=== PATIENT | female | born 1940 | race Caucasian/White ===

== ENCOUNTER 2017-03-03 01:37 | Outpatient (CLI) | payer BC ==
--- NOTE | 2017-03-03 10:22 | MMO ---
SCREENING MAMMOGRAPHY: Date: 03-03-17 Comparison: 02-27-16, 03-22-15, 03-23-14 History: Screening. This study is interpreted with the assistance of computer aided detection. FINDINGS: There are scattered fibroglandular densities present. There are benign microcalcifications noted bila terally. IMPRESSION: BIRADS 2 - benign findings. Recommend annual screening mammography. POS: [facility]
== END 2017-03-03 01:38 | disposition home or self-care (01) ==
LOC: SCSMAMMO 01:37
PROVIDERS: ATTEND Obstetrics & Gynecology
DX: Z12.31 Encounter for screening mammogram for malignant neoplasm of breast (principal)
CPT/HCPCS: 77067; G0202

== ENCOUNTER 2017-07-19 08:05 | Outpatient (CLI) | payer BC ==
[2017-07-19] MEDS ORDERED: Iopamidol 370 76% 100 ML VIAL ONE (09:27)
== END 2017-07-19 08:06 | disposition home or self-care (01) ==
LOC: BICCT 08:05
PROVIDERS: ATTEND Internal Medicine
DX: I65.29 Occlusion and stenosis of unspecified carotid artery (principal); I65.23 Occlusion and stenosis of bilateral carotid arteries; E04.9 Nontoxic goiter, unspecified
CPT/HCPCS: 70498

== ENCOUNTER 2017-12-29 09:49 | Outpatient (CLI) | payer BC ==
--- NOTE | 2017-12-29 10:21 | RAD ---
CHEST 2 VIEWS: History Hemoptysis. FINDINGS: Cardiac silhouette and pulmonary vasculature are unremarkable. Mediastinum is midline with aortic ca lcification and postoperative changes. Lungs are well inflated. No confluent airspace consolidation , pneumothorax, or pleural fluid. IMPRESSION: 1. Atherosclerosis. 2. No active cardiopulmonary abnormalities are otherwise demonstrated. POS: [facility]
== END 2017-12-29 09:50 | disposition home or self-care (01) ==
LOC: RAD 09:49
PROVIDERS: ATTEND Internal Medicine Cardiovascular Disease
DX: R04.2 Hemoptysis (principal); I70.90 Unspecified atherosclerosis
CPT/HCPCS: 36415; 71046; 80048; 85025

== ENCOUNTER 2018-04-14 08:43 | Outpatient (CLI) | payer BC | END 2018-04-14 08:44 | disposition home or self-care (01) | LOC: BICMAMMO 08:43 | PROVIDERS: ATTEND Obstetrics & Gynecology | DX: Z12.31 Encounter for screening mammogram for malignant neoplasm of breast (principal); Z80.3 Family history of malignant neoplasm of breast | CPT/HCPCS: 77063; 77067 ==

== ENCOUNTER 2018-07-29 08:47 | Outpatient (CLI) | payer BC ==
--- NOTE | 2018-07-29 09:38 | BD ---
DEXA BONE MINERAL DENSITY STUDY: HISTORY: Osteoporosis. COMPARISON: DEXA study from 2010. FINDINGS: Lumbar Spine: BMD (g/cm2) L1 0.828 T-Score: -1.5 0.7 L2 0.859 T-Score: -1.5 0.9 L3 0.960 T-Score: -1.1 1.4 L4 0.981 T-Score: -1.7 1.9 L1-L4 0.913 T-Score: -1.2 1.2 WHO classification of osteopenia. Bone mineral density is slightly decreased from 2010. Femoral Neck: 0.731 T-Score: -1.1 1.1 Total Femur: 0.931 T-Score: -0.1 1.7 WHO classification osteopenia. Bone mineral density is slightly decreased from the comparison examin ation. TEN-YEAR Fracture Risk: Major osteoporotic fracture 11% and hip fracture 1.8%. Impression: Osteopenia with fracture risk as above. POS: [facility]
== END 2018-07-29 08:48 | disposition home or self-care (01) ==
LOC: BICMAMMO 08:47
PROVIDERS: ATTEND Internal Medicine Gastroenterology
DX: M81.0 Age-related osteoporosis without current pathological fracture (principal)
CPT/HCPCS: 77080

== ENCOUNTER 2018-08-15 11:30 | Outpatient (CLI) | payer BC ==
[2018-08-15 13:00] LABS: #Eosinphils 0.1 thou/uL (0.0-0.7); #Lymphocytes 1.3 thou/uL (1.20-3.40); #Monocytes 0.6 thou/uL (0.11-0.59); #Neutrophils 4.1 thou/uL (1.40-6.50); %Basophils 0.2 % (0.0-1.0); %Eosinophils 1.1 % (0.0-10.0); %Lymphocytes 20.7 % (21.0-51.0); %Monocytes 10.5 % (0.0-10.0); %Neutrophils 67.5 % (42.0-75.0); Hemoglobin 10.8 g/dL (12.0-16.0); Mean Corpuscular HGB CONC 33.3 g/dL (32.0-36.0); Mean Corpuscular Hemoglobin 33.6 pg (27.0-31.0); Mean Platelet Volume 7.9 fL (7.4-10.4); Platelet Count 340 thou/uL (130-400); RBC Distribution Width 12.7 % (11.5-14.5); Red Blood Cell (RBC) Count 3.21 mill/uL (4.20-5.40); White Blood Cell (WBC) Count 6.1 thou/uL (4.8-10.8)
[2018-08-15 13:06] LABS: PTT 44.7 SEC (22.9-36.1); Prothrombin Time 22.9 SEC (12.0-14.7)
[2018-08-15 13:32] LABS: Anion Gap 11 mmol/L (10-20); BUN (Urea Nitrogen) 26 mg/dL (9.8-20.1); Calc. Creatinine Clearance 0 mL/min (70-130); Calcium 8.8 mg/dL (7.8-10.44); Carbon Dioxide 28 mmol/L (23-31); Chloride 96 mmol/L (98-107); Estimated GFR-MDRD 28; Glucose 80 mg/dL (83-110); Potassium 3.5 mmol/L (3.5-5.1); Sodium 131 mmol/L (136-145)
== END 2018-08-15 11:31 | disposition home or self-care (01) ==
LOC: LABBT 11:30
PROVIDERS: ATTEND Internal Medicine Cardiovascular Disease
DX: Z01.812 Encounter for preprocedural laboratory examination (principal); I48.91 Unspecified atrial fibrillation
CPT/HCPCS: 80048; 85025; 85610; 85730

== ENCOUNTER 2018-08-16 08:45 | Day surgery (SDC) | payer BC ==
[2018-08-15 11:54] VITALS: BMI 25.8
[2018-08-16] MEDS ORDERED: Glycopyrrolate 0.2 MG/ML 5 ML SYRINGE ONE (09:18)
[2018-08-16] MEDS ORDERED: PROPOFOL 20 ML ONE (09:19)
[2018-08-16] MEDS ORDERED: PROPOFOL 200 MG/20 ML VIAL ONE (15:12)
--- NOTE | 2018-08-16 16:44 | OP ---
DATE OF PROCEDURE: 08/16/18 INDICATIONS: Persistent atrial fibrillation, highly symptomatic. SURGEON: William Salter M.D. PROCEDURE: Cardioversion The patient is brought to the Recovery Room in the fasting state. She was sedated by anesthesia. She was given a 200 joule direct current energy dose and converted to sinus rhythm with PVCs. Some accele rated idioventricular rhythms, PACs and finally sinus with some PACs. CONCLUSIONS: Successful cardioversion.
== END 2018-08-16 10:52 | disposition home or self-care (01) ==
LOC: CCL 08:45
PROVIDERS: ATTEND Internal Medicine Cardiovascular Disease
PROC: 5A2204Z Restoration of Cardiac Rhythm, Single (ICD-10-PCS; principal; 2018-08-16)
DX: I48.1 Persistent atrial fibrillation (principal); I25.10 Atherosclerotic heart disease of native coronary artery without angina pectoris; I10 Essential (primary) hypertension; E78.00 Pure hypercholesterolemia, unspecified; I49.3 Ventricular premature depolarization; Z79.01 Long term (current) use of anticoagulants; Z79.2 Long term (current) use of antibiotics; Z79.899 Other long term (current) drug therapy; Z88.8 Allergy status to other drugs, medicaments and biological substances; Z91.048 Other nonmedicinal substance allergy status; Z95.1 Presence of aortocoronary bypass graft; Z98.890 Other specified postprocedural states
CPT/HCPCS: 92960; J2704

== ENCOUNTER 2018-12-30 06:37 | Day surgery (SDC) | payer BC ==
[2018-12-29 13:26] VITALS: BMI 25.3
[2018-12-30 07:43] LABS: #Basophils 0.1 thou/uL (0.0-0.2); #Eosinphils 0.1 thou/uL (0.0-0.7); #Lymphocytes 1.1 thou/uL (1.20-3.40); #Monocytes 0.6 thou/uL (0.11-0.59); #Neutrophils 3.6 thou/uL (1.40-6.50); %Basophils 1.2 % (0.0-1.0); %Eosinophils 1.1 % (0.0-10.0); %Lymphocytes 20.3 % (21.0-51.0); %Monocytes 11.1 % (0.0-10.0); %Neutrophils 66.3 % (42.0-75.0); Hemoglobin 10.6 g/dL (12.0-16.0); Mean Corpuscular HGB CONC 34.2 g/dL (32.0-36.0); Mean Corpuscular Hemoglobin 34.3 pg (27.0-31.0); Mean Platelet Volume 7.5 fL (7.4-10.4); Platelet Count 278 thou/uL (130-400); RBC Distribution Width 12.8 % (11.5-14.5); Red Blood Cell (RBC) Count 3.08 mill/uL (4.20-5.40); White Blood Cell (WBC) Count 5.4 thou/uL (4.8-10.8)
[2018-12-30 07:48] LABS: INR-International Normal Ratio 1.6; Prothrombin Time 19.2 SEC (12.0-14.7)
[2018-12-30 07:49] LABS: PTT 38.3 SEC (22.9-36.1)
[2018-12-30 08:09] LABS: Anion Gap 10 mmol/L (10-20); BUN (Urea Nitrogen) 12 mg/dL (9.8-20.1); Calc. Creatinine Clearance 52 mL/min (70-130); Calcium 9.1 mg/dL (7.8-10.44); Carbon Dioxide 29 mmol/L (23-31); Chloride 98 mmol/L (98-107); Estimated GFR-MDRD 50; Glucose 93 mg/dL (83-110); Potassium 3.3 mmol/L (3.5-5.1); Sodium 134 mmol/L (136-145)
--- NOTE | 2018-12-30 14:54 | OP ---
DATE OF PROCEDURE: 12/30/2018 INDICATION FOR PROCEDURE: Persistent atypical atrial flutter. PROCEDURE TO BE PERFORMED: Direct current cardioversion. MEDICATIONS: As per Anesthesia. COMPLICATIONS: None. DESCRIPTION OF PROCEDURE: After informed consent was obtained and the patient confirmed that she has been on oral anticoagulation without restriction. She has a history of left atrial appendage isolation. The patient was sedated, anteroposterior pads were placed. Once sedated, a synchronized 200 Joules delivery was provided restoring her back to sinus mechanism. IMPRESSION: Successful cardioversion to sinus mechanism. RECOMMENDATION: The importance of staying on Eliquis and oral anticoagulation in the setting of left atrial appendage, isolation was discussed at length with the patient and family. We will plan on seeing her back in followup in 4 weeks. PRINCIPAL DIAGNOSIS: Atypical atrial flutter. PRINCIPAL PROCEDURE: Direct current cardioversion. Job ID: [id number]
--- NOTE | 2018-12-30 16:55 | EKG ---
Test Reason : VT-CARDIOVERSION Blood Pressure : / mmHG Vent. Rate : 099 BPM Atrial Rate : 227 BPM P-R Int : 000 ms QRS Dur : 086 ms QT Int : 356 ms P-R-T Axes : 000 -37 -12 degrees QTc Int : 456 ms Atrial flutter with variable A-V block Left axis deviation Nonspecific ST abnormality Abnormal ECG When compared with ECG of 06-FEB-2016 13:25, Atrial flutter has replaced Sinus rhythm Confirmed by DR. Dyana PATEL ([id number]) on 12/30/2018 4:54:56 PM Referred By: WILMA Confirmed By:DR. Dyana PATEL
--- NOTE | 2018-12-31 07:53 | DIS ---
DATE OF ADMISSION: 12/30/2018 DATE OF DISCHARGE: 12/30/2018 HISTORY OF PRESENT ILLNESS: Ms. Bedolla is a pleasant 78-year-old lady, who has had 2 times of ablation now for atrial fibrillation, she presents in an atypical atrial flutter and comes in for cardioversion today. She reports that she is on adequate and diligent oral anticoagulation with Eliquis. She was consented and a synchronized 200 joules cardioversion was performed restoring her back to sinus mechanism. PRINCIPAL DIAGNOSIS: Atypical atrial flutter. PRINCIPAL PROCEDURE: Direct current cardioversion. RECOMMENDATIONS: The patient will be discharged home in good condition. Advised to follow a heart healthy diet. Activity otherwise as directed and will follow up in 4 weeks. She will maintain her current medications including her Eliquis. Activity as tolerated. Job ID: [id number]
== END 2018-12-30 09:30 | disposition home or self-care (01) ==
LOC: CCL 06:37
PROVIDERS: ATTEND Internal Medicine Cardiovascular Disease
PROC: 5A2204Z Restoration of Cardiac Rhythm, Single (ICD-10-PCS; principal; 2018-12-30)
DX: I48.4 Atypical atrial flutter (principal); I25.10 Atherosclerotic heart disease of native coronary artery without angina pectoris; I10 Essential (primary) hypertension; Z79.01 Long term (current) use of anticoagulants; Z79.82 Long term (current) use of aspirin; Z79.899 Other long term (current) drug therapy; Z88.1 Allergy status to other antibiotic agents; Z91.048 Other nonmedicinal substance allergy status; Z95.1 Presence of aortocoronary bypass graft
CPT/HCPCS: 80048; 85025; 85610; 85730; 92960; 93005; 93010

== ENCOUNTER 2019-05-25 05:56 | Day surgery (SDC) | payer MEDICARE ==
[2019-05-19 08:51] VITALS: BMI 25.0
[2019-05-25] MEDS ORDERED: PROPOFOL 20 ML ONE ×2 (07:15→07:48)
[2019-05-25] MEDS ORDERED: Ketamine 50 MG/ML (10ML VIAL) ONE (07:15)
[2019-05-25 07:43] LABS: Hemoglobin 10.6 g/dL (12.0-16.0); Red Blood Cell (RBC) Count 3.12 mill/uL (4.20-5.40)
[2019-05-25 07:46] LABS: INR-International Normal Ratio 1.7; PTT 35.4 SEC (22.9-36.1); Prothrombin Time 19.5 SEC (12.0-14.7)
[2019-05-25 07:58] LABS: Anion Gap 13 mmol/L (10-20); BUN (Urea Nitrogen) 18 mg/dL (9.8-20.1); Calc. Creatinine Clearance 49 mL/min (70-130); Carbon Dioxide 29 mmol/L (23-31); Chloride 101 mmol/L (98-107); Estimated GFR-MDRD 47; Glucose 99 mg/dL (83-110); Potassium 3.5 mmol/L (3.5-5.1); Sodium 139 mmol/L (136-145)
[2019-05-25 08:01] LABS: #Basophils 0.1 thou/uL (0.0-0.2); #Eosinphils 0.1 thou/uL (0.0-0.7); #Lymphocytes 1.4 thou/uL (1.20-3.40); #Monocytes 0.9 thou/uL (0.11-0.59); #Neutrophils 4.6 thou/uL (1.40-6.50); %Basophils 1.2 % (0.0-1.0); %Eosinophils 1.1 % (0.0-10.0); %Lymphocytes 20.4 % (21.0-51.0); %Monocytes 12.2 % (0.0-10.0); %Neutrophils 65.1 % (42.0-75.0); Anisocytosis SLIGHT = 6-15 cells (100X) (0-5/hpf); MDiff Complete? YES; Macrocytosis SLIGHT = 6-15 cells (100X) (0-5/hpf); Mean Corpuscular HGB CONC 31.9 g/dL (32.0-36.0); Mean Corpuscular Hemoglobin 33.8 pg (27.0-31.0); Mean Platelet Volume 8.3 fL (7.4-10.4); Platelet Count 260 thou/uL (130-400); Poikilocytosis SLIGHT = 6-15 cells (100X) (0-5/hpf); RBC Distribution Width 12.9 % (11.5-14.5)
--- NOTE | 2019-05-25 20:36 | ECHO ---
DATE OF SERVICE: 05/25/19 REFERRING PHYSICIAN: Dr. William Salter; Dr. Basurto REASON FOR PROCEDURE: The patient is a 78-year-old female with prior history of atrial fibrillation and ablations in the past who has had a Watchman device placed about six weeks ago. She is here for a ESTRELLITA six weeks post Watchman device placement. PROCEDURE: The patient received Propofol by Anesthesia specialist. After adequate level of sedation achieved, a standard transesophageal echocardiogram probe was passed into the esophagus without difficulty. Patient tolerated the procedure well, no complications noted. RESULTS: Left atrium is moderately enlarged about 5.2 cm in horizontal diameter. The left atrial appendage well visualized with adequately seated Watchman device in place. Suboptimal opacification in the left atrial appendage behind the Watchman device is noted. Color flow Doppler reveals flow through the mesh work of the device. Possible small leak adjacent to the ridge is also seen. Two left sided pulmonary veins early trifurcated right sided pulmonary veins are seen without stenosis. The mitral valve has mild regurgitation. Aortic valve is sclerotic but not stenotic and not regurgitant. Tricuspid valve has moderate regurgitation. Peak TR velocity is about 2.5 m/s. The pulmonary valve is borderline visualized and appears to be normal. Left ventricular systolic function appears normal with normal chamber sizes, mild LVH. The right ventricle also has mild hypertrophy. No pericardial effusion is identified. The visualized portion of ascending and descending aorta without aneurysm or dissection. Adherent atheroma seen in the descending portion of the aorta. Interatrial and interventricular septum is free of defect. CONCLUSION: 1. Adequately seated but suboptimally sealed Watchman device in place. 2. Moderate left atrial enlargement. 3. Normal left ventricular systolic function. 4. Moderate tricuspid and mild mitral regurgitation seen. 5. Aortic atheroma noted. PLAN: For now continue oral anticoagulation. We will send CDs for review to [facility]. ADDENDUM: Patient is in 2:1 atrial flutter but 8 to 10 beats per minute. For now continue beta thalia therapy and consider cardioversion at a later date. [facility] HEALTH SYSTEMAgustín
== END 2019-05-25 09:44 | disposition home or self-care (01) ==
LOC: CCL 05:56
PROVIDERS: ATTEND Internal Medicine Cardiovascular Disease
PROC: B24BZZ4 Ultrasonography of Heart with Aorta, Transesophageal (ICD-10-PCS; principal; 2019-05-25)
DX: I48.91 Unspecified atrial fibrillation (principal); I08.1 Rheumatic disorders of both mitral and tricuspid valves; I70.0 Atherosclerosis of aorta; I48.92 Unspecified atrial flutter; Z79.01 Long term (current) use of anticoagulants; Z79.82 Long term (current) use of aspirin; Z79.899 Other long term (current) drug therapy; Z88.8 Allergy status to other drugs, medicaments and biological substances; Z91.048 Other nonmedicinal substance allergy status; Z95.1 Presence of aortocoronary bypass graft; Z95.818 Presence of other cardiac implants and grafts; Z98.890 Other specified postprocedural states
CPT/HCPCS: 36415; 80048; 85025; 85610; 85730; 93005; 93010; 93312; J2704

== ENCOUNTER 2019-06-07 07:56 | Day surgery (SDC) | payer MEDICARE ==
[2019-06-06 10:26] VITALS: BMI 25.7
[2019-06-07 08:39] LABS: #Eosinphils 0.1 thou/uL (0.0-0.7); #Lymphocytes 1.2 thou/uL (1.20-3.40); #Monocytes 0.9 thou/uL (0.11-0.59); #Neutrophils 6.7 thou/uL (1.40-6.50); %Basophils 0.3 % (0.0-1.0); %Eosinophils 0.6 % (0.0-10.0); %Lymphocytes 13.7 % (21.0-51.0); %Monocytes 9.6 % (0.0-10.0); %Neutrophils 75.8 % (42.0-75.0); Hemoglobin 9.7 g/dL (12.0-16.0); Mean Corpuscular HGB CONC 33.8 g/dL (32.0-36.0); Mean Corpuscular Hemoglobin 35.1 pg (27.0-31.0); Mean Platelet Volume 8.4 fL (7.4-10.4); Platelet Count 327 thou/uL (130-400); RBC Distribution Width 12.9 % (11.5-14.5); Red Blood Cell (RBC) Count 2.76 mill/uL (4.20-5.40); White Blood Cell (WBC) Count 8.9 thou/uL (4.8-10.8)
[2019-06-07 08:45] LABS: INR-International Normal Ratio 2.2; PTT 45.4 SEC (22.9-36.1); Prothrombin Time 24.3 SEC (12.0-14.7)
[2019-06-07 08:51] LABS: Anion Gap 15 mmol/L (10-20); BUN (Urea Nitrogen) 21 mg/dL (9.8-20.1); Calc. Creatinine Clearance 38 mL/min (70-130); Calcium 9.2 mg/dL (7.8-10.44); Carbon Dioxide 28 mmol/L (23-31); Chloride 100 mmol/L (98-107); Estimated GFR-MDRD 34; Glucose 107 mg/dL (83-110); Potassium 3.8 mmol/L (3.5-5.1); Sodium 139 mmol/L (136-145)
[2019-06-07] MEDS ORDERED: PROPOFOL 20 ML ONE (09:51)
--- NOTE | 2019-06-07 12:13 | OP ---
DATE OF PROCEDURE: 06/07/2019 PROCEDURE PERFORMED: Electrical cardioversion. REASON FOR PROCEDURE: Ms. Bedolla is a 78-year-old female with history of persistent atrial fibrillation, post ablation of appendage, watchman procedure performed with a minor leak subsequently. She is on full anticoagulation, has recurrent atrial arrhythmias. She is here for a cardioversion. DESCRIPTION OF PROCEDURE: The patient received propofol by Anesthesia specialist. After adequate level of sedation achieved, a synchronized 70-joule shock promptly converted the patient back to sinus rhythm with frequent ectopy in the 90s. CONCLUSION: Successful cardioversion. PLAN: Continue with anticoagulation. We will consider repeat ESTRELLITA in about 3 months to recheck the leak around the watchman device. Consider antiarrhythmic agents or re-ablation if recurrent symptomatic atrial fibrillation is seen. Job ID: [id number]
--- NOTE | 2019-06-08 12:27 | EKG ---
Test Reason : PRE-CARDIOVERSION Blood Pressure : / mmHG Vent. Rate : 116 BPM Atrial Rate : 108 BPM P-R Int : 000 ms QRS Dur : 086 ms QT Int : 304 ms P-R-T Axes : 000 -40 096 degrees QTc Int : 422 ms Atrial fibrillation with rapid ventricular response Left axis deviation Nonspecific ST and T wave abnormality Abnormal ECG Confirmed by JOSE ANDERSON ([id number]) on 06/08/2019 12:26:52 PM Referred By: MOUSTAPHA Confirmed By:JOSE ANDERSON
== END 2019-06-07 11:26 | disposition home or self-care (01) ==
LOC: CCL 07:56
PROVIDERS: ATTEND Internal Medicine Cardiovascular Disease
PROC: 5A2204Z Restoration of Cardiac Rhythm, Single (ICD-10-PCS; principal; 2019-06-07)
DX: I48.19 Other persistent atrial fibrillation (principal); D69.6 Thrombocytopenia, unspecified; I25.10 Atherosclerotic heart disease of native coronary artery without angina pectoris; I10 Essential (primary) hypertension; G47.30 Sleep apnea, unspecified; Z79.01 Long term (current) use of anticoagulants; Z79.82 Long term (current) use of aspirin; Z79.899 Other long term (current) drug therapy; Z88.8 Allergy status to other drugs, medicaments and biological substances; Z91.048 Other nonmedicinal substance allergy status; Z95.1 Presence of aortocoronary bypass graft; Z95.818 Presence of other cardiac implants and grafts
CPT/HCPCS: 80048; 85025; 85610; 85730; 92960; 93005; 93010; J2704

== ENCOUNTER 2019-09-29 09:24 | Outpatient (CLI) | payer MEDICARE ==
[2019-09-29] MEDS ORDERED: Iopamidol-370 76% 500 ML 1 ML ONE (09:27)
--- NOTE | 2019-09-29 14:59 | CT ---
CTA OF THE CHEST WITH CONTRAST: 09/29/19 COMPARISON: None. HISTORY: Watchman occlusive device placed March 2019. Evaluate for thrombosis of the left atrial appendage. TECHNIQUE: Multiple contiguous axial images were obtained in a CTA of the chest with contrast. Sagittal and brittanie nal reformats were performed. FINDINGS: There is adequate timing of the contrast bolus. Global cardiomegaly is seen. Calcifications are seen in the coronary arteries. There is an atrial occlusive device in the left atrial appendage. There melissa ears to be contrast within the atrial appendage opposite of the left atrium from the occlusive device consistent with incomplete occlusion of the left atrial appendage. There are trace bilateral pleural effusions with adjacent atelectasis. Emphysematous changes are seen throughout the lungs. No suspicious pulmonary mass is seen. Degenerative changes are seen in the spine. The patient is status post sternotomy. The chest wall sof t tissues are unremarkable. There is a hypodensity in the right kidney which likely represents a cyst . There is mild splenomegaly. The other visualized subdiaphragmatic structures are unremarkable. IMPRESSION: 1. Incomplete occlusion of the atrial appendage by the Watchman atrial occlusive device. 2. Trace bilateral pleural effusions with adjacent atelectasis. 3. Emphysema. POS: [facility]
== END 2019-09-29 09:25 | disposition home or self-care (01) ==
LOC: BICCT 09:24
PROVIDERS: ATTEND Internal Medicine Cardiovascular Disease
DX: I48.91 Unspecified atrial fibrillation (principal); R06.02 Shortness of breath; J43.9 Emphysema, unspecified; I25.10 Atherosclerotic heart disease of native coronary artery without angina pectoris
CPT/HCPCS: 71275; 82565; Q9967

== ENCOUNTER 2019-10-18 15:15 | Outpatient (CLI) | payer MEDICARE ==
--- NOTE | 2019-10-18 15:41 | RAD ---
EXAM: Two views chest PROVIDED CLINICAL HISTORY: Hemoptysis. COMPARISON: 12/29/2017 FINDINGS: Median sternotomy wires are again seen. A watchman occlusion device overlies region of the left atria l appendage. The cardiac silhouette is mildly enlarged. The pulmonary vasculature is within normal limits. No consolidation or pleural fluid is seen. Vascular calcifications are seen in the thoracic a katt. There has been no interval change compared to prior exam. IMPRESSION: 1. No acute cardiopulmonary process. 2. Cardiomegaly..
== END 2019-10-18 15:16 | disposition home or self-care (01) ==
LOC: BICRAD 15:15
PROVIDERS: ATTEND Internal Medicine Cardiovascular Disease
DX: R04.2 Hemoptysis (principal); I51.7 Cardiomegaly
CPT/HCPCS: 71046

== ENCOUNTER 2019-10-24 12:19 | Outpatient (CLI) | payer MEDICARE, OTHER ==
[2019-10-24 14:12] LABS: #Lymphocytes 0.9 thou/uL (1.20-3.40); #Monocytes 0.5 thou/uL (0.11-0.59); #Neutrophils 3.8 thou/uL (1.40-6.50); %Basophils 0.3 % (0.0-1.0); %Eosinophils 0.5 % (0.0-10.0); %Lymphocytes 17.4 % (21.0-51.0); %Neutrophils 71.8 % (42.0-75.0); Hemoglobin 8.5 g/dL (12.0-16.0); Mean Corpuscular HGB CONC 32.3 g/dL (32.0-36.0); Mean Corpuscular Hemoglobin 31.1 pg (27.0-31.0); Mean Platelet Volume 8.9 fL (7.4-10.4); Platelet Count 212 thou/uL (130-400); RBC Distribution Width 14.9 % (11.5-14.5); Red Blood Cell (RBC) Count 2.74 mill/uL (4.20-5.40); White Blood Cell (WBC) Count 5.3 thou/uL (4.8-10.8)
[2019-10-24 14:33] LABS: Anion Gap 12 mmol/L (10-20); BUN (Urea Nitrogen) 20 mg/dL (9.8-20.1); Calc. Creatinine Clearance 0 mL/min (70-130); Calcium 8.8 mg/dL (7.8-10.44); Carbon Dioxide 29 mmol/L (23-31); Chloride 101 mmol/L (98-107); Estimated GFR-MDRD 36; Glucose 106 mg/dL (83-110); Potassium 4.1 mmol/L (3.5-5.1); Sodium 138 mmol/L (136-145)
[2019-10-25 12:50] LABS: SARS-CoV-2 MS2 Positive; SARS-CoV-2 N Gene Negative; SARS-CoV-2 S Gene Negative; SARS-CoV-2 orf1ab Negative
== END 2019-10-24 12:20 | disposition home or self-care (01) ==
LOC: LABBT 12:19
PROVIDERS: ATTEND Internal Medicine Cardiovascular Disease
DX: Z01.812 Encounter for preprocedural laboratory examination (principal); Z11.59 Encounter for screening for other viral diseases
CPT/HCPCS: 80048; 85025; U0003; 87635

== ENCOUNTER 2019-10-27 06:04 | Day surgery (SDC) | payer MEDICARE ==
[2019-10-26 09:37] VITALS: BMI 24.7
[2019-10-27] MEDS ORDERED: Lidocaine 1% (PF) 30 ML VIAL ONE (06:38)
[2019-10-27] MEDS ORDERED: PROPOFOL 20 ML ONE (07:25)
[2019-10-27] MEDS ORDERED: Iron, Sodium Ferric Gluconate 250 MG in Sodium Chloride 0.9% 100 ML IVPB SCH (07:45)
[2019-10-27] MEDS ORDERED: Potassium Chloride 20 MEQ TAB PO SCH (08:00)
[2019-10-27] MEDS ORDERED: Furosemide 20 MG/2 ML VIAL SLOW IVP SCH (08:00)
[2019-10-27] MEDS ORDERED: Furosemide 20 MG/2 ML VIAL ONE (08:12)
--- NOTE | 2019-10-28 16:37 | CCLSPC ---
PROCEDURE: Cardioversion. Patient is brought to the post cath area in the fasting state. She was difficult to get IV access, but with some diligence and perseverance, the Anesthesia was able to establish an intravenous line. The patient was given sedation and given 200 joules direct current energy. She had transient wide-complex rhythm for a few seconds, then frequent PVCs, now sinus rhythm. The wide-complex rhythm looks like an accelerated idioventricular rhythm. CONCLUSION: 1. Persistent atrial fibrillation. 2. Successful cardioversion. 3. The patient is also iron deficient and has a very great difficulty getting IV access, so we will give her a dose of intravenous iron here today and we are going to take her off the aspirin and leave her on the Eliquis. Job ID: [id number]
== END 2019-10-27 10:13 | disposition home or self-care (01) ==
LOC: CCL 06:04
PROVIDERS: ATTEND Internal Medicine Cardiovascular Disease
PROC: 5A2204Z Restoration of Cardiac Rhythm, Single (ICD-10-PCS; principal; 2019-10-27)
DX: I48.0 Paroxysmal atrial fibrillation (principal); D50.8 Other iron deficiency anemias; I25.10 Atherosclerotic heart disease of native coronary artery without angina pectoris; I11.0 Hypertensive heart disease with heart failure; I50.32 Chronic diastolic (congestive) heart failure; C94.6 Myelodysplastic disease, not elsewhere classified; E78.00 Pure hypercholesterolemia, unspecified; N28.9 Disorder of kidney and ureter, unspecified; E87.1 Hypo-osmolality and hyponatremia; I49.3 Ventricular premature depolarization; E87.6 Hypokalemia; I34.0 Nonrheumatic mitral (valve) insufficiency; Z79.01 Long term (current) use of anticoagulants; Z79.82 Long term (current) use of aspirin; Z79.899 Other long term (current) drug therapy; Z88.1 Allergy status to other antibiotic agents; Z91.048 Other nonmedicinal substance allergy status; Z95.1 Presence of aortocoronary bypass graft
CPT/HCPCS: 92960; 93005; 93010; J1940; J2001; J2704; J2916; J3490

== ENCOUNTER 2019-10-28 01:28 | Emergency (ER) | payer MEDICARE ==
[2019-10-28 02:11] LABS: #Lymphocytes 1.1 thou/uL (1.20-3.40); #Monocytes 0.7 thou/uL (0.11-0.59); %Basophils 0.2 % (0.0-1.0); %Eosinophils 0.5 % (0.0-10.0); %Lymphocytes 13.7 % (21.0-51.0); %Monocytes 9.3 % (0.0-10.0); %Neutrophils 76.3 % (42.0-75.0); Hemoglobin 9.1 g/dL (12.0-16.0); Mean Corpuscular Hemoglobin 31.2 pg (27.0-31.0); Mean Corpuscular Volume 94.4 fL (78.0-98.0); Mean Platelet Volume 9.6 fL (7.4-10.4); Platelet Count 259 thou/uL (130-400); White Blood Cell (WBC) Count 7.9 thou/uL (4.8-10.8)
[2019-10-28 02:36] LABS: ALT (SGPT) 18 U/L (8-55); AST (SGOT) 29 U/L (5-34); Alkaline Phosphatase 66 U/L (40-110); Anion Gap 17 mmol/L (10-20); BUN (Urea Nitrogen) 24 mg/dL (9.8-20.1); Bilirubin, Total 1.2 mg/dL (0.2-1.2); CK (CPK) 71 U/L (29-168); Calc. Creatinine Clearance 0 mL/min (70-130); Calcium 9.2 mg/dL (7.8-10.44); Carbon Dioxide 24 mmol/L (23-31); Chloride 99 mmol/L (98-107); Estimated GFR-MDRD 27; Globulin 2.5 g/dL (2.4-3.5); Glucose 159 mg/dL (83-110); Potassium 4.5 mmol/L (3.5-5.1); Protein, Total 6.5 g/dL (6.0-8.3); Sodium 135 mmol/L (136-145)
[2019-10-28 03:01] LABS: Bilirubin Small (Negative); Blood, Urine Trace (Negative); Clarity Slightly Cloudy (Clear); Glucose, Urine (Dipstick) Negative (Negative); Ketone, Urine Trace mg/dL (Negative); Leukocyte Negative (Negative); Nitrite Negative (Negative); Protein, Urine (Dipstick) Trace mg/dL (Neg-Trace)
[2019-10-28 03:02] LABS: Bacteria/HPF None Seen HPF (None Seen); Other Microscopic Description Less than 2 mL rec'd; RBC/HPF 0-3 HPF (0-3); WBC/HPF 0-3 HPF (0-3)
--- NOTE | 2019-10-28 08:19 | RAD ---
RADIOGRAPH CHEST 1 VIEW: DATE: 10/28/2019 TIME: 2:15 AM HISTORY: 79-year-old female with dyspnea and atrial fibrillation. COMPARISON: 10/18/2019 FINDINGS: Small bilateral pleural effusions appear larger on the current study compared to prior. Cardiomegaly is again noted. Pulmonary venous congestion. Interstitial densities at the lower lung thomson appear worse, perhaps due to shallow inspiration, or alternatively perhaps representing pulmonary interstiti al edema. No pneumothorax. Sternotomy wires. IMPRESSION: Apparent interval worsening of small pleural effusions and possible pulmonary interstitial edema: Alta dence for congestive heart failure
== END 2019-10-28 03:17 | disposition home or self-care (01) ==
LOC: ERS 01:28
DX: I11.0 Hypertensive heart disease with heart failure (principal); I50.9 Heart failure, unspecified; R06.00 Dyspnea, unspecified; I48.91 Unspecified atrial fibrillation
CPT/HCPCS: 36415; 71045; 80053; 81003; 81015; 82550; 83880; 84484; 85025; 93005

== ENCOUNTER 2019-12-27 23:40 | Inpatient (IN) | payer MEDICARE, OTHER ==
[2019-12-28 00:28] LABS: #Eosinphils 0.1 thou/uL (0.0-0.7); #Monocytes 0.7 thou/uL (0.11-0.59); #Neutrophils 5.5 thou/uL (1.40-6.50); %Basophils 0.5 % (0.0-1.0); %Eosinophils 0.7 % (0.0-10.0); %Lymphocytes 13.2 % (21.0-51.0); %Neutrophils 75.6 % (42.0-75.0); Hemoglobin 9.3 g/dL (12.0-16.0); Mean Corpuscular HGB CONC 32.2 g/dL (32.0-36.0); Mean Corpuscular Hemoglobin 33.2 pg (27.0-31.0); Mean Platelet Volume 8.9 fL (7.4-10.4); Platelet Count 265 thou/uL (130-400); RBC Distribution Width 18.1 % (11.5-14.5); White Blood Cell (WBC) Count 7.2 thou/uL (4.8-10.8)
--- NOTE | 2019-12-28 00:36 | RAD ---
RADIOGRAPH CHEST 1 VIEW: DATE: 12/28/2019 12:22 AM HISTORY: 79-year-old female with atrial fibrillation presents with acute chest pain FINDINGS: There are no airspace densities, pulmonary edema, pneumothorax, or cardiomegaly. The lateral costophr enic angles are bilaterally blunted. There are sternotomy wires. Metallic coils in left atrial appendage. IMPRESSION: 1. Small bilateral pleural effusions. 2. Status post coronary artery bypass graft surgery. 3. Status post left atrial closure procedure.
[2019-12-28 00:50] LABS: ALT (SGPT) 17 U/L (8-55); AST (SGOT) 22 U/L (5-34); Albumin 3.5 g/dL (3.4-4.8); Alkaline Phosphatase 52 U/L (40-110); Anion Gap 16 mmol/L (10-20); BUN (Urea Nitrogen) 38 mg/dL (9.8-20.1); Bilirubin, Total 0.5 mg/dL (0.2-1.2); Calc. Creatinine Clearance 0 mL/min (70-130); Calcium 8.7 mg/dL (7.8-10.44); Carbon Dioxide 22 mmol/L (23-31); Chloride 103 mmol/L (98-107); Estimated GFR-MDRD 25; Globulin 2.3 g/dL (2.4-3.5); Glucose 136 mg/dL (83-110); Magnesium 1.7 mg/dL (1.6-2.6); Potassium 4.2 mmol/L (3.5-5.1); Protein, Total 5.8 g/dL (6.0-8.3); Sodium 137 mmol/L (136-145)
[2019-12-28] MEDS ORDERED: Aspirin Chewable 81 MG TAB ONE (01:26)
[2019-12-28] MEDS ORDERED: Torsemide 20 MG TAB PO SCH (01:45)
[2019-12-28] MEDS ORDERED: Haloperidol Lactate 5 MG/ML VIAL ONE (01:45)
[2019-12-28] MEDS ORDERED: Furosemide 40 MG/4 ML VIAL ONE (01:53)
[2019-12-28] MEDS ORDERED: Lorazepam 2 MG/ML VIAL ONE ×2 (01:54→03:04)
[2019-12-28 05:23] VITALS: BMI 26.6
[2019-12-28 05:51] LABS: Critical Call Chem Troponin I RESULT DECREASING; Troponin I 0.544 ng/mL (< 0.028)
--- NOTE | 2019-12-28 06:03 | PDOC.HHP ---
Hospitalist HPI - History of Present Illness Shortness of breath History of Present Illness: Patient is a 79 year old female with PMH afib w/ ablation earlier this month and watchman, CHF diastolic, CAD s/p CABG, myeloproliferative disorder, HTN, HLD who presents from home for shortness of breath x 1 day, patient was at home and developed symptoms and daughter brought to ED, here afib RVR found w/ HR 170s, got cardizem 20mg IV and converted back to sinus.BPs marginal 90/50 afterwards. TnI 0.559. Given ASA/torsemide, EKG without acute changes, I was consulted for admission. Patient sees Dr Katz, last echo was a ESTRELLITA, normal systolic function w/ watchman device in place, moderate tricuspid and mitral regurgitation. Patient reports she has pedal edema worse than normal, given ASA/lasix, admitted for further care. Hospitalist ROS - Review of Systems Constitutional: reports: weakness. denies: fever, chills, sweats, malaise, other Eyes: denies: pain, vision change, conjunctivae inflammation, eyelid inflammation, redness, other ENT: denies: ear pain, ear discharge, nose pain, nose discharge, nose congestion , mouth pain, mouth swelling, throat pain, throat swelling, other Respiratory: reports: shortness of breath. denies: cough, dry, hemoptysis, SOB with excertion, pleuritic pain, sputum, wheezing, other Cardiovascular: denies: chest pain, palpitations, orthopnea, paroxysmal noc. dyspnea, edema, light headedness, other Gastrointestinal: denies: nausea, vomiting, abdominal pain, diarrhea, constipation, melena, hematochezia, other Genitourinary: denies: dysuria, frequency, incontinence, hematuria, retention, other Musculoskeletal: denies: neck pain, shoulder pain, arm pain, back pain, hand pain, leg pain, foot pain, other Skin: denies: rash, lesions, nelly, bruising, other Neurological: denies: weakness, numbness, incoordination, change in speech, confusion, seizures, other All other systems reviewed; all pertinent +/- noted in HPI/Subj Hospitalist History - Past Medical History Other Medical History: afib w/ ablation earlier this month and watchman, CHF diastolic, CAD s/p CABG, myeloproliferative disorder, HTN, HLD - Past Surgical History Past Surgical History: reports: CABG Other Surgical History: cabg, afib w/ ablations, watchman, cardioversions. tubal ligation, - Family History Family History: reports: no pertinent history - Social History Alcohol: reports: None Drugs: reports: none - Exam General Appearance: NAD, awake alert Eye: PERRL, anicteric sclera ENT: normocephalic atraumatic, no oropharyngeal lesions, moist mucosa Neck: supple, symmetric, no JVD, no thyromegaly, no lymphadenopathy, no carotid bruit Heart: RRR, no murmur, no gallops, no rubs, normal peripheral pulses Respiratory: CTAB, no wheezes, no rales, no ronchi, normal chest expansion, no tachypnea, normal percussion Gastrointestinal: soft, non-tender, non-distended, normal bowel sounds, no palpable masses, no hepatomegaly, no splenomegaly, no bruit Extremities: no cyanosis, no clubbing, no edema Skin: normal turgor, no lesions, no rashes Neurological: cranial nerve grossly intact, normal sensation to touch, no weakness, no focal deficits, no new deficit Musculoskeletal: normal tone, normal strength, no muscle wasting Psychiatric: normal affect, normal behavior, A&O x 3 Hospitalist Results - Labs Result Diagrams: 12/28/19 00:21 12/28/19 00:21 Lab results: WBC 7.2 thou/uL (4.8-10.8) 12/28/19 00:21 Hgb 9.3 g/dL (12.0-16.0) L 12/28/19 00:21 Hct 28.8 % (36.0-47.0) L 12/28/19 00:21 MCV 103.0 fL (78.0-98.0) H 12/28/19 00:21 Plt Count 265 thou/uL (130-400) 12/28/19 00:21 Neutrophils % 75.6 % (42.0-75.0) H 12/28/19 00:21 Sodium 137 mmol/L (136-145) 12/28/19 00:21 Potassium 4.2 mmol/L (3.5-5.1) 12/28/19 00:21 Chloride 103 mmol/L (98-107) 12/28/19 00:21 Carbon Dioxide 22 mmol/L (23-31) L 12/28/19 00:21 BUN 38 mg/dL (9.8-20.1) H 12/28/19 00:21 Creatinine 1.91 mg/dL (0.6-1.1) H 12/28/19 00:21 Glucose 136 mg/dL (83-110) H 12/28/19 00:21 Calcium 8.7 mg/dL (7.8-10.44) 12/28/19 00:21 Total Bilirubin 0.5 mg/dL (0.2-1.2) 12/28/19 00:21 AST 22 U/L (5-34) 12/28/19 00:21 ALT 17 U/L (8-55) 12/28/19 00:21 Alkaline Phosphatase 52 U/L (40-110) 12/28/19 00:21 CK-MB (CK-2) 2.0 ng/mL (0-6.6) 12/28/19 00:21 Troponin I 0.544 ng/mL (< 0.028) H* 12/28/19 05:00 B-Natriuretic Peptide 1134.3 pg/mL (0-100) H 12/28/19 00:21 Serum Total Protein 5.8 g/dL (6.0-8.3) L 12/28/19 00:21 Albumin 3.5 g/dL (3.4-4.8) 12/28/19 00:21 Additional comment: all ED documents, vitals, labs, imaging/EKG reports reviewed Hospitalist H&P A/P - Plan Plan: Patient is a 79 year old female with PMH afib w/ ablation earlier this month and watchman, CHF diastolic, CAD s/p CABG, myeloproliferative disorder, HTN, HLD who presents from home for shortness of breath x 1 day. # afib w/ ablation earlier this month and watchman # acute and chronic diastolic CHF # CAD s/p CABG # possible NSTEMI # history of myeloproliferative disorder # HTN # HLD patient was at home and developed symptoms and daughter brought to ED, here afib RVR found w/ HR 170s, got cardizem 20mg IV and converted back to sinus, BPs marginal 90/50 afterwards. TnI 0.559. Given ASA/torsemide, EKG without acute changes. Patient sees Dr Katz, last echo in system was a ESTRELLITA, normal systolic function w/ watchman device in place, moderate tricuspid and mitral regurgitation. Patient reports she has pedal edema worse than normal, given ASA/lasix, admitted for further care. - admit to telemetry - IV lasix - continue home meds, asa. no lovenox as patient is on eliquis - consult cardiology Dr Salter DVT/GI ppx
[2019-12-28] MEDS ORDERED: Guaifenesin DM 100-10/5 ML UDCUP PO PRN (06:48)
[2019-12-28] MEDS ORDERED: cloNIDine 0.1 MG TAB PO PRN (06:48)
[2019-12-28] MEDS ORDERED: Promethazine HCl 12.5 MG in Sodium Chloride 0.9% 50 ML IVPB PRN (06:48)
[2019-12-28] MEDS ORDERED: Labetalol HCl 100 MG/20 ML VIAL SLOW IVP PRN (06:48)
[2019-12-28] MEDS ORDERED: hydrALAZINE 20 MG/ML VIAL SLOW IVP PRN (06:48)
[2019-12-28] MEDS ORDERED: Morphine 2 MG/ML VIAL SLOW IVP PRN (06:48)
[2019-12-28] MEDS ORDERED: Ondansetron PF 4 MG/2 ML Vial IVP PRN (06:48)
[2019-12-28] MEDS ORDERED: Acetaminophen 325 MG TAB PO PRN (06:48)
[2019-12-28] MEDS ORDERED: Electrolyte Replacement Protoc 1 EACH EACH FS SCH (07:00)
[2019-12-28] MEDS ORDERED: Electrolyte Replacement Protocol FS PRN (07:45)
[2019-12-28 08:10] LABS: Troponin I 0.544 ng/mL (< 0.028)
[2019-12-28] MEDS: Aspirin 81 mg Enteric Coated Tablet PO SCH (08:40)
[2019-12-28] MEDS: Bupropion 150 MG XL TAB PO SCH (08:40)
[2019-12-28] MEDS: Hydroxyurea 500 MG CAP PO SCH (08:40)
[2019-12-28] MEDS: Carvedilol 25 MG TAB PO SCH ×2 (08:40→16:17)
[2019-12-28] MEDS: Famotidine 20 MG TAB PO SCH ×2 (08:41→21:34)
[2019-12-28] MEDS ORDERED: Magnesium 2 GM/50 ML 2 GM in Premix Bag 1 BAG IVPB SCH (08:45)
[2019-12-28] MEDS ORDERED: Apixaban 5 MG TAB PO SCH ×2 (09:00→10:15)
--- NOTE | 2019-12-28 12:32 | CON ---
DATE OF CONSULTATION: 12/28/2019 REASON FOR CONSULTATION: Congestive heart failure, [id number] infarction, atrial arrhythmias, previous bypass surgery. HISTORY OF PRESENT ILLNESS: Ms. Bedolla is a very pleasant 79-year-old woman. She has a previous history of coronary artery disease, this will be outlined below. The patient has been having progressive problem with atrial arrhythmias. I just spoke with the patient's daughter and she had an atrial fibrillation ablation done in [place], she thinks on December 06. Also, coils were placed in the Watchman to try to close off the Watchman device. The patient came to the hospital last night with difficulty breathing, found to be in congestive heart failure, also had increased troponin levels. No chest pain. PAST MEDICAL HISTORY: Previous history of coronary artery bypass grafting. The patient had bypass surgery in 2003, bypass x5, internal mammary to the LAD, saphenous vein graft to diagonal, saphenous vein graft to distal circumflex and right coronary artery, right radial to the ramus . It was noted at that time, small clips were placed to henry the proximal anastomosis. Three vein anastomosis performed on the aortic root and the [place] of the OM anastomosis. The right radial was placed to one of the vein grafts. The patient has continued to have shortness of breath, diastolic heart failure, and also anemia. MEDICATIONS: 1. Eliquis. 2. Carvedilol. 3. Potassium. 4. Pravastatin. 5. Torsemide. 6. Lisinopril. I believe she is also on aspirin. We will need to double check that, but there has been problem with anemia, so we are not certain if she is taking aspirin, we will need to check on that. REVIEW OF SYSTEMS: Really not reliable as her memory has gotten so impaired. She really cannot tell me specifically, but she denies chest pain, pressure, heaviness, or squeezing. The patient does not recall when or where she had this atrial fibrillation ablation. I got this information from the daughter as Ms. Bedolla's memory has gotten progressively more impaired. PAST SURGICAL HISTORY: As outlined above. SOCIAL HISTORY: No alcohol or tobacco. She has a daughter, who is extremely involved in her care and very helpful. PHYSICAL EXAMINATION: GENERAL: She is alert and oriented. VITAL SIGNS: Blood pressure 145/80, pulse 90. LUNGS: Clear. CARDIAC: Normal S1, normal S2. ABDOMEN: Soft, nontender. EXTREMITIES: No clubbing or cyanosis. There is moderate edema. DIAGNOSTIC DATA: The EKG looks like atrial tachycardia or atrial flutter with ventricular rates in the 80s. There is incomplete right bundle-branch block pattern with a left axis deviation. ASSESSMENT: 1. Diastolic congestive heart failure, acute on chronic with BNP 1134. 2. Recent atrial fibrillation ablation, it looks like atrial tachycardia. 3. Increased troponin, [id number] infarction. 4. Previous bypass surgery. 5. History of anemia. PLAN: 1. In view of the recent atrial fibrillation ablation, need to continue the Eliquis. 2. Could consider cardioversion for the atrial flutter. 3. Dr. Hamilton is also being consulted. 4. She is back on aspirin. 5. We will continue to follow with you. Long-term prognosis guarded in this patient with multiple severe medical problems. I discussed the situation over the phone with the patient's daughter as outlined above. Job ID: [id number]
[2019-12-28 12:38] LABS: SARS-CoV-2 MS2 Positive; SARS-CoV-2 N Gene Negative; SARS-CoV-2 S Gene Negative; SARS-CoV-2 by NAA Not Detected (NotDetected); SARS-CoV-2 orf1ab Negative
[2019-12-28] MEDS: Furosemide 100 MG/10 ML VIAL SLOW IVP SCH (14:59)
[2019-12-28] MEDS: Apixaban 5 MG TAB PO SCH (21:34)
[2019-12-28] MEDS: Lisinopril 10 MG TAB PO SCH (21:34)
[2019-12-28] MEDS: Simvastatin 10 MG TAB PO SCH (21:34)
[2019-12-29] MEDS ORDERED: Diltiazem 125 MG in Sodium Chloride 0.9% 100 ML IVPB SCH (05:00)
[2019-12-29 05:12] LABS: #Eosinphils 0.1 thou/uL (0.0-0.7); #Lymphocytes 1.1 thou/uL (1.20-3.40); #Monocytes 0.6 thou/uL (0.11-0.59); #Neutrophils 4.2 thou/uL (1.40-6.50); %Eosinophils 1.2 % (0.0-10.0); %Lymphocytes 17.8 % (21.0-51.0); %Monocytes 10.7 % (0.0-10.0); %Neutrophils 70.2 % (42.0-75.0); Hemoglobin 9.5 g/dL (12.0-16.0); Mean Corpuscular HGB CONC 31.7 g/dL (32.0-36.0); Mean Corpuscular Hemoglobin 32.4 pg (27.0-31.0); Mean Platelet Volume 8.5 fL (7.4-10.4); Platelet Count 252 thou/uL (130-400); RBC Distribution Width 17.8 % (11.5-14.5); Red Blood Cell (RBC) Count 2.92 mill/uL (4.20-5.40)
[2019-12-29 05:37] LABS: Anion Gap 16 mmol/L (10-20); BUN (Urea Nitrogen) 28 mg/dL (9.8-20.1); Calc. Creatinine Clearance 42 mL/min (70-130); Calcium 8.7 mg/dL (7.8-10.44); Carbon Dioxide 25 mmol/L (23-31); Chloride 101 mmol/L (98-107); Estimated GFR-MDRD 38; Glucose 101 mg/dL (83-110); Potassium 3.5 mmol/L (3.5-5.1); Sodium 138 mmol/L (136-145)
[2019-12-29] MEDS ORDERED: Potassium Chloride 20 MEQ TAB PO SCH (05:45)
[2019-12-29] MEDS ORDERED: Magnesium 2 GM/50 ML 2 GM in Premix Bag 1 BAG IVPB SCH (06:00)
[2019-12-29] MEDS: Furosemide 100 MG/10 ML VIAL SLOW IVP SCH ×2 (06:44→13:28)
--- NOTE | 2019-12-29 08:27 | PDOC.HOSPP ---
- Subjective Encounter Date: 12/29/19 Encounter Time: 08:25 Subjective: Reports feeling better. Denies chest pain, palpitations, or shortness of breath. Good UOP - Objective Vital Signs & Weight: Vital Signs (12 hours) Temp Pulse Resp BP BP BP Pulse Ox 12/29/19 07:53 97.5 F L 125 H 16 149/83 H 97 12/29/19 05:00 96.2 F L 148 H 16 106/79 98 12/29/19 00:00 97.7 F 105 H 16 146/80 H 98 12/28/19 21:34 144/85 H Weight Weight 169 lb 12.095 oz I&O: 12/28/19 12/29/19 12/30/19 06:59 06:59 06:59 Intake Total 879 Output Total 3575 Balance -1636 Result Diagrams: 12/29/19 04:59 12/29/19 04:59 Hospitalist ROS - Review of Systems Constitutional: reports: weakness. denies: fever, chills Respiratory: denies: cough, shortness of breath, SOB with excertion Cardiovascular: reports: edema. denies: chest pain, palpitations Gastrointestinal: denies: nausea, vomiting, abdominal pain, diarrhea Genitourinary: denies: dysuria, frequency Musculoskeletal: denies: neck pain, shoulder pain Skin: denies: rash Neurological: reports: weakness - Medication Medications: Active Medications Generic Name Dose Route Start Last Admin Trade Name Freq PRN Reason Stop Dose Admin Apixaban 5 mg 12/28/19 21:00 12/28/19 21:34 Eliquis PO 5 mg BID SOLO Administration Aspirin 81 mg 12/28/19 09:00 12/28/19 08:40 Ecotrin PO 81 mg DAILY SOLO Administration Bupropion HCl 150 mg 12/28/19 09:00 12/28/19 08:40 Wellbutrin Xl PO 150 mg QAM SOLO Administration Carvedilol 50 mg 12/28/19 08:00 12/28/19 16:17 Coreg PO 50 mg BID-WM SOLO Administration Famotidine 20 mg 12/28/19 09:00 12/28/19 21:34 Pepcid PO 20 mg BID SOLO Administration Furosemide 60 mg 12/28/19 14:00 12/29/19 06:44 Lasix SLOW IVP 60 mg 0600,1400 SOLO Administration Hydroxyurea 500 mg 12/28/19 09:00 12/28/19 08:40 Hydrea PO 500 mg DAILY SOLO Administration Diltiazem HCl 125 mg/ Sodium 125 mls @ 5 mls/hr 12/29/19 05:00 12/29/19 05:22 Chloride IVPB 125 mls INF SOLO Administration Protocol 5 MG/HR Lisinopril 10 mg 12/28/19 21:00 12/28/19 21:34 Zestril PO 10 mg HS SOLO Administration Simvastatin 10 mg 12/28/19 21:00 12/28/19 21:34 Zocor PO 10 mg HS SOLO Administration - Exam General Appearance: NAD, awake alert Eye: PERRL, anicteric sclera ENT: normocephalic atraumatic, moist mucosa Neck: no JVD Heart: no murmur Heart - other findings: tachycardia Respiratory: CTAB, no wheezes, normal chest expansion Gastrointestinal: soft, non-tender, non-distended Extremities: 1+ LE edema Musculoskeletal: normal tone Psychiatric: normal affect, normal behavior, oriented to person, oriented to place Hosp A/P - Plan 79 yo female PMH afib w/ ablation earlier this month and watchman, CHF diastolic , CAD s/p CABG, myeloproliferative d/o, HTN, admitted for a-fib with RVR and HR in 170's. received cardizem 20mg IV in ED and converted to sinus. Patient follows with Dr. Salter, last echo 05/2019 was a ESTRELLITA, normal systolic function with watchman device in place, mod tricuspid and mitral regurgitation. Admitted to telemetry Plan: # afib w/ ablation earlier this month and watchman # acute and chronic diastolic CHF # CAD s/p CABG # possible NSTEMI # history of myeloproliferative disorder # HTN # HLD - cardiology consulted- Dr. Salter following - EP consulted- Dr. Hamilton - continue diuresis with IV lasix 60 mg BID - net -1636 mL, improved BLE edema - trop elevated on admission 0.559-->0.544 - continue home meds, asa. no lovenox as patient is on eliquis - titrated to 5mg diltiazem IV gtt Dispo: f/u with EP recommendations, continue to titrate diltiazem, continue diuresis
[2019-12-29] MEDS: Hydroxyurea 500 MG CAP PO SCH (09:38)
[2019-12-29] MEDS: Apixaban 5 MG TAB PO SCH ×2 (09:38→22:17)
[2019-12-29] MEDS: Famotidine 20 MG TAB PO SCH ×2 (09:38→22:17)
[2019-12-29] MEDS: Carvedilol 25 MG TAB PO SCH ×2 (09:38→16:51)
[2019-12-29] MEDS: Bupropion 150 MG XL TAB PO SCH (09:38)
[2019-12-29] MEDS: Aspirin 81 mg Enteric Coated Tablet PO SCH (09:38)
[2019-12-29] MEDS ORDERED: PROPOFOL 40 ML ONE (09:59)
--- NOTE | 2019-12-29 10:48 | CON ---
DATE OF CONSULTATION: 12/28/2019 REFERRING PHYSICIANS: 1. Benji Salter MD. I am seeing Mrs. Mulu Bedolla at the [facility] telemtry floor for the following problems: 1. Recurrent atrial arrhythmiae, with history of 3 prior ablations including ablation of left atrial appendage; Last ablation performed on 2019. 2. Left appendage isolation status post Watchman placement 04/06/2019. A small leak prompting a coronary procedure on 12/13/2019. 3. Coronary artery disease with prior bypass grafting surgery in 2003, x 5 vessels. 4. ESTRELLITA from 05/25/2019 revealed normal left ventricular systolic function, moderate left atrial enlargement, moderate TR, mild MR. 5. Hypertension. 6. History of sleep apnea. 7. Mild dementia. ALLERGIES: ERYTHROMYCIN. MEDICATIONS: At home included: 1. Vitamin D3. 2. Pravastatin. 3. Lisinopril. 4. Torsemide. 5. Bupropion/Wellbutrin. 6. Apixaban. 7. Hydrea. 8. Coreg. 9. Potassium chloride. SUBJECTIVE: Mrs. Bedolla is being readmitted with palpitations. She has recently undergone a repeat EP study ablation after Watchman device coiling procedure by Dr. Caldera on 12/12/2019. Since then, she has done well, but now has some difficulty with breathing, CHF, and increased troponin levels were noted. No true chest pains. Her EKG was suggestive of atrial tachycardia with ventricular rate in the 80s. At this point, she is doing fair. She is being diuresed and less short of breath. Her palpitations also improved. She denied current stroke-like symptoms or bleeding issues. No fever, chills, or cough. REVIEW OF SYSTEMS: Rest of 12-point system otherwise unremarkable. PAST MEDICAL HISTORY: As above. She has history of myeloproliferative disorder , hypertension, hyperlipidemia. PAST SURGICAL HISTORY: Includes the bypass surgery, ablations, Watchman device, cardioversions, tubal ligation. FAMILY HISTORY: Not contributory. OBJECTIVE DATA: VITAL SIGNS: Blood pressure 142/81, heart rate 105, respiratory rate 16, temperature 97.8 degrees Fahrenheit. GENERAL: Alert and oriented woman, in no apparent distress. NECK: Supple. Jugular veins slightly distended. CHEST: Coarse without crackles. HEART: Sounds are irregularly irregular. S1 and S2 variable. No murmur or gallop. ABDOMEN: Benign. Bowel sounds positive. EXTREMITIES: Lower extremity without clubbing or cyanosis. NEUROLOGIC: The patient is nonfocal. MUSCULOSKELETAL: No joint swelling or deformity. SKIN: Without rash. DATABASE: EKG reviewed, reveals atrial tachycardia with cycle length of 360 milliseconds, 2-1 AV conduction was seen with increments of 90 beats per minute. LABORATORY DATA: White cell count 7.2, hemoglobin 9.3, platelet count 265. Sodium 137, potassium 4.2, BUN 38, creatinine 1.91. Chest x-ray from 12/27/2019 revealed small bilateral pleural effusions, coronary artery bypass graft surgery, left atrial closure procedure, artifact noted. ASSESSMENT AND PLAN: Ms. Bedolla is a pleasant 79-year-old woman with history of recurrent atrial arrhythmias, status post repeat left atrial ablation procedure. She also has diastolic heart failure and coronary artery disease. She is currently admitted with diastolic heart failure. She has undergone an ablation procedure and repeat left atrial appendage manipulation require closure of the previously placed above Watchman device. Reason for her diastolic heart failure is not entirely clear. She could be fluid overloaded with elevated BNP on presentation. Her blood pressure control could play a role. Recurrence of atrial arrhythmia also could contribute today. My plan will be: 1. Regarding her recurrent atrial arrhythmia, now that she has been diuresed could be considered for a cardioversion. As recent Watchman device coiling, a ESTRELLITA might be reasonable to perform at this time. 2. Anticoagulation currently continued. Should the Watchman device be fully sealed, she may be able to transition to aspirin only. 3. Diastolic heart failure with improving diuresis, blood pressure control, management as per Dr. Salter. 4. History of coronary artery disease, currently stable and mildly elevated troponin, possibly due to the recent ablation versus the heart failure exacerbation likely not true myocardial infarction. 5. We will follow up with you. Job ID: [id number] [id number]
[2019-12-29] MEDS ORDERED: PROPOFOL 200 MG/20 ML VIAL ONE (11:46)
[2019-12-29] MEDS ORDERED: Dronedarone HCl 400 MG TAB PO SCH ×2 (12:15→17:00)
--- NOTE | 2019-12-29 15:18 | CON ---
NEUROLOGY CONSULTATION DATE OF CONSULTATION: 12/29/2019 REASON FOR CONSULTATION: Altered mental status/memory lapses. HISTORY OF PRESENT ILLNESS: A 79-year-old female with medical history significant for atrial fibrillation with ablation earlier this month, congestive heart failure, chronic coronary artery disease, status post CABG, myeloproliferative disorder, hyperlipidemia, hypertension, presented to the hospital on 12/28/2019 with shortness of breath for one day. In the emergency room, she was found to be in atrial fibrillation with RVR with heart rate in 170s. She was given Cardizem and was admitted for further management. The daughter is extremely concerned because there has been progressive memory decline since the last few months and recently she also complained of memory lapses, during which she does not remember part of the conversation during the day. The patient denies any nausea, vomiting, or headache. She does report shortness of breath. She denies focal weakness, focal paresthesias, dizziness, vertigo, loss of vision, speech or swallowing issues, any abnormal body movements, or abdominal pain associated with the episode. Neurology was consulted because of memory issues, which have been getting progressively worse recently. - Review of Systems Constitutional: reports: weakness. denies: fever, chills, sweats, malaise, other Eyes: denies: pain, vision change, conjunctivae inflammation, eyelid inflammation, redness, other ENT: denies: ear pain, ear discharge, nose pain, nose discharge, nose congestion , mouth pain, mouth swelling, throat pain, throat swelling, other Respiratory: reports: shortness of breath. denies: cough, dry, hemoptysis, SOB with excertion, pleuritic pain, sputum, wheezing, other Cardiovascular: denies: chest pain, palpitations, orthopnea, paroxysmal noc. dyspnea, edema, light headedness, other Gastrointestinal: denies: nausea, vomiting, abdominal pain, diarrhea, constipation, melena, hematochezia, other Genitourinary: denies: dysuria, frequency, incontinence, hematuria, retention, other Musculoskeletal: denies: neck pain, shoulder pain, arm pain, back pain, hand pain, leg pain, foot pain, other Skin: denies: rash, lesions, nelly, bruising, other Neurological: denies: weakness, numbness, incoordination, change in speech, confusion, seizures, other All other systems reviewed; all pertinent +/- noted in HPI/Subj PAST MEDICAL HISTORY: Atrial fibrillation with ablation earlier this month and Watchman, diastolic congestive heart failure, coronary artery disease, myeloproliferative disorder, hyperlipidemia, hypertension. PAST SURGICAL HISTORY: CABG. FAMILY HISTORY: No family history of stroke. SOCIAL HISTORY: The patient denies smoking, alcohol, or illegal drug use. ALLERGIES: Adhesive, erythromycin base Objective Vital Signs & Weight: Vital Signs (12 hours) Temp Pulse Resp BP BP BP Pulse Ox 12/29/19 07:53 97.5 F L 125 H 16 149/83 H 97 12/29/19 05:00 96.2 F L 148 H 16 106/79 98 12/29/19 00:00 97.7 F 105 H 16 146/80 H 98 12/28/19 21:34 144/85 H Weight Weight 169 lb 12.095 oz I&O: 12/28/19 12/29/19 12/30/19 06:59 06:59 06:59 Intake Total 879 Output Total 2515 Balance -1636 Active Medications Generic Name Dose Route Start Last Admin Trade Name Iftikhar PRN Reason Stop Dose Admin Apixaban 5 mg 12/28/19 21:00 12/28/19 21:34 Eliquis PO 5 mg BID SOLO Administration Aspirin 81 mg 12/28/19 09:00 12/28/19 08:40 Ecotrin PO 81 mg DAILY SOLO Administration Bupropion HCl 150 mg 12/28/19 09:00 12/28/19 08:40 Wellbutrin Xl PO 150 mg QAM SOLO Administration Carvedilol 50 mg 12/28/19 08:00 12/28/19 16:17 Coreg PO 50 mg BID-WM SOLO Administration Famotidine 20 mg 12/28/19 09:00 12/28/19 21:34 Pepcid PO 20 mg BID SOLO Administration Furosemide 60 mg 12/28/19 14:00 12/29/19 06:44 Lasix SLOW IVP 60 mg 0600,1400 SOLO Administration Hydroxyurea 500 mg 12/28/19 09:00 12/28/19 08:40 Hydrea PO 500 mg DAILY SOLO Administration Diltiazem HCl 125 mg/ Sodium 125 mls @ 5 mls/hr 12/29/19 05:00 12/29/19 05:22 Chloride IVPB 125 mls INF SOLO Administration Protocol 5 MG/HR Lisinopril 10 mg 12/28/19 21:00 12/28/19 21:34 Zestril PO 10 mg HS SOLO Administration Simvastatin 10 mg 12/28/19 21:00 12/28/19 21:34 Zocor PO 10 mg HS SOLO Administration - Exam General Appearance: NAD, awake alert Eye: PERRL, anicteric sclera ENT: normocephalic atraumatic, no oropharyngeal lesions, moist mucosa Neck: supple, symmetric, no JVD, no thyromegaly, no lymphadenopathy, no carotid bruit Heart: RRR, no murmur, no gallops, no rubs, normal peripheral pulses Respiratory: CTAB, no wheezes, no rales, no ronchi, normal chest expansion, no tachypnea, normal percussion Gastrointestinal: soft, non-tender, non-distended, normal bowel sounds, no palpable masses, no hepatomegaly, no splenomegaly, no bruit Extremities: no cyanosis, no clubbing, no edema Skin: normal turgor, no lesions, no rashes Neurological: Mental status: The patient is alert and oriented to person, place, and time. Speech is clear. Fund of knowledge is appropriate. Cranial nerves 2 through 12 intact. Motor: Muscle tone and bulk are normal. Strength is 5/5 bilaterally. Sensory is intact. Cerebellar and finger-nose testing intact. Gait, deferred due to the patient's safety reason. DATA REVIEWED: I reviewed the labs, which were significant for anemia, hemoglobin 9.3, hematocrit 28.8, and renal insufficiency. BUN 38 and creatinine 1.91. Hyperglycemia at 136. Lab results: WBC 7.2 thou/uL (4.8-10.8) 12/28/19 00:21 Hgb 9.3 g/dL (12.0-16.0) L 12/28/19 00:21 Hct 28.8 % (36.0-47.0) L 12/28/19 00:21 MCV 103.0 fL (78.0-98.0) H 12/28/19 00:21 Plt Count 265 thou/uL (130-400) 12/28/19 00:21 Neutrophils % 75.6 % (42.0-75.0) H 12/28/19 00:21 Sodium 137 mmol/L (136-145) 12/28/19 00:21 Potassium 4.2 mmol/L (3.5-5.1) 12/28/19 00:21 Chloride 103 mmol/L (98-107) 12/28/19 00:21 Carbon Dioxide 22 mmol/L (23-31) L 12/28/19 00:21 BUN 38 mg/dL (9.8-20.1) H 12/28/19 00:21 Creatinine 1.91 mg/dL (0.6-1.1) H 12/28/19 00:21 Glucose 136 mg/dL (83-110) H 12/28/19 00:21 Calcium 8.7 mg/dL (7.8-10.44) 12/28/19 00:21 Total Bilirubin 0.5 mg/dL (0.2-1.2) 12/28/19 00:21 AST 22 U/L (5-34) 12/28/19 00:21 ALT 17 U/L (8-55) 12/28/19 00:21 Alkaline Phosphatase 52 U/L (40-110) 12/28/19 00:21 CK-MB (CK-2) 2.0 ng/mL (0-6.6) 12/28/19 00:21 Troponin I 0.544 ng/mL (< 0.028) H* 12/28/19 05:00 B-Natriuretic Peptide 1134.3 pg/mL (0-100) H 12/28/19 00:21 Serum Total Protein 5.8 g/dL (6.0-8.3) L 12/28/19 00:21 Albumin 3.5 g/dL (3.4-4.8) 12/28/19 00:21 ASSESSMENT AND PLAN: Ms. Bedolla is a 79-year-old female with medical history significant for atrial fibrillation with ablation, congestive heart failure, coronary artery disease, status post coronary artery bypass grafting, myeloproliferative disorder, hypertension, hyperlipidemia, presented with shortness of breath and possible non-ST elevation myocardial infarction. Cardiology is on board. Neurology was consulted for progressive decline in memory. Consider electroencephalogram to rule out underlying cortical irritability. Consider MRI of the brain to rule out acute intracranial process or chronic small-vessel disease to rule out multi-infarct vascular dementia. She may need detailed neuropsychological testing as outpatient. Neuro checks every 4 hours. Continue home medications. Continue medical management per primary team and Cardiology. Plan discussed in detail with the patient and also with the daughter. We will continue to follow. Thank you for the consult. Job ID: [id number] MEGAN
[2019-12-29] MEDS: Dronedarone HCl 400 MG TAB PO SCH (16:53)
[2019-12-29] MEDS: Lisinopril 10 MG TAB PO SCH (22:18)
[2019-12-29] MEDS: Simvastatin 10 MG TAB PO SCH (22:22)
[2019-12-30] MEDS: Furosemide 100 MG/10 ML VIAL SLOW IVP SCH ×2 (06:01→14:12)
[2019-12-30] MEDS: Carvedilol 25 MG TAB PO SCH ×2 (10:13→16:49)
[2019-12-30] MEDS: Famotidine 20 MG TAB PO SCH ×2 (10:13→20:50)
[2019-12-30] MEDS: Hydroxyurea 500 MG CAP PO SCH (10:13)
[2019-12-30] MEDS: Apixaban 5 MG TAB PO SCH ×2 (10:13→20:50)
[2019-12-30] MEDS: Bupropion 150 MG XL TAB PO SCH (10:13)
[2019-12-30] MEDS: Aspirin 81 mg Enteric Coated Tablet PO SCH (10:13)
[2019-12-30] MEDS: Dronedarone HCl 400 MG TAB PO SCH ×2 (10:14→16:49)
--- NOTE | 2019-12-30 11:28 | PRG ---
DATE OF SERVICE: 12/30/2019 SUBJECTIVE: Ms. Bedolla feels somewhat better today, just feels weak. There is no chest pain or shortness of breath. OBJECTIVE: VITAL SIGNS: Her blood pressure 148/69, pulse 80 and it is regular. LUNGS: Clear. CARDIAC: Normal S1, normal S2. ASSESSMENT: 1. Recent atrial fibrillation ablation. 2. Recurrent atrial tachycardia, requiring cardioversion. 3. Atrial appendage coiling with still very small leak. PLAN: 1. She has been started on low-dose Multaq, higher dose caused nausea in the past. 2. Carvedilol. 3. Apixaban. 4. Aspirin. 5. Furosemide. I do not think she is in heart failure now, we will reduce dose. 6. Need to try to get her up and around, some cardiac rehab, looks like it is going to be necessary. Job ID: [id number]
--- NOTE | 2019-12-30 11:35 | OP ---
DATE OF PROCEDURE: 12/29/2019 PROCEDURE PERFORMED: External electrical cardioversion. REASON FOR PROCEDURE: Ms. Bedolla is a 79-year-old female with history of recurrent atrial arrhythmias. She had multiple left atrial ablations, most recently in the end of November. She underwent a ESTRELLITA prior to procedure, demonstrating no clots, but tiny residual flow on the previously implanted Watchman device post coiling at that time. She was on oral anticoagulation, but that failed and cardioversion is planned. DESCRIPTION OF PROCEDURE: The patient received propofol by Anesthesia specialist. After adequate level of sedation achieved, a synchronized 100-joule shock promptly converted the patient back to sinus rhythm 65 beats per minute. No significant ST-T changes noted. CONCLUSION: Successful cardioversion. PLAN: Start sotalol for suppression. Continue monitoring. Job ID: [id number]
[2019-12-30] MEDS ORDERED: Potassium Chloride 20 MEQ TAB PO SCH (12:00)
--- NOTE | 2019-12-30 15:19 | PDOC.NEUPN ---
- Subjective Encounter Date: 12/30/19 Subjective: Patient denies any complaints.EEG normal. - Objective Vital Signs & Weight: Vital Signs (12 hours) Temp Pulse Resp BP Pulse Ox 12/30/19 11:30 97.8 F 78 18 121/58 L 97 12/30/19 07:37 97.6 F 80 18 148/69 H 96 12/30/19 04:00 96.9 F L 75 25 H 130/71 98 Weight Weight 141 lb 9.6 oz I&O: 12/29/19 12/30/19 12/31/19 06:59 06:59 06:59 Intake Total 879 1000 Output Total 9355 1450 Balance -5556 450 Result Diagrams: 12/29/19 04:59 12/29/19 04:59 Radiology Reviewed by me: Yes EKG Reviewed by me: Yes ROS - Review of Systems Constitutional: denies: fever, chills, sweats, weakness, malaise, other Eyes: denies: pain, vision change, conjunctivae inflammation, eyelid inflammation, redness, other ENT: denies: ear pain, ear discharge, nose pain, nose discharge, nose congestion , mouth pain, mouth swelling, throat pain, throat swelling, other Respiratory: reports: cough, shortness of breath, SOB with excertion. denies: dry, hemoptysis, pleuritic pain, sputum, wheezing, other Cardiovascular: denies: no pertinent history, AFIB, CAD, CHF, HTN, OR, Syncope, Hyperlipidemia, Mitral valve stenosis, Aortic stenosis, Valve insufficiency, Pulmonary hypertension, Other Gastrointestinal: denies: nausea, vomiting, abdominal pain, diarrhea, constipation, melena, hematochezia, other Genitourinary: denies: dysuria, frequency, incontinence, hematuria, retention, other Musculoskeletal: denies: neck pain, shoulder pain, arm pain, back pain, hand pain, leg pain, foot pain, other Skin: denies: rash, lesions, nelly, bruising, other Neurological: denies: weakness, numbness, incoordination, change in speech, confusion, seizures, other - Medication Medications: Active Medications Generic Name Dose Route Start Last Admin Trade Name Freq PRN Reason Stop Dose Admin Apixaban 5 mg 12/28/19 21:00 12/30/19 10:13 Eliquis PO 5 mg BID SOLO Administration Aspirin 81 mg 12/28/19 09:00 12/30/19 10:13 Ecotrin PO 81 mg DAILY SOLO Administration Bupropion HCl 150 mg 12/28/19 09:00 12/30/19 10:13 Wellbutrin Xl PO 150 mg QAM SOLO Administration Carvedilol 50 mg 12/28/19 08:00 12/30/19 10:13 Coreg PO 50 mg BID-WM SOLO Administration Dronedarone 200 mg 12/29/19 17:00 12/30/19 10:14 Multaq PO 200 mg BID-WM SOLO Administration Famotidine 20 mg 12/28/19 09:00 12/30/19 10:13 Pepcid PO 20 mg BID SOLO Administration Furosemide 20 mg 12/30/19 14:00 12/30/19 14:12 Lasix SLOW IVP 20 mg 0600,1400 SOLO Administration Hydroxyurea 500 mg 12/28/19 09:00 12/30/19 10:13 Hydrea PO 500 mg DAILY SOLO Administration Diltiazem HCl 125 mg/ Sodium 125 mls @ 5 mls/hr 12/29/19 05:00 12/29/19 05:22 Chloride IVPB 125 mls INF SOLO Administration Protocol 5 MG/HR Lisinopril 10 mg 12/28/19 21:00 12/29/19 22:18 Zestril PO Not Given HS SOLO Simvastatin 10 mg 12/28/19 21:00 12/29/19 22:22 Zocor PO 10 mg HS SOLO Administration - Exam General Appearance: awake alert Eye: PERRL ENT: normocephalic atraumatic Neck: supple Respiratory: CTAB Cardiovascular: RRR Gastrointestinal: soft Extremities: no cyanosis Skin: normal turgor Neurological: CN's grossly intact, normal sensation to touch, no weakness, no focal deficits, no new deficit Musculoskeletal: normal tone, normal strength, no muscle wasting PSYCH: normal affect, normal behavior, A&O x 3 Results - Labs Result Diagrams: 12/29/19 04:59 12/29/19 04:59 Lab results: WBC 6.0 thou/uL (4.8-10.8) 12/29/19 04:59 Hgb 9.5 g/dL (12.0-16.0) L 12/29/19 04:59 Hct 29.9 % (36.0-47.0) L 12/29/19 04:59 MCV 102.0 fL (78.0-98.0) H 12/29/19 04:59 Plt Count 252 thou/uL (130-400) 12/29/19 04:59 Neutrophils % 70.2 % (42.0-75.0) 12/29/19 04:59 Sodium 138 mmol/L (136-145) 12/29/19 04:59 Potassium 3.5 mmol/L (3.5-5.1) 12/29/19 04:59 Chloride 101 mmol/L (98-107) 12/29/19 04:59 Carbon Dioxide 25 mmol/L (23-31) 12/29/19 04:59 BUN 28 mg/dL (9.8-20.1) H 12/29/19 04:59 Creatinine 1.35 mg/dL (0.6-1.1) H 12/29/19 04:59 Glucose 101 mg/dL (83-110) 12/29/19 04:59 Calcium 8.7 mg/dL (7.8-10.44) 12/29/19 04:59 Total Bilirubin 0.5 mg/dL (0.2-1.2) 12/28/19 00:21 AST 22 U/L (5-34) 12/28/19 00:21 ALT 17 U/L (8-55) 12/28/19 00:21 Alkaline Phosphatase 52 U/L (40-110) 12/28/19 00:21 CK-MB (CK-2) 2.0 ng/mL (0-6.6) 12/28/19 00:21 Troponin I 0.544 ng/mL (< 0.028) H* 12/28/19 07:36 B-Natriuretic Peptide 1134.3 pg/mL (0-100) H 12/28/19 00:21 Serum Total Protein 5.8 g/dL (6.0-8.3) L 12/28/19 00:21 Albumin 3.5 g/dL (3.4-4.8) 12/28/19 00:21 PN A/P - Plan 79 year old consulted for memory issues. She is alert and oriented x4. EEG reviewed and was negative for seizure activity. MRI Brain will be done as outpatient. Patient should follow up with neurology as outpatient for extensive dementia work including neuropsychological testing. Continue current management per primary team and cardiology. PT/OT Plan discussed with the patient and the nursing staff
--- NOTE | 2019-12-30 15:25 | EKG ---
Test Reason : Blood Pressure : / mmHG Vent. Rate : 090 BPM Atrial Rate : 090 BPM P-R Int : 196 ms QRS Dur : 086 ms QT Int : 360 ms P-R-T Axes : 098 -49 082 degrees QTc Int : 440 ms Normal sinus rhythm Left anterior fascicular block Nonspecific ST and T wave abnormality Abnormal ECG Confirmed by LESLIE ANDREWS DO ([id number]), editor trade journal SHAHID ALLEN ([id number]) on 12/30/2019 3:24:33 PM Referred By: Confirmed By:LESLIE ANDREWS DO
--- NOTE | 2019-12-30 15:45 | PDOC.HOSPP ---
- Subjective Encounter Date: 12/30/19 Encounter Time: 13:00 Subjective: Patient was seen and examined in bed. She felt better. Denied any chest pain or shortness of breath. Also denied any palpitations. An episode of low blood pressure overnight but currently stabilized. - Objective Vital Signs & Weight: Vital Signs (12 hours) Temp Pulse Resp BP Pulse Ox 12/30/19 11:30 97.8 F 78 18 121/58 L 97 12/30/19 07:37 97.6 F 80 18 148/69 H 96 12/30/19 04:00 96.9 F L 75 25 H 130/71 98 Weight Weight 141 lb 9.6 oz I&O: 12/29/19 12/30/19 12/31/19 06:59 06:59 06:59 Intake Total 879 1000 Output Total 6079 1450 Balance -8458 -450 Result Diagrams: 12/29/19 04:59 12/29/19 04:59 Hospitalist ROS - Medication Medications: Active Medications Generic Name Dose Route Start Last Admin Trade Name Iftikhar PRN Reason Stop Dose Admin Apixaban 5 mg 12/28/19 21:00 12/30/19 10:13 Eliquis PO 5 mg BID SOLO Administration Aspirin 81 mg 12/28/19 09:00 12/30/19 10:13 Ecotrin PO 81 mg DAILY SOLO Administration Bupropion HCl 150 mg 12/28/19 09:00 12/30/19 10:13 Wellbutrin Xl PO 150 mg QAM SOLO Administration Carvedilol 50 mg 12/28/19 08:00 12/30/19 10:13 Coreg PO 50 mg BID-WM SOLO Administration Dronedarone 200 mg 12/29/19 17:00 12/30/19 10:14 Multaq PO 200 mg BID-WM SOLO Administration Famotidine 20 mg 12/28/19 09:00 12/30/19 10:13 Pepcid PO 20 mg BID SOLO Administration Furosemide 20 mg 12/30/19 14:00 12/30/19 14:12 Lasix SLOW IVP 20 mg 0600,1400 SOLO Administration Hydroxyurea 500 mg 12/28/19 09:00 12/30/19 10:13 Hydrea PO 500 mg DAILY SOLO Administration Diltiazem HCl 125 mg/ Sodium 125 mls @ 5 mls/hr 12/29/19 05:00 12/29/19 05:22 Chloride IVPB 125 mls INF SOLO Administration Protocol 5 MG/HR Lisinopril 10 mg 12/28/19 21:00 12/29/19 22:18 Zestril PO Not Given HS SOLO Simvastatin 10 mg 12/28/19 21:00 12/29/19 22:22 Zocor PO 10 mg HS SOLO Administration - Exam General - other findings: Patient is in bed, ill looking but no acute distress. Heart - other findings: S1-S2 present. No murmurs gallops or rubs. Respiratory - other findings: Air entry adequate bilaterally. Gastrointestinal - other findings: Abdomen soft, nontender, nondistended bowel sounds present and normal. Neurological - other findings: No focal deficits. Psychiatric: A&O x 3 Hosp A/P - Plan This is a 79-year-old female patient with a history of essential thrombocytosis, hypertension atrial fibrillation admitted on account of dyspnea and noted to hav e RVR. She is status post cardioversion and generally stable. She is however weak and planning to have PT evaluation and recommendation prior to discharge Atrial fibrillation with RVRon presentation Currently rate controlled She is status post ablation and has watchman procedure. Continue on Cardizem, Multaq dose started on low due to nausea in the past Continue carvedilol and apixaban Acute on chronic diastolic heart failure. We will continue Lasix Monitor electrolytes Possible NSTEMI Stable Myeloproliferative disorder Continue hydroxyurea . Hypertension We will continue Coreg and Lasix Also on lisinopril As needed labetalol BP stable Hyperlipidemia On simvastatin Coronary disease status post CABG Continue aspirin and statin Possible dementia Has worsening memory Neurology followingMRI on discharge follow-up DVT prophylaxistherapeutic on apixaban Dispositionawaiting PT evaluation and placement
[2019-12-30] MEDS: Simvastatin 10 MG TAB PO SCH (20:51)
[2019-12-30] MEDS: Lisinopril 10 MG TAB PO SCH (21:25)
[2019-12-31] MEDS: Furosemide 100 MG/10 ML VIAL SLOW IVP SCH ×2 (05:28→15:09)
[2019-12-31 07:03] LABS: Anion Gap 13 mmol/L (10-20); BUN (Urea Nitrogen) 31 mg/dL (9.8-20.1); Calc. Creatinine Clearance 0 mL/min (70-130); Calcium 8.4 mg/dL (7.8-10.44); Carbon Dioxide 27 mmol/L (23-31); Chloride 101 mmol/L (98-107); Estimated GFR-MDRD 27; Glucose 99 mg/dL (83-110); Potassium 3.9 mmol/L (3.5-5.1); Sodium 137 mmol/L (136-145)
[2019-12-31] MEDS: Bupropion 150 MG XL TAB PO SCH (08:19)
[2019-12-31] MEDS: Dronedarone HCl 400 MG TAB PO SCH ×2 (08:20→17:48)
[2019-12-31] MEDS: Aspirin 81 mg Enteric Coated Tablet PO SCH (08:20)
[2019-12-31] MEDS: Famotidine 20 MG TAB PO SCH ×2 (08:22→20:42)
[2019-12-31] MEDS: Hydroxyurea 500 MG CAP PO SCH (08:22)
[2019-12-31] MEDS: Carvedilol 25 MG TAB PO SCH ×2 (08:23→16:08)
[2019-12-31] MEDS: Apixaban 5 MG TAB PO SCH ×2 (08:23→20:42)
--- NOTE | 2019-12-31 14:43 | PDOC.HOSPP ---
- Subjective Encounter Date: 12/31/19 Encounter Time: 12:00 Subjective: Seen and examined in bed. She feels generally better No significant events overnight - Objective Vital Signs & Weight: Vital Signs (12 hours) Temp Pulse Pulse Pulse Resp BP BP 12/31/19 11:51 97.7 F 68 17 12/31/19 11:22 68 70 102/53 L 109/51 L 12/31/19 07:52 98.2 F 76 18 12/31/19 04:00 98 F 73 20 BP Pulse Ox 12/31/19 11:51 125/55 L 96 12/31/19 11:22 12/31/19 07:52 143/66 H 98 12/31/19 04:00 124/63 97 Weight Weight 5.034 oz I&O: 12/30/19 12/31/19 01/01/20 06:59 06:59 06:59 Intake Total 1000 850 Output Total 1450 Balance -450 850 Result Diagrams: 12/29/19 04:59 12/31/19 06:33 Hospitalist ROS - Medication Medications: Active Medications Generic Name Dose Route Start Last Admin Trade Name Iftikhar PRN Reason Stop Dose Admin Apixaban 5 mg 12/28/19 21:00 12/31/19 08:23 Eliquis PO 5 mg BID SOLO Administration Aspirin 81 mg 12/28/19 09:00 12/31/19 08:20 Ecotrin PO 81 mg DAILY SOLO Administration Bupropion HCl 150 mg 12/28/19 09:00 12/31/19 08:19 Wellbutrin Xl PO 150 mg QAM SOLO Administration Carvedilol 50 mg 12/28/19 08:00 12/31/19 08:23 Coreg PO 50 mg BID-WM SOLO Administration Dronedarone 200 mg 12/29/19 17:00 12/31/19 08:20 Multaq PO 200 mg BID-WM SOLO Administration Famotidine 20 mg 12/28/19 09:00 12/31/19 08:22 Pepcid PO 20 mg BID SOLO Administration Furosemide 20 mg 12/30/19 14:00 12/31/19 05:28 Lasix SLOW IVP 20 mg 0600,1400 SOLO Administration Hydroxyurea 500 mg 12/28/19 09:00 12/31/19 08:22 Hydrea PO 500 mg DAILY SOLO Administration Diltiazem HCl 125 mg/ Sodium 125 mls @ 5 mls/hr 12/29/19 05:00 12/29/19 05:22 Chloride IVPB 125 mls INF SOLO Administration Protocol 5 MG/HR Lisinopril 10 mg 12/28/19 21:00 12/30/19 21:25 Zestril PO Not Given HS SOLO Simvastatin 10 mg 12/28/19 21:00 12/30/19 20:51 Zocor PO 10 mg HS SOLO Administration - Exam General - other findings: Patient is awake and alert. No acute distress. Heart - other findings: S1-S2 present and normal. No murmurs gallops or rubs. Respiratory - other findings: Air entry adequate bilaterally. No rhonchi or rales. Gastrointestinal - other findings: Full, soft, nondistended, bowel sounds present and normal. Neurological: cranial nerve grossly intact, no focal deficits Psychiatric: A&O x 3 Hosp A/P - Plan This is a 79-year-old female patient with a history of essential thrombocytosis, hypertension atrial fibrillation admitted on account of dyspnea and noted to have A. fib with RVR. She is status post cardioversion and generally stable. She is however weak had PT evaluation and recommends rehab Atrial fibrillation with RVRon presentation Currently rate controlled She is status post ablation and has watchman procedure. Continue on Cardizem, Multaq dose started on low due to nausea in the past Continue carvedilol and apixaban Acute on chronic diastolic heart failure. We will continue Lasix Monitor electrolytes Possible NSTEMI Stable Myeloproliferative disorder Continue hydroxyurea . Hypertension We will continue Coreg and Lasix Also on lisinopril As needed labetalol BP stable Hyperlipidemia On simvastatin Coronary disease status post CABG Continue aspirin and statin Possible dementia Has worsening memory Neurology followingMRI on discharge follow-up DVT prophylaxistherapeutic on [facility]ixaban [facility] Case management consulted
--- NOTE | 2019-12-31 16:09 | EKG ---
Test Reason : POST CARDIOVERSION Blood Pressure : / mmHG Vent. Rate : 071 BPM Atrial Rate : 071 BPM P-R Int : 154 ms QRS Dur : 094 ms QT Int : 420 ms P-R-T Axes : 072 -43 036 degrees QTc Int : 456 ms Sinus rhythm with Premature supraventricular complexes Left axis deviation Nonspecific T wave abnormality Abnormal ECG When compared with ECG of 27-DEC-2019 23:52, (Unconfirmed) Premature supraventricular complexes are now Present Nonspecific T wave abnormality, improved in Lateral leads Confirmed by Kodak ZAMORA ([id number]) on 12/31/2019 4:09:14 PM Referred By: MOUSTAPHA Confirmed By:Kodak ZAMORA
[2019-12-31] MEDS ORDERED: Carvedilol 25 MG TAB PO SCH (17:00)
[2019-12-31] MEDS: Lisinopril 10 MG TAB PO SCH (20:43)
[2019-12-31] MEDS: Simvastatin 10 MG TAB PO SCH (20:43)
--- NOTE | 2020-01-01 01:37 | PDOC.EVN ---
Event Note - Event Note Event Note: Was informed by nursing that patient had gotten up to the bathroom and then felt like she could not catch her breath. Patient was breathing 98% on room air pulse 79 respiratory rate was elevated at 24 and blood pressure was 134/60 she had been placed on 1 L nasal cannula by nursing. Stat chest x-ray ordered at this time.
--- NOTE | 2020-01-01 07:44 | RAD ---
EXAM: CHEST ONE VIEW HISTORY: Chest pain. Atrial fibrillation with RVR. COMPARISON: 12/28/2019 FINDINGS: Postoperative changes related to CABG are again seen. A coil mass is seen overlying the region of the left atrial appendage likely related to left atrial closure procedure. Cardiac silhouette remains mildly enlarged. Pulmonary vasculature is within normal limits. Linear densities are seen at the righ t lung base which may represent atelectasis. Patchy parenchymal changes are seen at the left lung base with slight blunting of the left lateral costophrenic angle. These findings may be attributable to small left pleural effusion and left atelectasis. However, focal area of pneumonitis left lung base is a possibility. Vascular calcifications are again seen in the thoracic aorta. No other interva l change. IMPRESSION: 1. Blunting left lateral costophrenic angle with associated patchy density lateral left lung base. Fi ndings may represent small left pleural effusion and atelectasis. Superimposed pneumonitis left lung base cannot be excluded. Follow-up evaluation is suggested. 2. Atelectasis right lung base. 3. Cardiomegaly and evidence of prior CABG
--- NOTE | 2020-01-01 08:15 | EEG ---
DATE OF SERVICE: 12/29/2019 This EEG was performed using 24-channel [employer] video digital EEG machine with 24-disk electrode. This was extended 2 hours 10 minutes of inpatient video EEG recording. Digital analysis of the EEG was done for spike and seizure detection which revealed no abnormalities. BACKGROUND: The posterior background rhythm is 9 to 10 hertz. The background rhythm attenuates with eye opening and enhances with eye closure. HYPERVENTILATION: Not performed. PHOTIC STIMULATION: No significant response seen with photic stimulation. SLEEP: Drowsiness and sleep are observed. EEG DIAGNOSIS: Normal awake, drowsy, and sleep EEG. Job ID: [id number]
--- NOTE | 2020-01-01 09:19 | CCLSPC ---
PROCEDURE: Transesophageal echocardiogram. REASON FOR PROCEDURE: Ms. Bedolla is a 79-year-old woman with a history of recurrent atrial arrhythmias, multiple left atrial ablations including one most recent on December 11, paroxysmal atrial fibrillation ablation performed at the time of Watchman device coiling. She is here for a ESTRELLITA to evaluate the Watchman device and the presence of clots and a planned cardioversion. The patient has been continued on oral anticoagulation since the procedure without PROCEDURE IN DETAIL: The patient received deep sedation by Anesthesia specialist. After adequate level of sedation achieved, the standard transesophageal echocardiogram probe was passed into the esophagus without difficulty. The patient tolerated the procedure well with no complications. RESULTS: Left atrium is moderate to severely enlarged at about 5.5 cm in horizontal diameter. Left atrial appendage is well visualized with adequately seated Watchman device in there. Tiny residual flow by the pulmonary venous side of the device is still seen with trivial echolucency also noted posterior to the device membrane. The mitral valve has xevxmkaz-hg-dzcjoj regurgitation with Coanda effect has been noted. No significant reversal seen in the pulmonary vein. Two pulmonary veins on the left side and two pulmonary veins on the right side noted early bifurcation right-superior ulmonary veins also seen without stenosis. Interatrial septum is with tiny residual restrictive flow at the site of the transseptal puncture. The right-sided chamber is slightly dilated. Mild tricuspid regurgitation is seen. TR gradient is 30 mmHg. Aortic valve is mildly stenosed, nonregurgitant, and has 3 leaflets with reduced excursion. Mild motion limitation of noncoronary cusp is seen. Thickening of the aortic valve cusps is also seen. Aortic root is nondilated. The visualized portion of ascending and descending aorta without aneurysm or dissection. Adherent atheroma noted in the descending portion of the aorta. Pericardial space is without significant effusion. The left ventricular systolic function appears to be preserved with mild LVH. The pulmonary valve is not regurgitant. CONCLUSION: 1. Adequately seated Watchman device with tiny residual flow still present adjacent posterior to the device. 2. Zpgqvolk-fe-iagsjo left atrial enlargement. 3. Olmxoejg-xr-tdywst mitral regurgitation. 4. Mild tricuspid regurgitation. Jyon-bq-oyhsvkyp pulmonary hypertension. 5. Mild aortic stenosis. 6. Preserved LV systolic function. Mild LVH. 7. Tiny residual flow via the septum at the site of transseptal puncture is still noted. PLAN: Continue oral anticoagulation for next 3 months. Consider CTA or rechecking any residual flow at that time. Images will be sent to Vinh for review. Job ID: [id number] [email or web address]
[2020-01-01] MEDS: Carvedilol 25 MG TAB PO SCH ×2 (09:31→16:05)
[2020-01-01] MEDS: Apixaban 5 MG TAB PO SCH ×2 (09:32→21:29)
[2020-01-01] MEDS: Dronedarone HCl 400 MG TAB PO SCH ×2 (09:32→16:05)
[2020-01-01] MEDS: Aspirin 81 mg Enteric Coated Tablet PO SCH (09:33)
[2020-01-01] MEDS: Furosemide 20 MG TAB PO SCH ×2 (09:33→14:46)
[2020-01-01] MEDS: Hydroxyurea 500 MG CAP PO SCH (09:33)
[2020-01-01] MEDS: Bupropion 150 MG XL TAB PO SCH (09:33)
[2020-01-01] MEDS: Famotidine 20 MG TAB PO SCH ×2 (09:33→21:29)
--- NOTE | 2020-01-01 11:51 | PDOC.HOSPP ---
- Subjective Encounter Date: 01/01/20 Encounter Time: 11:43 Subjective: Seen and examined in bed. She was comfortable has no new complaints Has occasional cough Overnight chest x-ray was done on account of her not able to catch her breath X-ray notes possible left lobar pneumonitis/atelectasis possible effusion. - Objective Vital Signs & Weight: Vital Signs (12 hours) Temp Pulse Pulse Pulse Resp BP BP 01/01/20 09:27 84 89 150/60 H 153/76 H 01/01/20 08:00 97.6 F 87 17 01/01/20 04:15 97.7 F 80 22 H 01/01/20 00:20 79 24 H 01/01/20 00:00 97.4 F L BP BP Pulse Ox 01/01/20 09:27 01/01/20 08:00 143/70 H 95 01/01/20 04:15 142/74 H 95 01/01/20 00:20 134/60 98 01/01/20 00:00 Weight Weight 139 lb 11.2 oz I&O: 12/31/19 01/01/20 01/02/20 06:59 06:59 06:59 Intake Total 850 1020 Balance 850 1020 Result Diagrams: 12/29/19 04:59 12/31/19 06:33 Hospitalist ROS - Medication Medications: Active Medications Generic Name Dose Route Start Last Admin Trade Name Freq PRN Reason Stop Dose Admin Apixaban 5 mg 12/28/19 21:00 01/01/20 09:32 Eliquis PO 5 mg BID SOLO Administration Aspirin 81 mg 12/28/19 09:00 01/01/20 09:33 Ecotrin PO 81 mg DAILY SOLO Administration Bupropion HCl 150 mg 12/28/19 09:00 01/01/20 09:33 Wellbutrin Xl PO 150 mg QAM SOLO Administration Carvedilol 12.5 mg 01/01/20 08:00 01/01/20 09:31 Coreg PO 12.5 mg BID-WM SOLO Administration Dronedarone 200 mg 12/29/19 17:00 01/01/20 09:32 Multaq PO 200 mg BID-WM SOLO Administration Famotidine 20 mg 12/28/19 09:00 01/01/20 09:33 Pepcid PO 20 mg BID SOLO Administration Furosemide 20 mg 01/01/20 09:00 01/01/20 09:33 Lasix PO 20 mg 0900,1400 SOLO Administration Hydroxyurea 500 mg 12/28/19 09:00 01/01/20 09:33 Hydrea PO 500 mg DAILY SOLO Administration Diltiazem HCl 125 mg/ Sodium 125 mls @ 5 mls/hr 12/29/19 05:00 12/29/19 05:22 Chloride IVPB 125 mls INF SOLO Administration Protocol 5 MG/HR Lisinopril 10 mg 12/28/19 21:00 12/31/19 20:43 Zestril PO 10 mg HS SOLO Administration Simvastatin 10 mg 12/28/19 21:00 12/31/19 20:43 Zocor PO 10 mg HS SOLO Administration - Exam General - other findings: Patient in bed, in no acute distress. Neck: no JVD Heart - other findings: S1-S2 present normal. No murmurs gallops or rubs. Respiratory - other findings: Adequate air entry bilaterally. No rhonchi or ra les. Gastrointestinal - other findings: Full, soft, nontender, nondistended bowel sounds present Extremities - other findings: No edema noted Hosp A/P - Plan This is a 79-year-old female patient with a history of essential thrombocytosis, hypertension atrial fibrillation admitted on account of dyspnea and noted to have A. fib with RVR. She is status post cardioversion and generally stable. Also has dementia and family not comfortable with her going to stay alone at home. Currently waiting on placement for rehab. Social work following. She will continue working with PT Small left lower lobe infiltrate Pleural effusion but possible pneumonia as well. I will order a CBC and a procalcitonin No antibiotics at this time Atrial fibrillation with RVRon presentation Currently rate controlled She is status post ablation and has watchman procedure. Continue on Cardizem, Multaq dose started on low due to nausea in the past Continue carvedilol and apixaban Acute on chronic diastolic heart failure. We will continue Lasix Monitor electrolytes Possible NSTEMI Stable Myeloproliferative disorder Continue hydroxyurea . Hypertension We will continue Coreg and Lasix Also on lisinopril As needed labetalol BP stable Hyperlipidemia On simvastatin Coronary disease status post CABG Continue aspirin and statin Possible dementia Has worsening memory Speech therapy to do some cognitive evaluation Neurology followingMRI on discharge follow-up DVT prophylaxistherapeutic on apixaban [facility] Case management consulted
[2020-01-01 12:16] LABS: #Eosinphils 0.1 thou/uL (0.0-0.7); #Monocytes 0.8 thou/uL (0.11-0.59); #Neutrophils 6.6 thou/uL (1.40-6.50); %Basophils 0.5 % (0.0-1.0); %Eosinophils 0.7 % (0.0-10.0); %Lymphocytes 11.3 % (21.0-51.0); %Monocytes 9.3 % (0.0-10.0); %Neutrophils 78.2 % (42.0-75.0); Hemoglobin 9.6 g/dL (12.0-16.0); Mean Corpuscular HGB CONC 31.8 g/dL (32.0-36.0); Mean Corpuscular Hemoglobin 32.9 pg (27.0-31.0); Mean Platelet Volume 8.7 fL (7.4-10.4); Platelet Count 295 thou/uL (130-400); RBC Distribution Width 17.3 % (11.5-14.5); Red Blood Cell (RBC) Count 2.93 mill/uL (4.20-5.40); White Blood Cell (WBC) Count 8.4 thou/uL (4.8-10.8)
--- NOTE | 2020-01-01 14:26 | PDOC.EP ---
- Subjective Date: 01/01/20 Time: 10:00 Interval History: Ep follow up for AF and s/p watchman. s/p ESTRELLITA/CV Wednesday. Remains in SR. Patient eager to go home. No complaints 8 point ROS negative - Objective Allergies/Adverse Reactions: Allergies Allergy/AdvReac Type Severity Reaction Status Date / Time adhesive Allergy rash, Verified 07/09/19 19:17 blisters erythromycin base Allergy Rash Verified 07/09/19 19:17 Current Medications Acetaminophen (Tylenol) 650 mg PO Q4H PRN PRN Reason: Headache/Fever/Mild Pain (1-3) Albuterol/Ipratropium (Duoneb) 3 ml NEB Q2H PRN PRN Reason: SOB &/or Wheezing Apixaban (Eliquis) 5 mg PO BID [facility] Last Admin: 01/01/20 09:32 Dose: 5 mg Aspirin (Ecotrin) 81 mg PO DAILY [facility] Last Admin: 01/01/20 09:33 Dose: 81 mg Bupropion HCl (Wellbutrin Xl) [facility] [place] Last Admin: 01/01/20 09:33 Dose: 150 mg Carvedilol (Coreg) 12.5 mg PO BID-[facility] Last Admin: 01/01/20 09:31 Dose: 12.5 mg Clonidine (Catapres) 0.1 mg PO BIDPRN PRN PRN Reason: SBP > 160 use second Dronedarone (Multaq) 200 mg PO BID-[facility] Last Admin: 01/01/20 09:32 Dose: 200 mg Famotidine (Pepcid) 20 mg PO BID [facility] Last Admin: 01/01/20 09:33 Dose: 20 mg Furosemide (Lasix) 20 mg PO 0900,1400 [facility] Last Admin: 01/01/20 09:33 Dose: 20 mg Guaifenesin/Dextromethorphan (Robitussin Dm) 15 ml PO Q4H PRN PRN Reason: Cough Hydralazine HCl (Apresoline) 10 mg SLOW IVP Q6H PRN PRN Reason: SBP GREATER THAN 160 Hydroxyurea (Hydrea) 500 mg PO DAILY [facility] Last Admin: 01/01/20 09:33 Dose: 500 mg Promethazine HCl 12.5 mg/ (Sodium Chloride) 50.5 mls @ 202 mls/hr IVPB Q6H PRN PRN Reason: Nausea/vomiting use second Diltiazem HCl 125 mg/ Sodium (Chloride) 125 mls @ 5 mls/hr IVPB INF SOLO; Protocol Last Admin: 12/29/19 05:22 Dose: 125 mls Labetalol HCl (Normodyne) 20 mg SLOW IVP Q4H PRN PRN Reason: SBP > 160 use third Lisinopril (Zestril) 10 mg PO HS [facility] Last Admin: 12/31/19 20:43 Dose: 10 mg Miscellaneous Medication (Electrolyte Replacement Protocol) 0 each FS ASDIR PRN; Protocol PRN Reason: ELECTROLYTE REPLACEMENT Morphine Sulfate (Morphine) 2 mg SLOW IVP Q4H PRN PRN Reason: severe pain 4-10 Ondansetron HCl (Zofran) 4 mg IVP Q6H PRN PRN Reason: Nausea/Vomiting use 1st Simvastatin (Zocor) 10 mg PO HS [facility] Last Admin: 12/31/19 20:43 Dose: 10 mg Vital Signs & Weight: Vital Signs Temp Pulse Pulse Pulse Resp BP BP 01/01/20 12:00 97.7 F 78 17 01/01/20 10:16 97 94 177/93 H 153/76 H 01/01/20 09:27 84 89 150/60 H 153/76 H 01/01/20 08:00 97.6 F 87 17 01/01/20 04:15 97.7 F 80 22 H BP BP Pulse Ox Pulse Ox Pulse Ox 01/01/20 12:00 149/68 H 95 01/01/20 10:16 94 L 94 L 01/01/20 09:27 01/01/20 08:00 143/70 H 95 01/01/20 04:15 142/74 H 95 Weight 139 lb 11.2 oz I/O: I/O 12/31/19 01/01/20 01/02/20 06:59 06:59 06:59 Intake Total 850 1020 Balance 850 1020 - Quality Measures Condition: Atrial Fibrillation/Flutter (hx or current) CV meds: Eliquis: Yes - Physical Exam General: appears well, no apparent distress, speech clear, affect appropriate HEENT: mucus membranes moist, normocephaly, EOMI Neck: supple neck, midline trachea, no lymphadenopathy Cardiology: regular rate and rhythm, no murmur, PMI nondisplaced Lungs: clear to auscultation, normal breath sounds, no wheeze, rales, rhonchi Neurology: cranial nerve 2-12 intact, grossly intact, no lateralizing findings Abdomen: unremarkable, active bowel sounds, no pulsations/bruits - Labs Result Diagrams: 01/01/20 11:57 12/31/19 06:33 - EKG Interpretation EKG Method: Telemetry EKG shows: Sinus rhythm - Assessment/Plan Assessment/Plan: 1. Recurrent atrial arrhythmia, history of 3 prior ablations including ablation of left atrial appendage, ablation performed on 12/13/2019. 2. Left appendage isolation status post Watchman placement 04/06/2019. A small leak prompting a coronary procedure on 12/13/2019. 3. Coronary artery disease with prior bypass grafting surgery in 2003, x 5 vessels. 4. ESTRELLITA from 05/25/2019 revealed normal left ventricular systolic function, moderate left atrial enlargement, moderate TR, mild MR. 5. Hypertension. 6. History of sleep apnea. 7. Mild dementia. Continue eliquis. Small peridevice leak on ESTRELLIAT last week. Consider recheck in 3 months. rhythm stable, continue multaq 200mg BID. Return to clinic in 6 weeks for follow up.
--- NOTE | 2020-01-01 18:25 | PRG ---
DATE OF SERVICE: 01/01/2020 SUBJECTIVE: Ms. Bedolla had an episode of difficulty breathing last night, feeling better this morning. OBJECTIVE: VITAL SIGNS: Her blood pressure is high at 153/76 and pulse 87. LUNGS: Clear. CARDIAC: Normal S1 and normal S2. ABDOMEN: Soft and nontender. EXTREMITIES: There is lauj-um-mtvhzvgk edema. LABORATORY DATA: Creatinine is up to 1.8, it got down to 1.35 on the 11th. ASSESSMENT: 1. Congestive heart failure, suspect diastolic heart failure. 2. Recent aws-[id number]-cpjaveajw infarction. 3. Recent ablation, pulmonary vein isolation. PLAN: 1. Coreg was reduced. 2. We will keep her one more day to make sure she is going to be breathing okay come back to the hospital urgently. Job ID: [id number]
[2020-01-01] MEDS: Simvastatin 10 MG TAB PO SCH (21:29)
[2020-01-01] MEDS: Lisinopril 10 MG TAB PO SCH (21:29)
[2020-01-02 05:38] LABS: Anion Gap 14 mmol/L (10-20); BUN (Urea Nitrogen) 27 mg/dL (9.8-20.1); Calc. Creatinine Clearance 31 mL/min (70-130); Calcium 8.8 mg/dL (7.8-10.44); Carbon Dioxide 26 mmol/L (23-31); Chloride 99 mmol/L (98-107); Estimated GFR-MDRD 34; Glucose 112 mg/dL (83-110); Potassium 3.8 mmol/L (3.5-5.1); Sodium 135 mmol/L (136-145)
[2020-01-02] MEDS ORDERED: Famotidine 20 MG TAB PO SCH (09:00)
[2020-01-02] MEDS: Bupropion 150 MG XL TAB PO SCH (09:36)
[2020-01-02] MEDS: Furosemide 20 MG TAB PO SCH (09:37)
[2020-01-02] MEDS: Carvedilol 25 MG TAB PO SCH (09:37)
[2020-01-02] MEDS: Apixaban 5 MG TAB PO SCH (09:37)
[2020-01-02] MEDS: Hydroxyurea 500 MG CAP PO SCH (09:37)
[2020-01-02] MEDS: Aspirin 81 mg Enteric Coated Tablet PO SCH (09:37)
[2020-01-02] MEDS: Dronedarone HCl 400 MG TAB PO SCH (09:38)
[2020-01-02 11:53] VITALS: BP 129/61; TEMP 97.6
--- NOTE | 2020-01-02 17:14 | PDOC.EP ---
- Subjective Date: 01/02/20 Time: 08:00 Interval History: anticipating discharge later today she is eager to go home no cardiac concerns or complaints. No stroke or stroke-like symptoms 8 point ROS negative - Objective Allergies/Adverse Reactions: Allergies Allergy/AdvReac Type Severity Reaction Status Date / Time adhesive Allergy rash, Verified 07/09/19 19:17 blisters erythromycin base Allergy Rash Verified 07/09/19 19:17 Vital Signs & Weight: Vital Signs Temp Pulse Resp BP Pulse Ox 01/02/20 11:50 97.6 F 83 16 129/61 98 01/02/20 07:55 97 01/02/20 07:51 98.4 F 76 18 152/72 H 97 Weight 140 lb 8 oz I/O: I/O 01/01/20 01/02/20 01/03/20 06:59 06:59 06:59 Intake Total 1020 592 Balance 1020 592 - Quality Measures Condition: Atrial Fibrillation/Flutter (hx or current) CV meds: Eliquis: Yes - Physical Exam General: appears well, no apparent distress, speech clear, affect appropriate HEENT: mucus membranes moist, normocephaly, EOMI Neck: supple neck, midline trachea, no JVD/HJR Cardiology: regular rate and rhythm, no murmur, regular rate Lungs: clear to auscultation, normal breath sounds, no rhonchi Neurology: cranial nerve 2-12 intact, grossly intact, coordination normal Abdomen: unremarkable, active bowel sounds, HJR negative - Labs Result Diagrams: 01/01/20 11:57 01/02/20 04:44 - EKG Interpretation EKG Method: Telemetry EKG shows: Sinus rhythm - Assessment/Plan Assessment/Plan: 1. Recurrent atrial arrhythmia, history of 3 prior ablations including ablation of left atrial appendage, ablation performed on 12/13/2019. 2. Left appendage isolation status post Watchman placement 04/06/2019. A small leak prompting a coronary procedure on 12/13/2019. 3. Coronary artery disease with prior bypass grafting surgery in 2004, x 5 vessels. 4. ESTRELLITA from 05/25/2019 revealed normal left ventricular systolic function, moderate left atrial enlargement, moderate TR, mild MR. 5. Hypertension. 6. History of sleep apnea. 7. Mild dementia. Continue eliquis. Small peridevice leak on ESTRELLITA last week. Consider recheck in 3 months. rhythm stable, continue multaq 200mg BID. Return to clinic in 6 weeks for follow up. EP signing off
--- NOTE | 2020-01-03 15:51 | DIS ---
DATE OF ADMISSION: 12/28/2019 DATE OF DISCHARGE: 01/02/2020 DISCHARGE DIAGNOSES: 1. Acute on chronic diastolic heart failure. 2. Possible [id number] myocardial infarction. 3. Myeloproliferative disorder. 4. Hypertension. 5. Hyperlipidemia. 6. Coronary artery disease, status post coronary artery bypass graft. 7. Possible dementia. 8. Atrial fibrillation with rapid ventricular response. HOSPITAL COURSE: This is a 79-year-old female with a history of atrial fibrillation with RVR, status post ablation, Watchman procedure, heart failure who presented on the day of admission with shortness of breath. On further evaluation, it was noted she had acute on chronic diastolic heart failure. She also had recurrent atrial arrythmias. She was diuresed successfully. Following admission, Cardiology and Electrophysiology were both in consult. The patient was generally stable. PT evaluated and recommended subacute rehab. DISCHARGE EXAMINATION: GENERAL: The patient was in no acute distress. RESPIRATORY: Air entry adequate bilaterally. CARDIOVASCULAR: S1 and S2 present. No murmurs, gallops, or rubs. ABDOMEN: Soft, non tender. EXTREMITIES: No edema. CONSULTANTS: 1. Dr. Benji Salter, Cardiology. 2. Dr. Hamilton. Electrophysiology DISCHARGE CONDITION: Stable. Job ID: [id number] [facility]
--- NOTE | 2020-01-03 20:53 | PQF ---
CLINICAL DOCUMENTATION CLARIFICATION FORM: Dear Dr. AMITA CHAIREZ Date:01-03-20 Please exercise your independent, professional judgment in responding to the clarification form. Clinical indicators are provided on the bottom of this form for your review. Please check appropriate box(es): [ ] Acute Renal Failure (ARF) / Acute Kidney Injury (RADHA) [ ] Insignificant Lab Values [ ] Other diagnosis ___CKD [ ] Unable to determine In addition, please specify: Present on Admission (POA): [ x] Yes [ ] No [ ] Unable to determine For continuity of documentation, please document condition throughout progress notes and discharge summary. Thank You. To be completed by CDI/Coding staff for physician review: CLINICAL INDICATORS - SIGNS / SYMPTOMS / LABS / RESULTS AND LOCATION IN MR: GFR: 12-28-19: 25 12-29-19: 38 12-31-19: 27 01-02-20: 34 CREATININE: 12-28-19: 1.91 12-29-19: 1.35 12-31-19: 1.82 01-02-20: 1.50 BUN: 12-28-19: 38, 12-29-19: 28 12-31-19: 31 01-02-20: 27 RISK FACTORS / RESULTS AND LOCATION IN MR: ER NOTES 12-28-19: HOME MEDS: LISINOPRIL, TORSEMIDE, WELLBUTRIN, COREG TREATMENTS / RESULTS AND LOCATION IN MR: MONITORING OF SERIES OF LABS 12-28-19 TO 01-02-20 National Kidney Foundation Guidelines for CKD Staging Stage I Kidney damage with normal or increased GFR GFR > 90 Stage II Kidney damage with mildly decreased GFR GFR 60-89 Stage III Kidney damage with moderately decreased GFR GFR 30-59 Stage IV Kidney damage with severely decreased GFR GFR 16-29 Stage V Kidney failure GFR<15 ESRD End Stage Renal Disease On dialysis Acute Renal Failure/Acute Kidney Failure defined as: Increases in SCr by (>) 0.3 mg/dl within 48 hours OR- Increases in SCr by (>) 1.5 times baseline, known or presumed to have occurred within the prior 7 days OR- Urine volume < 0.5 ml/kg/hour for 6 hours (KDIGO supplement 2012 for RIFLE/DANIEL criteria) CDS Signature: Sylvia Larose Phone #:[phone] Date: 01-03-20 This is a permanent part of the Medical Record [facility]
--- NOTE | 2020-01-03 21:07 | PQF ---
CLINICAL DOCUMENTATION CLARIFICATION FORM: Dear Dr. AMITA CHAIREZ Date: 01-03-20 Please exercise your independent, professional judgment in responding to the clarification form. Clinical indicators are provided on the bottom of this form for your review. Please check appropriate box(es) to clarify if the following diagnosis has been ruled in our ruled out: NSTEMI [ ] Ruled in diagnosis [ ] Continue to treat [ ] Resolved [ ] Ruled out diagnosis [ ] Other diagnosis NSTEMI type 2 [ ] Unable to determine In addition, please specify: Present on Admission (POA): [x ] Yes [ ] No [ ] Unable to determine For continuity of documentation, please document condition throughout progress notes and discharge summary. Thank You. To e completed by CDI/Coding staff for physician review: CLINICAL INDICATORS - SIGNS / SYMPTOMS / LABS / RESULTS AND LOCATION IN MR: Dr. Salter 12-28-19: documents NSTEMI; Alfonso 12-28-19 - likely not true ID; H&P: 12-28-19: Possible NSTEMI TROPONIN: 12-28-19: 0.559, 0.544, 0.544 RISK FACTORS / RESULTS AND LOCATION IN MR: CONSULT JOSÉ LUIS 12-28-19: HX CABG, CHF TREATMENTS / RESULTS AND LOCATION IN MR: CARDIO CONSULT JOSÉ LUIS 12-28-19 SERIAL TROPONIN 12-28-19 CDS Signature: Sylvia Larose Phone #: [phone] Date: 01-03-20 This is a permanent part of the Medical Record [facility]
== END 2020-01-02 13:31 | DRG 280 ==
LOC: ERS 23:40 → 2SE 12-28 03:34
PROVIDERS: ADMIT Internal Medicine; ATTEND Internal Medicine
PROC: B24BZZ4 Ultrasonography of Heart with Aorta, Transesophageal (ICD-10-PCS; principal; 2019-12-29)
PROC: 5A2204Z Restoration of Cardiac Rhythm, Single (ICD-10-PCS; 2019-12-29)
DX: I48.91 Unspecified atrial fibrillation (principal); I21.A1 Myocardial infarction type 2; I50.33 Acute on chronic diastolic (congestive) heart failure; C94.6 Myelodysplastic disease, not elsewhere classified; I47.1 Supraventricular tachycardia; Z20.828 Contact with and (suspected) exposure to other viral communicable diseases; I25.10 Atherosclerotic heart disease of native coronary artery without angina pectoris; I11.0 Hypertensive heart disease with heart failure; D64.9 Anemia, unspecified; I08.1 Rheumatic disorders of both mitral and tricuspid valves; E78.5 Hyperlipidemia, unspecified; F03.90 Unspecified dementia, unspecified severity, without behavioral disturbance, psychotic disturbance, mood disturbance, and anxiety; I27.20 Pulmonary hypertension, unspecified; Z95.1 Presence of aortocoronary bypass graft; Z98.51 Tubal ligation status; Z88.1 Allergy status to other antibiotic agents; Z79.01 Long term (current) use of anticoagulants
CPT/HCPCS: 36415; 71045; 80048; 80053; 82553; 83735; 83880; 84145; 84443; 84484; 85025; 87635; 92960; 93005; 93010; 93312; 95712; 95816; 95819; 95957; 96374; 96375; 97139; J1630; J1940; J2060; J2704; J3475; J3490; U0003

== ENCOUNTER 2020-01-08 09:36 | Inpatient (IN) | payer MEDICARE, OTHER ==
[2020-01-08] MEDS ORDERED: Diltiazem 125 MG/25 ML ONE (09:45)
[2020-01-08 10:23] LABS: #Basophils 0.1 thou/uL (0.0-0.2); #Eosinphils 0.1 thou/uL (0.0-0.7); #Lymphocytes 1.3 thou/uL (1.20-3.40); #Neutrophils 5.3 thou/uL (1.40-6.50); %Basophils 0.8 % (0.0-1.0); %Eosinophils 1.1 % (0.0-10.0); %Lymphocytes 17.1 % (21.0-51.0); %Monocytes 12.9 % (0.0-10.0); %Neutrophils 68.1 % (42.0-75.0); Hemoglobin 10.2 g/dL (12.0-16.0); Mean Corpuscular HGB CONC 32.2 g/dL (32.0-36.0); Mean Corpuscular Hemoglobin 33.1 pg (27.0-31.0); Mean Platelet Volume 8.4 fL (7.4-10.4); Platelet Count 264 thou/uL (130-400); Red Blood Cell (RBC) Count 3.07 mill/uL (4.20-5.40); White Blood Cell (WBC) Count 7.8 thou/uL (4.8-10.8)
[2020-01-08 10:51] LABS: ALT (SGPT) 19 U/L (8-55); AST (SGOT) 22 U/L (5-34); Albumin 3.8 g/dL (3.4-4.8); Alkaline Phosphatase 63 U/L (40-110); Anion Gap 17 mmol/L (10-20); BUN (Urea Nitrogen) 23 mg/dL (9.8-20.1); Bilirubin, Total 1.1 mg/dL (0.2-1.2); CK (CPK) 28 U/L (29-168); Calc. Creatinine Clearance 0 mL/min (70-130); Calcium 9.2 mg/dL (7.8-10.44); Carbon Dioxide 27 mmol/L (23-31); Chloride 98 mmol/L (98-107); Estimated GFR-MDRD 34; Glucose 109 mg/dL (83-110); Lipase 36 U/L (8-78); Potassium 3.6 mmol/L (3.5-5.1); Protein, Total 6.8 g/dL (6.0-8.3); Sodium 138 mmol/L (136-145)
[2020-01-08 11:11] LABS: CKMB 1.2 ng/mL (0-6.6)
--- NOTE | 2020-01-08 11:12 | RAD ---
PORTABLE CHEST 1 VIEW: DATE: 01/08/2020. TIME: 10:25 AM. HISTORY: Recent cardioversion, tachycardia. FINDINGS: Comparison is made with the exam of 01/01/2020. Changes of median sternotomy are again seen. A coiled mass is again noted in the projection of the l eft atrial appendage. The heart size is borderline. The aorta is tortuous. The lungs are expanded without focal areas of consolidation, pneumothoraces, or nanette pulmonary edema. A small left pleural effusion may be present. POS: OFF
[2020-01-08] MEDS ORDERED: Acetaminophen 325 MG TAB PO PRN (13:37)
[2020-01-08] MEDS ORDERED: Senokot S 8.6-50 MG TAB PO PRN (13:37)
--- NOTE | 2020-01-08 14:32 | PDOC.BPN ---
- Brief Progress Note Encounter Date: 01/08/20 Encounter Time: 14:31 ESTRELLITA from 12/28/19 reviewed, regarding MARILYNN/Watchman closure. A small peridevice leak persists. Continue low dose eliquis and repeat CTA or ESTRELLITA in 3 months ( on or around 03/13/20)
[2020-01-08] MEDS ORDERED: Diltiazem 125 MG in Sodium Chloride 0.9% 100 ML IVPB SCH (16:30)
--- NOTE | 2020-01-08 18:29 | CON ---
DATE OF CONSULTATION: 01/08/2020 REASON FOR CONSULTATION: Atrial arrhythmia management. GASTROINTESTINAL TECHNICIAN: Benji Salter MD CONSULTING PHYSICIAN: David Hamilton MD SUBJECTIVE: Ms. Bedolla is readmitted with palpitations and sustained high heart rates. She had recently undergone an electrophysiology study with ablation with simultaneous Watchman device coiling with Dr. Caldera on 12/12/2019. Since then, she has had early recurrence of an atrial flutter requiring initiation of low-dose Multaq 200 mg p.o. b.i.d. earlier this month while hospitalized. Reportedly, she was felt to have some nausea with full dose Multaq, but tolerated 200 mg b.i.d. without difficulty. She underwent cardioversion approximately 2 weeks ago and was discharged in sinus rhythm. She now reports back and is in the emergency room reporting once again sustained elevated heart rates. She does have some mild dementia, but is a fair historian so far. She denies any additional concerns or complaints other than some hemorrhoids giving her issues. PROBLEM LIST: 1. Recurrent atrial arrhythmias with three prior ablations, including ablation of left atrial appendage. a. Most recent ablation on 12/13/2019. 2. Left atrial appendage closure via Watchman protocol on 04/06/2019, status post coil closure on 12/13/2019. 3. Coronary artery disease with prior 5-vessel coronary artery bypass grafting in 2003. 4. Preserved LVEF by echo on 05/25/2019. 5. Hypertension. 6. Sleep apnea. 7. Mild dementia. ALLERGIES: ERYTHROMYCIN. HOME MEDICATIONS: List is currently being compiled by nursing staff in the emergency room. Reportedly, still taking Eliquis 5 mg b.i.d. and Multaq 200 mg b.i.d. REVIEW OF SYSTEMS: Twelve-point review of systems otherwise unremarkable. MEDICAL HISTORY: As above in addition to myeloproliferative disorder, hypertension, and hyperlipidemia. FAMILY HISTORY: Noncontributory. SURGICAL HISTORY: As above, including bypass, ablations, Watchman device, cardioversions, and tubal ligation. OBJECTIVE: VITAL SIGNS: Heart rate currently in the 70s, initially presented in RVR. BP is stable. Afebrile per ED are documenting. GENERAL: Patient is alert. She is oriented to person, place, and to situation, but is a poor historian and some confusion of recent events, which is her baseline. HEENT: She is normocephalic and atraumatic. Her sclerae are anicteric. EOMs are intact. Oral mucosa is moist and pink with adequate dentition. LUNGS: Clear to auscultation bilaterally, without wheezes, crackles, or rhonchi. HEART: Rate is regular. PMI nondisplaced. ABDOMEN: Soft, nontender without palpable masses. EXTREMITIES: Warm and dry to touch. Well perfused without clubbing, cyanosis, or edema. NEUROLOGIC: Grossly intact. No focal deficits are noted. Gait was visualized and steady with standby assistance only. DATA: Telemetry and EKGs were reviewed and show initially atrial flutter with variable AV conduction and RVR. This converted to an organized atrial flutter with 2:1 conduction, atypical after administration of a bolus of diltiazem 20 mg IV push. IMPRESSION: Ms. Bedolla is a pleasant 79-year-old woman, with a history of recurrent atrial arrhythmias with repeat left atrial ablation approximately one month ago. She had early recurrence earlier this month and was placed on low-dose Multaq therapy. She was cardioverted and sent home in sinus rhythm. Unfortunately, she had repeat occurrence. She is no longer reporting any nausea on this medication that she can recall and hopefully she will tolerate full therapy of this medication. She may require repeat cardioversion in the future. I would like her watched on telemetry, to trend her heart rates. At this point, she remains on Eliquis, but had a ESTRELLITA to reassess Watchman positioning. Should the device be fully sealed, she may be able to transition to aspirin alone. I am awaiting confirmation with my office in regard to these results. She is currently in rate controlled 2:1 flutter/atrial tachycardia. Continue rate control with diltiazem and wean as necessary if bradycardia is seen with increasing Multaq. Keep heart rates less than 100. We will reevaluate in the morning. This was discussed with Dr. Gore as well. Job ID: [id number]
[2020-01-08] MEDS ORDERED: Apixaban 5 MG TAB PO SCH (21:00)
[2020-01-08 22:17] LABS: CKMB 1.6 ng/mL (0-6.6)
--- NOTE | 2020-01-08 22:40 | PDOC.HHP ---
Hospitalist HPI - History of Present Illness Palpitations History of Present Illness: Patient complaining of palpitations and brought in from [facility] due to tachycardia. She was noted to be in Afib RVR. Has had multiple cardioversions and ablations in the past. She was recently admitted to the hospital from 12/27 to 01/01 after presenting sob and admitted with Afib RVR. She had an ablation of the left atrial appendage on 12/13/2019 and underwent cardioversion 2 weeks ago during recent admission. Otherwise advised to continue Multaq at 200 mg BID and cleared from EP standpoint for discharge. After presenting today, Dr. Hamilton has increased her Multaq to 400 mg BID and advised to continue the Cardizem drip as she is rate controlled. Patient feeling well at present. She denies any chest pain or shortness of breath. No lightheadedness or dizziness. Reports feeling well in recent days. Does have issues with urinary frequency and urgency but states that is ongoing for her. According to her daughter she has some issues with short term memory loss. At present she denies any complaints. She just had dinner and denies any difficulty tolerating her food. ROS: All other review of systems apart from those mentioned above in HPI are unremarkable. ED COURSE: On arrival to the ED she had a HR in the 140s. BP was 106 systolic . She was given a 1 L bolus of NS followed by a Cardizem 20 mg bolus. She was then started on a drip at 5 mg/hr. 12 lead EKG interpreted by Emergency Department Physician at time of study, Atrial flutter rate controlled with left atrial enlargement left ventricular hypertrophy and left axis deviation. Labs notable for indeterminate troponin of 0.033. WCC 7.8, Hgb 10.2, Hgb 31.5. Platelets 264. CK 28. BUN 23, Creat 1.50, GFR 34. Chest xray: Changes of median sternotomy are seen. A coiled mass is again noted in the projection of the left atrial appendage. The heart size is borderline. The aorta is tortuous. Lungs expanded without focal areas of consolidation, pneumothoraces or nanette edema. Possible small left pleural effusion noted. PAST MEDICAL HISTORY: 1. Chronic A-fib/Afib RVR. 2. Hypertension. 3. Essential thrombocytopenia. 4. Sleep apnea. 5. Mild dementia. 6. Myeloproliferative distorder. 7. Hyperlipidemia. 8. CAD. PAST SURGICAL HISTORY: 1. CABG x 5 in 2003. 2. Ablation x 3 for Afib. Last done 11/2019. 3. Cardioversion x 4. 4. Watchman placement 04/06/2019. 5. Tubal ligation. SOCIAL HISTORY: No tobacco use, alcohol consumption or drug use. Walks independently. FAMILY HISTORY: Noncontributory. ALLERGIES: Adhesives, erythromycin. CURRENT MEDICATIONS: 1. Eliquis 5 mg PO BID. 2. Aspirin 81 mg PO daily. 3. BuPROPion HCl 150 mg Oral once a day. 4. Coreg 12.5 mg Oral 2 times a day. 5. Famotidine 20 mg Oral once a day. 6. Hydroxyurea 500 mg Oral once a day. 7. Lisinopril 10 mg oral once a day (at bedtime). 8. Torsemide 40 mg Oral once a day. 9. Potassium chloride 10 mEq oral bid. 10. Pravastatin 20 mg once a day (in the morning). 11. CloNIDine HCl 0.1 mg PRN. 12. Multaq 200 mg Oral 2 times a day (with meals). Hospitalist History - Past Surgical History Past Surgical History: reports: CABG - Social History Alcohol: reports: None Drugs: reports: none - Exam General - other findings: BP: 115/45, Pulse: 85, Resp: 20, Pain: 0, O2 sat: 96 on (RA), Temp 97.8 Eye: PERRL, anicteric sclera ENT: normocephalic atraumatic, no oropharyngeal lesions Neck: supple, symmetric, no JVD, no thyromegaly, no lymphadenopathy Heart: RRR, no murmur, no gallops, no rubs, normal peripheral pulses Respiratory: CTAB, no wheezes, no rales, no ronchi, normal chest expansion, no tachypnea Gastrointestinal: soft, non-tender, non-distended, normal bowel sounds, no guarding, no rigidity Extremities: 1+ LE edema (Left greater than right LE, patient states that is chronic) Skin: no lesions, no rashes Neurological: cranial nerve grossly intact, normal sensation to touch, no focal deficits Musculoskeletal: normal tone, normal strength, no muscle wasting Psychiatric: normal affect, normal behavior, A&O x 3 Hospitalist Results - Labs Result Diagrams: 01/08/20 10:10 01/08/20 10:10 Lab results: WBC 7.8 thou/uL (4.8-10.8) 01/08/20 10:10 Hgb 10.2 g/dL (12.0-16.0) L 01/08/20 10:10 Hct 31.5 % (36.0-47.0) L 01/08/20 10:10 MCV 103.0 fL (78.0-98.0) H 01/08/20 10:10 Plt Count 264 thou/uL (130-400) 01/08/20 10:10 Neutrophils % 68.1 % (42.0-75.0) 01/08/20 10:10 Sodium 138 mmol/L (136-145) 01/08/20 10:10 Potassium 3.6 mmol/L (3.5-5.1) 01/08/20 10:10 Chloride 98 mmol/L (98-107) 01/08/20 10:10 Carbon Dioxide 27 mmol/L (23-31) 01/08/20 10:10 BUN 23 mg/dL (9.8-20.1) H 01/08/20 10:10 Creatinine 1.50 mg/dL (0.6-1.1) H 01/08/20 10:10 Glucose 109 mg/dL (83-110) 01/08/20 10:10 Calcium 9.2 mg/dL (7.8-10.44) 01/08/20 10:10 Total Bilirubin 1.1 mg/dL (0.2-1.2) 01/08/20 10:10 AST 22 U/L (5-34) 01/08/20 10:10 ALT 19 U/L (8-55) 01/08/20 10:10 Alkaline Phosphatase 63 U/L (40-110) 01/08/20 10:10 Creatine Kinase 28 U/L (29-168) L 01/08/20 10:10 CK-MB (CK-2) 1.6 ng/mL (0-6.6) 01/08/20 21: Troponin I 0.150 ng/mL (< 0.028) H 01/08/20 21: B-Natriuretic Peptide 1057.1 pg/mL (0-100) H 01/08/20 21:19 Serum Total Protein 6.8 g/dL (6.0-8.3) 01/08/20 10:10 Albumin 3.8 g/dL (3.4-4.8) 01/08/20 10:10 Lipase 36 U/L (8-78) 01/08/20 10:10 - Radiology Interpretation Chest x-ray Status: report reviewed by me Hospitalist H&P A/P - Problem (1) Atrial fibrillation with RVR Code(s): I48.91 - UNSPECIFIED ATRIAL FIBRILLATION Status: Acute Assessment and Plan: Continue cardizem, she is currently rate controlled. As per Dr. Hamilton, keep HR <100. Continuous cardiac monitoring. Monitor BP. Wean if becomes bradycardic. Multaq has been increased to 400 mg BID. Continue Eliquis at a lower dose of 2.5 mg BID. Continue to follow troponins. Check BNP. Dr. Salter consulted, per patient and daughter request. (2) Hypertension Code(s): I10 - ESSENTIAL (PRIMARY) HYPERTENSION Status: Chronic Assessment and Plan: Monitor BP. Reconcile home medications as appropriate. (3) CAD (coronary artery disease) Code(s): I25.10 - ATHSCL HEART DISEASE OF [place] CORONARY ARTERY W/O ANG PCTRS Status: Chronic Assessment and Plan: Continue home medications (statin and aspirin). (4) Hyperlipidemia Code(s): E78.5 - HYPERLIPIDEMIA, UNSPECIFIED Status: Chronic Assessment and Plan: Lipid panel with AM labs. Resume statin. (5) Mild dementia Code(s): F03.90 - UNSPECIFIED DEMENTIA WITHOUT BEHAVIORAL DISTURBANCE Status: Chronic - Plan Plan: DVT Prophylaxis: patient on anticoagulation. Surrogate decision maker is her daughter: Negra [place]. Daughter expressed concern over being updated on plans/recommendations from Dr. Salter and Dr. Hamilton. Would like to be notified of any changes. ADDENDUM: Notified by RN, patient never received Multaq ordered by Dr. Hamilton while she was in the ED. I will give a one time dose now. Also BNP elevated, doubled from baseline (1065) and pleural effusion noted on CXR with bilateral LE edema. Will given low dose lasix 20 mg PO x 1 now.
[2020-01-08] MEDS: Apixaban 2.5 MG TAB PO SCH (22:55)
[2020-01-08] MEDS: Simvastatin 5 MG TAB PO SCH (22:55)
[2020-01-08 23:12] VITALS: BMI 22.9
[2020-01-08 23:44] LABS: Bacteria/HPF None Seen HPF (None Seen); Bilirubin Negative (Negative); Blood, Urine Negative (Negative); Clarity Clear (Clear); Glucose, Urine (Dipstick) Normal (Negative); Ketone, Urine Negative (Negative); Leukocyte Negative Leu/uL (Negative); Nitrite Negative (Negative); Protein, Urine (Dipstick) Negative (Neg-Trace); RBC/HPF 0-3 HPF (0-3); Specific Gravity, Urine 1.014 (1.002-1.036); Squamous Epithelial 0-3 HPF (0-3); Urobilinogen Normal mg/dL (Less than 2); WBC/HPF 0-3 HPF (0-3); pH, Urine 5.5 (5.0-9.0)
[2020-01-08 23:46] LABS: Urine Culture Reflex No No
[2020-01-09] MEDS ORDERED: Apixaban 2.5 MG TAB PO SCH (00:45)
[2020-01-09] MEDS ORDERED: Dronedarone HCl 400 MG TAB PO SCH (00:45)
[2020-01-09] MEDS ORDERED: Furosemide 20 MG TAB PO SCH (01:00)
[2020-01-09] MEDS ORDERED: Electrolyte Replacement Protocol FS SCH (01:00)
[2020-01-09 01:26] LABS: CKMB 1.4 ng/mL (0-6.6)
[2020-01-09] MEDS ORDERED: Magnesium 2 GM/50 ML 2 GM in Premix Bag 1 BAG IVPB SCH ×2 (01:30→06:30)
[2020-01-09] MEDS: Dronedarone HCl 400 MG TAB PO SCH ×3 (01:56→16:34)
[2020-01-09] MEDS: Carvedilol 25 MG TAB PO SCH ×3 (01:57→16:34)
[2020-01-09] MEDS: Cholecalciferol 1,000 UNITS (25 MCG) TAB PO SCH (08:16)
[2020-01-09] MEDS: Aspirin 81 mg Enteric Coated Tablet PO SCH (08:16)
[2020-01-09] MEDS: Bupropion 150 MG XL TAB PO SCH (08:16)
[2020-01-09] MEDS: Apixaban 2.5 MG TAB PO SCH ×2 (08:16→21:19)
[2020-01-09] MEDS ORDERED: Furosemide 20 MG/2 ML VIAL SLOW IVP SCH (10:00)
--- NOTE | 2020-01-09 10:20 | PRG ---
DATE OF SERVICE: 01/09/2020 SUBJECTIVE: Ms. Bedolla re-presented with atrial flutter with a rapid rate, saw Dr. Hamilton who recommended repeat cardioversion. She is resting comfortably today. OBJECTIVE: VITAL SIGNS: Her blood pressure 134/60, pulse is in the 80s. LUNGS: Clear. CARDIAC: Normal S1, normal S2. ASSESSMENT: 1. Recurrent atrial flutter. 2. Diastolic heart failure. Brain natriuretic peptide is 1057. PLAN: 1. The Multaq dose is increased. Hopefully, she will be able to tolerate that. 2. Cardioversion is planned for tomorrow. Job ID: [id number]
[2020-01-09 13:33] LABS: SARS-CoV-2 MS2 Positive; SARS-CoV-2 N Gene Negative; SARS-CoV-2 S Gene Negative; SARS-CoV-2 by NAA Not Detected (NotDetected); SARS-CoV-2 orf1ab Negative
--- NOTE | 2020-01-09 13:41 | PDOC.HOSPP ---
- Subjective Encounter Date: 01/09/20 Encounter Time: 11:00 Subjective: pt up in bed no complains - Objective Vital Signs & Weight: Vital Signs (12 hours) Temp Pulse Resp BP BP Pulse Ox 01/09/20 11:04 97.6 F 97 18 99/46 L 97 01/09/20 07:30 98.3 F 87 18 134/63 94 L 01/09/20 04:58 98.1 F 88 18 151/65 H 96 Weight Weight 146 lb 11.2 oz I&O: 01/08/20 01/09/20 01/10/20 06:59 06:59 06:59 Intake Total 384.6 Output Total 1350 Balance -965.4 Result Diagrams: 01/08/20 10:10 01/08/20 10:10 Hospitalist ROS - Review of Systems Cardiovascular: denies: chest pain, palpitations, orthopnea, paroxysmal noc. dyspnea, edema, light headedness, other Gastrointestinal: denies: nausea, vomiting, abdominal pain, diarrhea, constipation, melena, hematochezia, other Genitourinary: denies: dysuria, frequency, incontinence, hematuria, retention, other - Medication Medications: Active Medications Generic Name Dose Route Start Last Admin Trade Name Freq PRN Reason Stop Dose Admin Apixaban 2.5 mg 01/08/20 21:00 01/09/20 08:16 Apixaban 2.5 Mg Tab PO 2.5 mg BID SOLO Administration Aspirin 81 mg 01/09/20 09:00 01/09/20 08:16 Aspirin 81 Mg Enteric Coated Tablet PO 81 mg DAILY SOLO Administration Bupropion HCl 150 mg 01/09/20 09:00 01/09/20 08:16 Bupropion 150 Mg Xl Tab PO 150 mg QAM SOLO Administration Cholecalciferol 2,000 units 01/09/20 09:00 01/09/20 08:16 Cholecalciferol 1,000 Units (25 Mcg) Tab PO 2,000 units DAILY SOLO Administration Dronedarone 400 mg 01/08/20 17:00 01/09/20 08:16 Dronedarone Hcl 400 Mg Tab PO 400 mg BID-WM SOLO Administration Furosemide 20 mg 01/09/20 10:00 01/09/20 10:54 Furosemide 20 Mg/2 Ml Vial SLOW IVP 01/09/20 14:00 20 mg NOW SOLO Administration Simvastatin 10 mg 01/08/20 21:00 01/08/20 22:55 Simvastatin 5 Mg Tab PO 10 mg HS SOLO Administration Sodium Chloride 10 ml 01/09/20 09:00 01/09/20 08:18 Flush - Normal Saline 10 Ml Syringe IVF 10 ml Q12HR SOLO Administration - Exam Heart: negative: RRR, no murmur, no gallops, no rubs, normal peripheral pulses, irregular, diminshed peripheral pulses, murmur present, II/IV, III/IV Respiratory: negative: CTAB, no wheezes, no rales, no ronchi, normal chest expa nsion, no tachypnea, normal percussion, rales, rhonchi, tachypneic, wheezes Gastrointestinal: negative: soft, non-tender, non-distended, normal bowel sounds, no palpable masses, no hepatomegaly, no splenomegaly, no bruit, no guarding, no rigidity, tender to palpation, distended, diminished bowl sounds, voluntary guarding Hosp A/P (1) Atrial fibrillation with RVR Code(s): I48.91 - UNSPECIFIED ATRIAL FIBRILLATION Status: Acute (2) CAD (coronary artery disease) Code(s): I25.10 - ATHSCL HEART DISEASE OF [place] CORONARY ARTERY W/O ANG PCTRS Status: Chronic (3) Hyperlipidemia Code(s): E78.5 - HYPERLIPIDEMIA, UNSPECIFIED Status: Chronic (4) Hypertension Code(s): I10 - ESSENTIAL (PRIMARY) HYPERTENSION Status: Chronic - Plan pt being seen by EP/cardiology. s/p watchman but has a small leak. will continue eliquis. Her multaq has been increased. pt will undergo cardioversion.
--- NOTE | 2020-01-09 17:42 | PDOC.EP ---
- Subjective Date: 01/09/20 Time: 08:00 Interval History: Followup for Atrial flutter management. NPO this AM pending cardiology consult. Voicing no new complaints. No events overnight 8 point ROS negative - Objective Allergies/Adverse Reactions: Allergies Allergy/AdvReac Type Severity Reaction Status Date / Time adhesive Allergy rash, Verified 01/09/20 03:16 blisters erythromycin base Allergy Rash Verified 01/09/20 03:16 Current Medications Acetaminophen (Acetaminophen 325 Mg Tab) 650 mg PO Q4H PRN PRN Reason: Headache/Fever/Mild Pain (1-3) Apixaban (Apixaban 2.5 Mg Tab) 2.5 mg PO BID [facility] Last Admin: 01/09/20 08:16 Dose: 2.5 mg Documented by: Aspirin (Aspirin 81 Mg Enteric Coated Tablet) 81 mg PO DAILY [facility] Last Admin: 01/09/20 08:16 Dose: 81 mg Documented by: Bupropion HCl (Bupropion 150 Mg Xl Tab) 150 mg PO QAM [facility] Last Admin: 01/09/20 08:16 Dose: 150 mg Documented by: Carvedilol (Carvedilol 25 Mg Tab) 25 mg PO BID-[facility] Last Admin: 01/09/20 16:34 Dose: 25 mg Documented by: Cholecalciferol (Cholecalciferol 1,000 Units (25 Mcg) Tab) 2,000 units PO DAILY [facility] Last Admin: 01/09/20 08:16 Dose: 2,000 units Documented by: Dronedarone (Dronedarone Hcl 400 Mg Tab) 400 mg PO BID-[facility] Last Admin: 01/09/20 16:34 Dose: 400 mg Documented by: Diltiazem HCl 125 mg/ Sodium (Chloride) 125 mls @ 5 mls/hr IVPB INF SOLO; Protocol Miscellaneous Medication (Electrolyte Replacement Protocol) 1 each FS ASDIR [facility] Senna/Docusate Sodium (Senokot S 8.6-50 Mg Tab) 2 tab PO BID PRN PRN Reason: Constipation Simvastatin (Simvastatin 5 Mg Tab) 10 mg PO HS [facility] Last Admin: 01/08/20 22:55 Dose: 10 mg Documented by: Sodium Chloride (Flush - Normal Saline 10 Ml Syringe) 10 ml IVF Q12HR [facility] Last Admin: 01/09/20 08:18 Dose: 10 ml Documented by: Sodium Chloride (Flush - Normal Saline 10 Ml Syringe) 10 ml IVF PRN PRN PRN Reason: Saline Flush Vital Signs & Weight: Vital Signs Temp Pulse Resp BP BP Pulse Ox 01/09/20 15:17 98 F 83 16 108/55 L 95 01/09/20 11:04 97.6 F 97 18 99/46 L 97 01/09/20 07:30 98.3 F 87 18 134/63 94 L Weight 146 lb 11.2 oz I/O: I/O 01/08/20 01/09/20 01/10/20 06:59 06:59 06:59 Intake Total 384.6 750 Output Total 1350 600 Balance -965.4 150 - Physical Exam General: appears well, no apparent distress, speech clear HEENT: mucus membranes moist, normocephaly Neck: supple neck, midline trachea, no JVD/HJR, no masses, no bruit, no lymphadenopathy, no thromegaly Cardiology: regular rate and rhythm, no murmur, regular rate, regular rhythm, PMI nondisplaced Lungs: clear to auscultation, normal breath sounds, normal exam, no wheeze, rales, rhonchi, no wheezes, no rales, no rhonchi Neurology: cranial nerve 2-12 intact, grossly intact, motor function intact, sensory function intact, negative rhomberg, coordination normal, no lateralizing findings Abdomen: unremarkable, active bowel sounds, soft, non-tender, no masses, no pulsations/bruits, no hepatosplenomegaly, HJR negative Extremities: dry, strong pulses, warm Skin: groin sites stable, device site stable w/o swelling Musculoskeletal: normal range of motion, no pain, no fluid collection - Labs Result Diagrams: 01/08/20 10:10 01/08/20 10:10 - EKG Interpretation EKG Method: Telemetry EKG shows: Atypical atrial flutter (2:1) - Assessment/Plan Assessment/Plan: PROBLEM LIST: 1. Recurrent atrial arrhythmias with three prior ablations, including ablation of left atrial appendage. a. Most recent ablation on 12/13/2019. 2. Left atrial appendage closure via Watchman protocol on 04/06/2019, status post coil closure on 12/13/2019. 3. Coronary artery disease with prior 5-vessel coronary artery bypass grafting in 2003. 4. Preserved LVEF by echo on 05/25/2019. 5. Hypertension. 6. Sleep apnea. 7. Mild dementia. Tolerating Multaq 400mg BID. Consider CV with full dose Multaq. Possibly tomorrow with Cardiology or myself. Continue eliquis 2.5mg BID. There is a very small peridevice leak that is hoped to heal over without further intervention. Will re-evaluation in 3 months.
[2020-01-09] MEDS: Simvastatin 5 MG TAB PO SCH (21:19)
[2020-01-10 08:49] LABS: Anion Gap 12 mmol/L (10-20); BUN (Urea Nitrogen) 24 mg/dL (9.8-20.1); Calc. Creatinine Clearance 37 mL/min (70-130); Calcium 8.6 mg/dL (7.8-10.44); Carbon Dioxide 25 mmol/L (23-31); Chloride 99 mmol/L (98-107); Estimated GFR-MDRD 39; Glucose 85 mg/dL (83-110); Potassium 3.4 mmol/L (3.5-5.1); Sodium 133 mmol/L (136-145)
[2020-01-10] MEDS: Apixaban 2.5 MG TAB PO SCH (08:51)
[2020-01-10] MEDS: Cholecalciferol 1,000 UNITS (25 MCG) TAB PO SCH (08:51)
[2020-01-10] MEDS: Bupropion 150 MG XL TAB PO SCH (08:52)
[2020-01-10] MEDS: Aspirin 81 mg Enteric Coated Tablet PO SCH (08:52)
[2020-01-10] MEDS: Carvedilol 25 MG TAB PO SCH ×2 (08:52→16:36)
[2020-01-10] MEDS: Dronedarone HCl 400 MG TAB PO SCH ×2 (08:52→16:36)
--- NOTE | 2020-01-10 08:55 | PDOC.EVN ---
Event Note - Event Note Event Note: i was asked by Dr Francois from [facility] to make this pt inpatient.
[2020-01-10] MEDS ORDERED: Torsemide 20 MG TAB PO SCH (09:00)
--- NOTE | 2020-01-10 10:45 | PDOC.HOSPP ---
- Subjective Encounter Date: 01/10/20 Encounter Time: 09:45 Subjective: pt up in bed no complains. - Objective Vital Signs & Weight: Vital Signs (12 hours) Temp Pulse Resp BP BP Pulse Ox 01/10/20 07:43 97.5 F L 110 H 24 H 123/57 L 94 L 01/10/20 03:13 97.7 F 108 H 21 H 143/65 H 100 Weight Weight 146 lb 11.2 oz I&O: 01/09/20 01/10/20 01/11/20 06:59 06:59 06:59 Intake Total 384.6 1010 Output Total 1350 1000 Balance -965.4 10 Result Diagrams: 01/08/20 10:10 01/10/20 08:19 Hospitalist ROS - Review of Systems Respiratory: denies: cough, dry, shortness of breath, hemoptysis, SOB with excertion, pleuritic pain, sputum, wheezing, other Cardiovascular: denies: chest pain, palpitations, orthopnea, paroxysmal noc. dyspnea, edema, light headedness, other Gastrointestinal: denies: nausea, vomiting, abdominal pain, diarrhea, constipation, melena, hematochezia, other - Medication Medications: Active Medications Generic Name Dose Route Start Last Admin Trade Name Freq PRN Reason Stop Dose Admin Apixaban 2.5 mg 01/08/20 21:00 01/10/20 08:51 Apixaban 2.5 Mg Tab PO 2.5 mg BID SOLO Administration Aspirin 81 mg 01/09/20 09:00 01/10/20 08:52 Aspirin 81 Mg Enteric Coated Tablet PO 81 mg DAILY [facility] Administration Bupropion HCl 150 mg 01/09/20 09:00 01/10/20 08:52 Bupropion 150 Mg Xl Tab PO 150 mg QAM [facility] Administration Carvedilol 25 mg 01/09/20 17:00 01/10/20 08:52 Carvedilol 25 Mg Tab PO 25 mg BID-[facility] Administration Cholecalciferol 2,000 units 01/09/20 09:00 01/10/20 08:51 Cholecalciferol 1,000 Units (25 Mcg) Tab PO 2,000 units DAILY [facility] Administration Dronedarone 400 mg 01/08/20 17:00 01/10/20 08:52 Dronedarone Hcl 400 Mg Tab PO 400 mg BID-WM [facility] Administration Simvastatin 10 mg 01/08/20 21:00 01/09/20 21:19 Simvastatin 5 Mg Tab PO 10 mg HS SOLO Administration Sodium Chloride 10 ml 01/09/20 09:00 01/10/20 08:52 Flush - Normal Saline 10 Ml Syringe IVF 10 ml Q12HR [facility] Administration Torsemide 40 mg 01/10/20 09:00 01/10/20 08:52 Torsemide 20 Mg Tab PO 40 mg DAILY [facility] Administration - Exam Neck: negative: supple, symmetric, no JVD, no thyromegaly, no lymphadenopathy, no carotid bruit, JVD Heart: negative: RRR, no murmur, no gallops, no rubs, normal peripheral pulses, irregular, diminshed peripheral pulses, murmur present, II/IV, III/IV Respiratory: negative: CTAB, no wheezes, no rales, no ronchi, normal chest expansion, no tachypnea, normal percussion, rales, rhonchi, tachypneic, wheezes Hosp A/P (1) Atrial fibrillation with RVR Code(s): I48.91 - UNSPECIFIED ATRIAL FIBRILLATION Status: Acute (2) CAD (coronary artery disease) Code(s): I25.10 - ATHSCL HEART DISEASE OF [place] CORONARY ARTERY W/O ANG PCTRS Status: Chronic (3) Hyperlipidemia Code(s): E78.5 - HYPERLIPIDEMIA, UNSPECIFIED Status: Chronic (4) Hypertension Code(s): I10 - ESSENTIAL (PRIMARY) HYPERTENSION Status: Chronic - Plan pt being seen by EP/cardiology. s/p watchman but has a small leak. will continue eliquis. Her multaq has been increased. pt will undergo cardioversion. 01/09 pt to undergo cardioversion today by cardiology. will discharge when ok with cardiology and ep. will restart home diuretic.
[2020-01-10] MEDS ORDERED: Potassium Chloride 40 MEQ in Sodium Chloride 0.9% 250 ML 250 ML IVPB SCH (11:00)
[2020-01-10 12:01] VITALS: TEMP 97.9
--- NOTE | 2020-01-10 14:11 | PRG ---
DATE OF SERVICE: 01/10/2020 SUBJECTIVE: Chioma underwent cardioversion today. She is resting comfortably. OBJECTIVE: VITAL SIGNS: Her blood pressure is 120/60, pulse now is 80, it is sinus. LUNGS: Clear. CARDIAC: Normal S1, normal S2. She does have a systolic murmur at left lower sternal border. ASSESSMENT: Recurrent atrial tachycardia, status post cardioversion. PLAN: She can be released home. We have increased the Multaq to 400 mg twice a day. No other changes. Job ID: [id number]
[2020-01-10] MEDS ORDERED: PROPOFOL 200 MG/20 ML VIAL ONE (15:19)
[2020-01-10] MEDS ORDERED: Lidocaine 1% PF 5 ML VIAL ONE (15:19)
--- NOTE | 2020-01-10 16:06 | PDOC.EP ---
- Subjective Date: 01/10/20 Time: 16:06 Interval History: Followup for Atrial flutter management. NPO this AM pending cardioversion Voicing no new complaints. No events overnight 8 point ROS negative: + for heart racing - Objective Allergies/Adverse Reactions: Allergies Allergy/AdvReac Type Severity Reaction Status Date / Time adhesive Allergy rash, Verified 01/09/20 03:16 blisters erythromycin base Allergy Rash Verified 01/09/20 03:16 Current Medications Acetaminophen (Acetaminophen 325 Mg Tab) 650 mg PO Q4H PRN PRN Reason: Headache/Fever/Mild Pain (1-3) Apixaban (Apixaban 2.5 Mg Tab) 2.5 mg PO BID [facility] Last Admin: 01/10/20 08:51 Dose: 2.5 mg Documented by: Aspirin (Aspirin 81 Mg Enteric Coated Tablet) 81 mg PO DAILY [facility] Last Admin: 01/10/20 08:52 Dose: 81 mg Documented by: Bupropion HCl (Bupropion 150 Mg Xl Tab) 150 mg PO QAM [facility] Last Admin: 01/10/20 08:52 Dose: 150 mg Documented by: Carvedilol (Carvedilol 25 Mg Tab) 25 mg PO BID-[facility] Last Admin: 01/10/20 08:52 Dose: 25 mg Documented by: Cholecalciferol (Cholecalciferol 1,000 Units (25 Mcg) Tab) 2,000 units PO DAILY [facility] Last Admin: 01/10/20 08:51 Dose: 2,000 units Documented by: Dronedarone (Dronedarone Hcl 400 Mg Tab) 400 mg PO BID-[facility] Last Admin: 01/10/20 08:52 Dose: 400 mg Documented by: Diltiazem HCl 125 mg/ Sodium (Chloride) 125 mls @ 5 mls/hr IVPB INF [facility]; Protocol Miscellaneous Medication (Electrolyte Replacement Protocol) 1 each FS ASDIR [facility] Potassium Chloride (Potassium Chloride 20 Meq Tab) 40 meq PO NOW [facility] Stop: 01/10/20 19:00 Senna/Docusate Sodium (Senokot S 8.6-50 Mg Tab) 2 tab PO BID PRN PRN Reason: Constipation Simvastatin (Simvastatin 5 Mg Tab) 10 mg PO HS [facility] Last Admin: 01/09/20 21:19 Dose: 10 mg Documented by: Sodium Chloride (Flush - Normal Saline 10 Ml Syringe) 10 ml IVF Q12HR [facility] Last Admin: 01/10/20 08:52 Dose: 10 ml Documented by: Sodium Chloride (Flush - Normal Saline 10 Ml Syringe) 10 ml IVF PRN PRN PRN Reason: Saline Flush Torsemide (Torsemide 20 Mg Tab) 40 mg PO DAILY [facility] Last Admin: 01/10/20 08:52 Dose: 40 mg Documented by: Vital Signs & Weight: Vital Signs Temp Pulse Resp BP Pulse Ox 01/10/20 11:27 97.9 F 106 H 16 120/57 L 95 01/10/20 07:43 97.5 F L 110 H 24 H 123/57 L 94 L Weight 146 lb 11.2 oz I/O: I/O 01/09/20 01/10/20 01/11/20 06:59 06:59 06:59 Intake Total 384.6 1010 Output Total 1350 1000 Balance -965.4 10 - Labs Result Diagrams: 01/08/20 10:10 01/10/20 08:19 - Assessment/Plan Assessment/Plan: PROBLEM LIST: 1. Recurrent atrial arrhythmias with three prior ablations, including ablation of left atrial appendage. a. Most recent ablation on 12/13/2019. 2. Left atrial appendage closure via Watchman protocol on 04/06/2019, status post coil closure on 12/13/2019. 3. Coronary artery disease with prior 5-vessel coronary artery bypass grafting in 2003. 4. Preserved LVEF by echo on 05/25/2019. 5. Hypertension. 6. Sleep apnea. 7. Mild dementia. s/p successful CV. OK for DC home by EP. Continue Mlutaq 400mg PO BID and Eliquis 2.5mg BID on DC. 6 week follow up will be arranged.
[2020-01-10 16:22] LABS: Potassium 3.8 mmol/L (3.5-5.1)
[2020-01-10 16:23] VITALS: BP 120/51
[2020-01-10] MEDS ORDERED: Potassium Chloride 20 MEQ TAB PO SCH (17:00)
--- NOTE | 2020-01-11 11:43 | CCLSPC ---
PROCEDURE: Cardioversion. INDICATION: Atrial tachycardia. The patient was brought to the recovery room in a fasting state. She was sedated by anesthesia. She was given 100 joules direct current synchronized energy and converted to sinus rhythm. CONCLUSION: Successful cardioversion. Job ID: [id number]
--- NOTE | 2020-01-11 12:08 | PQF ---
CLINICAL DOCUMENTATION CLARIFICATION FORM: Dear Dr. Gore Date: 01/10/2020 Please exercise your independent, professional judgment in responding to the clarification form. Clinical indicators are provided on the bottom of this form for your review. Please check appropriate box(s): DIASTOLIC HEART FAILURE (please specify acuity): [ ] Acute on Chronic [ ] Chronic [ ] Other diagnosis [ ] Unable to determine In addition, please specify: Present on Admission (POA): [ ] Yes [ ] No [ ] Unable to determine For continuity of documentation, please document condition throughout progress notes and discharge summary. Thank You. CLINICAL INDICATORS - SIGNS / SYMPTOMS / LABS / RESULTS AND LOCATION IN EMR *ED 01/07: Vital Signs: RR 19-25 *H&P 01/07 (Avis): * BNP elevated, doubled from baseline (1065) and pleural effusion noted on CXR with bilateral LE edema. * Will give low dose Lasix 20mg PO x1 now. *PN 01/08 (Gaetano): Diastolic heart failure. *PN 01/09 ([facility]): Preserved LVEF by echo on 05/25/2019. RISK FACTORS / RESULTS AND LOCATION IN EMR *H&P 01/07 (Avis): * Atrial fibrillation with RVR * Hypertension * CAD TREATMENTS / RESULTS AND LOCATION IN EMR *ED 01/07: Diltiazem IV *MAR ([facility]): Furosemide 20mg PO 01/08, Furosemide 20mg IVP 01/08, Torsemide 40mg PO 01/09 *Cardiology Consultation 01/08 (Gaetano): Cardioversion is scheduled for tomorrow. *PN 01/09 (Sofía): Will restart home diuretic. Thank you, Nara CDS/Sys Dir Signature: Nara Cueva RN, CDS Phone #: [phone] [email or web address] This is a permanent part of the Medical Record [facility]
== END 2020-01-10 19:25 | DRG 309 ==
LOC: ERS 09:36 → ERHOLD 11:42 → 2SW 19:36 → OBSVTOIN 01-10 08:54
PROVIDERS: ADMIT Internal Medicine; ATTEND Internal Medicine
PROC: 5A2204Z Restoration of Cardiac Rhythm, Single (ICD-10-PCS; principal; 2020-01-10)
DX: I48.92 Unspecified atrial flutter (principal); C94.6 Myelodysplastic disease, not elsewhere classified; I50.32 Chronic diastolic (congestive) heart failure; I47.1 Supraventricular tachycardia; Z20.828 Contact with and (suspected) exposure to other viral communicable diseases; I25.10 Atherosclerotic heart disease of native coronary artery without angina pectoris; I11.0 Hypertensive heart disease with heart failure; F03.90 Unspecified dementia, unspecified severity, without behavioral disturbance, psychotic disturbance, mood disturbance, and anxiety; E78.5 Hyperlipidemia, unspecified; I48.20 Chronic atrial fibrillation, unspecified; G47.30 Sleep apnea, unspecified; Z95.1 Presence of aortocoronary bypass graft; Z91.048 Other nonmedicinal substance allergy status; Z88.1 Allergy status to other antibiotic agents; Z79.899 Other long term (current) drug therapy; Z79.01 Long term (current) use of anticoagulants; Z98.51 Tubal ligation status
CPT/HCPCS: 36415; 71045; 80048; 81001; 82550; 82553; 83690; 83735; 83880; 84484; 87635; 92960; 93005; 96365; 96366; 96367; 96375; 96376; G0378; J1940; J2704; J3475; J3480; J7050; U0003

== ENCOUNTER 2020-03-08 09:26 | Outpatient (CLI) | payer MEDICARE ==
--- NOTE | 2020-03-08 11:40 | CT ---
EXAM: CTA of the chest HISTORY: Atrial fibrillation. Left atrial appendage occlusive device placement. COMPARISON: 09/29/2019; 04/22/2012 TECHNIQUE: Multiple contiguous axial images were obtained a CTA of the chest with contrast per left a trial appendage protocol. Sagittal and coronal 3-D MIP reformats reformats were performed. FINDINGS: HEART: Normal in size without focal cardiac abnormality. There is adequate opacification of the left atrium. An occlusive device is seen within the left atria l appendage. There is been interval placement of coils within and behind the occlusive device in the left atrial appendage. No contrast is seen behind the occlusive device in the atrial appendage. MEDIASTINUM: Stable slightly prominent pretracheal lymph nodes measure up to 1.4 cm in greatest dimen thanh. LUNGS: Emphysematous changes. Atelectasis in the dependent lung bases. No focal infiltrates or masses . PLEURAL SPACE: Trace bilateral pleural effusions. CHEST WALL SOFT TISSUES: Unremarkable VISUALIZED OSSEOUS STRUCTURES: Status post sternotomy for CABG. Degenerative changes in the spine. VISUALIZED SUBDIAPHRAGMATIC STRUCTURES: 1.5 cm right renal cyst. Stable nodularity of both adrenal gl ands that is slightly mass like. The right adrenal gland measures 1.5 cm in greatest dimension. IMPRESSION: 1. Appropriate occlusion of left atrial appendage by occlusive device. 2. Emphysema and trace bilateral pleural effusions
[2020-03-08] MEDS ORDERED: Iopamidol-370 76% 500 ML 1 ML ONE (15:11)
== END 2020-03-08 09:27 | disposition home or self-care (01) ==
LOC: BICCT 09:26
PROVIDERS: ATTEND Internal Medicine Cardiovascular Disease
DX: I48.91 Unspecified atrial fibrillation (principal); R06.02 Shortness of breath; T82.539A Leakage of unspecified cardiac and vascular devices and implants, initial encounter; J90 Pleural effusion, not elsewhere classified; J43.9 Emphysema, unspecified
CPT/HCPCS: 71275; Q9967

== ENCOUNTER 2020-05-20 13:28 | Inpatient (IN) | payer MEDICARE ==
[2020-05-20] MEDS ORDERED: Furosemide 20 MG/2 ML VIAL SLOW IVP SCH (14:00)
--- NOTE | 2020-05-20 14:06 | RAD ---
PORTABLE CHEST: HISTORY: Syncope. COMPARISON: 01/08/2020 exam. FINDINGS: Heart size is within normal limits. There are postop sternotomy changes. Chronic-appearing lung jaime nges are seen without definite focal infiltrates. Radiopaque density over the heart is probably rela kimo to an atrial occlusion device. IMPRESSION: Chronic lung change. No acute findings. POS: TABBY
[2020-05-20 14:07] LABS: #Eosinphils 0.1 thou/uL (0.0-0.7); #Lymphocytes 0.9 thou/uL (1.20-3.40); #Monocytes 0.7 thou/uL (0.11-0.59); #Neutrophils 6.6 thou/uL (1.40-6.50); %Basophils 0.2 % (0.0-1.0); %Neutrophils 79.9 % (42.0-75.0); Hemoglobin 11.8 g/dL (12.0-16.0); Mean Corpuscular HGB CONC 33.7 g/dL (32.0-36.0); Mean Corpuscular Hemoglobin 34.8 pg (27.0-31.0); Mean Platelet Volume 7.5 fL (7.4-10.4); Platelet Count 384 thou/uL (130-400); RBC Distribution Width 14.7 % (11.5-14.5); Red Blood Cell (RBC) Count 3.39 mill/uL (4.20-5.40); White Blood Cell (WBC) Count 8.3 thou/uL (4.8-10.8)
[2020-05-20] MEDS ORDERED: Furosemide 20 MG/2 ML VIAL ONE (14:15)
[2020-05-20 14:22] LABS: ALT (SGPT) 19 U/L (8-55); AST (SGOT) 24 U/L (5-34); Albumin 3.6 g/dL (3.4-4.8); Alkaline Phosphatase 76 U/L (40-110); Anion Gap 17 mmol/L (10-20); BUN (Urea Nitrogen) 37 mg/dL (9.8-20.1); Bilirubin, Total 0.5 mg/dL (0.2-1.2); Calc. Creatinine Clearance 0 mL/min (70-130); Calcium 9.5 mg/dL (7.8-10.44); Carbon Dioxide 28 mmol/L (23-31); Chloride 94 mmol/L (98-107); Glucose 138 mg/dL (83-110); Potassium 3.4 mmol/L (3.5-5.1); Protein, Total 6.6 g/dL (5.8-8.1); Sodium 136 mmol/L (136-145)
[2020-05-20 14:44] LABS: CKMB 2.2 ng/mL (0-6.6)
[2020-05-20] MEDS ORDERED: Cefepime 2 GM in Sodium Chloride 0.9% 100 ML IVPB SCH (15:00)
[2020-05-20 15:08] LABS: Bilirubin Negative (Negative); Blood, Urine Negative (Negative); Clarity Clear (Clear); Glucose, Urine (Dipstick) Normal (Negative); Ketone, Urine Negative (Negative); Leukocyte Negative Leu/uL (Negative); Nitrite Negative (Negative); Protein, Urine (Dipstick) Negative (Neg-Trace); Specific Gravity, Urine 1.008 (1.002-1.036); Urobilinogen Normal mg/dL (Less than 2); pH, Urine 6.5 (5.0-9.0)
[2020-05-20] MEDS ORDERED: Cefepime 2 GM VIAL ONE (15:15)
[2020-05-20] MEDS ORDERED: Diltiazem 125 MG/25 ML ONE (15:15)
[2020-05-20] MEDS ORDERED: Sodium Chloride 0.9% 500 ML IVPB SCH (15:30)
[2020-05-20] MEDS ORDERED: VANCOMYCIN 1.25 GM/250 ML BAG 1.25 GM in Premix Bag 1 BAG IVPB SCH (16:00)
[2020-05-20 17:02] LABS: Lactic Acid 0.9 mmol/L (0.5-2.2)
[2020-05-20 17:45] LABS: Troponin I 0.043 ng/mL (< 0.028)
--- NOTE | 2020-05-20 18:35 | PDOC.HHP ---
Hospitalist HPI Shortness of breath History of Present Illness: Patient is a pleasant 79-year-old lady who was seen in the emergency room on May 20, 2020. Was hospitalized at this facility in December 2019 for A. fib with RVR. She had multiple cardioversions and ablations in the past. She reports that she started feeling lightheaded and short of breath this morning. She denies any chest pain, fever, vomiting, cough or abdominal pain. She presented to the emergency room and was found to be in atrial fibrillation with rapid ventricular response. She was referred to hospitalist service for admission to the hospital. ED Course: BP: 131/74, MAP: 93, Pulse: 103, Resp: 21, Temp: 97.9 (Oral), Pain: 1, O2 sat: 99 on (Room Air), Time: 05/20/2020 18:00. Allergies/Adverse Reactions: Allergy/AdvReac Type Severity Reaction Status Date / Time adhesive Allergy rash, Verified 01/09/20 03:16 blisters erythromycin base Allergy Rash Verified 01/09/20 03:16 Penicillins Allergy Verified 05/20/20 15:26 Home Medications: Medication Instructions Recorded Confirmed Type Cholecalciferol (Vitamin D3) 2,000 unit PO DAILY 02/05/16 01/09/20 History [Vitamin D3] Lisinopril 10 mg PO HS 02/05/16 01/09/20 History Pravastatin Sodium 20 mg PO HS 02/05/16 01/09/20 History Torsemide 2 tab PO DAILY 10/26/19 01/09/20 History BuPROPion XL [Wellbutrin XL] 150 mg PO DAILY 12/28/19 01/09/20 History Potassium Chloride 10 meq PO BID- 12/28/19 01/09/20 History Famotidine [Pepcid] 20 mg PO DAILY 01/09/20 01/09/20 History traZODone HCl [Desyrel] 50 mg PO PRN PRN 01/09/20 01/09/20 History Apixaban [Eliquis] 2.5 mg PO BID tab 01/10/20 Rx Aspirin [Ecotrin Low Strength] 81 mg PO DAILY tab 01/10/20 Rx Carvedilol [Coreg] 25 mg PO BID- tab 01/10/20 Rx Dronedarone HCl [Multaq] 400 mg PO BID- tab 01/10/20 Rx Past History: Past medical history: Chronic A. fib/A. fib with RVR, hypertension, essential thrombocytopenia, obstructive sleep apnea syndrome, mild dementia, myeloproliferative disorder, dyslipidemia and coronary artery disease. Surgical history: Coronary artery bypass graft x5 in 2004, ablation x3 for A. fib, cardioversion x4, watchman procedure and tubal ligation. Social history: Patient denies tobacco use, alcohol use or recreational drug use Family history: No family history of premature coronary artery disease Hospitalist HPI ROS Respiratory: reports: SOB with excertion. denies: cough, shortness of breath, pleuritic pain, wheezing Cardiovascular: reports: light headedness. denies: chest pain, palpitations, orthopnea, paroxysmal noc. dyspnea, edema Skin: denies: rash, lesions, nelly, bruising All other systems reviewed; all pertinent +/- noted in HPI/Subj Hospitalist Exam General Appearance: awake alert Eye: anicteric sclera ENT: normocephalic atraumatic Neck: supple Heart - other findings: S1, S2, irregular and tachycardic Respiratory: CTAB Gastrointestinal: soft, non-tender Extremities: 2+ LE edema Skin: no rashes Psychiatric: normal affect, normal behavior Hospitalist Results Result Diagrams: 05/20/20 13:56 05/20/20 13:56 Lab results: Laboratory Last Values WBC 8.3 thou/uL (4.8-10.8) 05/20/20 13:56 RBC 3.39 mill/uL (4.20-5.40) L 05/20/20 13:56 Hgb 11.8 g/dL (12.0-16.0) L 05/20/20 13:56 Hct 35.0 % (36.0-47.0) L 05/20/20 13:56 MCV 103.0 fL (78.0-98.0) H 05/20/20 13:56 MCH 34.8 pg (27.0-31.0) H 05/20/20 13:56 MCHC 33.7 g/dL (32.0-36.0) 05/20/20 13:56 RDW 14.7 % (11.5-14.5) H 05/20/20 13:56 Plt Count 384 thou/uL (130-400) 05/20/20 13:56 MPV 7.5 fL (7.4-10.4) 05/20/20 13:56 Neutrophils % 79.9 % (42.0-75.0) H 05/20/20 13:56 Lymphocytes % 11.0 % (21.0-51.0) L 05/20/20 13:56 Monocytes % 8.0 % (0.0-10.0) 05/20/20 13:56 Eosinophils % 1.0 % (0.0-10.0) 05/20/20 13:56 Basophils % 0.2 % (0.0-1.0) 05/20/20 13:56 Neutrophils # 6.6 thou/uL (1.40-6.50) H 05/20/20 13:56 Lymphocytes # 0.9 thou/uL (1.20-3.40) L 05/20/20 13:56 Monocytes # 0.7 thou/uL (0.11-0.59) H 05/20/20 13:56 Eosinophils # 0.1 thou/uL (0.0-0.7) 05/20/20 13:56 Basophils # 0.0 thou/uL (0.0-0.2) 05/20/20 13:56 Sodium 136 mmol/L (136-145) 05/20/20 13:56 Potassium 3.4 mmol/L (3.5-5.1) L 05/20/20 13:56 Chloride 94 mmol/L (98-107) L 05/20/20 13:56 Carbon Dioxide 28 mmol/L (23-31) 05/20/20 13:56 Anion Gap 17 mmol/L (10-20) 05/20/20 13:56 BUN 37 mg/dL (9.8-20.1) H 05/20/20 13:56 Creatinine 1.48 mg/dL (0.6-1.1) H 05/20/20 13:56 Estimated GFR (MDRD) 34 05/20/20 13:56 Glucose 138 mg/dL (83-110) H 05/20/20 13:56 Lactic Acid 0.9 mmol/L (0.5-2.2) 05/20/20 16:35 Calcium 9.5 mg/dL (7.8-10.44) 05/20/20 13:56 Total Bilirubin 0.5 mg/dL (0.2-1.2) 05/20/20 13:56 AST 24 U/L (5-34) 05/20/20 13:56 ALT 19 U/L (8-55) 05/20/20 13:56 Alkaline Phosphatase 76 U/L (40-110) 05/20/20 13:56 CK-MB (CK-2) 2.2 ng/mL (0-6.6) 05/20/20 13:56 Troponin I 0.043 ng/mL (< 0.028) H 05/20/20 17:11 B-Natriuretic Peptide 342.9 pg/mL (0-100) H 05/20/20 13:56 Serum Total Protein 6.6 g/dL (5.8-8.1) 05/20/20 13:56 Albumin 3.6 g/dL (3.4-4.8) 05/20/20 13:56 Globulin 3.0 g/dL (2.4-3.5) 05/20/20 13:56 Albumin/Globulin Ratio 1.2 g/dL (1.2-2.2) 05/20/20 13:56 Urine Color Light-Yellow (Yellow) 05/20/20 14:35 Urine Clarity Clear (Clear) 05/20/20 14:35 Urine pH 6.5 (5.0-9.0) 05/20/20 14:35 Ur Specific [place] 1.008 (1.002-1.036) 05/20/20 14:35 Urine Protein Negative mg/dL (Neg-Trace) 05/20/20 14:35 Urine Glucose (UA) Normal mg/dL (Negative) 05/20/20 14:35 Urine Ketones Negative mg/dL (Negative) 05/20/20 14:35 Urine Blood Negative (Negative) 05/20/20 14:35 Urine Nitrite Negative (Negative) 05/20/20 14:35 Urine Bilirubin Negative (Negative) 05/20/20 14:35 Urine Urobilinogen Normal mg/dL (Less than 2) 05/20/20 14:35 Ur Leukocyte Esterase Negative Alix/uL (Negative) 05/20/20 14:35 EKG Additional Comments: A. fib with RVR Chest x-ray Additional Comments: PORTABLE CHEST: HISTORY: Syncope. COMPARISON: 01/08/2020 exam. FINDINGS: Heart size is within normal limits. There are postop sternotomy changes. Chronic-appearing lung jaime nges are seen without definite focal infiltrates. Radiopaque density over the heart is probably rela kimo to an atrial occlusion device. IMPRESSION: Chronic lung change. No acute findings. Hospitalist H&P A/P (1) Atrial fibrillation with RVR Code(s): I48.91 - UNSPECIFIED ATRIAL FIBRILLATION Status: Acute (2) Mild dementia Code(s): F03.90 - UNSPECIFIED DEMENTIA WITHOUT BEHAVIORAL DISTURBANCE Status: Chronic (3) CAD (coronary artery disease) Code(s): I25.10 - ATHSCL HEART DISEASE OF [place] CORONARY ARTERY W/O ANG PCTRS Status: Chronic (4) Hyperlipidemia Code(s): E78.5 - HYPERLIPIDEMIA, UNSPECIFIED Status: Chronic (5) Hypertension Code(s): I10 - ESSENTIAL (PRIMARY) HYPERTENSION Status: Chronic (6) Acute exacerbation of CHF (congestive heart failure) Code(s): I50.9 - HEART FAILURE, UNSPECIFIED Status: Acute Plan: Patient has been started on IV Cardizem, continue Cardizem drip. Admit to telemetry. Consult cardiology for opinion and help with management. Resume Multitak. Resume apixaban. Resume statin. Resume Coreg at 3.125 mg 2 times a day, monitor vital signs and titrate antihypertensives as needed. CAD stable. IV furosemide for CHF exacerbation. Estimated length of stay: Greater than 2 midnights Level of risk: Moderate Level of complexity: Moderate
[2020-05-20] MEDS ORDERED: Potassium Chloride 20 MEQ TAB PO SCH (19:00)
[2020-05-20 20:30] LABS: Troponin I 0.077 ng/mL (< 0.028)
[2020-05-21] MEDS: Apixaban 2.5 MG TAB PO SCH ×3 (00:11→20:16)
[2020-05-21 00:28] VITALS: BMI 21.3
[2020-05-21] MEDS: Diltiazem 125 MG in Sodium Chloride 0.9% 100 ML IVPB PRN ×2 (02:15→14:27)
[2020-05-21] MEDS: Simvastatin 10 MG TAB PO SCH ×2 (02:16→20:16)
[2020-05-21 04:07] LABS: #Lymphocytes 1.2 thou/uL (1.20-3.40); #Neutrophils 5.3 thou/uL (1.40-6.50); %Basophils 0.5 % (0.0-1.0); %Eosinophils 0.5 % (0.0-10.0); %Lymphocytes 15.5 % (21.0-51.0); %Monocytes 12.8 % (0.0-10.0); %Neutrophils 70.7 % (42.0-75.0); Hemoglobin 10.7 g/dL (12.0-16.0); Mean Corpuscular HGB CONC 34.1 g/dL (32.0-36.0); Mean Corpuscular Hemoglobin 35.1 pg (27.0-31.0); Mean Platelet Volume 7.4 fL (7.4-10.4); Platelet Count 406 thou/uL (130-400); RBC Distribution Width 14.9 % (11.5-14.5); Red Blood Cell (RBC) Count 3.05 mill/uL (4.20-5.40); White Blood Cell (WBC) Count 7.5 thou/uL (4.8-10.8)
[2020-05-21 04:27] LABS: Anion Gap 14 mmol/L (10-20); BUN (Urea Nitrogen) 35 mg/dL (9.8-20.1); Calc. Creatinine Clearance 34 mL/min (70-130); Carbon Dioxide 28 mmol/L (23-31); Chloride 97 mmol/L (98-107); Glucose 102 mg/dL (83-110); Potassium 3.5 mmol/L (3.5-5.1); Sodium 135 mmol/L (136-145)
[2020-05-21] MEDS: Furosemide 40 MG/4 ML VIAL SLOW IVP SCH ×2 (05:33→14:56)
[2020-05-21] MEDS ORDERED: Dronedarone HCl 400 MG TAB PO SCH (08:00)
[2020-05-21] MEDS: Aspirin 81 mg Enteric Coated Tablet PO SCH (08:40)
[2020-05-21] MEDS: Bupropion 150 MG XL TAB PO SCH (08:40)
[2020-05-21] MEDS: Carvedilol 3.125 MG TAB PO SCH ×2 (08:41→17:12)
[2020-05-21] MEDS: Famotidine 20 MG TAB PO SCH (08:41)
[2020-05-21] MEDS: Cholecalciferol 1,000 UNITS (25 MCG) TAB PO SCH (08:42)
[2020-05-21] MEDS ORDERED: Bupropion 150 MG XL TAB PO SCH (09:00)
[2020-05-21 09:53] LABS: SARS-CoV-2 PCR by NAA Not Detected (NotDetected)
--- NOTE | 2020-05-21 10:33 | PDOC.HOSPP ---
- Subjective Encounter Date: 05/21/20 Encounter Time: 07:30 Subjective: Patient seen in follow-up for Edwin butler. Denies chest pain or shortness of breath. - Objective Vital Signs & Weight: Vital Signs (12 hours) Temp Pulse Resp BP Pulse Ox 05/21/20 08:54 100 05/21/20 08:39 97.8 F 78 18 126/58 L 100 05/21/20 05:29 97.9 F 107 H 18 132/60 98 05/20/20 23:08 97.8 F 86 18 131/60 96 Weight Weight 136 lb 1 oz Result Diagrams: 05/21/20 03:52 05/21/20 03:52 Additional Labs: I reviewed patient's labs and MAR EKG Reviewed by me: Yes (Edwin butler on telemetry) Hospitalist ROS - Review of Systems Cardiovascular: denies: chest pain, palpitations, orthopnea, paroxysmal noc. dyspnea, edema, light headedness Gastrointestinal: denies: nausea, vomiting, abdominal pain, diarrhea, constipation, melena, hematochezia - Medication Medications: Active Medications Generic Name Dose Route Start Last Admin Trade Name Freq PRN Reason Stop Dose Admin Apixaban 2.5 mg 05/20/20 21:00 05/21/20 08:42 Apixaban 2.5 Mg Tab PO 2.5 mg BID SOLO Administration Aspirin 81 mg 05/21/20 09:00 05/21/20 08:40 Aspirin 81 Mg Enteric Coated Tablet PO 81 mg DAILY SOLO Administration Bupropion HCl 300 mg 05/21/20 09:00 05/21/20 08:40 Bupropion 150 Mg Xl Tab PO 300 mg DAILY SOLO Administration Carvedilol 3.125 mg 05/21/20 08:00 05/21/20 08:41 Carvedilol 3.125 Mg Tab PO 3.125 mg BID- SOLO Administration Cholecalciferol 2,000 units 05/21/20 09:00 05/21/20 08:42 Cholecalciferol 1,000 Units (25 Mcg) Tab PO 2,000 units DAILY SOLO Administration Famotidine 20 mg 05/21/20 09:00 05/21/20 08:41 Famotidine 20 Mg Tab PO 20 mg DAILY SOLO Administration Furosemide 40 mg 05/21/20 06:00 05/21/20 05:33 Furosemide 40 Mg/4 Ml Vial SLOW IVP 40 mg 0600,1400 SOLO Administration Diltiazem HCl 125 mg/ Sodium 125 mls @ 12.5 mls/hr 05/20/20 18:46 05/21/20 02:15 Chloride IVPB 125 mls INF PRN Administration For HR>120 sustained Protocol Simvastatin 10 mg 05/20/20 21:00 05/21/20 02:16 Simvastatin 10 Mg Tab PO 10 mg HS SOLO Administration Hospitalist Exam Vitals: Vital Signs (12 hours) Temp Pulse Resp BP Pulse Ox 05/21/20 08:54 100 05/21/20 08:39 97.8 F 78 18 126/58 L 100 05/21/20 05:29 97.9 F 107 H 18 132/60 98 05/20/20 23:08 97.8 F 86 18 131/60 96 Weight Weight 136 lb 1 oz General Appearance: awake alert Eye: anicteric sclera ENT: moist mucosa Neck: supple Heart: irregular Respiratory: CTAB Gastrointestinal: soft, non-tender Skin: no rashes Psychiatric: normal affect, normal behavior Hosp A/P (1) Atrial fibrillation with RVR Code(s): I48.91 - UNSPECIFIED ATRIAL FIBRILLATION Status: Acute (2) Acute exacerbation of CHF (congestive heart failure) Code(s): I50.9 - HEART FAILURE, UNSPECIFIED Status: Acute (3) Mild dementia Code(s): F03.90 - UNSPECIFIED DEMENTIA WITHOUT BEHAVIORAL DISTURBANCE Status: Chronic (4) CAD (coronary artery disease) Code(s): I25.10 - ATHSCL HEART DISEASE OF [place] CORONARY ARTERY W/O ANG PCTRS Status: Chronic (5) Hyperlipidemia Code(s): E78.5 - HYPERLIPIDEMIA, UNSPECIFIED Status: Chronic (6) Hypertension Code(s): I10 - ESSENTIAL (PRIMARY) HYPERTENSION Status: Chronic - Plan Patient is currently on Cardizem drip at 12.5 mg/h, rate is controlled. EP service consulted. Continue statin. Continue diuretics for CHF exacerbation. Ambulate patient.
--- NOTE | 2020-05-21 12:08 | PDOC.FMACP ---
Advance Care Planning - Problem (1) Palliative care encounter Status: Acute Code(s): Z51.5 - ENCOUNTER FOR PALLIATIVE CARE (2) Acute exacerbation of CHF (congestive heart failure) Status: Acute Code(s): I50.9 - HEART FAILURE, UNSPECIFIED (3) Atrial fibrillation with RVR Status: Acute Code(s): I48.91 - UNSPECIFIED ATRIAL FIBRILLATION (4) CAD (coronary artery disease) Status: Chronic Code(s): I25.10 - ATHSCL HEART DISEASE OF [place] CORONARY ARTERY W/O ANG PCTRS (5) Hyperlipidemia Status: Chronic Code(s): E78.5 - HYPERLIPIDEMIA, UNSPECIFIED (6) Hypertension Status: Chronic Code(s): I10 - ESSENTIAL (PRIMARY) HYPERTENSION (7) Mild dementia Status: Chronic Code(s): F03.90 - UNSPECIFIED DEMENTIA WITHOUT BEHAVIORAL DISTURBANCE - Note Participants: family, surrogate decision-maker, palliative care Summary: Palliative care addressed Advanced Care Planning. The diagnosis, prognosis and goals of care were discussed. Appropriate forms and documentation to accomplish the goals of care were discussed. All questions were answered. Assistance with Zohaib DOZIER designated Negra as surrogate decision maker as he is out of town. He will resume responsibilities in the future. Family continue currently with treatments and therapies. Please also refer to Palliative care notes in note section. Time Spent (mins): 15
--- NOTE | 2020-05-21 13:23 | CON ---
DATE OF CONSULTATION: 05/21/2020 ADDITIONAL REFERRING PHYSICIAN: Benji Salter MD, capacity planning manager. HISTORY OF PRESENT ILLNESS: I am visiting Mrs. Bedolla at our [facility] Telemetry Floor as an electrophysiology professional employer consultant. Her problems are; 1. Paroxysmal atrial fibrillation, status post prior ablation including isolation, left atrial appendage. a. PVI on 04/07/2019, left atrial appendage isolation by Dr. Fung as well as PVI on 12/12/[address] Caldera, with re-isolation of the right superior pulmonary vein, atrial flutter ablation, left atrial roof, CS ablation and isolation. b. Recurrent atrial arrhythmia on December 20, 2019, which was stopped in February due to financial difficulty. c. Now recurrent atrial fibrillation flutter noted. 2. History of left atrial appendage isolation, status post Watchman device placement on 04/06/2019. a. CT scan from 03/08/2020 shows adequate occlusion of the left atrial appendage. 3. History of coronary artery disease with bypass grafting x5 vessels in 2003. a. Preserved LVEF on echo on 05/25/2019. 4. Mild proliferative disorder with history of chronic anemia and thrombocytopenia. 5. History of obstructive sleep apnea. 6. Mild dementia. 7. Hypertension. ALLERGIES: ERYTHROMYCIN. MEDICATIONS: Currently included, 1. Vitamin D3. 2. Pravastatin. 3. Lisinopril 10 mg daily. 4. Torsemide 20 mg daily. 5. Bupropion. 6. Potassium chloride. 7. Coreg 25 mg twice a day. 8. Aspirin 81 mg daily. 9. Metolazone. 10. Levothyroxine. 11. Methylphenidate. 12. Hydroxyurea. 13. Desvenlafaxine. 14. Vitamin B. 15. Multivitamin. SUBJECTIVE: Ms. Bedolla is here with feeling of lightheadedness and dyspnea starting yesterday morning. Denies chest pains. No fever, vomiting, or abdominal pain is noted. She was found to be in atrial fibrillation rapid rate and was admitted on IV diltiazem drip. Currently, she is feeling better. No acute symptoms of angina or orthopnea. No edema noted. She does not pass out. No stroke-like symptoms. No neurological deficits. No fever, chills, or cough seen. REVIEW OF SYSTEMS: Rest of 12-point review of system otherwise unremarkable. PAST MEDICAL HISTORY: As above. She has had history of Watchman device placement and coiling by Dr. Caldera, she had been taking Multaq lower dose due to intolerance, later increased to 400 mg twice a day. She was able to tolerate it, but due to financial constraints, the family opted against that and also she has done well. It was discontinued in February. This is her first recurrence since. SOCIAL HISTORY: The patient denies smoking, EtOH, or drug abuse. FAMILY HISTORY: Not contributory. OBJECTIVE DATA: VITAL SIGNS: Blood pressure 126/58, heart rate 78, respiratory rate 18, temperature 97.8 degrees Fahrenheit. GENERAL: Alert and oriented woman, in no apparent distress. NECK: Midline. Jugular veins not distended. CHEST: Coarse without crackles. HEART: Sounds are irregularly irregular. S1 and S2 are variable. No murmur or gallop. ABDOMEN: Benign. Bowel sounds positive. EXTREMITIES: Lower extremities without edema, clubbing, or cyanosis. Pulses are adequate. NEUROLOGIC: The patient is nonfocal. MUSCULOSKELETAL: Without joint pain deformity. SKIN: Without rash. DATABASE: EKG is reviewed. Initial EKG reveals atrial flutter with variable AV conduction. Subsequent telemetry strips revealed more organized flutter with 2:1 AV conduction, atrial tachycardia, rate in the 160s. LABORATORY DATA: Sodium 135, potassium 3.5, BUN is 35, creatinine is 1.35. Troponin-I 0.043, 0.077. BNP is 342. White cell count 7.5, hemoglobin 10.7, platelet count is 406. Chest x-ray shows chronic lung changes. No acute findings. ASSESSMENT AND PLAN: Ms. Bedolla is a pleasant 79-year-old woman with history of chronic atrial arrhythmias, multiple prior ablations included left atrial appendage isolation. Despite, she has recurrent atrial flutters, which was reasonably well suppressed in the past with Multaq. Due to financial constraints, though family opted against Multaq and it was discontinued in February despite some success with suppression of these rhythms. Now, she is back with not feeling well and with atrial fibrillation rapid rates. She had a successful Watchman placement and subsequent coiling occluding the left atrial appendage. She is currently off anticoagulant. We discussed the treatment options which could include resuming Multaq, but due to financial constraints, this may not be possible. Alternatively, we could consider amiodarone and after sufficient loading, cardioversion could be considered. Naturally with amiodarone, there is a potential for long-term side effects. Final option is continued rate control. Due to her baseline QT abnormality and depressed renal function with GFR of 34 on my calculations, she likely would be a limited candidate for class 3 antiarrhythmic agents like sotalol or Tikosyn. Hence with history of coronary artery disease, also class Ic agents may be not optimal. Amiodarone likely would be the only antiarrhythmic choice. Hence her adequate anticoagulation, we will not resume her anticoagulant at this time. DVT prophylaxis is recommended though. Job ID: [id number] [facility]
[2020-05-21] MEDS: Amiodarone 200 MG TAB PO SCH ×2 (14:57→20:14)
[2020-05-22 07:23] LABS: Anion Gap 15 mmol/L (10-20); BUN (Urea Nitrogen) 27 mg/dL (9.8-20.1); Calc. Creatinine Clearance 36 mL/min (70-130); Calcium 9.1 mg/dL (7.8-10.44); Carbon Dioxide 31 mmol/L (23-31); Chloride 93 mmol/L (98-107); Glucose 112 mg/dL (83-110); Sodium 136 mmol/L (136-145)
[2020-05-22] MEDS: Furosemide 40 MG/4 ML VIAL SLOW IVP SCH ×2 (07:29→15:25)
[2020-05-22] MEDS: Bupropion 150 MG XL TAB PO SCH (08:20)
[2020-05-22] MEDS: Cholecalciferol 1,000 UNITS (25 MCG) TAB PO SCH (08:21)
[2020-05-22] MEDS: Apixaban 2.5 MG TAB PO SCH (08:21)
[2020-05-22] MEDS: Famotidine 20 MG TAB PO SCH (08:21)
[2020-05-22] MEDS: Carvedilol 3.125 MG TAB PO SCH (08:21)
[2020-05-22] MEDS: Amiodarone 200 MG TAB PO SCH ×3 (08:21→21:40)
[2020-05-22] MEDS: Aspirin 81 mg Enteric Coated Tablet PO SCH (08:21)
[2020-05-22 10:02] LABS: Band 8 % (5-11); Eosinophils 1 % (0-10); Hemoglobin 11.2 g/dL (12.0-16.0); Lymphocytes 12 % (21-51); MDiff Complete? YES; Mean Corpuscular HGB CONC 34.4 g/dL (32.0-36.0); Mean Corpuscular Hemoglobin 35.5 pg (27.0-31.0); Mean Platelet Volume 7.5 fL (7.4-10.4); Monocytes 11 % (0-10); Neutrophil 67 % (42-75); Platelet Count 447 thou/uL (130-400); Platelet Morphology Comment Appears Increased; Polychromasia SLIGHT = 2-3 cells (100X) (0-2/hpf); RBC Distribution Width 14.8 % (11.5-14.5); Reactive Lymphocytes 3 % (0-10); Red Blood Cell (RBC) Count 3.15 mill/uL (4.20-5.40); White Blood Cell (WBC) Count 8.8 thou/uL (4.8-10.8)
[2020-05-22] MEDS ORDERED: Enoxaparin Sodium 40 MG/0.4 ML SYRINGE SC SCH (10:30)
--- NOTE | 2020-05-22 13:33 | PQF ---
CLINICAL DOCUMENTATION CLARIFICATION FORM: Dear Dr. Blue Date / Time: 05/22/20 4223 Please exercise your independent, professional judgment in responding to the clarification form. Clinical indicators are provided on the bottom of this form for your review Please check appropriate box(es): [ ] Acute Renal Failure [ ] Acute on Chronic Renal Failure please specify Stage of CKD (see below) [ ] CKD without ARF/RADHA please specify Stage of CKD [ ] Other diagnosis [ ] Unable to determine In addition, please specify: Present on Admission (POA): [ ] Yes [ ] No [ ] Unable to determine Physician Signature: Date/Time: For continuity of documentation, please document condition throughout progress notes and discharge summary. Thank To be completed by CDI/Coding staff for physician review: Present Clinical Indicators - Signs / Symptoms / Labs Results and Location in Medical Record [ ] [x ] Abnormal labs (BUN, creatinine, K+, creatinine clearance, low GFR) Bun/Cr 37/1.4, GFR 34 - Lab Result 05/20/20 Bun/Cr 35/1.3, GFR 38 Lab Result 05/21/20 Bun/Cr 27/1.2, GFR 41 Lab Result 05/22/20 [ ] [ ] [ ] [ ] [ ] Edema 2+ BLE - Attending H&P 05/20/20 [ ] Present Risk Factors Results and Location in Medical Record [ ] [ ] Use of ANN inhibitors, NSAIDS, diuretics Lisinopril & Torsemide- Attending H&P - Home Med List 05/20/20 [ ] IV Lasix- 05/20/20-05/22/20 [ ] [ ] [ ] Present Treatments Results and Location in Medical Record [ ] [ ] [ ] [ ] Correction of electrolytes / acidosis Potassium 40 mEq 05/21/20 CDS/Projection Welding Machine Operator Signature: Aidee Victoria Phone #: [phone] Date/Time: 05/22/20 1310 National Kid[employer] Guidelines for CKD Staging Stage I Kidney damage with normal or increased GFR GFR > 90 Stage II Kidney damage with mildly decreased GFR GFR 60-89 Stage III Kidney damage with moderately decreased GFR GFR 30-59 Stage IV Kidney damage with severely decreased GFR GFR 16-29 Stage V Kidney failure GFR<15 ESRD End Stage Renal Disease On dialysis Acute Renal Failure/Acute Kidney Failure defined as: Increases in SCr by (>) 0.3 mg/dl within 48 hours OR- Increases in SCr by (>) 1.5 times baseline, known or presumed to have occurred within the prior 7 days OR- Urine volume < 0.5 ml/kg/hour for 6 hours (KDIGO supplement 2012 for RIFLE/DANIEL criteria) This is a permanent part of the Medical Record [facility]
--- NOTE | 2020-05-22 14:17 | PDOC.HOSPP ---
- Subjective Encounter Date: 05/22/20 Encounter Time: 14:15 Subjective: Patient seen in follow-up regarding A. fib with RVR. Denies chest pain or shortness of breath. - Objective Vital Signs & Weight: Vital Signs (12 hours) Temp Pulse Resp BP Pulse Ox 05/22/20 08:55 97.9 F 115 H 18 150/67 H 96 05/22/20 08:30 96 05/22/20 07:33 100 05/22/20 04:00 97.8 F 86 18 145/67 H 100 Weight Weight 136 lb 1 oz Result Diagrams: 05/22/20 04:34 05/22/20 03:30 Additional Labs: Labs and MAR reviewed by me EKG Reviewed by me: Yes (A. fib with RVR on telemetry) Hospitalist ROS - Review of Systems Cardiovascular: denies: chest pain, palpitations, orthopnea, paroxysmal noc. dyspnea, edema, light headedness Gastrointestinal: denies: nausea, vomiting, abdominal pain, diarrhea, constipation - Medication Medications: Active Medications Generic Name Dose Route Start Last Admin Trade Name Freq PRN Reason Stop Dose Admin Amiodarone HCl 200 mg 05/21/20 15:00 05/22/20 08:21 Amiodarone 200 Mg Tab PO 200 mg TID SOLO Administration Aspirin 81 mg 05/21/20 09:00 05/22/20 08:21 Aspirin 81 Mg Enteric Coated Tablet PO 81 mg DAILY SOLO Administration Bupropion HCl 300 mg 05/21/20 09:00 05/22/20 08:20 Bupropion 150 Mg Xl Tab PO 300 mg DAILY SOLO Administration Carvedilol 3.125 mg 05/21/20 08:00 05/22/20 08:21 Carvedilol 3.125 Mg Tab PO 3.125 mg BID- SOLO Administration Cholecalciferol 2,000 units 05/21/20 09:00 05/22/20 08:21 Cholecalciferol 1,000 Units (25 Mcg) Tab PO 2,000 units DAILY SOLO Administration Famotidine 20 mg 05/21/20 09:00 05/22/20 08:21 Famotidine 20 Mg Tab PO 20 mg DAILY SOLO Administration Furosemide 40 mg 05/21/20 06:00 05/22/20 07:29 Furosemide 40 Mg/4 Ml Vial SLOW IVP 40 mg 0600,1400 SOLO Administration Diltiazem HCl 125 mg/ Sodium 125 mls @ 12.5 mls/hr 05/20/20 18:46 05/21/20 14:27 Chloride IVPB 125 mls INF PRN Administration For HR>120 sustained Protocol Simvastatin 10 mg 05/20/20 21:00 05/21/20 20:16 Simvastatin 10 Mg Tab PO 10 mg HS SOLO Administration Hospitalist Exam Vitals: Vital Signs (12 hours) Temp Pulse Resp BP Pulse Ox 05/22/20 08:55 97.9 F 115 H 18 150/67 H 96 05/22/20 08:30 96 05/22/20 07:33 100 05/22/20 04:00 97.8 F 86 18 145/67 H 100 Weight Weight 136 lb 1 oz General Appearance: awake alert Eye: anicteric sclera ENT: moist mucosa Neck: supple Heart: irregular Respiratory: CTAB Gastrointestinal: soft Skin: no rashes Psychiatric: normal affect, normal behavior Hosp A/P (1) Atrial fibrillation with RVR Code(s): I48.91 - UNSPECIFIED ATRIAL FIBRILLATION Status: Acute (2) Acute exacerbation of CHF (congestive heart failure) Code(s): I50.9 - HEART FAILURE, UNSPECIFIED Status: Acute (3) Mild dementia Code(s): F03.90 - UNSPECIFIED DEMENTIA WITHOUT BEHAVIORAL DISTURBANCE Status: Chronic (4) CAD (coronary artery disease) Code(s): I25.10 - ATHSCL HEART DISEASE OF [place] CORONARY ARTERY W/O ANG PCTRS Status: Chronic (5) Hyperlipidemia Code(s): E78.5 - HYPERLIPIDEMIA, UNSPECIFIED Status: Chronic (6) Hypertension Code(s): I10 - ESSENTIAL (PRIMARY) HYPERTENSION Status: Chronic - Plan Patient is currently on Cardizem drip. Patient has been started on amiodarone. Patient is on statin. Patient is on diuretics for CHF exacerbation. Ambulate patient.
--- NOTE | 2020-05-22 14:20 | PDOC.EP ---
- Subjective Date: 05/22/20 Time: 14:18 Interval History: she is restless and anxious today. She is frustrated with being forgetful - Review of Systems Constitutional: denies: chills, fever, malaise, sweats, weakness, other Respiratory: denies: cough, dry, hemoptysis, pleuritic pain, shortness of breath, SOB with excertion, sputum, wheezing, other Cardiology: denies: chest pain, edema, heart racing, light headedness, palpitations Gastrointestinal: denies: abdominal pain, constipation, nausea, vomitting Musculoskeletal: denies: unstable gait, falls, leg pain, foot pain - Objective Allergies/Adverse Reactions: Allergies Allergy/AdvReac Type Severity Reaction Status Date / Time adhesive Allergy rash, Verified 01/09/20 03:16 blisters erythromycin base Allergy Rash Verified 01/09/20 03:16 Latex, Natural Rubber Allergy Verified 05/21/20 00:00 Penicillins Allergy Verified 05/20/20 15:26 Current Medications Acetaminophen (Acetaminophen 325 Mg Tab) 650 mg PO Q4H PRN PRN Reason: Headache/Fever/Mild Pain (1-3) Amiodarone HCl (Amiodarone 200 Mg Tab) 200 mg PO TID [facility] Last Admin: 05/22/20 08:21 Dose: 200 mg Documented by: Aspirin (Aspirin 81 Mg Enteric Coated Tablet) 81 mg PO DAILY [facility] Last Admin: 05/22/20 08:21 Dose: 81 mg Documented by: Bupropion HCl (Bupropion 150 Mg Xl Tab) 300 mg PO DAILY [facility] Last Admin: 05/22/20 08:20 Dose: 300 mg Documented by: Carvedilol (Carvedilol 3.125 Mg Tab) 3.125 mg PO BID[facility] Last Admin: 05/22/20 08:21 Dose: 3.125 mg Documented by: Cholecalciferol (Cholecalciferol 1,000 Units (25 Mcg) Tab) 2,000 units PO DAILY [facility] Last Admin: 05/22/20 08:21 Dose: 2,000 units Documented by: Enoxaparin Sodium (Enoxaparin Sodium 40 Mg/0.4 Ml Syringe) 40 mg SC 0900 [facility] Famotidine (Famotidine 20 Mg Tab) 20 mg PO DAILY [facility] Last Admin: 05/22/20 08:21 Dose: 20 mg Documented by: Furosemide (Furosemide 40 Mg/4 Ml Vial) 40 mg SLOW IVP 0600,1400 [facility] Last Admin: 05/22/20 07:29 Dose: 40 mg Documented by: Diltiazem HCl 125 mg/ Sodium (Chloride) 125 mls @ 12.5 mls/hr IVPB INF PRN; Protocol PRN Reason: For HR>120 sustained Last Admin: 05/21/20 14:27 Dose: 125 mls Documented by: Potassium Chloride (Potassium Chloride 20 Meq Tab) 40 meq PO 1700 [facility] Stop: 05/22/20 19:00 Simvastatin (Simvastatin 10 Mg Tab) 10 mg PO HS [facility] Last Admin: 05/21/20 20:16 Dose: 10 mg Documented by: Vital Signs & Weight: Vital Signs Temp Pulse Resp BP Pulse Ox 05/22/20 12:59 97.6 F 110 H 17 131/61 100 05/22/20 08:55 97.9 F 115 H 18 150/67 H 96 05/22/20 08:30 96 05/22/20 07:33 100 05/22/20 04:00 97.8 F 86 18 145/67 H 100 Weight 136 lb 1 oz - Quality Measures Condition: Atrial Fibrillation/Flutter (hx or current) CV meds: Aspirin: Yes - Medication Contraindications No Anticoagulant reason: Treatment not indicated - Physical Exam General: no apparent distress, speech clear, other (forgetful. ?dementia) HEENT: mucus membranes moist, normocephaly Neck: supple neck, midline trachea, no lymphadenopathy Cardiology: no murmur, PMI nondisplaced, irregularly irregular Lungs: normal breath sounds, no wheeze, rales, rhonchi Neurology: cranial nerve 2-12 intact, grossly intact, no lateralizing findings Abdomen: unremarkable, active bowel sounds, no pulsations/bruits - Labs Result Diagrams: 05/22/20 04:34 05/22/20 03:30 - EKG Interpretation EKG Method: Telemetry EKG shows: Atypical atrial flutter - Assessment/Plan Assessment/Plan: 1. Recurrent atrial arrhythmias - PVAI 12/2019 - responsive to multaq previously but cannot afford this >$800/mo - started amiodarone loading taper 05/21/20--> atrial tachycardia/slow flutter - dilt gtt 12.5 mg/hr for additional rate control - s/p watchman- only needs ASA 81mg daily. no OAC needed 2. Memory loss - family states PCM feel this is related to depression - ? early dementia 3. HTN Continue amiodarone taper and rate control. Goal is to wean off dilt gtt. If able to rate control with PO agents, will DC and CV in ~1-2 weeks as outpatient. optimize coreg therapy as BP permits to help rate control and wean off dilt gtt
[2020-05-22] MEDS: Carvedilol 6.25 MG TAB PO SCH (16:57)
[2020-05-22] MEDS ORDERED: Potassium Chloride 20 MEQ TAB PO SCH (17:00)
[2020-05-22] MEDS ORDERED: Sodium Chloride 0.9% 500 ML IV SCH (20:45)
[2020-05-22] MEDS: Acetaminophen 325 MG TAB PO PRN (21:14)
[2020-05-22] MEDS: Simvastatin 10 MG TAB PO SCH (21:15)
[2020-05-22 21:34] LABS: Lactic Acid 2.9 mmol/L (0.5-2.2)
[2020-05-22 21:38] LABS: Anion Gap 16 mmol/L (10-20); BUN (Urea Nitrogen) 28 mg/dL (9.8-20.1); Calc. Creatinine Clearance 28 mL/min (70-130); Calcium 8.5 mg/dL (7.8-10.44); Carbon Dioxide 26 mmol/L (23-31); Chloride 94 mmol/L (98-107); Glucose 194 mg/dL (83-110); Magnesium 1.5 mg/dL (1.6-2.6); Potassium 3.8 mmol/L (3.5-5.1); Sodium 132 mmol/L (136-145)
[2020-05-23] MEDS ORDERED: Magnesium 2 GM/50 ML 2 GM in Premix Bag 1 BAG IVPB SCH (01:15)
[2020-05-23] MEDS: Furosemide 40 MG/4 ML VIAL SLOW IVP SCH ×2 (06:13→14:43)
[2020-05-23] MEDS: Bupropion 150 MG XL TAB PO SCH (08:31)
[2020-05-23] MEDS: Enoxaparin Sodium 40 MG/0.4 ML SYRINGE SC SCH (08:31)
[2020-05-23] MEDS: Famotidine 20 MG TAB PO SCH (08:32)
[2020-05-23] MEDS: Cholecalciferol 1,000 UNITS (25 MCG) TAB PO SCH (08:32)
[2020-05-23] MEDS: Amiodarone 200 MG TAB PO SCH ×3 (08:32→21:22)
[2020-05-23] MEDS: Carvedilol 6.25 MG TAB PO SCH ×2 (08:32→16:17)
[2020-05-23] MEDS: Aspirin 81 mg Enteric Coated Tablet PO SCH (08:32)
[2020-05-23 09:18] LABS: #Eosinphils 0.1 thou/uL (0.0-0.7); #Lymphocytes 1.6 thou/uL (1.20-3.40); #Monocytes 1.6 thou/uL (0.11-0.59); %Basophils 0.3 % (0.0-1.0); %Eosinophils 0.7 % (0.0-10.0); %Lymphocytes 12.1 % (21.0-51.0); %Monocytes 11.7 % (0.0-10.0); %Neutrophils 75.2 % (42.0-75.0); Hemoglobin 12.6 g/dL (12.0-16.0); Mean Corpuscular HGB CONC 32.1 g/dL (32.0-36.0); Mean Corpuscular Hemoglobin 33.7 pg (27.0-31.0); Mean Platelet Volume 7.4 fL (7.4-10.4); Platelet Count 499 thou/uL (130-400); RBC Distribution Width 14.5 % (11.5-14.5); Red Blood Cell (RBC) Count 3.75 mill/uL (4.20-5.40); White Blood Cell (WBC) Count 13.3 thou/uL (4.8-10.8)
[2020-05-23 09:36] LABS: Anion Gap 16 mmol/L (10-20); BUN (Urea Nitrogen) 25 mg/dL (9.8-20.1); Calc. Creatinine Clearance 33 mL/min (70-130); Calcium 9.3 mg/dL (7.8-10.44); Carbon Dioxide 29 mmol/L (23-31); Chloride 93 mmol/L (98-107); Glucose 106 mg/dL (83-110); Potassium 3.2 mmol/L (3.5-5.1); Sodium 135 mmol/L (136-145)
[2020-05-23] MEDS ORDERED: Potassium Chloride 20 MEQ TAB PO SCH (10:15)
--- NOTE | 2020-05-23 10:36 | PRG ---
DATE OF SERVICE: 05/23/2020 SUBJECTIVE: Ms. Bedolla is actually more alert and awake today. She is not having chest pain or pressure, but her heart rate is frequently going up to the 150 range. Her blood pressure with that is still preserved. OBJECTIVE: VITAL SIGNS: The most recent recorded blood pressure . GENERAL: She is awake and alert. NECK: Veins are normal. LUNGS: Clear. CARDIAC: She is very tachycardic. I do not hear murmur, rub, or gallop. ABDOMEN: Soft, nontender. EXTREMITIES: No edema. ASSESSMENT: 1. Atrial arrhythmia is difficult to control. 2. Being loaded with amiodarone. 3. Previous ablation. 4. Hypokalemia. PLAN: 1. Replete potassium. 2. Cardioversion tomorrow morning. Discussed risks including bradycardia, need for pacemaker insertion. Does not need a transesophageal echo. She has had Watchman device placed with good results. We will proceed tomorrow morning. We will also replete her potassium today. Increase Cardizem in order to help control heart rate. Job ID: [id number]
[2020-05-23] MEDS: Diltiazem 125 MG in Sodium Chloride 0.9% 100 ML IVPB PRN (11:17)
--- NOTE | 2020-05-23 13:29 | EKG ---
Test Reason : Blood Pressure : / mmHG Vent. Rate : 096 BPM Atrial Rate : 085 BPM P-R Int : 000 ms QRS Dur : 098 ms QT Int : 386 ms P-R-T Axes : 000 -56 097 degrees QTc Int : 487 ms Atrial tachycardia with 2:1 AV block Left anterior fascicular block Nonspecific ST and T wave abnormality Prolonged QT Abnormal ECG When compared with ECG of 20-MAY-2020 13:44, (Unconfirmed) No significant change was found Confirmed by DR. Karlene ORDONEZ ([id number]) on 05/23/2020 1:28:41 PM Referred By: MOUSTAPHA Confirmed By:DR. Karlene ORDONEZ
--- NOTE | 2020-05-23 15:17 | PDOC.EP ---
- Subjective Date: 05/23/20 Time: 08:00 Interval History: Persists with elevated heart rates. No events overnight - Review of Systems Constitutional: denies: chills, fever, malaise, sweats Respiratory: denies: cough, dry, hemoptysis, pleuritic pain, shortness of breath Cardiology: reports: heart racing, palpitations. denies: chest pain, edema, light headedness Gastrointestinal: denies: abdominal pain, constipation, nausea, vomitting Musculoskeletal: denies: unstable gait, falls, hand pain, leg pain - Objective Allergies/Adverse Reactions: Allergies Allergy/AdvReac Type Severity Reaction Status Date / Time adhesive Allergy rash, Verified 01/09/20 03:16 blisters erythromycin base Allergy Rash Verified 01/09/20 03:16 Latex, Natural Rubber Allergy Verified 05/21/20 00:00 Penicillins Allergy Verified 05/20/20 15:26 Current Medications Acetaminophen (Acetaminophen 325 Mg Tab) 650 mg PO Q4H PRN PRN Reason: Headache/Fever/Mild Pain (1-3) Last Admin: 05/22/20 21:14 Dose: 650 mg Documented by: Amiodarone HCl (Amiodarone 200 Mg Tab) 200 mg PO TID [facility] Last Admin: 05/23/20 14:42 Dose: 200 mg Documented by: Aspirin (Aspirin 81 Mg Enteric Coated Tablet) 81 mg PO DAILY [facility] Last Admin: 05/23/20 08:32 Dose: 81 mg Documented by: Bupropion HCl (Bupropion 150 Mg Xl Tab) 300 mg PO DAILY [facility] Last Admin: 05/23/20 08:31 Dose: 300 mg Documented by: Carvedilol (Carvedilol 6.25 Mg Tab) 6.25 mg PO BID-[facility] Last Admin: 05/23/20 08:32 Dose: 6.25 mg Documented by: Cholecalciferol (Cholecalciferol 1,000 Units (25 Mcg) Tab) 2,000 units PO DAILY [facility] Last Admin: 05/23/20 08:32 Dose: 2,000 units Documented by: Enoxaparin Sodium (Enoxaparin Sodium 40 Mg/0.4 Ml Syringe) 40 mg SC 0900 [facility] Last Admin: 05/23/20 08:31 Dose: 40 mg Documented by: Famotidine (Famotidine 20 Mg Tab) 20 mg PO DAILY [facility] Last Admin: 05/23/20 08:32 Dose: 20 mg Documented by: Furosemide (Furosemide 40 Mg/4 Ml Vial) 40 mg SLOW IVP 0600,1400 [facility] Last Admin: 05/23/20 14:43 Dose: 40 mg Documented by: Diltiazem HCl 125 mg/ Sodium (Chloride) 125 mls @ 10 mls/hr IVPB INF PRN; P rotocol PRN Reason: For HR>120 sustained Last Admin: 05/23/20 11:17 Dose: 125 mls Documented by: Simvastatin (Simvastatin 10 Mg Tab) 10 mg PO HS [facility] Last Admin: 05/22/20 21:15 Dose: 10 mg Documented by: Vital Signs & Weight: Vital Signs Temp Pulse Resp BP BP Pulse Ox 05/23/20 14:48 98.4 F 116 H 18 139/69 99 05/23/20 11:20 98.6 F 160 H 18 134/65 97 05/23/20 07:12 105 H 174/79 H 05/23/20 04:34 96 Weight 136 lb 1 oz I/O: I/O 05/22/20 05/23/20 05/24/20 06:59 06:59 06:59 Intake Total 1600 Output Total 2100 Balance -500 - Quality Measures Condition: Atrial Fibrillation/Flutter (hx or current) CV meds: Aspirin: Yes - Medication Contraindications No Anticoagulant reason: Treatment not indicated - Physical Exam General: appears well, no apparent distress, speech clear, affect appropriate HEENT: mucus membranes moist, normocephaly Neck: supple neck, midline trachea, no JVD/HJR, no masses, no bruit, no lymphad enopathy, no thromegaly Cardiology: irregularly irregular, tachycardia Lungs: clear to auscultation, normal breath sounds, no wheeze, rales, rhonchi Neurology: cranial nerve 2-12 intact - Labs Result Diagrams: 05/23/20 08:51 05/23/20 08:52 - EKG Interpretation EKG Method: Telemetry EKG shows: Atypical atrial flutter - Assessment/Plan Assessment/Plan: 1. Recurrent atrial arrhythmias - PVAI 12/2019 - responsive to multaq previously but cannot afford this >$800/mo - started amiodarone loading taper 05/21/20--> atrial tachycardia/slow flutter - dilt gtt 12.5 mg/hr for additional rate control - s/p watchman- only needs ASA 81mg daily. no OAC needed 2. Memory loss - family states PCM feel this is related to depression - ? early dementia 3. HTN atrial flutter/tachycardia at around 110-120 persists. Planned CV tomorrow with Dr Saletr. NPO after MN, Continue amiodarone and rate control. anticipate no need for dilt gtt after CV. Possibly ok to go home after CV?
--- NOTE | 2020-05-23 17:42 | PDOC.HOSPP ---
- Subjective Encounter Date: 05/22/20 Encounter Time: 18:00 Subjective: Patient seen in follow-up for atrial fibrillation. Denies any complaints. - Objective Vital Signs & Weight: Vital Signs (12 hours) Temp Pulse Resp BP BP Pulse Ox 05/23/20 14:48 98.4 F 116 H 18 139/69 99 05/23/20 11:20 98.6 F 160 H 18 134/65 97 05/23/20 07:12 105 H 174/79 H Weight Weight 136 lb 1 oz I&O: 05/22/20 05/23/20 05/24/20 06:59 06:59 06:59 Intake Total 1600 Output Total 2100 Balance -500 Result Diagrams: 05/23/20 08:51 05/23/20 08:52 Additional Labs: Accuchecks 05/22/20 20:39 POC Glucose 153 H Labs and MAR reviewed by me EKG Reviewed by me: Yes (Telemetry: A. fib) Hospitalist ROS - Review of Systems Gastrointestinal: denies: nausea, vomiting, abdominal pain, diarrhea, constipation, melena Skin: denies: rash, lesions, nelly, bruising - Medication Medications: Active Medications Generic Name Dose Route Start Last Admin Trade Name Freq PRN Reason Stop Dose Admin Acetaminophen 650 mg 05/20/20 18:52 05/22/20 21:14 Acetaminophen 325 Mg Tab PO 650 mg Q4H PRN Administration Headache/Fever/Mild Pain (1-3) Amiodarone HCl 200 mg 05/21/20 15:00 05/23/20 14:42 Amiodarone 200 Mg Tab PO 200 mg TID [facility] Administration Aspirin 81 mg 05/21/20 09:00 05/23/20 08:32 Aspirin 81 Mg Enteric Coated Tablet PO 81 mg DAILY [facility] Administration Bupropion HCl 300 mg 05/21/20 09:00 05/23/20 08:31 Bupropion 150 Mg Xl Tab PO 300 mg DAILY [facility] Administration Carvedilol 6.25 mg 05/22/20 17:00 05/23/20 16:17 Carvedilol 6.25 Mg Tab PO 6.25 mg BID-WM [facility] Administration Cholecalciferol 2,000 units 05/21/20 09:00 05/23/20 08:32 Cholecalciferol 1,000 Units (25 Mcg) Tab PO 2,000 units DAILY [facility] Administration Enoxaparin Sodium 40 mg 05/23/20 09:00 05/23/20 08:31 Enoxaparin Sodium 40 Mg/0.4 Ml Syringe SC 40 mg 0900 [facility] Administration Famotidine 20 mg 05/21/20 09:00 05/23/20 08:32 Famotidine 20 Mg Tab PO 20 mg DAILY [facility] Administration Furosemide 40 mg 05/21/20 06:00 05/23/20 14:43 Furosemide 40 Mg/4 Ml Vial SLOW IVP 40 mg 0600,1400 [facility] Administration Diltiazem HCl 125 mg/ Sodium 125 mls @ 10 mls/hr 05/23/20 09:56 05/23/20 11:17 Chloride IVPB 125 mls INF PRN Administration For HR>120 sustained Protocol Simvastatin 10 mg 05/20/20 21:00 05/22/20 21:15 Simvastatin 10 Mg Tab PO 10 mg HS [facility] Administration Hospitalist Exam Vitals: Vital Signs (12 hours) Temp Pulse Resp BP BP Pulse Ox 05/23/20 14:48 98.4 F 116 H 18 139/69 99 05/23/20 11:20 98.6 F 160 H 18 134/65 97 05/23/20 07:12 105 H 174/79 H Weight Weight 136 lb 1 oz General Appearance: awake alert Eye: anicteric sclera Neck: supple Heart: irregular Respiratory: CTAB Gastrointestinal: soft Skin: no rashes Psychiatric: normal affect, normal behavior Hosp A/P (1) Atrial fibrillation with RVR Code(s): I48.91 - UNSPECIFIED ATRIAL FIBRILLATION Status: Acute (2) Acute exacerbation of CHF (congestive heart failure) Code(s): I50.9 - HEART FAILURE, UNSPECIFIED Status: Acute (3) Mild dementia Code(s): F03.90 - UNSPECIFIED DEMENTIA WITHOUT BEHAVIORAL DISTURBANCE Status: Chronic (4) CAD (coronary artery disease) Code(s): I25.10 - ATHSCL HEART DISEASE OF [place] CORONARY ARTERY W/O ANG PCTRS Status: Chronic (5) Hyperlipidemia Code(s): E78.5 - HYPERLIPIDEMIA, UNSPECIFIED Status: Chronic (6) Hypertension Code(s): I10 - ESSENTIAL (PRIMARY) HYPERTENSION Status: Chronic - Plan Continue Cardizem drip Continue amiodarone Patient is on statin. Patient is on diuretics for CHF exacerbation. Ambulate patient. Appreciate EP service input
--- NOTE | 2020-05-23 17:44 | PDOC.HOSPP ---
- Subjective Encounter Date: 05/23/20 Encounter Time: 17:42 Subjective: Patient seen for follow-up regarding atrial fibrillation. Denies any new complaints. - Objective Vital Signs & Weight: Vital Signs (12 hours) Temp Pulse Resp BP BP Pulse Ox 05/23/20 14:48 98.4 F 116 H 18 139/69 99 05/23/20 11:20 98.6 F 160 H 18 134/65 97 05/23/20 07:12 105 H 174/79 H Weight Weight 136 lb 1 oz I&O: 05/22/20 05/23/20 05/24/20 06:59 06:59 06:59 Intake Total 1600 Output Total 2100 Balance -500 Result Diagrams: 05/23/20 08:51 05/23/20 08:52 Additional Labs: Accuchecks 05/22/20 20:39 POC Glucose 153 H I reviewed patient's labs and MAR EKG Reviewed by me: Yes (Atrial fibrillation on telemetry) Hospitalist ROS - Review of Systems Constitutional: denies: fever, chills, sweats, weakness, malaise Cardiovascular: denies: chest pain, palpitations, orthopnea, paroxysmal noc. dyspnea, edema, light headedness - Medication Medications: Active Medications Generic Name Dose Route Start Last Admin Trade Name Freq PRN Reason Stop Dose Admin Acetaminophen 650 mg 05/20/20 18:52 05/22/20 21:14 Acetaminophen 325 Mg Tab PO 650 mg Q4H PRN Administration Headache/Fever/Mild Pain (1-3) Amiodarone HCl 200 mg 05/21/20 15:00 05/23/20 14:42 Amiodarone 200 Mg Tab PO 200 mg TID [facility] Administration Aspirin 81 mg 05/21/20 09:00 05/23/20 08:32 Aspirin 81 Mg Enteric Coated Tablet PO 81 mg DAILY [facility] Administration Bupropion HCl 300 mg 05/21/20 09:00 05/23/20 08:31 Bupropion 150 Mg Xl Tab PO 300 mg DAILY [facility] Administration Carvedilol 6.25 mg 05/22/20 17:00 05/23/20 16:17 Carvedilol 6.25 Mg Tab PO 6.25 mg BID- [facility] Administration Cholecalciferol 2,000 units 05/21/20 09:00 05/23/20 08:32 Cholecalciferol 1,000 Units (25 Mcg) Tab PO 2,000 units DAILY [facility] Administration Enoxaparin Sodium 40 mg 05/23/20 09:00 05/23/20 08:31 Enoxaparin Sodium 40 Mg/0.4 Ml Syringe SC 40 mg 0900 [facility] Administration Famotidine 20 mg 05/21/20 09:00 05/23/20 08:32 Famotidine 20 Mg Tab PO 20 mg DAILY [facility] Administration Furosemide 40 mg 05/21/20 06:00 05/23/20 14:43 Furosemide 40 Mg/4 Ml Vial SLOW IVP 40 mg 0600,1400 [facility] Administration Diltiazem HCl 125 mg/ Sodium 125 mls @ 10 mls/hr 05/23/20 09:56 05/23/20 11:17 Chloride IVPB 125 mls INF PRN Administration For HR>120 sustained Protocol Simvastatin 10 mg 05/20/20 21:00 05/22/20 21:15 Simvastatin 10 Mg Tab PO 10 mg HS [facility] Administration Hospitalist Exam Vitals: Vital Signs (12 hours) Temp Pulse Resp BP BP Pulse Ox 05/23/20 14:48 98.4 F 116 H 18 139/69 99 05/23/20 11:20 98.6 F 160 H 18 134/65 97 05/23/20 07:12 105 H 174/79 H Weight Weight 136 lb 1 oz General Appearance: awake alert Eye: PERRL ENT: moist mucosa Neck: supple Heart: irregular Respiratory: CTAB Gastrointestinal: soft, non-tender Skin: no rashes Psychiatric: normal affect, normal behavior Hosp A/P (1) Atrial fibrillation with RVR Code(s): I48.91 - UNSPECIFIED ATRIAL FIBRILLATION Status: Acute (2) Acute exacerbation of CHF (congestive heart failure) Code(s): I50.9 - HEART FAILURE, UNSPECIFIED Status: Acute (3) Mild dementia Code(s): F03.90 - UNSPECIFIED DEMENTIA WITHOUT BEHAVIORAL DISTURBANCE Status: Chronic (4) CAD (coronary artery disease) Code(s): I25.10 - ATHSCL HEART DISEASE OF [place] CORONARY ARTERY W/O ANG PCTRS Status: Chronic (5) Hyperlipidemia Code(s): E78.5 - HYPERLIPIDEMIA, UNSPECIFIED Status: Chronic (6) Hypertension Code(s): I10 - ESSENTIAL (PRIMARY) HYPERTENSION Status: Chronic (7) Chronic kidney disease, stage 3 Code(s): N18.30 - CHRONIC KIDNEY DISEASE, STAGE 3 UNSPECIFIED Status: Chronic Plan: Present on admission - Plan Patient to have cardioversion tomorrow. Potassium being replaced. Continue amiodarone Continue statin. Continue diuretics for CHF exacerbation. Ambulate patient.
[2020-05-23] MEDS: Simvastatin 10 MG TAB PO SCH (21:22)
[2020-05-23] MEDS: Acetaminophen 325 MG TAB PO PRN (23:08)
[2020-05-24] MEDS: Diltiazem 125 MG in Sodium Chloride 0.9% 100 ML IVPB PRN (00:31)
[2020-05-24 04:54] LABS: Anion Gap 13 mmol/L (10-20); BUN (Urea Nitrogen) 30 mg/dL (9.8-20.1); Calc. Creatinine Clearance 34 mL/min (70-130); Calcium 8.7 mg/dL (7.8-10.44); Carbon Dioxide 27 mmol/L (23-31); Chloride 95 mmol/L (98-107); Glucose 98 mg/dL (83-110); Magnesium 1.8 mg/dL (1.6-2.6); Potassium 3.9 mmol/L (3.5-5.1); Sodium 131 mmol/L (136-145)
[2020-05-24] MEDS: Furosemide 40 MG/4 ML VIAL SLOW IVP SCH ×2 (06:09→14:56)
[2020-05-24] MEDS: Amiodarone 200 MG TAB PO SCH ×2 (09:37→14:33)
[2020-05-24] MEDS: Famotidine 20 MG TAB PO SCH (09:37)
[2020-05-24] MEDS: Enoxaparin Sodium 40 MG/0.4 ML SYRINGE SC SCH (09:37)
[2020-05-24] MEDS: Bupropion 150 MG XL TAB PO SCH (09:37)
[2020-05-24] MEDS: Aspirin 81 mg Enteric Coated Tablet PO SCH (09:37)
[2020-05-24] MEDS: Carvedilol 6.25 MG TAB PO SCH (09:37)
[2020-05-24] MEDS: Cholecalciferol 1,000 UNITS (25 MCG) TAB PO SCH (09:37)
[2020-05-24] MEDS ORDERED: Lidocaine 1% PF 5 ML VIAL ONE (11:30)
[2020-05-24] MEDS ORDERED: PROPOFOL 200 MG/20 ML VIAL ONE (11:30)
[2020-05-24] MEDS: Acetaminophen 325 MG TAB PO PRN (11:48)
--- NOTE | 2020-05-24 12:45 | PDOC.EP ---
- Subjective Date: 05/24/20 Time: 12:43 Interval History: Feeling better post CV. In SR. No new events. - Review of Systems Constitutional: denies: chills, fever, malaise, sweats, weakness, other Respiratory: denies: cough, dry, hemoptysis, pleuritic pain, shortness of breath, SOB with excertion, sputum, wheezing, other Cardiology: denies: chest pain, edema, heart racing, light headedness, paroxysmal noc. dyspnea, orthopnea, palpitations, passing out, pleuritic pain, pressure, swelling, other Gastrointestinal: denies: abdominal pain, constipation, diarrhea, hematochezia, melena, nausea, vomitting, other Musculoskeletal: denies: unstable gait, falls, neck pain, shoulder pain, arm pain, hand pain, leg pain, foot pain, other - Objective Allergies/Adverse Reactions: Allergies Allergy/AdvReac Type Severity Reaction Status Date / Time adhesive Allergy rash, Verified 01/09/20 03:16 blisters erythromycin base Allergy Rash Verified 01/09/20 03:16 Latex, Natural Rubber Allergy Verified 05/21/20 00:00 Penicillins Allergy Verified 05/20/20 15:26 Current Medications Acetaminophen (Acetaminophen 325 Mg Tab) 650 mg PO Q4H PRN PRN Reason: Headache/Fever/Mild Pain (1-3) Last Admin: 05/24/20 11:48 Dose: 650 mg Documented by: Amiodarone HCl (Amiodarone 200 Mg Tab) 200 mg PO TID [facility] Last Admin: 05/24/20 09:37 Dose: 200 mg Documented by: Aspirin (Aspirin 81 Mg Enteric Coated Tablet) 81 mg PO DAILY [facility] Last Admin: 05/24/20 09:37 Dose: 81 mg Documented by: Bupropion HCl (Bupropion 150 Mg Xl Tab) 300 mg PO DAILY [facility] Last Admin: 05/24/20 09:37 Dose: 300 mg Documented by: Carvedilol (Carvedilol 6.25 Mg Tab) 6.25 mg PO BID-[facility] Last Admin: 05/24/20 09:37 Dose: 6.25 mg Documented by: Cholecalciferol (Cholecalciferol 1,000 Units (25 Mcg) Tab) 2,000 units PO DAILY [facility] Last Admin: 05/24/20 09:37 Dose: 2,000 units Documented by: Enoxaparin Sodium (Enoxaparin Sodium 40 Mg/0.4 Ml Syringe) 40 mg SC 0900 [facility] Last Admin: 05/24/20 09:37 Dose: 40 mg Documented by: Famotidine (Famotidine 20 Mg Tab) 20 mg PO DAILY [facility] Last Admin: 05/24/20 09:37 Dose: 20 mg Documented by: Furosemide (Furosemide 40 Mg/4 Ml Vial) 40 mg SLOW IVP 0600,1400 [facility] Last Admin: 05/24/20 06:09 Dose: Not Given Documented by: Diltiazem HCl 125 mg/ Sodium (Chloride) 125 mls @ 10 mls/hr IVPB INF PRN; Protocol PRN Reason: For HR>120 sustained Last Admin: 05/24/20 00:31 Dose: 125 mls Documented by: Simvastatin (Simvastatin 10 Mg Tab) 10 mg PO HS [facility] Last Admin: 05/23/20 21:22 Dose: 10 mg Documented by: Vital Signs & Weight: Vital Signs Temp Pulse Resp BP BP Pulse Ox 05/24/20 11:45 97.4 F L 94 18 159/70 H 100 05/24/20 09:10 99.8 F H 88 18 186/79 H 98 05/24/20 07:14 98.3 F 102 H 18 152/66 H 98 05/24/20 03:50 98.2 F 80 18 134/63 96 05/24/20 03:43 97 Weight 136 lb 1 oz I/O: I/O 05/23/20 05/24/20 05/25/20 06:59 06:59 06:59 Intake Total 1600 700 Output Total 2100 Balance -500 700 - Quality Measures Condition: Atrial Fibrillation/Flutter (hx or current) (S/P Watchman) CV meds: Aspirin: Yes - Medication Contraindications No Anticoagulant reason: Treatment not indicated - Physical Exam General: alert & oriented x3, appears well HEENT: normocephaly Neck: no JVD/HJR Cardiology: no murmur, regular rate, regular rhythm Lungs: normal breath sounds Neurology: grossly intact Abdomen: active bowel sounds, non-tender, HJR negative Extremities: warm Musculoskeletal: no pain - Labs Result Diagrams: 05/23/20 08:51 05/24/20 03:56 - EKG Interpretation EKG Method: Telemetry EKG shows: Sinus rhythm - Assessment/Plan Assessment/Plan: 1. Recurrent atrial arrhythmias - PVAI 12/2019 - s/p watchman- only needs ASA 81mg daily. no OAC needed - responsive to multaq previously but cannot afford this >$800/mo - started amiodarone loading taper 05/21/20--> atrial tachycardia/slow flutter - S/P CV 05/24/20 am. In SR. 2. Memory loss - family states PCM feel this is related to depression - ? early dementia 3. HTN Continue amiodarone taper with Rhythm control. anticipate no need for dilt gtt after CV. Ok to go home after CV. 6 Week follow up. Would sign off. Thank you
--- NOTE | 2020-05-24 13:35 | PDOC.DS.DS ---
Provider Date of Admission: 05/20/20 16:25 Date of Discharge: 05/24/20 Admitting Provider: Marcelino Blue MD Consultations: Cardiology (Dr. Salter), Electrophysiology (Dr. Hamilton) Primary Care Physician: Jeronimo Bingham MD Course Hospital Course: Discharge diagnosis: 1. Atrial fibrillation with rapid ventricular response 2. Acute on chronic diastolic congestive heart failure NYHA class III 3. Hyponatremia 4. Hypokalemia 5. Hypomagnesemia 6. Chronic kidney disease stage III Hospital course: Patient is a pleasant 79-year-old lady who was admitted to the hospital on May 20, 2020 for atrial fibrillation with rapid ventricular response. She was seen by cardiology and electrophysiology services. She also received IV furosemide for CHF exacerbation. She was treated with amiodarone drip, subsequently transitioned to oral amiodarone. On May 24 she underwent electrical cardioversion successfully. She is not on anticoagulation because she already had a watchman procedure. Her Coreg dose has been decreased to 6.25 mg 2 times a day. She is being discharged home in a stable condition. Discharge destination: Home Total amount of time spent coordinating this discharge: 33 minutes. Lab Results: 05/23/20 08:51 05/24/20 03:56 Abnormal Lab Results - Last 48 hrs 05/22/20 21:06: Sodium 132 L, Chloride 94 L, BUN 28 H, Creatinine 1.66 H, Magnesium 1.5 L 05/22/20 21:06: Lactic Acid 2.9 H 05/22/20 21:07: B-Natriuretic Peptide 233.7 H 05/23/20 08:51: WBC 13.3 H, RBC 3.75 L, MCV 105.0 H, MCH 33.7 H, Plt Count 499 H, Neutrophils % 75.2 H, Lymphocytes % 12.1 L, Monocytes % 11.7 H, Neutrophils # 10.0 H, Monocytes # 1.6 H 05/23/20 08:52: Sodium 135 L, Potassium 3.2 L, Chloride 93 L, BUN 25 H, Creatinine 1.39 H 05/24/20 03:56: Sodium 131 L, Chloride 95 L, BUN 30 H, Creatinine 1.34 H Microbiology - Entire Visit 05/22/20 20:45 Stool Stool Culture - Preliminary 05/22/20 20:45 Stool C. difficile GDH Antigen & Toxins - Final 05/22/20 20:45 Stool Campylobacter Antigen Assay - Final 05/22/20 20:45 Stool Shiga Toxin Test - Final 05/22/20 20:45 Anus Escherichia coli 0157 Culture - Final 05/22/20 20:45 Anus Stool Lactoferrin - Final 05/20/20 14:35 Urine Straight Catheter Urine Culture - Final NO GROWTH AT 48 HOURS Vitals: Vital Signs (12 hours) Temp Pulse Resp BP BP Pulse Ox 05/24/20 11:45 97.4 F L 94 18 159/70 H 100 05/24/20 09:10 99.8 F H 88 18 186/79 H 98 05/24/20 07:14 98.3 F 102 H 18 152/66 H 98 05/24/20 03:50 98.2 F 80 18 134/63 96 05/24/20 03:43 97 Weight Weight 136 lb 1 oz Physical Exam: The patient was seen and examined on the day of discharge. Patient denies chest pain or shortness of breath. Vital signs are stable. S1 and S2 are heard. Lungs are clear to auscultation bilaterally. Problem (1) Atrial fibrillation with RVR Code(s): I48.91 - UNSPECIFIED ATRIAL FIBRILLATION Status: Acute (2) Acute exacerbation of CHF (congestive heart failure) Code(s): I50.9 - HEART FAILURE, UNSPECIFIED Status: Acute (3) Mild dementia Code(s): F03.90 - UNSPECIFIED DEMENTIA WITHOUT BEHAVIORAL DISTURBANCE Status: Chronic (4) CAD (coronary artery disease) Code(s): I25.10 - ATHSCL HEART DISEASE OF [place] CORONARY ARTERY W/O ANG PCTRS Status: Chronic (5) Hyperlipidemia Code(s): E78.5 - HYPERLIPIDEMIA, UNSPECIFIED Status: Chronic (6) Hypertension Code(s): I10 - ESSENTIAL (PRIMARY) HYPERTENSION Status: Chronic (7) Chronic kidney disease, stage 3 Code(s): N18.30 - CHRONIC KIDNEY DISEASE, STAGE 3 UNSPECIFIED Status: Chronic Plan Prescriptions: Carvedilol [Coreg] 6.25 mg PO BID- #60 tab Home Medications: Medication Instructions Recorded Confirmed Type Cholecalciferol (Vitamin D3) 2,000 unit PO DAILY 02/05/16 05/20/20 History [Vitamin D3] Pravastatin Sodium 20 mg PO HS 02/05/16 05/20/20 History Torsemide 1 tab PO DAILY 10/26/19 05/21/20 History BuPROPion XL [Wellbutrin XL] 300 mg PO DAILY 12/28/19 05/21/20 History Potassium Chloride 10 meq PO BID-WM 12/28/19 05/20/20 History Aspirin [Ecotrin Low Strength] 81 mg PO DAILY tab 01/10/20 05/20/20 Rx Desvenlafaxine Succinate 100 mg PO DAILY 05/21/20 05/21/20 History [Desvenlafaxine Succinate ER] Hydroxyurea [Hydrea] 500 mg PO DAILY 05/21/20 05/21/20 History Levothyroxine Sodium [Synthroid] 50 mcg PO 0600 05/21/20 05/21/20 History Methylphenidate HCl 5 mg PO DAILY 05/21/20 05/21/20 History Metolazone 2.5 mg PO DAILY 05/21/20 05/21/20 History Multivitamin 1 each PO DAILY 05/21/20 05/21/20 History Vitamin B Complex 1 cap PO DAILY 05/21/20 05/21/20 History Amiodarone [Cordarone] 200 mg PO TID tab 05/24/20 Rx Carvedilol [Coreg] 6.25 mg PO BID-WM #60 tab 05/24/20 Rx Allergies: adhesive Allergy (Verified 01/09/20 03:16) rash, blisters erythromycin base Allergy (Verified 01/09/20 03:16) Rash Latex, Natural Rubber Allergy (Verified 05/21/20 00:00) Penicillins Allergy (Verified 05/20/20 15:26) Activity:: Activity as Tolerated Nourishment:: Heart Healthy Diet Referrals: David Hamilton MD [Heel Coverer Machine Operator] - (Please call to make an appointment in 6 weeks. ) Jeronimo Bingham MD [Primary Care Provider] - 7 Days (Please call to make an appointment. ) Disposition: HOME Quality CORE MEASURES:: N/A
[2020-05-24] MEDS ORDERED: Lisinopril 10 MG TAB PO SCH (14:30)
--- NOTE | 2020-05-24 15:02 | PRG ---
DATE OF SERVICE: 05/24/2020 SUBJECTIVE: Ms. Bedolla underwent cardioversion this morning. She feels well. No complaints. OBJECTIVE: VITAL SIGNS: Blood pressure 159/70, pulse is in the 80s and it is sinus. LUNGS: Clear. CARDIAC: Normal S1 and normal S2. ABDOMEN: Soft and nontender. EXTREMITIES: No edema. ASSESSMENT: 1. Paroxysmal atrial fibrillation and atrial flutter, now in sinus rhythm after cardioversion. 2. Previous left atrial appendage occlusion device in place. Do not need anticoagulation. 3. Coronary artery disease, stable. PLAN: 1. She is on Coreg 6.25 mg twice a day. 2. Amiodarone 200 mg three times a day. 3. Stop furosemide at this point. 4. Give her one extra dose of potassium. Job ID: [id number]
[2020-05-24 15:10] VITALS: BP 158/70; TEMP 97.6
[2020-05-24] MEDS ORDERED: Carvedilol 6.25 MG TAB PO SCH (17:00)
[2020-05-25] MEDS ORDERED: Torsemide 20 MG TAB PO SCH (09:00)
[2020-05-25] MEDS ORDERED: Lisinopril 10 MG TAB PO SCH (09:00)
--- NOTE | 2020-05-25 20:23 | EKG ---
Test Reason : Blood Pressure : / mmHG Vent. Rate : 126 BPM Atrial Rate : 156 BPM P-R Int : 000 ms QRS Dur : 092 ms QT Int : 324 ms P-R-T Axes : 000 -51 070 degrees QTc Int : 469 ms Atrial fibrillation with rapid ventricular response with premature ventricular or aberrantly conducte d complexes Left axis deviation Nonspecific ST abnormality , probably digitalis effect Abnormal ECG Confirmed by BRANDON CAMPBELL M.D. ([id number]), commercial production editor ASHLYN NESBITT ([id number]) on 05/25/2020 8:23:01 PM Referred By: Confirmed By:BRANDON CAMPBELL M.D.
== END 2020-05-24 16:30 | disposition home or self-care (01) | DRG 308 ==
LOC: ERS 13:28 → ERHOLD 16:25 → 2NO 22:59
PROVIDERS: ADMIT Internal Medicine; ATTEND Internal Medicine
PROC: 5A2204Z Restoration of Cardiac Rhythm, Single (ICD-10-PCS; principal; 2020-05-24)
DX: I48.0 Paroxysmal atrial fibrillation (principal); I50.33 Acute on chronic diastolic (congestive) heart failure; I13.0 Hypertensive heart and chronic kidney disease with heart failure and stage 1 through stage 4 chronic kidney disease, or unspecified chronic kidney disease; D69.3 Immune thrombocytopenic purpura; C94.6 Myelodysplastic disease, not elsewhere classified; E87.1 Hypo-osmolality and hyponatremia; Z20.822 Contact with and (suspected) exposure to COVID-19; G47.33 Obstructive sleep apnea (adult) (pediatric); F03.90 Unspecified dementia, unspecified severity, without behavioral disturbance, psychotic disturbance, mood disturbance, and anxiety; E78.5 Hyperlipidemia, unspecified; I25.10 Atherosclerotic heart disease of native coronary artery without angina pectoris; Z51.5 Encounter for palliative care; E87.6 Hypokalemia; N18.30 Chronic kidney disease, stage 3 unspecified; E83.42 Hypomagnesemia; Z95.1 Presence of aortocoronary bypass graft; Z98.51 Tubal ligation status; Z87.891 Personal history of nicotine dependence; Z88.0 Allergy status to penicillin; Z88.1 Allergy status to other antibiotic agents; Z91.040 Latex allergy status; Z79.01 Long term (current) use of anticoagulants; Z79.82 Long term (current) use of aspirin; Z79.899 Other long term (current) drug therapy
CPT/HCPCS: 36415; 36416; 51701; 71045; 80048; 80053; 81003; 82553; 83605; 83630; 83735; 83880; 84484; 85025; 87045; 87046; 87086; 87324; 87427; 87449; 87635; 92960; 93005; 93010; 96365; 96366; 96375; 96376; J0692; J1650; J1940; J2704; J3370; J3475; J3490; U0003; U0005

== ENCOUNTER 2020-05-29 20:23 | Inpatient (IN) | payer MEDICARE ==
[2020-05-29] MEDS ORDERED: Morphine 2 MG/ML VIAL ONE (21:24)
[2020-05-29] MEDS ORDERED: Ondansetron PF 4 MG/2 ML Vial ONE (21:24)
[2020-05-29 21:29] LABS: #Eosinphils 0.2 thou/uL (0.0-0.7); #Lymphocytes 0.9 thou/uL (1.20-3.40); #Monocytes 1.1 thou/uL (0.11-0.59); #Neutrophils 8.1 thou/uL (1.40-6.50); %Basophils 0.3 % (0.0-1.0); %Eosinophils 2.1 % (0.0-10.0); %Lymphocytes 8.4 % (21.0-51.0); %Monocytes 10.3 % (0.0-10.0); Hemoglobin 11.3 g/dL (12.0-16.0); Mean Corpuscular Hemoglobin 36.1 pg (27.0-31.0); Mean Platelet Volume 7.3 fL (7.4-10.4); Platelet Count 502 thou/uL (130-400); RBC Distribution Width 13.6 % (11.5-14.5); Red Blood Cell (RBC) Count 3.12 mill/uL (4.20-5.40); White Blood Cell (WBC) Count 10.3 thou/uL (4.8-10.8)
--- NOTE | 2020-05-29 21:37 | RAD ---
3 views left wrist: 05/29/2020 COMPARISON: None HISTORY: Fall, trauma, pain FINDINGS: No fracture or dislocation. No radiopaque foreign body or subcutaneous gas. Follow-up in 7- 10 days with dedicated scaphoid views advised if symptoms persist. IMPRESSION: No acute findings.
--- NOTE | 2020-05-29 21:37 | RAD ---
Frontal radiograph pelvis: 05/29/2020 COMPARISON: None HISTORY: Fall FINDINGS: The sacroiliac joints and the pubic symphysis demonstrate no evidence for diastases. The pe lvic ring appears intact. There is no displaced fracture seen. If there is clinical concern for a radio occult fracture, follow-up CT suggested. IMPRESSION: No displaced fracture seen.
--- NOTE | 2020-05-29 21:39 | RAD ---
2 views left tibia/fibula: 05/29/2020 COMPARISON: None HISTORY: Trauma, pain FINDINGS: No fracture or dislocation. No radiopaque foreign body or subcutaneous gas. There are posts urgical clips seen medially. There is osteophyte Enthesophyte formation at the origin of the plantar aponeurosis and insertion of the Achilles tendon. IMPRESSION: No displaced fracture.
[2020-05-29 21:41] LABS: ALT (SGPT) 36 U/L (8-55); AST (SGOT) 31 U/L (5-34); Albumin 3.5 g/dL (3.4-4.8); Alkaline Phosphatase 84 U/L (40-110); Anion Gap 16 mmol/L (10-20); BUN (Urea Nitrogen) 33 mg/dL (9.8-20.1); Bilirubin, Total 0.4 mg/dL (0.2-1.2); Calc. Creatinine Clearance 0 mL/min (70-130); Calcium 9.1 mg/dL (7.8-10.44); Carbon Dioxide 19 mmol/L (23-31); Chloride 99 mmol/L (98-107); Glucose 124 mg/dL (83-110); Potassium 4.5 mmol/L (3.5-5.1); Protein, Total 6.5 g/dL (5.8-8.1); Sodium 129 mmol/L (136-145)
--- NOTE | 2020-05-29 21:56 | CT ---
Head CT without contrast 05/29/2020: COMPARISON: 12/15/2019 HISTORY: Weakness TECHNIQUE: Axial CT imaging at 5 mm intervals from vertex through skull base without contrast FINDINGS: There are focal areas of scalp swelling near the vertex posteriorly and anteriorly. There i s no intracranial hemorrhage, midline shift, mass effect, or ventricular enlargement. The imaged paranasal sinuses and mastoid air cells appear grossly unremarkable. There is no displaced calvarial fracture. IMPRESSION: Anterior and posterior scalp swelling near the vertex. No associated fracture or intracra nial hemorrhage.
[2020-05-29 23:31] LABS: Bacteria/HPF None Seen HPF (None Seen); Bilirubin Negative (Negative); Blood, Urine Trace (Negative); Clarity Clear (Clear); Glucose, Urine (Dipstick) Normal (Negative); Ketone, Urine Negative (Negative); Leukocyte Negative Leu/uL (Negative); Nitrite Negative (Negative); Protein, Urine (Dipstick) 10 mg/dL (Neg-Trace); RBC/HPF 0-3 HPF (0-3); Specific Gravity, Urine 1.015 (1.002-1.036); Squamous Epithelial 0-3 HPF (0-3); Urobilinogen Normal mg/dL (Less than 2); WBC/HPF 0-3 HPF (0-3)
[2020-05-29] MEDS ORDERED: Furosemide 40 MG/4 ML VIAL ONE (23:45)
--- NOTE | 2020-05-29 23:48 | RAD ---
Portable frontal chest radiograph: 05/29/2020 COMPARISON: 05/20/2020 HISTORY: Atrial fibrillation, shortness of breath FINDINGS: Midline sternotomy wires are noted. Embolization coil material overlies the cardiac silhoue tte superiorly on the left. There is atherosclerotic calcification aortic arch. There is increased linear interstitial density noted in the perihilar regions and both lung bases, new. No focal consoli dation or alveolar edema. IMPRESSION: Diffuse new increased linear interstitial density. Interstitial edema is favored. Infecti ous pneumonitis cannot be excluded. Follow-up imaging following treatment advised.
[2020-05-30] MEDS ORDERED: Nitroglycerin 2% Ointment 1 INCH/1 GM Packet ONE (00:04)
[2020-05-30 00:25] LABS: CKMB 2.2 ng/mL (0-6.6)
[2020-05-30] MEDS ORDERED: HYDROcodone/Acetaminophen 5/325 mg Tablet PO PRN (03:51)
[2020-05-30] MEDS ORDERED: Ondansetron PF 4 MG/2 ML Vial IVP PRN (03:51)
[2020-05-30] MEDS ORDERED: cloNIDine 0.1 MG TAB PO PRN (03:51)
[2020-05-30] MEDS ORDERED: Morphine 2 MG/ML VIAL SLOW IVP PRN (03:51)
[2020-05-30] MEDS ORDERED: Promethazine HCl 12.5 MG in Sodium Chloride 0.9% 50 ML IVPB PRN (03:51)
[2020-05-30] MEDS ORDERED: hydrALAZINE 20 MG/ML VIAL SLOW IVP PRN (03:51)
--- NOTE | 2020-05-30 03:57 | PDOC.HHP ---
Hospitalist HPI Fall History of Present Illness: Patient is a 79 year old female with PMH atrial fibrillation, HTN, thrombocytopenia who presents to ED for fall. Patient fell around 8pm last night, reports losing balance, hit head lightly and has laceration, takes baby ASA daily but has not been on eliquis since last February. In ED, BP high with systolic about 190-200s. She was very recently discharged from hospital. She has been weak at home since discharge, the fall was after going to cardiac rehab, fell off of toilet. Denies losing consciousness. Patient has a history of CAD, CABG in 2003, 3 ablations for atrial fibrillation, 4 cardioversions, watchman device. EKG NSR. In ED, sodium 129, lower than 131 on discharge. She is on metolazone and torsemide at home. CXR consistent with pulmonary edema, suspected to have CHF exacerbation, patient to be admitted for further workup and management. Allergies/Adverse Reactions: Allergy/AdvReac Type Severity Reaction Status Date / Time adhesive Allergy rash, Verified 05/30/20 03:20 blisters erythromycin base Allergy Rash Verified 05/30/20 03:20 Penicillins Allergy Verified 05/30/20 03:20 Home Medications: Medication Instructions Recorded Confirmed Type Cholecalciferol (Vitamin D3) 2,000 unit PO DAILY 02/05/16 05/30/20 History [Vitamin D3] Pravastatin Sodium 20 mg PO HS 02/05/16 05/30/20 History Torsemide 1 tab PO DAILY 10/26/19 05/30/20 History BuPROPion XL [Wellbutrin XL] 300 mg PO DAILY 12/28/19 05/30/20 History Potassium Chloride 10 meq PO BID-WM 12/28/19 05/30/20 History Aspirin [Ecotrin Low Strength] 81 mg PO DAILY tab 01/10/20 05/30/20 Rx Hydroxyurea [Hydrea] 500 mg PO DAILY 05/21/20 05/30/20 History Metolazone 2.5 mg PO DAILY 05/21/20 05/30/20 History Multivitamin 1 each PO DAILY 05/21/20 05/30/20 History Amiodarone [Cordarone] 200 mg PO TID tab 05/24/20 05/30/20 Rx Carvedilol [Coreg] 6.25 mg PO BID- #60 tab 05/24/20 05/30/20 Rx Lisinopril [Prinivil] 10 mg PO DAILY #30 tablet 05/24/20 05/30/20 Rx Past History: PMHx: atrial fibrillation, HTN, thrombocytopenia PSHx: CABG 2004 5 vessels, 3 ablations for A-fib , 4 cardioversions, Watchman surgery, tubal ligation,. FHx: Social: Hospitalist HPI ROS Constitutional: reports: other (fall). denies: fever, chills, sweats, weakness, malaise Eyes: denies: pain, vision change, conjunctivae inflammation, eyelid inflammation, redness, other ENT: denies: ear pain, ear discharge, nose pain, nose discharge, nose congestion, mouth pain, mouth swelling, throat pain, throat swelling, other Respiratory: denies: cough, dry, shortness of breath, hemoptysis, SOB with excertion, pleuritic pain, sputum, wheezing, other Cardiovascular: denies: chest pain, palpitations, orthopnea, paroxysmal noc. dyspnea, edema, light headedness, other Gastrointestinal: denies: nausea, vomiting, abdominal pain, diarrhea, constipation, melena, hematochezia, other Genitourinary: denies: dysuria, frequency, incontinence, hematuria, retention, other Musculoskeletal: denies: neck pain, shoulder pain, arm pain, back pain, hand pain, leg pain, foot pain, other Skin: denies: rash, lesions, nelly, bruising, other Neurological: denies: weakness, numbness, incoordination, change in speech, confusion, seizures, other All other systems reviewed; all pertinent +/- noted in HPI/Subj Hospitalist Exam General Appearance: NAD, awake alert Eye: PERRL, anicteric sclera ENT: normocephalic atraumatic, no oropharyngeal lesions, moist mucosa Neck: supple, symmetric, no JVD, no thyromegaly, no lymphadenopathy, no carotid bruit Heart: RRR, no murmur, no gallops, no rubs, normal peripheral pulses Respiratory: CTAB, no wheezes, no rales, no ronchi, normal chest expansion, no tachypnea, normal percussion Gastrointestinal: soft, non-tender, non-distended, normal bowel sounds, no palpable masses, no hepatomegaly, no splenomegaly, no bruit Extremities: no cyanosis, no clubbing, no edema Skin: normal turgor, no lesions, no rashes Neurological: cranial nerve grossly intact, normal sensation to touch, no weakness, no focal deficits, no new deficit Musculoskeletal: normal tone, normal strength, no muscle wasting Psychiatric: normal affect, normal behavior, A&O x 3 Hospitalist Results Result Diagrams: 05/29/20 21:15 05/29/20 21:15 Lab results: Laboratory Last Values WBC 10.3 thou/uL (4.8-10.8) 05/29/20 21:15 RBC 3.12 mill/uL (4.20-5.40) L 05/29/20 21:15 Hgb 11.3 g/dL (12.0-16.0) L 05/29/20 21:15 Hct 33.2 % (36.0-47.0) L 05/29/20 21:15 MCV 106.0 fL (78.0-98.0) H 05/29/20 21:15 MCH 36.1 pg (27.0-31.0) H 05/29/20 21:15 MCHC 34.0 g/dL (32.0-36.0) 05/29/20 21:15 RDW 13.6 % (11.5-14.5) 05/29/20 21:15 Plt Count 502 thou/uL (130-400) H 05/29/20 21:15 MPV 7.3 fL (7.4-10.4) L 05/29/20 21:15 Neutrophils % 79.0 % (42.0-75.0) H 05/29/20 21:15 Lymphocytes % 8.4 % (21.0-51.0) L 05/29/20 21:15 Monocytes % 10.3 % (0.0-10.0) H 05/29/20 21:15 Eosinophils % 2.1 % (0.0-10.0) 05/29/20 21:15 Basophils % 0.3 % (0.0-1.0) 05/29/20 21:15 Neutrophils # 8.1 thou/uL (1.40-6.50) H 05/29/20 21:15 Lymphocytes # 0.9 thou/uL (1.20-3.40) L 05/29/20 21:15 Monocytes # 1.1 thou/uL (0.11-0.59) H 05/29/20 21:15 Eosinophils # 0.2 thou/uL (0.0-0.7) 05/29/20 21:15 Basophils # 0.0 thou/uL (0.0-0.2) 05/29/20 21:15 Sodium 129 mmol/L (136-145) L 05/29/20 21:15 Potassium 4.5 mmol/L (3.5-5.1) 05/29/20 21:15 Chloride 99 mmol/L (98-107) 05/29/20 21:15 Carbon Dioxide 19 mmol/L (23-31) L 05/29/20 21:15 Anion Gap 16 mmol/L (10-20) 05/29/20 21:15 BUN 33 mg/dL (9.8-20.1) H 05/29/20 21:15 Creatinine 1.34 mg/dL (0.6-1.1) H 05/29/20 21:15 Estimated GFR (MDRD) 38 05/29/20 21:15 Glucose 124 mg/dL (83-110) H 05/29/20 21:15 Lactic Acid 1.0 mmol/L (0.5-2.2) 05/29/20 23:33 Calcium 9.1 mg/dL (7.8-10.44) 05/29/20 21:15 Magnesium 2.0 mg/dL (1.6-2.6) 05/29/20 23:32 Total Bilirubin 0.4 mg/dL (0.2-1.2) 05/29/20 21:15 AST 31 U/L (5-34) 05/29/20 21:15 ALT 36 U/L (8-55) 05/29/20 21:15 Alkaline Phosphatase 84 U/L (40-110) 05/29/20 21:15 CK-MB (CK-2) 2.2 ng/mL (0-6.6) 05/29/20 23:33 Troponin I 0.039 ng/mL (< 0.028) H 05/29/20 23:33 B-Natriuretic Peptide 255.5 pg/mL (0-100) H 05/29/20 23:33 Serum Total Protein 6.5 g/dL (5.8-8.1) 05/29/20 21:15 Albumin 3.5 g/dL (3.4-4.8) 05/29/20 21:15 Globulin 3.0 g/dL (2.4-3.5) 05/29/20 21:15 Albumin/Globulin Ratio 1.2 g/dL (1.2-2.2) 05/29/20 21:15 Urine Color Light-Yellow (Yellow) 05/29/20 23:16 Urine Clarity Clear (Clear) 05/29/20 23:16 Urine pH 6.0 (5.0-9.0) 05/29/20 23:16 Ur Specific Jewett 1.015 (1.002-1.036) 05/29/20 23:16 Urine Protein 10 mg/dL (Neg-Trace) 05/29/20 23:16 Urine Glucose (UA) Normal mg/dL (Negative) 05/29/20 23:16 Urine Ketones Negative mg/dL (Negative) 05/29/20 23:16 Urine Blood Trace (Negative) A 05/29/20 23:16 Urine Nitrite Negative (Negative) 05/29/20 23:16 Urine Bilirubin Negative (Negative) 05/29/20 23:16 Urine Urobilinogen Normal mg/dL (Less than 2) 05/29/20 23:16 Ur Leukocyte Esterase Negative Alix/uL (Negative) 05/29/20 23:16 Urine RBC 0-3 HPF (0-3) 05/29/20 23:16 Urine WBC 0-3 HPF (0-3) 05/29/20 23:16 Ur Squamous Epith Cells 0-3 HPF (0-3) 05/29/20 23:16 Urine Bacteria None Seen HPF (None Seen) 05/29/20 23:16 Additional comment: labs, imaging, ed documents reviewed EKG NSR, rate 97, QTc 464, LVH, LA fascicular block Hospitalist H&P A/P Plan: Patient is a 79 year old female with PMH atrial fibrillation, HTN, thrombocyto penia who presents to ED for fall. # fall # hypertension # CHF exacerbation - acute and chronic diastolic CHF # history of atrial fibrillation # hyponatremia # CKD III Patient with PMH CAD, CABG in 2003, 3 ablations for atrial fibrillation, 4 cardioversions, watchman device admitted for fall and found to have CHF exacerbation and hyponatremia, SBP elevated, no acute EKG changes, has watchman device and recent DCCV on ASA not on anticoagulation. - admit to floor - IV lasix - consult cardiology, sodium may be worsened by metolazone, consider alternatives for diuresis - continue amiodarone, asa, other cardiac medications # HTN urgency - recent decrease in coreg dose, will increase lisinopril and hopefully will be improved with IV diuresis # possible infectious pneumonitis - suspect CHF as reason for fall, will give course of azithromycin due to inability to rule out infection on imaging. DVT ppx - asa GI ppx
[2020-05-30] MEDS ORDERED: Electrolyte Replacement Protocol 1 EACH FS SCH (04:00)
[2020-05-30] MEDS ORDERED: Amiodarone 200 MG TAB PO SCH (04:00)
[2020-05-30] MEDS: Acetaminophen 325 MG TAB PO PRN ×2 (04:31→14:43)
[2020-05-30 04:36] LABS: Troponin I 0.057 ng/mL (< 0.028)
[2020-05-30] MEDS ORDERED: Furosemide 100 MG/10 ML VIAL SLOW IVP SCH (06:00)
[2020-05-30 07:23] LABS: Troponin I 0.077 ng/mL (< 0.028)
[2020-05-30 08:36] LABS: SARS-CoV-2 PCR by NAA Not Detected (NotDetected)
[2020-05-30] MEDS ORDERED: Furosemide 40 MG/4 ML VIAL SLOW IVP SCH ×2 (09:00→12:30)
[2020-05-30] MEDS ORDERED: Lisinopril 10 MG TAB PO SCH (09:00)
[2020-05-30] MEDS ORDERED: FLU VACC QS2020-21(65YR UP)/PF 240 MCG/0.7 ML SYRINGE IM ONE (09:00)
[2020-05-30] MEDS: Polyethylene Glycol 3350 17 GM Packet PO SCH (09:27)
[2020-05-30] MEDS: Lisinopril 20 MG TAB PO SCH (09:28)
[2020-05-30] MEDS: Carvedilol 6.25 MG TAB PO SCH ×2 (09:30→16:32)
[2020-05-30] MEDS ORDERED: Magnesium 2 GM/50 ML 2 GM in Premix Bag 1 BAG IVPB SCH (09:30)
[2020-05-30] MEDS: Bupropion 150 MG XL TAB PO SCH (09:31)
[2020-05-30] MEDS: Aspirin 81 mg Enteric Coated Tablet PO SCH (09:31)
[2020-05-30] MEDS: Cholecalciferol 1,000 UNITS (25 MCG) TAB PO SCH (09:31)
[2020-05-30] MEDS: Hydroxyurea 500 MG CAP PO SCH (09:32)
--- NOTE | 2020-05-30 10:42 | CON ---
DATE OF CONSULTATION: 05/30/2020 REASON FOR ADMISSION: Mechanical fall, congestive heart failure. HISTORY OF PRESENT ILLNESS: Ms. Bedolla is a very pleasant 79-year-old woman. She has a long history of coronary artery disease. She underwent cardiac catheterization in 2003 and was found to have three-vessel coronary artery disease and underwent coronary artery bypass grafting. We found a 50% LAD lesion, 80% obtuse marginal 1 lesion, 80% circumflex lesion after the obtuse marginal and 90% right coronary artery, she underwent multivessel bypass surgery. She underwent bypass x5, internal mammary to the LAD, radial to the ramus, saphenous vein graft to diagonal, distal circumflex and right coronary artery. She was noted to have some supraventricular tachycardia in the early postoperative period. The patient has had supraventricular rhythm disturbance and also has problem with mitral regurgitation. She has undergone ablations for atrial fibrillation. She has undergone a Watchman implantation. She has undergone multiple cardioversion and has had intermittent continued episodes of atrial arrhythmias. She has also had history of diastolic heart failure. The patient was admitted on this occasion. She was recently in the hospital with atrial arrhythmias and heart failure. She had been at home. She said she remembers being in a chair. She remembers trying to get up to go toward the shower, but she slipped and fell and hit her head. She remembers hitting her head and also her bottom. She is very sore, but she does not think she lost consciousness. The patient's breathing is about the same currently. MEDICATIONS: 1. She was on amiodarone, she is being loaded, amiodarone she is on 200 mg three times a day. 2. Pravastatin 20 mg a day. 3. Torsemide 20 mg a day. 4. Potassium 10 mEq twice a day. 5. Metolazone 2.5 mg a day. 6. Carvedilol 6.25 mg twice a day. 7. Lisinopril 10 mg a day. REVIEW OF SYSTEMS: Feels weak, otherwise doing okay. ALLERGIES: SHE HAD INTOLERANCE TO MULTAQ WITH NAUSEA. REVIEW OF SYSTEMS: CONSTITUTIONAL: She has been losing some weight. VISION: No changes. HEARING: No changes. PULMONARY: Positive for shortness of breath. CARDIAC: No chest pain. GASTROINTESTINAL: No nausea, vomiting, or diarrhea. SKIN: No rashes. NEUROLOGIC: No unilateral weakness or numbness. PSYCHIATRIC: No unusual depression or anxiety. HEMATOLOGIC: No unusual bruising. GENITOURINARY: No burning with urination. PHYSICAL EXAMINATION: GENERAL: She is a pleasant patient. She is somewhat frail-appearing. VITAL SIGNS: Her blood pressure has been variable 166/71, 178/77, 126/58, but the heart rate and blood pressure both increased in the emergency room yet last night. NECK: Veins are mildly distended. Carotids, normal upstrokes. LUNGS: Clear anteriorly and laterally. CARDIAC: Normal S1 and normal S2. There is a 2 to 3/6 holosystolic murmur of mitral regurgitation. ABDOMEN: Soft, nontender. EXTREMITIES: Warm, dry. No clubbing or cyanosis. There is no significant edema. PERTINENT LABORATORY DATA: Creatinine is 1.34. The patient does have history of intermittent renal insufficiency with creatinine of 2.07 in January of 2020. Her GFR is estimated at 38, stage 3 renal failure. BNP is 255, which is somewhat low side for her actually. Chest x-ray does show some increased interstitial edema. EKG, sinus rhythm, sinus tachycardia. No acute changes. ASSESSMENT: 1. Status post bypass surgery in 2003, three-vessel disease, five-vessel grafting was done. 2. History of diastolic heart failure. 3. History of mitral regurgitation. 4. Atrial arrhythmias. 5. Previous Watchman device. 6. Overall frail status. 7. Recent fall, probably mechanical fall. 8. Congestive heart failure. PLAN: 1. Repeat echocardiogram. 2. Continue amiodarone for now. 3. Long-term prognosis guarded in this pleasant elderly woman. Based on the echocardiogram, may need to consider cardiac catheterization. Job ID: [id number]
--- NOTE | 2020-05-30 12:26 | PDOC.HOSPP ---
- Subjective Encounter Date: 05/30/20 Encounter Time: 09:28 Subjective: Patient is quite irritable she says she wants somebody to come and help her to move. She does not want any pain medication but she states that she is having pain all over. I talked to the nurse. They just attended her care for almost 45 minutes. Her troponin is elevated and her BNP is 255. - Objective Vital Signs & Weight: Vital Signs (12 hours) Temp Pulse Pulse Resp BP BP BP 05/30/20 11:16 99.2 F 91 151/59 H 05/30/20 10:52 05/30/20 09:30 127/63 05/30/20 09:28 127/63 05/30/20 09:23 93 127/63 05/30/20 08:27 178/77 H 05/30/20 08:00 05/30/20 07:50 98.3 F 85 20 126/58 L 05/30/20 04:00 99.4 F 113 H 25 H 05/30/20 01:18 98.0 F 120 H 18 187/79 H BP Pulse Ox 05/30/20 11:16 95 05/30/20 10:52 95 05/30/20 09:30 05/30/20 09:28 05/30/20 09:23 05/30/20 08:27 05/30/20 08:00 98 05/30/20 07:50 98 05/30/20 04:00 166/71 H 97 05/30/20 01:18 100 Weight Weight 134 lb 9.6 oz I&O: 05/29/20 05/30/20 05/31/20 06:59 06:59 06:59 Intake Total 340 Output Total 450 Balance -110 Result Diagrams: 05/29/20 21:15 05/29/20 21:15 Hospitalist ROS - Medication Medications: Active Medications Generic Name Dose Route Start Last Admin Trade Name Freq PRN Reason Stop Dose Admin Acetaminophen 650 mg 05/30/20 03:51 05/30/20 04:31 Acetaminophen 325 Mg Tab PO 650 mg Q4H PRN Administration Headache/Fever/Mild Pain (1-3) Aspirin 81 mg 05/30/20 09:00 05/30/20 09:31 Aspirin 81 Mg Enteric Coated Tablet PO 81 mg DAILY SOLO Administration Bupropion HCl 300 mg 05/30/20 09:00 05/30/20 09:31 Bupropion 150 Mg Xl Tab PO 300 mg DAILY SOLO Administration Carvedilol 6.25 mg 05/30/20 08:00 05/30/20 09:30 Carvedilol 6.25 Mg Tab PO 6.25 mg BID-WM SOLO Administration Cholecalciferol 2,000 units 05/30/20 09:00 05/30/20 09:31 Cholecalciferol 1,000 Units (25 Mcg) Tab PO 2,000 units DAILY SOLO Administration Furosemide 60 mg 05/30/20 06:00 05/30/20 05:47 Furosemide 100 Mg/10 Ml Vial SLOW IVP 05/30/20 14:01 60 mg 0600,1400 SOLO Administration Hydroxyurea 500 mg 05/30/20 09:00 05/30/20 09:32 Hydroxyurea 500 Mg Cap PO 500 mg DAILY SOLO Administration Levofloxacin 750 mg/ Device 150 mls @ 100 mls/hr 05/30/20 06:00 05/30/20 05:52 IVPB 150 mls Q2D@0600 SOLO Administration Lisinopril 20 mg 05/30/20 09:00 05/30/20 09:28 Lisinopril 20 Mg Tab PO 20 mg DAILY SOLO Administration Pantoprazole Sodium 40 mg 05/30/20 09:00 05/30/20 09:32 Pantoprazole 40 Mg Tab PO 40 mg DAILY SOLO Administration Polyethylene Glycol 17 gm 05/30/20 09:00 05/30/20 09:27 Polyethylene Glycol 3350 17 Gm Packet PO 17 gm DAILY SOLO Administration Hospitalist Exam Vitals: Vital Signs (12 hours) Temp Pulse Pulse Resp BP BP BP 05/30/20 11:16 99.2 F 91 151/59 H 05/30/20 10:52 05/30/20 09:30 127/63 05/30/20 09:28 127/63 05/30/20 09:23 93 127/63 05/30/20 08:27 178/77 H 05/30/20 08:00 05/30/20 07:50 98.3 F 85 20 126/58 L 05/30/20 04:00 99.4 F 113 H 25 H 05/30/20 01:18 98.0 F 120 H 18 187/79 H BP Pulse Ox 05/30/20 11:16 95 05/30/20 10:52 95 05/30/20 09:30 05/30/20 09:28 05/30/20 09:23 05/30/20 08:27 05/30/20 08:00 98 05/30/20 07:50 98 05/30/20 04:00 166/71 H 97 05/30/20 01:18 100 Weight Weight 134 lb 9.6 oz General Appearance: NAD, awake alert General - other findings: Irritable Eye: PERRL ENT: normocephalic atraumatic Neck: supple Heart: RRR Respiratory: CTAB Gastrointestinal: soft, normal bowel sounds Neurological: cranial nerve grossly intact, no focal deficits Psychiatric: A&O x 3 Hosp A/P - Plan 79 year old female with PMH atrial fibrillation, HTN, thrombocytopenia who presents to ED for fall. # fall # hypertension # CHF exacerbation - acute and chronic diastolic CHF # history of atrial fibrillation # hyponatremia # CKD III Patient with PMH CAD, CABG in 2003, 3 ablations for atrial fibrillation, 4 cardioversions, watchman device admitted for fall -Supportive measures -Ongoing physical therapy treatment Acute on chronic both systolic and possibly diastolic CHF exacerbation -Continue with amiodarone -Gentle diuresis -As her sodium is low will be very cautious with the Lasix doses. -Hold metolazone -Cardiology consult placed. Hyponatremia -Fluid restriction and caution with aggressive IV diuresis # HTN urgency - recent decrease in coreg dose, will increase lisinopril and hopefully will be improved with IV diuresis # possible infectious pneumonitis - azithromycin due to inability to rule out infection on imaging.
[2020-05-30] MEDS: Amiodarone 200 MG TAB PO SCH ×2 (14:36→20:41)
--- NOTE | 2020-05-30 18:37 | PRG ---
DATE OF SERVICE: 05/30/2020 Ms. Bedolla is having rapid heart rates off and on today. It is like a sinus tachycardia, but interestingly, she will suddenly have a heart rate up to 140, then down to 100 or less. Echocardiogram showed the ejection fraction is approximately 55%. The aortic valve looks calcified, but does not appear to be significantly stenotic on the Doppler study. Overall, the patient has not been doing well. She has had to be readmitted with heart failure. She has normal left ventricular systolic function at least in the normal range and borderline troponin. I think it is appropriate to proceed to cardiac catheterization. Discussed risk of stroke, heart attack, iodine allergy, loss of blood flow to leg or kidney, stent thrombosis, stent restenosis. She understands and wishes to proceed. Daughter also in the room, she also understands. All questions were answered. Job ID: [id number]
[2020-05-30] MEDS: Simvastatin 10 MG TAB PO SCH (20:41)
[2020-05-30] MEDS ORDERED: Enoxaparin Sodium 40 MG/0.4 ML SYRINGE SC SCH (21:00)
[2020-05-31 04:37] LABS: #Eosinphils 0.1 thou/uL (0.0-0.7); #Lymphocytes 0.6 thou/uL (1.20-3.40); #Monocytes 0.8 thou/uL (0.11-0.59); #Neutrophils 8.9 thou/uL (1.40-6.50); %Basophils 0.1 % (0.0-1.0); %Eosinophils 1.2 % (0.0-10.0); %Monocytes 7.2 % (0.0-10.0); %Neutrophils 85.4 % (42.0-75.0); Hemoglobin 9.4 g/dL (12.0-16.0); Mean Corpuscular HGB CONC 33.7 g/dL (32.0-36.0); Mean Corpuscular Hemoglobin 35.3 pg (27.0-31.0); Mean Platelet Volume 7.1 fL (7.4-10.4); Platelet Count 408 thou/uL (130-400); RBC Distribution Width 13.5 % (11.5-14.5); Red Blood Cell (RBC) Count 2.66 mill/uL (4.20-5.40); White Blood Cell (WBC) Count 10.4 thou/uL (4.8-10.8)
[2020-05-31 04:41] LABS: Anion Gap 11 mmol/L (10-20); BUN (Urea Nitrogen) 40 mg/dL (9.8-20.1); Calc. Creatinine Clearance 28 mL/min (70-130); Calcium 8.6 mg/dL (7.8-10.44); Carbon Dioxide 30 mmol/L (23-31); Chloride 93 mmol/L (98-107); Glucose 101 mg/dL (83-110); Magnesium 2.1 mg/dL (1.6-2.6); Potassium 3.2 mmol/L (3.5-5.1); Sodium 131 mmol/L (136-145)
[2020-05-31] MEDS ORDERED: Lidocaine 1% (PF) 30 ML VIAL ONE (06:45)
[2020-05-31] MEDS ORDERED: Potassium Chloride 20 MEQ TAB PO SCH (07:00)
[2020-05-31] MEDS: Sodium Chloride 0.9% 1,000 ML IV SCH ×2 (09:30→22:51)
[2020-05-31] MEDS ORDERED: Midazolam HCl 2 mg/2 ml Vial ONE (11:16)
[2020-05-31] MEDS ORDERED: Fentanyl 100 MCG/2 ML VIAL ONE (11:16)
[2020-05-31] MEDS ORDERED: Nitroglycerin 0.4 MG TAB (25 Tab Bottle) SL PRN (12:39)
[2020-05-31] MEDS ORDERED: Acetaminophen/Codeine 30-300mg Tablet PO PRN ×2 (12:39)
[2020-05-31] MEDS ORDERED: Sodium Chloride 0.9% 200 ML IV PRN (12:39)
--- NOTE | 2020-05-31 13:37 | PDOC.HOSPP ---
- Subjective Encounter Date: 05/31/20 Encounter Time: 09:55 Subjective: Patient seen this morning she is quite somnolent. But she on awakening she is able to answer questions appropriately she knows she is going to get cath today. Due to her tachyarrhythmia, She is started on diltiazem drip this morning. - Objective Vital Signs & Weight: Vital Signs (12 hours) Temp Pulse Resp BP Pulse Ox 05/31/20 07:30 99.0 F 70 26 H 127/71 99 05/31/20 03:15 98.6 F 77 21 H 125/58 L 96 Weight Weight 135 lb 7 oz I&O: 05/30/20 05/31/20 06/01/20 06:59 06:59 06:59 Intake Total 340 1090 Output Total 450 1550 Balance -110 -460 Result Diagrams: 05/31/20 04:02 05/31/20 04:02 Hospitalist ROS - Medication Medications: Active Medications Generic Name Dose Route Start Last Admin Trade Name Freq PRN Reason Stop Dose Admin Acetaminophen 650 mg 05/30/20 03:51 05/30/20 14:43 Acetaminophen 325 Mg Tab PO 650 mg Q4H PRN Administration Headache/Fever/Mild Pain (1-3) Amiodarone HCl 200 mg 05/30/20 15:00 05/30/20 20:41 Amiodarone 200 Mg Tab PO 05/31/20 21:01 200 mg TID SOLO Administration Aspirin 81 mg 05/30/20 09:00 05/30/20 09:31 Aspirin 81 Mg Enteric Coated Tablet PO 81 mg DAILY SOLO Administration Bupropion HCl 300 mg 05/30/20 09:00 05/30/20 09:31 Bupropion 150 Mg Xl Tab PO 300 mg DAILY SOLO Administration Carvedilol 6.25 mg 05/30/20 08:00 05/30/20 16:32 Carvedilol 6.25 Mg Tab PO 6.25 mg BID-WM SOLO Administration Cholecalciferol 2,000 units 05/30/20 09:00 05/30/20 09:31 Cholecalciferol 1,000 Units (25 Mcg) Tab PO 2,000 units DAILY SOLO Administration Hydroxyurea 500 mg 05/30/20 09:00 05/30/20 09:32 Hydroxyurea 500 Mg Cap PO 500 mg DAILY SOLO Administration Levofloxacin 750 mg/ Device 150 mls @ 100 mls/hr 05/30/20 06:00 05/30/20 05:52 IVPB 150 mls Q2D@0600 SOLO Administration Sodium Chloride 1,000 mls @ 100 mls/hr 05/31/20 08:30 05/31/20 09:30 Normal Saline 0.9% IV 1,000 mls .Q10H SOLO Administration Lisinopril 20 mg 05/30/20 09:00 05/30/20 09:28 Lisinopril 20 Mg Tab PO 20 mg DAILY SOLO Administration Pantoprazole Sodium 40 mg 05/30/20 09:00 05/30/20 09:32 Pantoprazole 40 Mg Tab PO 40 mg DAILY SOLO Administration Polyethylene Glycol 17 gm 05/30/20 09:00 05/30/20 09:27 Polyethylene Glycol 3350 17 Gm Packet PO 17 gm DAILY SOLO Administration Simvastatin 10 mg 05/30/20 21:00 05/30/20 20:41 Simvastatin 10 Mg Tab PO 10 mg HS SOLO Administration Hospitalist Exam Vitals: Vital Signs (12 hours) Temp Pulse Resp BP Pulse Ox 05/31/20 07:30 99.0 F 70 26 H 127/71 99 05/31/20 03:15 98.6 F 77 21 H 125/58 L 96 Weight Weight 135 lb 7 oz General Appearance: NAD, awake alert Eye: PERRL ENT: normocephalic atraumatic Neck: supple, no lymphadenopathy Heart: RRR, normal peripheral pulses Respiratory: CTAB, normal chest expansion Gastrointestinal: soft, normal bowel sounds Neurological: no new deficit Musculoskeletal: generalized weakness Psychiatric: oriented to person, oriented to place, somnolent Hosp A/P - Plan 79 year old female with PMH atrial fibrillation, HTN, thrombocytopenia who presents to ED for fall. # fall # hypertension # CHF exacerbation - acute and chronic diastolic CHF # history of atrial fibrillation # hyponatremia # CKD III Patient with PMH CAD, CABG in 2003, 3 ablations for atrial fibrillation, 4 cardioversions, watchman device -Supportive measures -Ongoing physical therapy treatment Acute on chronic both systolic and possibly diastolic CHF exacerbation -Continue with amiodarone -Gentle diuresis -As her sodium is low will be very cautious with the Lasix doses. -Hold metolazone -Cardiology consult placed. Hyponatremia -Fluid restriction and caution with aggressive IV diuresis Hypokalemia -Being replaced # HTN urgency - recent decrease in coreg dose, will increase lisinopril and hopefully will be improved with IV diuresis # possible infectious pneumonitis - -Levaquin Tachyarrhythmia -She is started on diltiazem drip this morning. -She is also on amiodarone plan for cath today DVT prophylaxis with Lovenox
--- NOTE | 2020-05-31 14:13 | PDOC.BPN ---
- Brief Progress Note Plan to stop amiodarone and possible AV node ablation and pacer placement next week.
[2020-05-31] MEDS: Lisinopril 20 MG TAB PO SCH (15:43)
[2020-05-31] MEDS: Carvedilol 6.25 MG TAB PO SCH ×2 (15:43→17:55)
[2020-05-31] MEDS: Cholecalciferol 1,000 UNITS (25 MCG) TAB PO SCH (15:43)
[2020-05-31] MEDS: Aspirin 81 mg Enteric Coated Tablet PO SCH (15:44)
[2020-05-31] MEDS: Bupropion 150 MG XL TAB PO SCH (15:44)
[2020-05-31] MEDS: Hydroxyurea 500 MG CAP PO SCH (15:44)
[2020-05-31] MEDS: Polyethylene Glycol 3350 17 GM Packet PO SCH (15:44)
[2020-05-31] MEDS: Amiodarone 200 MG TAB PO SCH (15:46)
--- NOTE | 2020-05-31 16:29 | PRG ---
DATE OF SERVICE: 05/31/2020 I spoke over the phone with Ms. Bedolla's daughter, Negra. Ms. Bedolla clearly has multiple medical problems. She has coronary artery disease. She has disease in one of her bypass grafts, which is significant but calcified. I do not think is a candidate for intervention. She also has right iliac disease. I did review the catheterization films and then found that she has patent internal mammary to the LAD, patent vein graft to the circumflex, but there is 80% calcified lesion in that graft, patent radial graft, patent right coronary graft, ejection fraction 60%. 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 There is stenosis of the proximal right iliac, and more distally, there is some disease in the vessels, very small diffusely diseased vessel. There could be a small amount of thrombus versus intimal dissection more distally. It is really difficult to be certain. When talking with Ms. Bedolla, she is asymptomatic, both feet are warm and well perfused. 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 Long-term prognosis is guarded to poor with all these problems, but I think the best options for now is the following, 1. We will start low-dose Lovenox tomorrow. 2. Consideration for AV junction ablation and pacemaker. 3. Stop amiodarone. 4. Observe the lower extremities, currently now asymptomatic, doing well. If there is a small intimal dissection, then frequently it remains asymptomatic. I did look at the films with Dr. Sahy, no further intervention indicated at this point. The patient has multiple medical problems, her overall health seems to be declining especially the last year. Also discussed with the daughter, the daughter is well aware of that as well. Job ID: [id number] [facility]
[2020-05-31] MEDS ORDERED: Iopamidol 370 76% 100 ML VIAL ONE (17:42)
[2020-05-31] MEDS ORDERED: Enoxaparin Sodium 40 MG/0.4 ML SYRINGE SC SCH (18:00)
[2020-05-31] MEDS ORDERED: Enoxaparin Sodium 30 MG/0.3 ML SYRINGE SC SCH (21:00)
[2020-05-31] MEDS: Simvastatin 10 MG TAB PO SCH (21:45)
[2020-06-01 04:18] LABS: #Eosinphils 0.2 thou/uL (0.0-0.7); #Lymphocytes 0.7 thou/uL (1.20-3.40); #Monocytes 1.1 thou/uL (0.11-0.59); #Neutrophils 7.5 thou/uL (1.40-6.50); %Basophils 0.2 % (0.0-1.0); %Eosinophils 1.9 % (0.0-10.0); %Lymphocytes 7.2 % (21.0-51.0); %Neutrophils 78.8 % (42.0-75.0); Hemoglobin 9.1 g/dL (12.0-16.0); Mean Corpuscular HGB CONC 33.8 g/dL (32.0-36.0); Mean Corpuscular Hemoglobin 35.5 pg (27.0-31.0); Mean Platelet Volume 7.5 fL (7.4-10.4); Platelet Count 395 thou/uL (130-400); RBC Distribution Width 13.4 % (11.5-14.5); Red Blood Cell (RBC) Count 2.56 mill/uL (4.20-5.40); White Blood Cell (WBC) Count 9.5 thou/uL (4.8-10.8)
[2020-06-01 04:37] LABS: Anion Gap 12 mmol/L (10-20); BUN (Urea Nitrogen) 34 mg/dL (9.8-20.1); Calc. Creatinine Clearance 31 mL/min (70-130); Calcium 8.5 mg/dL (7.8-10.44); Carbon Dioxide 27 mmol/L (23-31); Chloride 98 mmol/L (98-107); Glucose 103 mg/dL (83-110); Magnesium 2.2 mg/dL (1.6-2.6); Potassium 3.8 mmol/L (3.5-5.1); Sodium 133 mmol/L (136-145)
--- NOTE | 2020-06-01 06:21 | CON ---
DATE OF CONSULTATION: 05/31/2020 ADDITIONAL REFERRING PHYSICIAN: Dr. Abimael Mcmahon. HISTORY OF PRESENT ILLNESS: I am visiting Ms. Bedolla at our [facility] telemetry floor for electrophysiology consultation. Her problems are: 1. Recurrent atrial arrhythmias. a. Paroxysmal atrial fibrillation, status post prior ablations including isolation of left atrial appendage, most recent ablation on December 12, 2019, with Dr. Caldera. b. Recurrent atrial arrhythmia on December 20, 2019, prompted Multaq administration, which was later stopped due to financial difficulty. c. Recurrent atypical atrial flutter with rapid rates are noted, prompting amiodarone administration in May 2020. d. Now with recurrent tachyarrhythmias, readmission on May 29, 2020. 2. History of left atrial appendage isolation, status post Watchman device placement on 04/06/2019. a. CT scan from 03/08/2020 shows adequate occlusion of left atrial appendage. 3. Coronary artery disease with bypass grafting x5 vessels in 2003. a. Preserved LVEF on echo 05/25/2019 as well as on 05/30/2020 at 55% to 60%, moderate to severe left atrial enlargement, mildly enlarged right atrial size. b. History of diastolic heart failure with elevated BNP currently. 4. Renal insufficiency with creatinine of 1.62 on 05/31/2020. 5. History of obstructive sleep apnea. 6. Hypertension. 7. Moderate dementia. ALLERGIES: ERYTHROMYCIN. MEDICATIONS: At home included: 1. Vitamin D3. 2. Pravastatin. 3. Torsemide. 4. Wellbutrin. 5. Potassium chloride. 6. Aspirin. 7. Metolazone. 8. Hydrea. 9. Multivitamin. 10. Cordarone 200 mg three times a day. 11. Coreg 6.25 mg twice a day. 12. Prinivil 10 mg daily. SUBJECTIVE: Ms. Bedolla is here with recurrent palpitations, falls. She was just discharged from the hospital on the 5th after admission for atrial arrhythmias. At that point, decision was made to start amiodarone and she is still on a tapering dose of 200 mg three times a day. Now, she is being admitted after another fall. History is scant since her dementia. On monitoring, she continues to have rapid atrial rhythms alternating with sinus rhythm on occasion. With the rapid rates, documentation of heart rate up to 140 beats per minute is seen. Also borderline renal function is still documented and troponin levels were borderline elevated as well as her BNP as well. Her workup has shown abnormal pulmonary findings with diffuse linear interstitial densities, which could represent interstitial edema or pneumonitis. I was consulted by Dr. Salter to reassess her arrhythmia status. Currently, most of the history is obtained from the chart since the patient's dementia. REVIEW OF SYSTEMS: The rest of 12-point review of system otherwise unremarkable. PAST MEDICAL HISTORY: As above. SOCIAL HISTORY: Patient has no current history of smoking, EtOH, or drug abuse. FAMILY HISTORY: Not contributory. Her decision maker is her daughter. OBJECTIVE DATA: VITAL SIGNS: Blood pressure 127/71, heart rate 70, respirations 26, temperature 99.0 degrees Fahrenheit. PHYSICAL EXAMINATION: GENERAL: This is an alert and oriented x2 elderly woman in no apparent distress. NECK: Supple. Jugular veins not distended. CHEST: Coarse without crackles. HEART: Sounds are regular to rate and rhythm. No murmur or gallop. ABDOMEN: Benign. Bowel sounds positive. LOWER EXTREMITIES: Without edema, clubbing, or cyanosis. Pulses are adequate. NEUROLOGIC: The patient is nonfocal. MUSCULOSKELETAL EXAM: No joint swelling or deformity. SKIN: Without rash. LABORATORY DATA AND DIAGNOSTIC IMAGINGS: The EKG is reviewed, revealing initially sinus tachycardia on May 29 EKG, rate of 124 beats per minute. Nonspecific ST-T changes. QTc is 428 milliseconds. Subsequent EKG reveals sinus rhythm at 97 beats per minute. Also, on the at 10:41 p.m., left anterior fascicular block is seen, incomplete right bundle-branch block. Subsequent EKG on May 30 does reveal an atrial tachycardia which has different PV morphology with upright V1, P-waves at rate of 142 beats per minute, so 1:1 tachycardia. Diltiazem drip was initiated after this. Sodium 131, potassium 3.2, BUN is 40, and creatinine 1.62. White count is 10.4, hemoglobin 9.4, and platelet count is 408. COVID serology is negative. The BNP is 255. AST and ALT are 31 and 36. Left heart catheterization from today reveals chronic circ occlusion with patent jump graft to obtuse marginal and patent FRANCIS to LAD, patent SVG to PDA as well LVEF of 60%. ASSESSMENT AND PLAN: Ms. Bedolla is a pleasant 79-year-old woman with prior history of recurrent atrial arrhythmias, diastolic heart failure, and dementia. She is presenting with recurrent atrial arrhythmias. She is recently initiated on amiodarone. She is still on 200 mg three times a day taper, especially as she has recurrent atrial arrhythmias. Also of concern is abnormal chest x-ray finding which may be suggesting some pneumonitis. I discussed with Dr. Salter about potential treatment options. Continued amiodarone taper is a questionable option - I am concerned about the chest x-ray findings, could be a manifestation of amiodarone toxicity. Hence, it may prudent to consider stopping this medication. She failed Multaq before and with her renal dysfunction, alternative antiarrhythmic options are not optimal. She may benefit from consideration for pacemaker placement and AV node ablation in the future. These will be discussed with the family as well likely next week. In the meantime, continue conservative management with IV dilt for rate control.. Job ID: [id number]
[2020-06-01] MEDS: Carvedilol 6.25 MG TAB PO SCH ×2 (08:40→17:23)
[2020-06-01] MEDS: Enoxaparin Sodium 30 MG/0.3 ML SYRINGE SC SCH (08:40)
[2020-06-01] MEDS: Polyethylene Glycol 3350 17 GM Packet PO SCH (08:40)
[2020-06-01] MEDS: Cholecalciferol 1,000 UNITS (25 MCG) TAB PO SCH (08:40)
[2020-06-01] MEDS: Aspirin 81 mg Enteric Coated Tablet PO SCH (08:40)
[2020-06-01] MEDS: Lisinopril 20 MG TAB PO SCH (08:41)
[2020-06-01] MEDS: Hydroxyurea 500 MG CAP PO SCH (08:41)
[2020-06-01] MEDS: Bupropion 150 MG XL TAB PO SCH (08:42)
[2020-06-01] MEDS ORDERED: Amiodarone 200 MG TAB PO SCH (09:00)
--- NOTE | 2020-06-01 12:12 | PDOC.CPN ---
- Subjective Date: 06/01/20 Time: 12:10 Interval history: Patient sitting up in bed, she has multiple complaints today. She is complaining of pain all over her body, continued blurry/ double vision, and overall "not feeling good". She denies any chest pain or shortness of breath or palpitations. Her daughter is with her at bedside, her son was also speaking to the patient over the phone and states she has been confused per her son's report. Her daughter does admit that the patient has been dealing with memory problems over the last few months. - Review of Systems General: reports: fatigue Respiratory: denies: cough, congestion, shortness of breath, exercise intolerance Cardiovascular: denies: chest pain, palpitation, edema, paroxysmal nocturnal dyspnea, orthopnea Musculoskeletal: reports: pain Neurological: reports: syncope (recent syncopal episode) - Objective Allergies/Adverse Reactions: Allergies Allergy/AdvReac Type Severity Reaction Status Date / Time adhesive Allergy rash, Verified 05/30/20 03:20 blisters erythromycin base Allergy Rash Verified 05/30/20 03:20 Penicillins Allergy Verified 05/30/20 03:20 Visit Medications: Current Medications Acetaminophen (Acetaminophen 325 Mg Tab) 650 mg PO Q4H PRN PRN Reason: Headache/Fever/Mild Pain (1-3) Last Admin: 05/30/20 14:43 Dose: 650 mg Documented by: Acetaminophen/Codeine Phosphate (Acetaminophen/Codeine 30-300mg Tablet) 1 tab PO Q4H PRN PRN Reason: Mild Pain (1-3) Acetaminophen/Codeine Phosphate (Acetaminophen/Codeine 30-300mg Tablet) 2 tab PO Q4H PRN PRN Reason: Moderate Pain (4-6) Albuterol/Ipratropium (Ipratropium/Albuterol Sulfate 3 Ml Neb) 3 ml NEB Q2H PRN PRN Reason: SOB &/or Wheezing Aspirin (Aspirin 81 Mg Enteric Coated Tablet) 81 mg PO DAILY [facility] Last Admin: 06/01/20 08:40 Dose: 81 mg Documented by: Bupropion HCl (Bupropion 150 Mg Xl Tab) 300 mg PO DAILY [facility] Last Admin: 06/01/20 08:42 Dose: 300 mg Documented by: Carvedilol (Carvedilol 6.25 Mg Tab) 6.25 mg PO BID-[facility] Last Admin: 06/01/20 08:40 Dose: 6.25 mg Documented by: Cholecalciferol (Cholecalciferol 1,000 Units (25 Mcg) Tab) 2,000 units PO DAILY [facility] Last Admin: 06/01/20 08:40 Dose: 2,000 units Documented by: Clonidine (Clonidine 0.1 Mg Tab) 0.1 mg PO BIDPRN PRN PRN Reason: SBP > 160, use second Enoxaparin Sodium (Enoxaparin Sodium 30 Mg/0.3 Ml Syringe) 30 mg SC 0900 [facility] Last Admin: 06/01/20 08:40 Dose: 30 mg Documented by: Guaifenesin/Dextromethorphan (Guaifenesin Dm 100-10/5 Ml Udcup) 15 ml PO Q4H PRN PRN Reason: Cough Hydralazine HCl (Hydralazine 20 Mg/Ml Vial) 10 mg SLOW IVP Q6H PRN PRN Reason: SBP GREATER THAN 160 Hydroxyurea (Hydroxyurea 500 Mg Cap) 500 mg PO DAILY [facility] Last Admin: 06/01/20 08:41 Dose: 500 mg Documented by: Promethazine HCl 12.5 mg/ (Sodium Chloride) 50.5 mls @ 202 mls/hr IVPB Q6H PRN PRN Reason: Nausea/vomiting, use second Levofloxacin 750 mg/ Device 150 mls @ 100 mls/hr IVPB Q2D@0600 [facility] Last Admin: 06/01/20 05:43 Dose: 150 mls Documented by: Diltiazem HCl 125 mg/ Sodium (Chloride) 125 mls @ 5 mls/hr IVPB INF [facility] Last Admin: 06/01/20 09:02 Dose: 125 mls Documented by: Sodium Chloride (Normal Saline 0.9%) 200 mls @ 0 mls/hr IV ONE PRN PRN Reason: SBP < 90 Stop: 06/01/20 12:40 Labetalol HCl (Labetalol Hcl 100 Mg/20 Ml Vial) 20 mg SLOW IVP Q4H PRN PRN Reason: SBP > 160, use first Lisinopril (Lisinopril 20 Mg Tab) 20 mg PO DAILY [facility] Last Admin: 06/01/20 08:41 Dose: 20 mg Documented by: Miscellaneous Medication (Electrolyte Replacement Protocol 1 Each) 1 each FS ASDIR [facility] Morphine Sulfate (Morphine 2 Mg/Ml Vial) 2 mg SLOW IVP Q4H PRN PRN Reason: Moderate to Severe Pain (4-10) Nitroglycerin (Nitroglycerin 0.4 Mg Tab (25 Tab Bottle)) 0.4 mg SL Q5MIN PRN PRN Reason: Chest Pain Ondansetron HCl (Ondansetron Pf 4 Mg/2 Ml Vial) 4 mg IVP Q6H PRN PRN Reason: Nausea/Vomiting, use 1st Pantoprazole Sodium (Pantoprazole 40 Mg Tab) 40 mg PO DAILY [facility] Last Admin: 06/01/20 08:40 Dose: 40 mg Documented by: Polyethylene Glycol (Polyethylene Glycol 3350 17 Gm Packet) 17 gm PO DAILY [facility] Last Admin: 06/01/20 08:40 Dose: 17 gm Documented by: Simvastatin (Simvastatin 10 Mg Tab) [address] [facility] Last Admin: 05/31/20 21:45 Dose: 10 mg Documented by: Sodium Chloride (Flush - Normal Saline 10 Ml Syringe) 10 ml IVF PRN PRN PRN Reason: Saline Flush Vital Signs & Weight: Vital Signs Temp Pulse Resp BP Pulse Ox 06/01/20 11:30 98.3 F 68 20 130/60 95 06/01/20 07:30 98.3 F 73 20 135/63 94 L 06/01/20 03:08 98.1 F 72 18 132/61 93 L Weight 138 lb - Quality Measures Condition: Coronary Artery Disease CV meds: Beta Carmine: Yes, ANN/ARB: Yes, Statin: Yes, ASA: Yes, Anticoagulant: Yes (Lovenox) - Physical Exam General: cachectic, other (confused, frail, ill appearring elderly woman) Neck: no bruit Cardiac: regular rate and rhythm, no murmur, S1/S2 Lungs: decreased breath sounds, oxygen, other (distant lung sounds, slight wheezing to bilateral bases) Neuro: other (c/o blurred/ double vision, she believes this is worsening) Abdomen: active bowel sounds, soft Extremities: no cyanosis, no clubbing, no edema, 2+ Posterior Tibial, 2+ Dorsalis Pedus, other: (extrmeities very sensitive to touch) Skin: clear, other (thin, fragile skin, she does have an abrasion to her foreh ead as well as two hematomas) - Labs Result Diagrams: 06/01/20 03:51 06/01/20 03:51 Troponin/CKMB CK-MB (CK-2) 2.2 ng/mL (0-6.6) 05/29/20 23:33 Troponin I 0.077 ng/mL (< 0.028) H 05/30/20 06:46 - EKG Interpretation EKG Method: Telemetry EKG: sinus rhythm (Diltizaem drip, SR, HR 68) - Assessment/Plan Assessment/Plan: 1. Reccurent atrial arrhythmias: She is currently in sinus rhythm, on a diltiazem drip. Currently rate controlled in 60's. Plan for pacemaker and AV node ablation per Dr. Hamilton, assume on Wednesday 2. Coronary artery disease, one of her grafts has calcium and she also has right illiac stenosis: medical management 3. Diastolic Heart failure: currently on Aspirin, Pravastatin, Torsemide, Coreg, Lisinopril, Lovenox 4. Dementia: the patient and her family state that this has been ongoing for months, she states she did see a neurologist during one of her hospital stays last year 5. Blurry/double vision Continue current treatment at this time, her BP is under good control, her heart rate is under control in the 60-70's and she is in sinus rhythm. Plan for pacemaker and AV node ablation with Dr. Hamilton
--- NOTE | 2020-06-01 15:52 | PDOC.HOSPP ---
- Subjective Encounter Date: 06/01/20 Encounter Time: 10:00 Subjective: awake, has gen aches and pain no sob daughter at bedside - Objective Vital Signs & Weight: Vital Signs (12 hours) Temp Pulse Pulse Resp BP BP Pulse Ox 06/01/20 11:30 98.3 F 68 20 130/60 95 06/01/20 09:45 73 130/60 06/01/20 07:30 98.3 F 73 20 135/63 94 L Weight Weight 138 lb I&O: 05/31/20 06/01/20 06/02/20 06:59 06:59 06:59 Intake Total 1090 1975 Output Total 1550 1000 Balance -460 975 Result Diagrams: 06/01/20 03:51 06/01/20 03:51 Hospitalist ROS - Medication Medications: Active Medications Generic Name Dose Route Start Last Admin Trade Name Freq PRN Reason Stop Dose Admin Acetaminophen 650 mg 05/30/20 03:51 05/30/20 14:43 Acetaminophen 325 Mg Tab PO 650 mg Q4H PRN Administration Headache/Fever/Mild Pain (1-3) Aspirin 81 mg 05/30/20 09:00 06/01/20 08:40 Aspirin 81 Mg Enteric Coated Tablet PO 81 mg DAILY [facility] Administration Bupropion HCl 300 mg 05/30/20 09:00 06/01/20 08:42 Bupropion 150 Mg Xl Tab PO 300 mg DAILY [facility] Administration Carvedilol 6.25 mg 05/30/20 08:00 06/01/20 08:40 Carvedilol 6.25 Mg Tab PO 6.25 mg BID-WM [facility] Administration Cholecalciferol 2,000 units 05/30/20 09:00 06/01/20 08:40 Cholecalciferol 1,000 Units (25 Mcg) Tab PO 2,000 units DAILY [facility] Administration Enoxaparin Sodium 30 mg 06/01/20 09:00 06/01/20 08:40 Enoxaparin Sodium 30 Mg/0.3 Ml Syringe SC 30 mg 0900 [facility] Administration Hydroxyurea 500 mg 05/30/20 09:00 06/01/20 08:41 Hydroxyurea 500 Mg Cap PO 500 mg DAILY [facility] Administration Levofloxacin 750 mg/ Device 150 mls @ 100 mls/hr 05/30/20 06:00 06/01/20 05:43 IVPB 150 mls Q2D@0600 [facility] Administration Diltiazem HCl 125 mg/ Sodium 125 mls @ 5 mls/hr 05/31/20 16:45 06/01/20 09:02 Chloride IVPB 125 mls INF [facility] Administration 5 MG/HR Lisinopril 20 mg 05/30/20 09:00 06/01/20 08:41 Lisinopril 20 Mg Tab PO 20 mg DAILY [facility] Administration Pantoprazole Sodium 40 mg 05/30/20 09:00 06/01/20 08:40 Pantoprazole 40 Mg Tab PO 40 mg DAILY [facility] Administration Polyethylene Glycol 17 gm 05/30/20 09:00 06/01/20 08:40 Polyethylene Glycol 3350 17 Gm Packet PO 17 gm DAILY [facility] Administration Simvastatin 10 mg 05/30/20 21:00 05/31/20 21:45 Simvastatin 10 Mg Tab PO 10 mg HS [facility] Administration Hospitalist Exam Vitals: Vital Signs (12 hours) Temp Pulse Pulse Resp BP BP Pulse Ox 06/01/20 11:30 98.3 F 68 20 130/60 95 06/01/20 09:45 73 130/60 06/01/20 07:30 98.3 F 73 20 135/63 94 L Weight Weight 138 lb General Appearance: awake alert Eye: PERRL, anicteric sclera ENT: no oropharyngeal lesions, moist mucosa Neck: supple, no JVD Heart: no murmur, irregular Respiratory: no wheezes, no rales, rhonchi Gastrointestinal: soft, non-tender, non-distended, normal bowel sounds Extremities: no cyanosis, no edema Neurological: cranial nerve grossly intact, no focal deficits Hosp A/P (1) Acute exacerbation of CHF (congestive heart failure) Code(s): I50.9 - HEART FAILURE, UNSPECIFIED Status: Acute Qualifiers: Heart failure type: diastolic Qualified Code(s): I50.33 - Acute on chronic diastolic (congestive) heart failure (2) Atrial fibrillation with RVR Code(s): I48.91 - UNSPECIFIED ATRIAL FIBRILLATION Status: Acute (3) CAD (coronary artery disease) Code(s): I25.10 - ATHSCL HEART DISEASE OF [place] CORONARY ARTERY W/O ANG PCTRS Status: Chronic Qualifiers: Coronary Disease-Associated Artery/Lesion type: bypass graft [place] vs. transplanted heart: [place] heart Associated angina: with stable angina Qualified Code(s): I25.708 - Atherosclerosis of coronary artery bypass graft(s), unspecified, with other forms of angina pectoris (4) Chronic kidney disease, stage 3 Code(s): N18.30 - CHRONIC KIDNEY DISEASE, STAGE 3 UNSPECIFIED Status: Chronic (5) Hyperlipidemia Code(s): E78.5 - HYPERLIPIDEMIA, UNSPECIFIED Status: Chronic Qualifiers: Hyperlipidemia type: unspecified Qualified Code(s): E78.5 - Hyperlipidemia, unspecified (6) Hypertension Code(s): I10 - ESSENTIAL (PRIMARY) HYPERTENSION Status: Chronic Qualifiers: Hypertension type: essential hypertension Qualified Code(s): I10 - Essential (primary) hypertension (7) Mild dementia Code(s): F03.90 - UNSPECIFIED DEMENTIA WITHOUT BEHAVIORAL DISTURBANCE Status: Chronic (8) Physical deconditioning Code(s): R53.81 - OTHER MALAISE Status: Acute - Plan is on cardizem 5mg/hr drip, asp, zocor, coreg, lisinopril, nebs levaquin, hydrea and protonix cath showed patent peña to lad, svg to rca patent, radial to ramus patent, svg to Cx 80% calcified lesion not amenable for revascularization for likely av isabell ablation with pcm placement on wednesday, is off amiodarone due to suspected lung changes has right iliac stenosis/intimal dissection, await cts plans echo showed ef of 55%, has mod mitral and tricuspid regurg will need rehab for dc plan, has amb a bit with PT today d/w daughter at bedside encourage po intake and mobilization
[2020-06-01] MEDS: Simvastatin 10 MG TAB PO SCH (20:40)
[2020-06-02 03:56] LABS: #Eosinphils 0.1 thou/uL (0.0-0.7); #Lymphocytes 0.5 thou/uL (1.20-3.40); #Monocytes 0.8 thou/uL (0.11-0.59); #Neutrophils 6.9 thou/uL (1.40-6.50); %Eosinophils 1.8 % (0.0-10.0); %Lymphocytes 6.4 % (21.0-51.0); %Neutrophils 81.8 % (42.0-75.0); Mean Corpuscular HGB CONC 33.9 g/dL (32.0-36.0); Mean Corpuscular Hemoglobin 35.5 pg (27.0-31.0); Mean Platelet Volume 7.4 fL (7.4-10.4); Platelet Count 348 thou/uL (130-400); RBC Distribution Width 13.2 % (11.5-14.5); Red Blood Cell (RBC) Count 2.53 mill/uL (4.20-5.40); White Blood Cell (WBC) Count 8.4 thou/uL (4.8-10.8)
[2020-06-02 04:28] LABS: Anion Gap 14 mmol/L (10-20); BUN (Urea Nitrogen) 32 mg/dL (9.8-20.1); Calc. Creatinine Clearance 32 mL/min (70-130); Calcium 8.5 mg/dL (7.8-10.44); Carbon Dioxide 23 mmol/L (23-31); Chloride 96 mmol/L (98-107); Glucose 138 mg/dL (83-110); Magnesium 2.1 mg/dL (1.6-2.6); Potassium 3.9 mmol/L (3.5-5.1); Sodium 129 mmol/L (136-145)
[2020-06-02] MEDS: Cholecalciferol 1,000 UNITS (25 MCG) TAB PO SCH (08:16)
[2020-06-02] MEDS: Bupropion 150 MG XL TAB PO SCH (08:16)
[2020-06-02] MEDS: Carvedilol 6.25 MG TAB PO SCH ×2 (08:16→16:10)
[2020-06-02] MEDS: Enoxaparin Sodium 30 MG/0.3 ML SYRINGE SC SCH (08:16)
[2020-06-02] MEDS: Lisinopril 20 MG TAB PO SCH (08:16)
[2020-06-02] MEDS: Aspirin 81 mg Enteric Coated Tablet PO SCH (08:16)
[2020-06-02] MEDS: Polyethylene Glycol 3350 17 GM Packet PO SCH (08:20)
[2020-06-02] MEDS: Hydroxyurea 500 MG CAP PO SCH (08:33)
--- NOTE | 2020-06-02 12:24 | PDOC.HOSPP ---
- Subjective Encounter Date: 06/02/20 Encounter Time: 09:00 Subjective: no new complaints - Objective Vital Signs & Weight: Vital Signs (12 hours) Temp Pulse Resp BP Pulse Ox 06/02/20 11:41 98.3 F 78 17 155/70 H 91 L 06/02/20 08:00 98.0 F 80 17 158/69 H 93 L 06/02/20 03:09 98.3 F 83 18 149/67 H 92 L Weight Weight 140 lb I&O: 06/01/20 06/02/20 06/03/20 06:59 06:59 06:59 Intake Total 1975 1450 Output Total 1000 750 Balance 975 700 Result Diagrams: 06/02/20 03:40 06/02/20 03:40 Additional Labs: Accuchecks 06/02/20 05:21 POC Glucose 120 H Hospitalist ROS - Medication Medications: Active Medications Generic Name Dose Route Start Last Admin Trade Name Freq PRN Reason Stop Dose Admin Acetaminophen 650 mg 05/30/20 03:51 05/30/20 14:43 Acetaminophen 325 Mg Tab PO 650 mg Q4H PRN Administration Headache/Fever/Mild Pain (1-3) Aspirin 81 mg 05/30/20 09:00 06/02/20 08:16 Aspirin 81 Mg Enteric Coated Tablet PO 81 mg DAILY SOLO Administration Bupropion HCl 300 mg 05/30/20 09:00 06/02/20 08:16 Bupropion 150 Mg Xl Tab PO 300 mg DAILY SOLO Administration Carvedilol 6.25 mg 05/30/20 08:00 06/02/20 08:16 Carvedilol 6.25 Mg Tab PO 6.25 mg BID- SOLO Administration Cholecalciferol 2,000 units 05/30/20 09:00 06/02/20 08:16 Cholecalciferol 1,000 Units (25 Mcg) Tab PO 2,000 units DAILY SOLO Administration Enoxaparin Sodium 30 mg 06/01/20 09:00 06/02/20 08:16 Enoxaparin Sodium 30 Mg/0.3 Ml Syringe SC 30 mg 0900 SOLO Administration Hydroxyurea 500 mg 05/30/20 09:00 06/02/20 08:33 Hydroxyurea 500 Mg Cap PO 500 mg DAILY SOLO Administration Levofloxacin 750 mg/ Device 150 mls @ 100 mls/hr 05/30/20 06:00 06/01/20 05:43 IVPB 150 mls Q2D@0600 SOLO Administration Diltiazem HCl 125 mg/ Sodium 125 mls @ 5 mls/hr 05/31/20 16:45 06/02/20 11:26 Chloride IVPB 125 mls INF SOLO Administration 5 MG/HR Lisinopril 20 mg 05/30/20 09:00 06/02/20 08:16 Lisinopril 20 Mg Tab PO 20 mg DAILY SOLO Administration Pantoprazole Sodium 40 mg 05/30/20 09:00 06/02/20 08:16 Pantoprazole 40 Mg Tab PO 40 mg DAILY SOLO Administration Polyethylene Glycol 17 gm 05/30/20 09:00 06/02/20 08:20 Polyethylene Glycol 3350 17 Gm Packet PO Not Given DAILY SOLO Simvastatin 10 mg 05/30/20 21:00 06/01/20 20:40 Simvastatin 10 Mg Tab PO 10 mg HS SOLO Administration Hospitalist Exam Vitals: Vital Signs (12 hours) Temp Pulse Resp BP Pulse Ox 06/02/20 11:41 98.3 F 78 17 155/70 H 91 L 06/02/20 08:00 98.0 F 80 17 158/69 H 93 L 06/02/20 03:09 98.3 F 83 18 149/67 H 92 L Weight Weight 140 lb General Appearance: awake alert Eye: PERRL, anicteric sclera ENT: no oropharyngeal lesions, moist mucosa Neck: supple, no JVD Heart: RRR, no murmur Respiratory: no wheezes, no rales Gastrointestinal: soft, non-tender, non-distended, normal bowel sounds Extremities: no cyanosis, no edema Neurological: cranial nerve grossly intact, no focal deficits Psychiatric: A&O x 3 Hosp A/P (1) Acute exacerbation of CHF (congestive heart failure) Code(s): I50.9 - HEART FAILURE, UNSPECIFIED Status: Acute Qualifiers: Heart failure type: diastolic Qualified Code(s): I50.33 - Acute on chronic diastolic (congestive) heart failure (2) Atrial fibrillation with RVR Code(s): I48.91 - UNSPECIFIED ATRIAL FIBRILLATION Status: Resolved (3) CAD (coronary artery disease) Code(s): I25.10 - ATHSCL HEART DISEASE OF [place] CORONARY ARTERY W/O ANG PCTRS Status: Chronic Qualifiers: Coronary Disease-Associated Artery/Lesion type: bypass graft [place] vs. transplanted heart: [place] heart Associated angina: with stable angina Qualified Code(s): I25.708 - Atherosclerosis of coronary artery bypass graft(s), unspecified, with other forms of angina pectoris (4) Chronic kidney disease, stage 3 Code(s): N18.30 - CHRONIC KIDNEY DISEASE, STAGE 3 UNSPECIFIED Status: Chronic (5) Hyperlipidemia Code(s): E78.5 - HYPERLIPIDEMIA, UNSPECIFIED Status: Chronic Qualifiers: Hyperlipidemia type: unspecified Qualified Code(s): E78.5 - Hyperlipidemia, unspecified (6) Hypertension Code(s): I10 - ESSENTIAL (PRIMARY) HYPERTENSION Status: Chronic Qualifiers: Hypertension type: essential hypertension Qualified Code(s): I10 - Essential (primary) hypertension (7) Mild dementia Code(s): F03.90 - UNSPECIFIED DEMENTIA WITHOUT BEHAVIORAL DISTURBANCE Status: Chronic (8) Physical deconditioning Code(s): R53.81 - OTHER MALAISE Status: Acute - Plan is on cardizem 5mg/hr drip, asp, zocor, coreg, lisinopril, nebs levaquin, hydrea and protonix cath showed patent peña to lad, svg to rca patent, radial to ramus patent, svg to Cx 80% calcified lesion not amenable for revascularization for likely av isabell ablation with pcm placement on wednesday, is off amiodarone due to suspected lung changes, is in sinus rhythm from 05/30/20. has right iliac stenosis/intimal dissection, await cts plans echo showed ef of 55%, has mod mitral and tricuspid regurg will need rehab for dc plan, has amb a bit with PT today d/w daughter at bedside on 06/01/20 encourage po intake and mobilization
--- NOTE | 2020-06-02 14:13 | PDOC.CPN ---
- Subjective Date: 06/02/20 Time: 13:15 Interval history: patient sitting up in bed eating her lunch tray. She is c/o neck and back pain and generalized pain and discomfort all over. She denies any chest pain or shortness of breath or palpitations. She is confused. - Review of Systems General: denies: fever/chills, weight/appetite/sleep changes, night sweats, fatigue Respiratory: denies: cough, congestion, shortness of breath, exercise intolerance Cardiovascular: denies: chest pain, palpitation, edema, paroxysmal nocturnal dyspnea, orthopnea Musculoskeletal: reports: pain. denies: tenderness, stiffness, swelling, arthritis/arthralgias Neurological: denies: numbness, syncope, seizure, weakness - Objective Allergies/Adverse Reactions: Allergies Allergy/AdvReac Type Severity Reaction Status Date / Time adhesive Allergy rash, Verified 05/30/20 03:20 blisters erythromycin base Allergy Rash Verified 05/30/20 03:20 Penicillins Allergy Verified 05/30/20 03:20 Visit Medications: Current Medications Acetaminophen (Acetaminophen 325 Mg Tab) 650 mg PO Q4H PRN PRN Reason: Headache/Fever/Mild Pain (1-3) Last Admin: 05/30/20 14:43 Dose: 650 mg Documented by: Acetaminophen/Codeine Phosphate (Acetaminophen/Codeine 30-300mg Tablet) 1 tab PO Q4H PRN PRN Reason: Mild Pain (1-3) Acetaminophen/Codeine Phosphate (Acetaminophen/Codeine 30-300mg Tablet) 2 tab PO Q4H PRN PRN Reason: Moderate Pain (4-6) Albuterol/Ipratropium (Ipratropium/Albuterol Sulfate 3 Ml Neb) 3 ml NEB Q2H PRN PRN Reason: SOB &/or Wheezing Aspirin (Aspirin 81 Mg Enteric Coated Tablet) 81 mg PO DAILY [facility] Last Admin: 06/02/20 08:16 Dose: 81 mg Documented by: Bupropion HCl (Bupropion 150 Mg Xl Tab) 300 mg PO DAILY [facility] Last Admin: 06/02/20 08:16 Dose: 300 mg Documented by: Carvedilol (Carvedilol 6.25 Mg Tab) 6.25 mg PO BID-[facility] Last Admin: 06/02/20 08:16 Dose: 6.25 mg Documented by: Cholecalciferol (Cholecalciferol 1,000 Units (25 Mcg) Tab) 2,000 units PO DAILY [facility] Last Admin: 06/02/20 08:16 Dose: 2,000 units Documented by: Clonidine (Clonidine 0.1 Mg Tab) 0.1 mg PO BIDPRN PRN PRN Reason: SBP > 160, use second Enoxaparin Sodium (Enoxaparin Sodium 30 Mg/0.3 Ml Syringe) 30 mg SC 0900 [facility] Last Admin: 06/02/20 08:16 Dose: 30 mg Documented by: Guaifenesin/Dextromethorphan (Guaifenesin Dm 100-10/5 Ml Udcup) 15 ml PO Q4H PRN PRN Reason: Cough Hydralazine HCl (Hydralazine 20 Mg/Ml Vial) 10 mg SLOW IVP Q6H PRN PRN Reason: SBP GREATER THAN 160 Hydroxyurea (Hydroxyurea 500 Mg Cap) 500 mg PO DAILY [facility] Last Admin: 06/02/20 08:33 Dose: 500 mg Documented by: Promethazine HCl 12.5 mg/ (Sodium Chloride) 50.5 mls @ 202 mls/hr IVPB Q6H PRN PRN Reason: Nausea/vomiting, use second Levofloxacin 750 mg/ Device 150 mls @ 100 mls/hr IVPB Q2D@0600 [facility] Last Admin: 06/01/20 05:43 Dose: 150 mls Documented by: Diltiazem HCl 125 mg/ Sodium (Chloride) 125 mls @ 5 mls/hr IVPB INF [facility] Last Admin: 06/02/20 11:26 Dose: 125 mls Documented by: Labetalol HCl (Labetalol Hcl 100 Mg/20 Ml Vial) 20 mg SLOW IVP Q4H PRN PRN Reason: SBP > 160, use first Lisinopril (Lisinopril 20 Mg Tab) 20 mg PO DAILY [facility] Last Admin: 06/02/20 08:16 Dose: 20 mg Documented by: Miscellaneous Medication (Electrolyte Replacement Protocol 1 Each) 1 each FS ASDIR [facility] Morphine Sulfate (Morphine 2 Mg/Ml Vial) 2 mg SLOW IVP Q4H PRN PRN Reason: Moderate to Severe Pain (4-10) Nitroglycerin (Nitroglycerin 0.4 Mg Tab (25 Tab Bottle)) 0.4 mg SL Q5MIN PRN PRN Reason: Chest Pain Ondansetron HCl (Ondansetron Pf 4 Mg/2 Ml Vial) 4 mg IVP Q6H PRN PRN Reason: Nausea/Vomiting, use 1st Pantoprazole Sodium (Pantoprazole 40 Mg Tab) 40 mg PO DAILY [facility] Last Admin: 06/02/20 08:16 Dose: 40 mg Documented by: Polyethylene Glycol (Polyethylene Glycol 3350 17 Gm Packet) 17 gm PO DAILY [facility] Last Admin: 06/02/20 08:20 Dose: Not Given Documented by: Simvastatin (Simvastatin 10 Mg Tab) 10 mg PO HS [facility] Last Admin: 06/01/20 20:40 Dose: 10 mg Documented by: Sodium Chloride (Flush - Normal Saline 10 Ml Syringe) 10 ml IVF PRN PRN PRN Reason: Saline Flush Vital Signs & Weight: Vital Signs Temp Pulse Resp BP Pulse Ox 06/02/20 11:41 98.3 F 78 17 155/70 H 91 L 06/02/20 08:00 98.0 F 80 17 158/69 H 93 L 06/02/20 03:09 98.3 F 83 18 149/67 H 92 L Weight 140 lb - Quality Measures Condition: Coronary Artery Disease CV meds: Beta Carmine: Yes, ANN/ARB: Yes, Statin: Yes, ASA: Yes, Anticoagulant: Yes (Lovenox) - Physical Exam General: no apparent distress, cachectic, other (confused, fragile) HEENT: mucus membranes dry Neck: no bruit Cardiac: regular rate and rhythm, no murmur, S1/S2 Lungs: normal breath sounds, no wheeze, rales, rhonchi Neuro: grossly intact Abdomen: active bowel sounds, soft Extremities: no cyanosis, no clubbing, no edema, 2+ Posterior Tibial, 2+ Dorsalis Pedus Skin: clear Musculoskeletal: no pain - Labs Result Diagrams: 06/02/20 03:40 06/02/20 03:40 Troponin/CKMB CK-MB (CK-2) 2.2 ng/mL (0-6.6) 05/29/20 23:33 Troponin I 0.077 ng/mL (< 0.028) H 05/30/20 06:46 - EKG Interpretation EKG Method: Telemetry EKG: sinus rhythm - Assessment/Plan Assessment/Plan: 1. Reccurent atrial arrhythmias: She is currently in sinus rhythm, on a diltiazem drip. Currently rate controlled in 60's. Plan for pacemaker and AV node ablation per Dr. Hamilton, assume on Wednesday or sometime this coming week. I will decrease Cardizem drip, will await EP's recommendations 2. Coronary artery disease, one of her grafts has calcium and she also has right illiac stenosis: medical management 3. Diastolic Heart failure: currently on Aspirin, Pravastatin, Torsemide, Coreg, Lisinopril, Lovenox 4. Dementia: the patient and her family state that this has been ongoing for months, she seems confused today 5. Blurry/double vision Continue current treatment at this time, her BP is under good control, her heart rate is under control in the 60-70's and she is in sinus rhythm. Will decrease Cardizem drip. Plan for pacemaker and AV node ablation with Dr. Hamilton Pt. seen and eval. by me. I agree with the A/P by the [employer]. She seems more confused today than yesterday. Her daughter is in the room and feels that this is due to the pt. being in the hospital and out of her enviroment of due to medications.. Chest clear. RRR gjm
[2020-06-02] MEDS ORDERED: Diltiazem 125 MG in Sodium Chloride 0.9% 100 ML IVPB SCH (14:30)
[2020-06-02] MEDS: Simvastatin 10 MG TAB PO SCH (20:38)
[2020-06-03] MEDS ORDERED: Labetalol HCl 100 MG/20 ML VIAL ONE (05:00)
[2020-06-03] MEDS ORDERED: Aspirin 81 mg Enteric Coated Tablet ONE (08:20)
[2020-06-03] MEDS ORDERED: Bupropion 150 MG XL TAB ONE (08:20)
[2020-06-03] MEDS ORDERED: Cholecalciferol 1,000 UNITS (25 MCG) TAB ONE (08:20)
[2020-06-03] MEDS ORDERED: Lisinopril 20 MG TAB ONE (08:20)
[2020-06-03] MEDS ORDERED: Carvedilol 6.25 MG TAB ONE (08:20)
[2020-06-03] MEDS: Lisinopril 20 MG TAB PO SCH (08:43)
[2020-06-03] MEDS: Aspirin 81 mg Enteric Coated Tablet PO SCH (08:43)
[2020-06-03] MEDS: Carvedilol 6.25 MG TAB PO SCH ×2 (08:43→15:55)
[2020-06-03] MEDS: Cholecalciferol 1,000 UNITS (25 MCG) TAB PO SCH (08:43)
[2020-06-03] MEDS: Bupropion 150 MG XL TAB PO SCH (08:43)
[2020-06-03] MEDS ORDERED: Hydroxyurea 500 MG CAP ONE (09:00)
[2020-06-03] MEDS ORDERED: Diltiazem 125 MG/25 ML ONE (11:28)
[2020-06-03 15:07] LABS: #Eosinphils 0.2 thou/uL (0.0-0.7); #Lymphocytes 0.7 thou/uL (1.20-3.40); #Monocytes 0.9 thou/uL (0.11-0.59); #Neutrophils 6.4 thou/uL (1.40-6.50); %Basophils 0.2 % (0.0-1.0); %Eosinophils 2.7 % (0.0-10.0); %Lymphocytes 8.4 % (21.0-51.0); %Monocytes 11.1 % (0.0-10.0); %Neutrophils 77.6 % (42.0-75.0); Hemoglobin 9.8 g/dL (12.0-16.0); Mean Corpuscular HGB CONC 32.5 g/dL (32.0-36.0); Mean Corpuscular Hemoglobin 34.7 pg (27.0-31.0); Mean Platelet Volume 7.6 fL (7.4-10.4); Platelet Count 377 thou/uL (130-400); RBC Distribution Width 13.3 % (11.5-14.5); Red Blood Cell (RBC) Count 2.83 mill/uL (4.20-5.40); White Blood Cell (WBC) Count 8.2 thou/uL (4.8-10.8)
--- NOTE | 2020-06-03 16:25 | PDOC.HOSPP ---
- Subjective Encounter Date: 06/03/20 Subjective: No acute events overnight. - Objective Vital Signs & Weight: Vital Signs (12 hours) Temp Pulse Resp BP BP Pulse Ox 06/03/20 12:00 97.6 F 83 17 156/88 H 92 L 06/03/20 09:15 160/68 H 06/03/20 08:00 98.3 F 17 L 17 161/68 H 97 Weight Weight 140 lb I&O: 06/02/20 06/03/20 06/04/20 06:59 06:59 06:59 Intake Total 1450 600 Output Total 750 400 Balance 700 200 Result Diagrams: 06/03/20 04:35 06/02/20 03:40 Additional Labs: Accuchecks 06/03/20 06/03/20 06/02/20 10:49 05:39 20:27 POC Glucose 137 H 98 146 H 06/02/20 16:58 POC Glucose 135 H Hospitalist ROS - Review of Systems All other systems reviewed; all pertinent +/- noted in HPI/Subj - Medication Medications: Active Medications Generic Name Dose Route Start Last Admin Trade Name Freq PRN Reason Stop Dose Admin Acetaminophen 650 mg 05/30/20 03:51 05/30/20 14:43 Acetaminophen 325 Mg Tab PO 650 mg Q4H PRN Administration Headache/Fever/Mild Pain (1-3) Aspirin 81 mg 05/30/20 09:00 06/02/20 08:16 Aspirin 81 Mg Enteric Coated Tablet PO 81 mg DAILY SOLO Administration Bupropion HCl 300 mg 05/30/20 09:00 06/02/20 08:16 Bupropion 150 Mg Xl Tab PO 300 mg DAILY SOLO Administration Carvedilol 6.25 mg 05/30/20 08:00 06/03/20 15:55 Carvedilol 6.25 Mg Tab PO 6.25 mg BID-WM SOLO Administration Cholecalciferol 2,000 units 05/30/20 09:00 06/02/20 08:16 Cholecalciferol 1,000 Units (25 Mcg) Tab PO 2,000 units DAILY SOLO Administration Enoxaparin Sodium 30 mg 06/01/20 09:00 06/02/20 08:16 Enoxaparin Sodium 30 Mg/0.3 Ml Syringe SC 30 mg 0900 SOLO Administration Hydroxyurea 500 mg 05/30/20 09:00 06/02/20 08:33 Hydroxyurea 500 Mg Cap PO 500 mg DAILY SOLO Administration Levofloxacin 750 mg/ Device 150 mls @ 100 mls/hr 05/30/20 06:00 06/01/20 05:43 IVPB 150 mls Q2D@0600 SOLO Administration Diltiazem HCl 125 mg/ Sodium 125 mls @ 3 mls/hr 06/02/20 14:30 06/03/20 15:56 Chloride IVPB 125 mls INF SOLO Administration 3 MG/HR Lisinopril 20 mg 05/30/20 09:00 06/02/20 08:16 Lisinopril 20 Mg Tab PO 20 mg DAILY SOLO Administration Pantoprazole Sodium 40 mg 05/30/20 09:00 06/02/20 08:16 Pantoprazole 40 Mg Tab PO 40 mg DAILY SOLO Administration Polyethylene Glycol 17 gm 05/30/20 09:00 06/02/20 08:20 Polyethylene Glycol 3350 17 Gm Packet PO Not Given DAILY [facility] Simvastatin 10 mg 05/30/20 21:00 06/02/20 20:38 Simvastatin 10 Mg Tab PO 10 mg HS SOLO Administration Hospitalist Exam Vitals: Vital Signs (12 hours) Temp Pulse Resp BP BP Pulse Ox 06/03/20 12:00 97.6 F 83 17 156/88 H 92 L 06/03/20 09:15 160/68 H 06/03/20 08:00 98.3 F 17 L 17 161/68 H 97 Weight Weight 140 lb General Appearance: awake alert Eye: PERRL ENT: normocephalic atraumatic Neck: no JVD Heart: no murmur, no rubs, murmur present, II/IV Respiratory: CTAB, no rales, no ronchi Gastrointestinal: soft, non-distended Extremities: no edema Neurological: no new deficit Musculoskeletal: no muscle wasting, generalized weakness Psychiatric: A&O x 3 Hosp A/P (1) Physical deconditioning Code(s): R53.81 - OTHER MALAISE Status: Acute (2) Acute exacerbation of CHF (congestive heart failure) Code(s): I50.9 - HEART FAILURE, UNSPECIFIED Status: Acute Qualifiers: Heart failure type: diastolic Qualified Code(s): I50.33 - Acute on chronic diastolic (congestive) heart failure (3) CAD (coronary artery disease) Code(s): I25.10 - ATHSCL HEART DISEASE OF [place] CORONARY ARTERY W/O ANG PCTRS Status: Chronic Qualifiers: Coronary Disease-Associated Artery/Lesion type: bypass graft [place] vs. transplanted heart: [place] heart Associated angina: with stable angina Qualified Code(s): I25.708 - Atherosclerosis of coronary artery bypass graft(s), unspecified, with other forms of angina pectoris (4) Chronic kidney disease, stage 3 Code(s): N18.30 - CHRONIC KIDNEY DISEASE, STAGE 3 UNSPECIFIED Status: Chronic (5) Hyperlipidemia Code(s): E78.5 - HYPERLIPIDEMIA, UNSPECIFIED Status: Chronic Qualifiers: Hyperlipidemia type: unspecified Qualified Code(s): E78.5 - Hyperlipidemia, unspecified (6) Hypertension Code(s): I10 - ESSENTIAL (PRIMARY) HYPERTENSION Status: Chronic Qualifiers: Hypertension type: essential hypertension Qualified Code(s): I10 - Essential (primary) hypertension - Plan Continue cardizem drip, asp, zocor, coreg, lisinopril, nebs levaquin, hydrea and protonix cath showed patent peña to lad, svg to rca patent, radial to ramus patent, svg to Cx 80% calcified lesion not amenable for revascularization for likely av isabell ablation with pcm placement on wednesday, is off amiodarone due to suspected lung changes, is in sinus rhythm from 05/30/20. has right iliac stenosis/intimal dissection, await cts plans echo showed ef of 55%, has mod mitral and tricuspid regurg will need rehab for dc plan, has amb a bit with PT today encourage po intake and mobilization
[2020-06-03 16:49] LABS: Anion Gap 15 mmol/L (10-20); BUN (Urea Nitrogen) 27 mg/dL (9.8-20.1); Calc. Creatinine Clearance 36 mL/min (70-130); Calcium 9.1 mg/dL (7.8-10.44); Carbon Dioxide 26 mmol/L (23-31); Chloride 97 mmol/L (98-107); Glucose 85 mg/dL (83-110); Potassium 4.2 mmol/L (3.5-5.1); Sodium 134 mmol/L (136-145)
[2020-06-03] MEDS: Enoxaparin Sodium 30 MG/0.3 ML SYRINGE SC SCH (17:51)
[2020-06-03] MEDS: Hydroxyurea 500 MG CAP PO SCH (17:51)
[2020-06-03] MEDS: Polyethylene Glycol 3350 17 GM Packet PO SCH (17:52)
[2020-06-03] MEDS: Simvastatin 10 MG TAB PO SCH (21:42)
[2020-06-03] MEDS: Acetaminophen 325 MG TAB PO PRN (21:42)
[2020-06-04] MEDS: Acetaminophen 325 MG TAB PO PRN ×3 (09:27→21:05)
[2020-06-04] MEDS: Hydroxyurea 500 MG CAP PO SCH (09:27)
[2020-06-04] MEDS: Aspirin 81 mg Enteric Coated Tablet PO SCH (09:27)
[2020-06-04] MEDS: Lisinopril 20 MG TAB PO SCH (09:27)
[2020-06-04] MEDS: Cholecalciferol 1,000 UNITS (25 MCG) TAB PO SCH (09:27)
[2020-06-04] MEDS: Bupropion 150 MG XL TAB PO SCH (09:29)
[2020-06-04] MEDS: Enoxaparin Sodium 30 MG/0.3 ML SYRINGE SC SCH (09:29)
[2020-06-04] MEDS: Carvedilol 6.25 MG TAB PO SCH ×2 (09:29→16:42)
[2020-06-04] MEDS: Polyethylene Glycol 3350 17 GM Packet PO SCH (09:30)
[2020-06-04 10:18] LABS: #Eosinphils 0.1 thou/uL (0.0-0.7); #Lymphocytes 0.6 thou/uL (1.20-3.40); #Monocytes 1.1 thou/uL (0.11-0.59); #Neutrophils 6.9 thou/uL (1.40-6.50); %Basophils 0.4 % (0.0-1.0); %Eosinophils 1.4 % (0.0-10.0); %Lymphocytes 7.3 % (21.0-51.0); %Monocytes 12.3 % (0.0-10.0); %Neutrophils 78.6 % (42.0-75.0); Hemoglobin 10.5 g/dL (12.0-16.0); Mean Corpuscular HGB CONC 33.7 g/dL (32.0-36.0); Mean Corpuscular Hemoglobin 35.9 pg (27.0-31.0); Mean Platelet Volume 7.2 fL (7.4-10.4); Platelet Count 408 thou/uL (130-400); RBC Distribution Width 12.9 % (11.5-14.5); Red Blood Cell (RBC) Count 2.92 mill/uL (4.20-5.40); White Blood Cell (WBC) Count 8.8 thou/uL (4.8-10.8)
[2020-06-04 10:39] LABS: ALT (SGPT) 17 U/L (8-55); AST (SGOT) 12 U/L (5-34); Alkaline Phosphatase 80 U/L (40-110); Anion Gap 12 mmol/L (10-20); BUN (Urea Nitrogen) 19 mg/dL (9.8-20.1); Bilirubin, Total 0.6 mg/dL (0.2-1.2); Calc. Creatinine Clearance 47 mL/min (70-130); Carbon Dioxide 28 mmol/L (23-31); Chloride 100 mmol/L (98-107); Globulin 2.7 g/dL (2.4-3.5); Glucose 138 mg/dL (83-110); Potassium 3.5 mmol/L (3.5-5.1); Protein, Total 5.7 g/dL (5.8-8.1); Sodium 136 mmol/L (136-145)
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
[2020-06-04] MEDS ORDERED: Potassium Chloride 20 MEQ TAB PO SCH (11:15)
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
[2020-06-04] MEDS: Simvastatin 10 MG TAB PO SCH (21:05)
[2020-06-05] MEDS: Diltiazem 125 MG in Sodium Chloride 0.9% 100 ML IVPB SCH ×2 (00:56→23:29)
[2020-06-05] MEDS: Carvedilol 6.25 MG TAB PO SCH ×2 (09:11→17:22)
[2020-06-05] MEDS: Aspirin 81 mg Enteric Coated Tablet PO SCH (09:12)
[2020-06-05] MEDS: Bupropion 150 MG XL TAB PO SCH (09:12)
[2020-06-05] MEDS: Cholecalciferol 1,000 UNITS (25 MCG) TAB PO SCH (09:13)
[2020-06-05] MEDS: Lisinopril 20 MG TAB PO SCH (09:14)
[2020-06-05] MEDS: Hydroxyurea 500 MG CAP PO SCH (09:14)
[2020-06-05] MEDS: Enoxaparin Sodium 30 MG/0.3 ML SYRINGE SC SCH (09:18)
[2020-06-05] MEDS: Polyethylene Glycol 3350 17 GM Packet PO SCH (09:18)
--- NOTE | 2020-06-05 14:43 | PDOC.HOSPP ---
- Subjective Encounter Date: 06/05/20 Encounter Time: 14:42 Subjective: No overnight events. Patient denies chest pain, but continues to endorse palpitations. Denies SOB, or abdominal pain. States that she is unsure if a pacemaker procedure is right for her, would like to discuss further with ca rdiology. Reports that she is weak all over and feels very fatigued. Sitting up in chair. Did work with PT today. - Objective Vital Signs & Weight: Vital Signs (12 hours) Temp Pulse Pulse Resp BP BP Pulse Ox 06/05/20 13:40 82 151/84 H 06/05/20 11:41 98.5 F 90 18 161/72 H 96 06/05/20 07:50 98.7 F 86 24 H 169/72 H 96 06/05/20 06:16 98.6 F 88 18 166/73 H 92 L Weight Weight 135 lb 4.8 oz I&O: 06/04/20 06/05/20 06/06/20 06:59 06:59 06:59 Intake Total 960 1055 Output Total 550 820 Balance 410 235 Result Diagrams: 06/04/20 09:56 06/04/20 09:56 Hospitalist ROS - Review of Systems Constitutional: reports: weakness, malaise. denies: fever, chills, sweats, other Eyes: denies: pain, vision change, conjunctivae inflammation, eyelid inflammation, redness, other ENT: denies: ear pain, ear discharge, nose pain, nose discharge, nose congestion, mouth pain, mouth swelling, throat pain, throat swelling, other Respiratory: denies: cough, dry, shortness of breath, hemoptysis, SOB with excertion, pleuritic pain, sputum, wheezing, other Cardiovascular: denies: chest pain, palpitations, orthopnea, paroxysmal noc. dyspnea, edema, light headedness, other Gastrointestinal: denies: nausea, vomiting, abdominal pain, diarrhea, constipation, melena, hematochezia, other Genitourinary: denies: dysuria, frequency, incontinence, hematuria, retention, other Musculoskeletal: denies: neck pain, shoulder pain, arm pain, back pain, hand pain, leg pain, foot pain, other Skin: denies: rash, lesions, nelly, bruising, other Neurological: denies: weakness, numbness, incoordination, change in speech, confusion, seizures, other - Medication Medications: Active Medications Generic Name Dose Route Start Last Admin Trade Name Freq PRN Reason Stop Dose Admin Acetaminophen 650 mg 05/30/20 03:51 06/04/20 21:05 Acetaminophen 325 Mg Tab PO 650 mg Q4H PRN Administration Headache/Fever/Mild Pain (1-3) Albuterol/Ipratropium 3 ml 05/30/20 03:51 06/05/20 01:21 Ipratropium/Albuterol Sulfate 3 Ml Neb NEB 3 ml Q2H PRN Administration SOB &/or Wheezing Aspirin 81 mg 05/30/20 09:00 06/05/20 09:12 Aspirin 81 Mg Enteric Coated Tablet PO 81 mg DAILY SOLO Administration Bupropion HCl 300 mg 05/30/20 09:00 06/05/20 09:12 Bupropion 150 Mg Xl Tab PO 300 mg DAILY SOLO Administration Carvedilol 6.25 mg 05/30/20 08:00 06/05/20 09:11 Carvedilol 6.25 Mg Tab PO 6.25 mg BID-WM SOLO Administration Cholecalciferol 2,000 units 05/30/20 09:00 06/05/20 09:13 Cholecalciferol 1,000 Units (25 Mcg) Tab PO 2,000 units DAILY SOLO Administration Enoxaparin Sodium 30 mg 06/01/20 09:00 06/05/20 09:18 Enoxaparin Sodium 30 Mg/0.3 Ml Syringe SC 30 mg 0900 SOLO Administration Hydroxyurea 500 mg 05/30/20 09:00 06/05/20 09:14 Hydroxyurea 500 Mg Cap PO 500 mg DAILY SOLO Administration Levofloxacin 750 mg/ Device 150 mls @ 100 mls/hr 05/30/20 06:00 06/05/20 05:59 IVPB 150 mls Q2D@0600 SOLO Administration Diltiazem HCl 125 mg/ Sodium 125 mls @ 5 mls/hr 06/04/20 10:29 06/05/20 00:56 Chloride IVPB 125 mls INF SOLO Administration 5 MG/HR Lisinopril 20 mg 05/30/20 09:00 06/05/20 09:14 Lisinopril 20 Mg Tab PO 20 mg DAILY SOLO Administration Pantoprazole Sodium 40 mg 05/30/20 09:00 06/05/20 09:14 Pantoprazole 40 Mg Tab PO 40 mg DAILY SOLO Administration Polyethylene Glycol 17 gm 05/30/20 09:00 06/05/20 09:18 Polyethylene Glycol 3350 17 Gm Packet PO 17 gm DAILY SOLO Administration Simvastatin 10 mg 05/30/20 21:00 06/04/20 21:05 Simvastatin 10 Mg Tab PO 10 mg HS SOLO Administration Hospitalist Exam Vitals: Vital Signs (12 hours) Temp Pulse Pulse Resp BP BP Pulse Ox 06/05/20 13:40 82 151/84 H 06/05/20 11:41 98.5 F 90 18 161/72 H 96 06/05/20 07:50 98.7 F 86 24 H 169/72 H 96 06/05/20 06:16 98.6 F 88 18 166/73 H 92 L Weight Weight 135 lb 4.8 oz General Appearance: NAD, awake alert Eye: PERRL, anicteric sclera ENT: normocephalic atraumatic, no oropharyngeal lesions, moist mucosa Neck: supple, symmetric, no JVD, no thyromegaly, no lymphadenopathy, no carotid bruit Heart: no murmur, no gallops, no rubs, normal peripheral pulses Heart - other findings: Irregular rhtyhm Respiratory: CTAB, no wheezes, no rales, no ronchi, normal chest expansion, no tachypnea, normal percussion Gastrointestinal: soft, non-tender, non-distended, normal bowel sounds, no palpable masses, no hepatomegaly, no splenomegaly, no bruit Extremities: no cyanosis, no clubbing, no edema Skin: normal turgor, no lesions, no rashes Neurological: cranial nerve grossly intact, normal sensation to touch, no weakness, no focal deficits, no new deficit Musculoskeletal: normal tone, normal strength, no muscle wasting Psychiatric: normal affect, normal behavior, A&O x 3 Hosp A/P - Plan 79F with PMhx CAD s/p CABG, atrial fibrillation s/p multiple ablations, cardioversions and watchamn, CHF, dementia HTN, falls who presented to the ER for a fall found to have hypertensive urgency, multiple atrial arrhythmias now with plans for L atrial ablation and PM placement. 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 HR elevated to 140s junctional rhythm. Currently in NSR on cardizem drip. Unable to tolerate amiodarone 2/2 concern for pulmonary side effects or Multaq. Plans for AV node ablation and PM with Dr. Hamilton on Wednesday, delayed due to weather emergency. Plan -EP following -Continue cardizem drip per EP -Plans for AV node ablation/ PM Diastolic Heart Failure EF 55-60%. Continue ASA, statin, Coreg, Lisinopril. Pt on home torsemide and metolazone which are being held. Does not appear to be fluid overloaded on exam. No appreciable JVD, no peripheral edema. Cardiology following. Hypertensive Urgency P/w HTN urgency on cardizem drip. Now greatly improved. CAD Heart cath done on 05/30 found 3v CAD with 60% stenosis to eh LAD, 100% stenosis to Prox Cx and 100% stenosis of Prox RCA not amenable to intervention. Medical management. Continue ASA, statin, Coreg, Lisinopril. Cardiology following Dementia Patient and family report worsening memory problems over the past few months. Continue reorienting measures. Generalized Weakness Multifactorial likely 2/2 deconditioning, recurrent arrhythmias and mild exacerbation of HF on presentation. Patient was initially on Levaquin for suspcion of pumonary infection, however pt has remained afebrile with no SOB, and no leukocytosis. Will discontinue abx. Plan -PT/OT eval -Will need inpatient rehab on discharge DVT prophylaxis-Lovenox FULL CODE Case discussed with attending physician, Dr. Garnett.
[2020-06-05] MEDS: Acetaminophen 325 MG TAB PO PRN (20:37)
[2020-06-05] MEDS: Simvastatin 10 MG TAB PO SCH (20:37)
[2020-06-06] MEDS: Acetaminophen 325 MG TAB PO PRN (02:26)
[2020-06-06] MEDS: Diltiazem 125 MG in Sodium Chloride 0.9% 100 ML IVPB SCH (02:30)
[2020-06-06] MEDS: Cholecalciferol 1,000 UNITS (25 MCG) TAB PO SCH (08:51)
[2020-06-06] MEDS: Bupropion 150 MG XL TAB PO SCH (08:51)
[2020-06-06] MEDS: Aspirin 81 mg Enteric Coated Tablet PO SCH (08:51)
[2020-06-06] MEDS: Lisinopril 20 MG TAB PO SCH (08:52)
[2020-06-06] MEDS: Polyethylene Glycol 3350 17 GM Packet PO SCH (08:52)
[2020-06-06] MEDS: Carvedilol 6.25 MG TAB PO SCH ×2 (08:52→17:15)
[2020-06-06] MEDS: Hydroxyurea 500 MG CAP PO SCH (08:53)
[2020-06-06] MEDS: Enoxaparin Sodium 30 MG/0.3 ML SYRINGE SC SCH (08:53)
--- NOTE | 2020-06-06 18:43 | PDOC.HOSPP ---
- Subjective Encounter Date: 06/06/20 Subjective: Patient denied any complaints. She wanted help getting fully covered with her blanket. She asked that I call her family. - Objective Vital Signs & Weight: Vital Signs (12 hours) Temp Pulse Resp BP BP Pulse Ox 06/06/20 16:00 99.3 F 84 21 H 158/69 H 96 06/06/20 12:55 98.4 F 85 25 H 161/71 H 97 06/06/20 08:52 167/72 H 06/06/20 08:26 97.8 F 84 35 H 156/67 H 95 Weight Weight 142 lb 11.2 oz I&O: 06/05/20 06/06/20 06/07/20 06:59 06:59 06:59 Intake Total 1055 780 480 Output Total 820 425 350 Balance 235 355 130 Result Diagrams: 06/04/20 09:56 06/04/20 09:56 Hospitalist ROS - Medication Medications: Active Medications Generic Name Dose Route Start Last Admin Trade Name Freq PRN Reason Stop Dose Admin Acetaminophen 650 mg 05/30/20 03:51 06/06/20 02:26 Acetaminophen 325 Mg Tab PO 650 mg Q4H PRN Administration Headache/Fever/Mild Pain (1-3) Albuterol/Ipratropium 3 ml 05/30/20 03:51 06/05/20 01:21 Ipratropium/Albuterol Sulfate 3 Ml Neb NEB 3 ml Q2H PRN Administration SOB &/or Wheezing Aspirin 81 mg 05/30/20 09:00 06/06/20 08:51 Aspirin 81 Mg Enteric Coated Tablet PO 81 mg DAILY SOLO Administration Bupropion HCl 300 mg 05/30/20 09:00 06/06/20 08:51 Bupropion 150 Mg Xl Tab PO 300 mg DAILY SOLO Administration Carvedilol 6.25 mg 05/30/20 08:00 06/06/20 17:15 Carvedilol 6.25 Mg Tab PO 6.25 mg BID-WM SOLO Administration Cholecalciferol 2,000 units 05/30/20 09:00 06/06/20 08:51 Cholecalciferol 1,000 Units (25 Mcg) Tab PO 2,000 units DAILY SOLO Administration Clonidine 0.1 mg 05/30/20 03:51 06/05/20 18:41 Clonidine 0.1 Mg Tab PO 0.1 mg BIDPRN PRN Administration SBP > 160, use second Enoxaparin Sodium 30 mg 06/01/20 09:00 06/06/20 08:53 Enoxaparin Sodium 30 Mg/0.3 Ml Syringe SC 30 mg 0900 SOLO Administration Hydroxyurea 500 mg 05/30/20 09:00 06/06/20 08:53 Hydroxyurea 500 Mg Cap PO 500 mg DAILY SOLO Administration Diltiazem HCl 125 mg/ Sodium 125 mls @ 5 mls/hr 06/04/20 10:29 06/06/20 02:30 Chloride IVPB 125 mls INF SOLO Administration 5 MG/HR Lisinopril 20 mg 05/30/20 09:00 06/06/20 08:52 Lisinopril 20 Mg Tab PO 20 mg DAILY SOLO Administration Pantoprazole Sodium 40 mg 05/30/20 09:00 06/06/20 08:53 Pantoprazole 40 Mg Tab PO 40 mg DAILY SOLO Administration Polyethylene Glycol 17 gm 05/30/20 09:00 06/06/20 08:52 Polyethylene Glycol 3350 17 Gm Packet PO 17 gm DAILY SOLO Administration Simvastatin 10 mg 05/30/20 21:00 06/05/20 20:37 Simvastatin 10 Mg Tab PO 10 mg HS SOLO Administration Hospitalist Exam Vitals: Vital Signs (12 hours) Temp Pulse Resp BP BP Pulse Ox 06/06/20 16:00 99.3 F 84 21 H 158/69 H 96 06/06/20 12:55 98.4 F 85 25 H 161/71 H 97 06/06/20 08:52 167/72 H 06/06/20 08:26 97.8 F 84 35 H 156/67 H 95 Weight Weight 142 lb 11.2 oz General Appearance: NAD, awake alert Heart: no murmur, no gallops, no rubs, normal peripheral pulses, irregular Respiratory: CTAB, no wheezes, no rales, no ronchi, normal chest expansion, no tachypnea, normal percussion Gastrointestinal: soft, non-tender, non-distended, normal bowel sounds, no palpable masses, no hepatomegaly, no splenomegaly, no bruit Extremities: no cyanosis, no clubbing, no edema Skin: normal turgor Psychiatric: normal affect, somnolent Hosp A/P - Plan 79F with PMhx CAD s/p CABG, atrial fibrillation s/p multiple ablations, cardioversions and watchamn, CHF, dementia HTN, falls who presented to the ER for a fall found to have hypertensive urgency, multiple atrial arrhythmias now with plans for L atrial ablation and PM placement. 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 HR elevated to 140s junctional rhythm. Currently in NSR on cardizem drip. Unable to tolerate amiodarone 2/2 concern for pulmonary side effects or Multaq. Plans for AV node ablation and PM with Dr. Hamilton on Wednesday, delayed due to weather emergency. Plan -EP following -Continue cardizem drip per EP -Plans for AV node ablation/ PM Diastolic Heart Failure EF 55-60%. Continue ASA, statin, Coreg, Lisinopril. Pt on home torsemide and metolazone which are being held. Does not appear to be fluid overloaded on exam. No appreciable JVD, no peripheral edema. Cardiology following. Hypertensive Urgency P/w HTN urgency on cardizem drip. Now greatly improved. CAD Heart cath done on 05/30 found 3v CAD with 60% stenosis to eh LAD, 100% stenosis to Prox Cx and 100% stenosis of Prox RCA not amenable to intervention. Medical management. Continue ASA, statin, Coreg, Lisinopril. Cardiology following Dementia Patient and family report worsening memory problems over the past few months. Continue reorienting measures. Over the patient's daughter on 06/06/2020. She was in the room visiting at the time. She is concerned her mother is having a little bit of hospital psychoses making her situation a bit worse. She has declined some therapy previously. We will see if we can reinitiate therapy for her. Generalized Weakness Multifactorial likely 2/2 deconditioning, recurrent arrhythmias and mild exacerbation of HF on presentation. Patient was initially on Levaquin for suspcion of pumonary infection, however pt has remained afebrile with no SOB, and no leukocytosis. Will discontinue abx. On 06/06/2020 patient's daughter felt like the patient would ultimately need to have some rehab prior to going home due to her general debility. DVT prophylaxis-Lovenox FULL CODE
[2020-06-06] MEDS: Simvastatin 10 MG TAB PO SCH (21:58)
[2020-06-07] MEDS: Diltiazem 125 MG in Sodium Chloride 0.9% 100 ML IVPB SCH (01:20)
[2020-06-07] MEDS: Guaifenesin DM 100-10/5 ML UDCUP PO PRN ×2 (03:05→21:21)
[2020-06-07] MEDS: Bupropion 150 MG XL TAB PO SCH (08:32)
[2020-06-07] MEDS: Carvedilol 6.25 MG TAB PO SCH ×2 (08:32→16:33)
[2020-06-07] MEDS: Cholecalciferol 1,000 UNITS (25 MCG) TAB PO SCH (08:32)
[2020-06-07] MEDS: Hydroxyurea 500 MG CAP PO SCH (08:32)
[2020-06-07] MEDS: Aspirin 81 mg Enteric Coated Tablet PO SCH (08:32)
[2020-06-07] MEDS: Lisinopril 20 MG TAB PO SCH (08:32)
[2020-06-07] MEDS: Enoxaparin Sodium 30 MG/0.3 ML SYRINGE SC SCH (08:32)
[2020-06-07] MEDS: Polyethylene Glycol 3350 17 GM Packet PO SCH (08:33)
--- NOTE | 2020-06-07 10:39 | PRG ---
DATE OF SERVICE: 06/07/2020 SUBJECTIVE: Ms. Bedolla looks very weak, but she offers no complaints, no chest pain or pressure. OBJECTIVE: VITAL SIGNS: Blood pressure is variable, most recently 179/78, pulse 90. LUNGS: Clear. CARDIAC: Normal S1, normal S2. ABDOMEN: Soft and nontender. ASSESSMENT: 1. Tachycardia-bradycardia syndrome. 2. Peripheral vascular disease. 3. Coronary artery disease. PLAN: For AV junction ablation and pacemaker on Wednesday. Due to the weather, this is unable to be accomplished this week. Job ID: [id number]
--- NOTE | 2020-06-07 16:40 | PDOC.HOSPP ---
- Subjective Encounter Date: 06/07/20 Subjective: Says she does not feel well, but says she cannot tell me why or how. She does report being cold. - Objective Vital Signs & Weight: Vital Signs (12 hours) Temp Pulse Pulse Pulse Resp BP BP 06/07/20 15:02 97.8 F 90 18 06/07/20 11:15 80 73 165/71 H 06/07/20 11:07 98.0 F 78 18 06/07/20 09:54 84 83 161/71 H 06/07/20 08:32 179/78 H 06/07/20 07:48 97.5 F L 89 18 BP BP Pulse Ox Pulse Ox Pulse Ox 06/07/20 15:02 147/67 H 97 06/07/20 11:15 152/67 H 100 99 06/07/20 11:07 161/72 H 100 06/07/20 09:54 184/77 H 100 96 06/07/20 08:32 06/07/20 07:48 170/77 H 96 Weight Weight 143 lb I&O: 06/06/20 06/07/20 06/08/20 06:59 06:59 06:59 Intake Total 780 1100 Output Total 425 570 Balance 355 530 Result Diagrams: 06/04/20 09:56 06/04/20 09:56 Hospitalist ROS - Medication Medications: Active Medications Generic Name Dose Route Start Last Admin Trade Name Freq PRN Reason Stop Dose Admin Acetaminophen 650 mg 05/30/20 03:51 06/06/20 02:26 Acetaminophen 325 Mg Tab PO 650 mg Q4H PRN Administration Headache/Fever/Mild Pain (1-3) Albuterol/Ipratropium 3 ml 05/30/20 03:51 06/05/20 01:21 Ipratropium/Albuterol Sulfate 3 Ml Neb NEB 3 ml Q2H PRN Administration SOB &/or Wheezing Aspirin 81 mg 05/30/20 09:00 06/07/20 08:32 Aspirin 81 Mg Enteric Coated Tablet PO 81 mg DAILY SOLO Administration Bupropion HCl 300 mg 05/30/20 09:00 06/07/20 08:32 Bupropion 150 Mg Xl Tab PO 300 mg DAILY SOLO Administration Carvedilol 6.25 mg 05/30/20 08:00 06/07/20 16:33 Carvedilol 6.25 Mg Tab PO 6.25 mg BID-WM SOLO Administration Cholecalciferol 2,000 units 05/30/20 09:00 06/07/20 08:32 Cholecalciferol 1,000 Units (25 Mcg) Tab PO 2,000 units DAILY SOLO Administration Clonidine 0.1 mg 05/30/20 03:51 06/05/20 18:41 Clonidine 0.1 Mg Tab PO 0.1 mg BIDPRN PRN Administration SBP > 160, use second Enoxaparin Sodium 30 mg 06/01/20 09:00 06/07/20 08:32 Enoxaparin Sodium 30 Mg/0.3 Ml Syringe SC 30 mg 0900 SOLO Administration Guaifenesin/Dextromethorphan 15 ml 05/30/20 03:51 06/07/20 03:05 Guaifenesin Dm 100-10/5 Ml Udcup PO 15 ml Q4H PRN Administration Cough Hydralazine HCl 10 mg 05/30/20 03:51 06/07/20 01:38 Hydralazine 20 Mg/Ml Vial SLOW IVP 10 mg Q6H PRN Administration SBP GREATER THAN 160 Hydroxyurea 500 mg 05/30/20 09:00 06/07/20 08:32 Hydroxyurea 500 Mg Cap PO 500 mg DAILY SOLO Administration Diltiazem HCl 125 mg/ Sodium 125 mls @ 5 mls/hr 06/04/20 10:29 06/07/20 01:20 Chloride IVPB 125 mls INF SOLO Administration 5 MG/HR Lisinopril 20 mg 05/30/20 09:00 06/07/20 08:32 Lisinopril 20 Mg Tab PO 20 mg DAILY SOLO Administration Pantoprazole Sodium 40 mg 05/30/20 09:00 06/07/20 08:32 Pantoprazole 40 Mg Tab PO 40 mg DAILY SOLO Administration Polyethylene Glycol 17 gm 05/30/20 09:00 06/07/20 08:33 Polyethylene Glycol 3350 17 Gm Packet PO Not Given DAILY SOLO Simvastatin 10 mg 05/30/20 21:00 06/06/20 21:58 Simvastatin 10 Mg Tab PO 10 mg HS SOLO Administration Hospitalist Exam Vitals: Vital Signs (12 hours) Temp Pulse Pulse Pulse Resp BP BP 06/07/20 15:02 97.8 F 90 18 06/07/20 11:15 80 73 165/71 H 06/07/20 11:07 98.0 F 78 18 06/07/20 09:54 84 83 161/71 H 06/07/20 08:32 179/78 H 06/07/20 07:48 97.5 F L 89 18 BP BP Pulse Ox Pulse Ox Pulse Ox 06/07/20 15:02 147/67 H 97 06/07/20 11:15 152/67 H 100 99 06/07/20 11:07 161/72 H 100 06/07/20 09:54 184/77 H 100 96 06/07/20 08:32 06/07/20 07:48 170/77 H 96 Weight Weight 143 lb General Appearance: NAD, awake alert Heart: no murmur, no gallops, no rubs, normal peripheral pulses, irregular Respiratory: CTAB, no wheezes, no rales, no ronchi, normal chest expansion, no tachypnea, normal percussion Gastrointestinal: soft, non-tender, non-distended, normal bowel sounds, no palpable masses, no hepatomegaly, no splenomegaly, no bruit Extremities: no cyanosis, no clubbing, no edema Skin: normal turgor Neurological: no new deficit Musculoskeletal: generalized weakness Psychiatric: flat affect Hosp A/P - Plan 79F with PMhx CAD s/p CABG, atrial fibrillation s/p multiple ablations, car dioversions and watchamn, CHF, dementia HTN, falls who presented to the ER for a fall found to have hypertensive urgency, multiple atrial arrhythmias now with plans for L atrial ablation and PM placement. 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 HR elevated to 140s junctional rhythm. Currently in NSR with some ectopy on cardizem drip. Unable to tolerate amiodarone 2/2 concern for pulmonary side effects or Multaq. Plans for AV node ablation and PM with Dr. Hamiltno on Wednesday, delayed due to weather emergency. Diastolic Heart Failure EF 55-60%. Continue ASA, statin, Coreg, Lisinopril. Pt on home torsemide and metolazone which are being held. Does not appear to be fluid overloaded on exam. No signs or symptoms of volume overload. Appears Euvolemic. Cardiology following. Hypertensive Urgency Presented with HTN urgency Improved with the Cardizem gtt. CAD Heart cath done on 05/30 found 3v CAD with 60% stenosis to LAD, 100% stenosis to Prox Cx and 100% stenosis of Prox RCA not amenable to intervention. Medical management. Continue ASA, statin, Coreg, Lisinopril. Cardiology following Dementia Patient and family report worsening memory problems over the past few months. Continue reorienting measures. Over the patient's daughter on 06/06/2020. She was in the room visiting at the time. She is concerned her mother is having a little bit of hospital psychoses making her situation a bit worse. She has declined some therapy previously. She did have some therapy on 06/07. Generalized Weakness Multifactorial likely 2/2 deconditioning, recurrent arrhythmias and mild exacerbation of HF on presentation. Patient was initially on Levaquin for suspcion of pumonary infection, however pt has remained afebrile with no SOB, and no leukocytosis. Antibiotics were DC'd on 06/05. On 06/06/2020 patient's daughter felt like the patient would ultimately need to have some rehab prior to going home due to her general debility. DVT prophylaxis-Lovenox FULL CODE
[2020-06-07] MEDS: Acetaminophen 325 MG TAB PO PRN (21:20)
[2020-06-07] MEDS: Simvastatin 10 MG TAB PO SCH (21:20)
[2020-06-08] MEDS: Diltiazem 125 MG in Sodium Chloride 0.9% 100 ML IVPB SCH (04:17)
[2020-06-08] MEDS: Labetalol HCl 100 MG/20 ML VIAL SLOW IVP PRN (06:22)
[2020-06-08] MEDS: Polyethylene Glycol 3350 17 GM Packet PO SCH (08:17)
[2020-06-08] MEDS: Carvedilol 6.25 MG TAB PO SCH ×2 (08:20→16:33)
[2020-06-08] MEDS: Cholecalciferol 1,000 UNITS (25 MCG) TAB PO SCH (08:20)
[2020-06-08] MEDS: Lisinopril 20 MG TAB PO SCH (08:21)
[2020-06-08] MEDS: Enoxaparin Sodium 30 MG/0.3 ML SYRINGE SC SCH (08:21)
[2020-06-08] MEDS: Hydroxyurea 500 MG CAP PO SCH (08:21)
[2020-06-08] MEDS: Bupropion 150 MG XL TAB PO SCH (08:21)
[2020-06-08] MEDS: Aspirin 81 mg Enteric Coated Tablet PO SCH (08:21)
[2020-06-08] MEDS ORDERED: Carvedilol 6.25 MG TAB PO SCH ×2 (09:30→09:45)
[2020-06-08] MEDS: Amlodipine 5 MG TAB PO SCH (09:42)
--- NOTE | 2020-06-08 09:53 | PDOC.CPN ---
- Subjective Date: 06/08/20 Time: 09:51 Interval history: Patient with c/o lack of sleep, cough and weakness. - Review of Systems General: reports: fatigue. denies: fever/chills, weight/appetite/sleep changes, night sweats Respiratory: reports: cough, congestion Cardiovascular: denies: chest pain, palpitation, edema, paroxysmal nocturnal dyspnea, orthopnea Gastrointestinal: denies: nausea, vomiting, diarrhea, constipation, abd pain, GI bleeding Musculoskeletal: denies: pain, tenderness, stiffness, swelling, arthritis/arthralgias Neurological: reports: weakness. denies: numbness, syncope, seizure - Objective Allergies/Adverse Reactions: Allergies Allergy/AdvReac Type Severity Reaction Status Date / Time adhesive Allergy rash, Verified 05/30/20 03:20 blisters erythromycin base Allergy Rash Verified 05/30/20 03:20 Penicillins Allergy Verified 05/30/20 03:20 Visit Medications: Current Medications Acetaminophen (Acetaminophen 325 Mg Tab) 650 mg PO Q4H PRN PRN Reason: Headache/Fever/Mild Pain (1-3) Last Admin: 06/07/20 21:20 Dose: 650 mg Documented by: Acetaminophen/Codeine Phosphate (Acetaminophen/Codeine 30-300mg Tablet) 1 tab PO Q4H PRN PRN Reason: Mild Pain (1-3) Acetaminophen/Codeine Phosphate (Acetaminophen/Codeine 30-300mg Tablet) 2 tab PO Q4H PRN PRN Reason: Moderate Pain (4-6) Albuterol/Ipratropium (Ipratropium/Albuterol Sulfate 3 Ml Neb) 3 ml NEB Q2H PRN PRN Reason: SOB &/or Wheezing Last Admin: 06/05/20 01:21 Dose: 3 ml Documented by: Amlodipine Besylate (Amlodipine 5 Mg Tab) 5 mg PO DAILY [facility] Last Admin: 06/08/20 09:42 Dose: 5 mg Documented by: Aspirin (Aspirin 81 Mg Enteric Coated Tablet) 81 mg PO DAILY [facility] Last Admin: 06/08/20 08:21 Dose: 81 mg Documented by: Bupropion HCl (Bupropion 150 Mg Xl Tab) 300 mg PO DAILY [facility] Last Admin: 06/08/20 08:21 Dose: 300 mg Documented by: Carvedilol (Carvedilol 6.25 Mg Tab) [facility] Carvedilol (Carvedilol 6.25 Mg Tab) 6.25 mg PO NOW [facility] Stop: 06/08/20 12:00 Last Admin: 06/08/20 09:42 Dose: 6.25 mg Documented by: Cholecalciferol (Cholecalciferol 1,000 Units (25 Mcg) Tab) 2,000 units PO DAILY [facility] Last Admin: 06/08/20 08:20 Dose: 2,000 units Documented by: Clonidine (Clonidine 0.1 Mg Tab) 0.1 mg PO BIDPRN PRN PRN Reason: SBP > 160, use second Last Admin: 06/05/20 18:41 Dose: 0.1 mg Documented by: Enoxaparin Sodium (Enoxaparin Sodium 30 Mg/0.3 Ml Syringe) 30 mg SC 0900 [facility] Last Admin: 06/08/20 08:21 Dose: 30 mg Documented by: Guaifenesin/Dextromethorphan (Guaifenesin Dm 100-10/5 Ml Udcup) 15 ml PO Q4H PRN PRN Reason: Cough Last Admin: 06/07/20 21:21 Dose: 15 ml Documented by: Hydralazine HCl (Hydralazine 20 Mg/Ml Vial) 10 mg SLOW IVP Q6H PRN PRN Reason: SBP GREATER THAN 160 Last Admin: 06/07/20 01:38 Dose: 10 mg Documented by: Hydroxyurea (Hydroxyurea 500 Mg Cap) 500 mg PO DAILY [facility] Last Admin: 06/08/20 08:21 Dose: 500 mg Documented by: Promethazine HCl 12.5 mg/ (Sodium Chloride) 50.5 mls @ 202 mls/hr IVPB Q6H PRN PRN Reason: Nausea/vomiting, use second Diltiazem HCl 125 mg/ Sodium (Chloride) 125 mls @ 5 mls/hr IVPB INF [facility] Last Admin: 06/08/20 04:17 Dose: 125 mls Documented by: Labetalol HCl (Labetalol Hcl 100 Mg/20 Ml Vial) 20 mg SLOW IVP Q4H PRN PRN Reason: SBP > 160, use first Last Admin: 06/08/20 06:22 Dose: 4 ml Documented by: Lisinopril (Lisinopril 20 Mg Tab) 20 mg PO DAILY [facility] Last Admin: 06/08/20 08:21 Dose: 20 mg Documented by: Miscellaneous Medication (Electrolyte Replacement Protocol 1 Each) 1 each FS ASDIR [facility] Morphine Sulfate (Morphine 2 Mg/Ml Vial) 2 mg SLOW IVP Q4H PRN PRN Reason: Moderate to Severe Pain (4-10) Nitroglycerin (Nitroglycerin 0.4 Mg Tab (25 Tab Bottle)) 0.4 mg SL Q5MIN PRN PRN Reason: Chest Pain Ondansetron HCl (Ondansetron Pf 4 Mg/2 Ml Vial) 4 mg IVP Q6H PRN PRN Reason: Nausea/Vomiting, use 1st Pantoprazole Sodium (Pantoprazole 40 Mg Tab) 40 mg PO DAILY [facility] Last Admin: 06/08/20 08:21 Dose: 40 mg Documented by: Polyethylene Glycol (Polyethylene Glycol 3350 17 Gm Packet) 17 gm PO DAILY [facility] Last Admin: 06/08/20 08:17 Dose: Not Given Documented by: Simvastatin (Simvastatin 10 Mg Tab) 10 mg PO [facility] Last Admin: 06/07/20 21:20 Dose: 10 mg Documented by: Sodium Chloride (Flush - Normal Saline 10 Ml Syringe) 10 ml IVF PRN PRN PRN Reason: Saline Flush Vital Signs & Weight: Vital Signs Temp Pulse Resp BP BP Pulse Ox 06/08/20 08:20 94 L 06/08/20 08:11 98.2 F 87 20 164/74 H 94 L 06/08/20 06:22 96 183/81 H 06/08/20 04:54 95 06/08/20 03:28 98.4 F 90 18 164/74 H 95 Weight 143 lb 1.6 oz - Quality Measures Condition: Coronary Artery Disease CV meds: Beta Carmine: Yes, ANN/ARB: Yes, Statin: Yes, ASA: Yes, Anticoagulant: Yes (Lovenox) - Physical Exam General: alert & oriented x3, cachectic, other (fraile) HEENT: mucus membranes moist Neck: supple neck Cardiac: other (2/6M at LSB; Regular) Lungs: no wheezes, other (decreased BS at bases, bronchial congestion with coughing) Neuro: grossly intact Abdomen: soft Extremities: no edema Skin: clear Musculoskeletal: no pain - Labs Result Diagrams: 06/04/20 09:56 06/04/20 09:56 Troponin/CKMB CK-MB (CK-2) 2.2 ng/mL (0-6.6) 05/29/20 23:33 Troponin I 0.077 ng/mL (< 0.028) H 05/30/20 06:46 - Assessment/Plan Assessment/Plan: 1. Recurrent AF/AFl 2. Tachy-marainne 3. HTN Urgency 4. MV CAD s/p CABG 5. s/p watchman 6. Mod-Severe TR 7. Acute on chronic diastolic CHF 8. CKD Will add Norvasc for HTN. Check BNP. Patient previously on torsemide and metolazone at home. No diuretics now. Suspect she's mildly overloaded with arrhythmias and TR. Will resume diuretics pending labs.
[2020-06-08 10:36] LABS: Anion Gap 14 mmol/L (10-20); BUN (Urea Nitrogen) 20 mg/dL (9.8-20.1); Calc. Creatinine Clearance 51 mL/min (70-130); Calcium 9.5 mg/dL (7.8-10.44); Carbon Dioxide 23 mmol/L (23-31); Chloride 100 mmol/L (98-107); Glucose 163 mg/dL (83-110); Potassium 3.8 mmol/L (3.5-5.1); Sodium 133 mmol/L (136-145)
[2020-06-08 11:38] LABS: Eosinophils 1 % (0-10); Hemoglobin 10.9 g/dL (12.0-16.0); Hypersemented Neutrophil SLIGHT; Lymphocytes 4 % (21-51); MDiff Complete? YES; Mean Corpuscular HGB CONC 33.2 g/dL (32.0-36.0); Mean Corpuscular Hemoglobin 34.9 pg (27.0-31.0); Mean Platelet Volume 7.3 fL (7.4-10.4); Monocytes 6 % (0-10); Neutrophil 88 % (42-75); Platelet Count 516 thou/uL (130-400); Platelet Morphology Comment Appears Increased; Polychromasia SLIGHT = 2-3 cells (100X) (0-2/hpf); RBC Distribution Width 13.1 % (11.5-14.5); Red Blood Cell (RBC) Count 3.12 mill/uL (4.20-5.40); Vacuoles SLIGHT; White Blood Cell (WBC) Count 13.6 thou/uL (4.8-10.8)
--- NOTE | 2020-06-08 15:38 | EKG ---
Test Reason : Blood Pressure : / mmHG Vent. Rate : 097 BPM Atrial Rate : 097 BPM P-R Int : 180 ms QRS Dur : 102 ms QT Int : 366 ms P-R-T Axes : 081 -54 085 degrees QTc Int : 464 ms Normal sinus rhythm Pulmonary disease pattern Incomplete right bundle branch block Left anterior fascicular block ST abnormality, possible digitalis effect Abnormal ECG Confirmed by LIA ALBERTS ([id number]), editor book ASHLYN NESBITT ([id number]) on 06/08/2020 3:38:32 PM Referred By: Confirmed By:LIA ALBERTS
--- NOTE | 2020-06-08 15:41 | EKG ---
Test Reason : Blood Pressure : / mmHG Vent. Rate : 124 BPM Atrial Rate : 124 BPM P-R Int : 220 ms QRS Dur : 094 ms QT Int : 298 ms P-R-T Axes : 000 -49 092 degrees QTc Int : 428 ms Sinus tachycardia with 1st degree A-V block Left axis deviation Incomplete right bundle branch block Left ventricular hypertrophy with repolarization abnormality Inferior infarct , age undetermined Anterior infarct , age undetermined Abnormal ECG Confirmed by LIA ALBERTS ([id number]), health editor ASHLYN NESBITT ([id number]) on 06/08/2020 3:40:55 PM Referred By: Confirmed By:LIA ALBERTS
[2020-06-08] MEDS ORDERED: Torsemide 20 MG TAB PO SCH (16:15)
--- NOTE | 2020-06-08 17:46 | PDOC.HOSPP ---
- Subjective Encounter Date: 06/08/20 Subjective: Patient reported she did not feel well today. Again she was unable to tell me specifically why. - Objective Vital Signs & Weight: Vital Signs (12 hours) Temp Pulse Resp BP BP BP Pulse Ox 06/08/20 15:25 98.0 F 83 16 133/63 97 06/08/20 11:28 97.8 F 81 18 129/58 L 93 L 06/08/20 08:20 94 L 06/08/20 08:11 98.2 F 87 20 164/74 H 94 L 06/08/20 06:22 96 183/81 H Weight Weight 143 lb 1.6 oz I&O: 06/07/20 06/08/20 06/09/20 06:59 06:59 06:59 Intake Total 1100 1080 Output Total 570 430 Balance 530 650 Result Diagrams: 06/08/20 09:42 06/08/20 09:42 Hospitalist ROS - Medication Medications: Active Medications Generic Name Dose Route Start Last Admin Trade Name Freq PRN Reason Stop Dose Admin Acetaminophen 650 mg 05/30/20 03:51 06/07/20 21:20 Acetaminophen 325 Mg Tab PO 650 mg Q4H PRN Administration Headache/Fever/Mild Pain (1-3) Albuterol/Ipratropium 3 ml 05/30/20 03:51 06/05/20 01:21 Ipratropium/Albuterol Sulfate 3 Ml Neb NEB 3 ml Q2H PRN Administration SOB &/or Wheezing Amlodipine Besylate 5 mg 06/08/20 09:00 06/08/20 09:42 Amlodipine 5 Mg Tab PO 5 mg DAILY [facility] Administration Aspirin 81 mg 05/30/20 09:00 06/08/20 08:21 Aspirin 81 Mg Enteric Coated Tablet PO 81 mg DAILY [facility] Administration Bupropion HCl 300 mg 05/30/20 09:00 06/08/20 08:21 Bupropion 150 Mg Xl Tab PO 300 mg DAILY [facility] Administration Carvedilol 12.5 mg 06/08/20 17:00 06/08/20 16:33 Carvedilol 6.25 Mg Tab PO 12.5 mg BID-WM [facility] Administration Cholecalciferol 2,000 units 05/30/20 09:00 06/08/20 08:20 Cholecalciferol 1,000 Units (25 Mcg) Tab PO 2,000 units DAILY [facility] Administration Clonidine 0.1 mg 05/30/20 03:51 06/05/20 18:41 Clonidine 0.1 Mg Tab PO 0.1 mg BIDPRN PRN Administration SBP > 160, use second Enoxaparin Sodium 30 mg 06/01/20 09:00 06/08/20 08:21 Enoxaparin Sodium 30 Mg/0.3 Ml Syringe SC 30 mg 0900 [facility] Administration Guaifenesin/Dextromethorphan 15 ml 05/30/20 03:51 06/07/20 21:21 Guaifenesin Dm 100-10/5 Ml Udcup PO 15 ml Q4H PRN Administration Cough Hydralazine HCl 10 mg 05/30/20 03:51 06/07/20 01:38 Hydralazine 20 Mg/Ml Vial SLOW IVP 10 mg Q6H PRN Administration SBP GREATER THAN 160 Hydroxyurea 500 mg 05/30/20 09:00 06/08/20 08:21 Hydroxyurea 500 Mg Cap PO 500 mg DAILY [facility] Administration Diltiazem HCl 125 mg/ Sodium 125 mls @ 5 mls/hr 06/04/20 10:29 06/08/20 04:17 Chloride IVPB 125 mls INF [facility] Administration 5 MG/HR Labetalol HCl 20 mg 05/30/20 03:51 06/08/20 06:22 Labetalol Hcl 100 Mg/20 Ml Vial SLOW IVP 4 ml Q4H PRN Administration SBP > 160, use first Lisinopril 20 mg 05/30/20 09:00 06/08/20 08:21 Lisinopril 20 Mg Tab PO 20 mg DAILY [facility] Administration Pantoprazole Sodium 40 mg 05/30/20 09:00 06/08/20 08:21 Pantoprazole 40 Mg Tab PO 40 mg DAILY [facility] Administration Polyethylene Glycol 17 gm 05/30/20 09:00 06/08/20 08:17 Polyethylene Glycol 3350 17 Gm Packet PO Not Given DAILY [facility] Simvastatin 10 mg 05/30/20 21:00 06/07/20 21:20 Simvastatin 10 Mg Tab PO 10 mg HS [facility] Administration Torsemide 20 mg 06/08/20 16:15 06/08/20 16:33 Torsemide 20 Mg Tab PO 06/08/20 18:15 20 mg NOW [facility] Administration Hospitalist Exam Vitals: Vital Signs (12 hours) Temp Pulse Resp BP BP BP Pulse Ox 06/08/20 15:25 98.0 F 83 16 133/63 97 06/08/20 11:28 97.8 F 81 18 129/58 L 93 L 06/08/20 08:20 94 L 06/08/20 08:11 98.2 F 87 20 164/74 H 94 L 06/08/20 06:22 96 183/81 H Weight Weight 143 lb 1.6 oz General Appearance: NAD General - other findings: She was sitting up in a chair. Heart: RRR, no murmur, no gallops, no rubs Respiratory: CTAB, no wheezes, no rales, no ronchi Gastrointestinal: soft, non-tender, non-distended, normal bowel sounds Extremities: no cyanosis, no clubbing, no edema Musculoskeletal: generalized weakness Psychiatric: normal affect Hosp A/P - Plan 79F with PMhx CAD s/p CABG, atrial fibrillation s/p multiple ablations, cardioversions and watchamn, CHF, dementia HTN, falls who presented to the ER for a fall found to have hypertensive urgency, multiple atrial arrhythmias now with plans for L atrial ablation and PM placement. 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 HR elevated to 140s junctional rhythm. Currently in NSR with some ectopy on cardizem drip. Unable to tolerate amiodarone 2/ concern for pulmonary side effects or Multaq. Plans for AV node ablation and PM with Dr. Hamilton on Wednesday, delayed due to weather emergency. Diastolic Heart Failure EF 55-60%. Continue ASA, statin, Coreg, Lisinopril. Pt on home torsemide and metolazone which are being held. Appears generally euvolemic. On 06/08/2020 the patient's BNP was elevated a bit. Cardiology following. Planning to resume diuretics pending those results. Hypertensive Urgency Presented with HTN urgency Improved with the Cardizem gtt. With her pressure still running somewhat high her carvedilol dose was increased on 06/08/2020. CAD Heart cath done on 05/30 found 3v CAD with 60% stenosis to LAD, 100% stenosis to Prox Cx and 100% stenosis of Prox RCA not amenable to intervention. Medical management. Continue ASA, statin, Coreg, Lisinopril. Cardiology following Dementia Patient and family report worsening memory problems over the past few months. Continue reorienting measures. Over the patient's daughter on 06/06/2020. She was in the room visiting at the time. She is concerned her mother is having a little bit of hospital psychoses making her situation a bit worse. She has declined some therapy previously. She did have some therapy on 06/07. Generalized Weakness Multifactorial likely 2/2 deconditioning, recurrent arrhythmias and mild exacerbation of HF on presentation. Patient was initially on Levaquin for suspcion of pumonary infection, however pt has remained afebrile with no SOB, and no leukocytosis. Antibiotics were DC'd on 06/05. On 06/06/2020 patient's daughter felt like the patient would ultimately need to have some rehab prior to going home due to her general debility. Leukocytosis Patient had surveillance labs repeated on 06/08/2020. She has mild leukocytosis with a white count of 13.6. Her exam did not reveal any specific source of possible infection. She apparently did report some cough. Patient's daughter tells me she has been coughing for several days. We will obtain a chest x-ray and a UA. Incentive spirometer. Apparently the night nurse did appreciate some rales although I did not hear any on my exam today. Her initial chest x-ray appeared to show some slight haziness more consistent with pulmonary edema than pneumonitis. DVT prophylaxis-Lovenox FULL CODE
--- NOTE | 2020-06-08 18:25 | RAD ---
Portable frontal chest radiograph: 06/08/2020 COMPARISON: 05/29/2020 HISTORY: Leukocytosis FINDINGS: Midline sternotomy wires are noted. There is atherosclerotic calcification of the aortic ar ch. Metallic coil material overlies the left hilar region, stable. No pneumothorax is evident. The cardiac silhouette is enlarged. There is interstitial opacity in the perihilar regions and both l dora bases, worsened since the prior exam. There is new hazy airspace opacity within both lung bases with associated new small bilateral pleural effusions. IMPRESSION: Findings suggesting interval development of interstitial and alveolar pulmonary edema. Ba silar infectious pneumonitis or aspiration cannot be excluded. Recommend follow-up imaging following treatment to document resolution.
[2020-06-08] MEDS: Acetaminophen 325 MG TAB PO PRN (20:43)
[2020-06-08] MEDS: Simvastatin 10 MG TAB PO SCH (20:44)
[2020-06-08 21:32] LABS: Bilirubin Negative (Negative); Blood, Urine Trace (Negative); Clarity Turbid (Clear); Glucose, Urine (Dipstick) Normal (Negative); Ketone, Urine Negative (Negative); Leukocyte 500 Leu/uL (Negative); Nitrite Negative (Negative); Protein, Urine (Dipstick) Negative (Neg-Trace); Specific Gravity, Urine 1.009 (1.002-1.036); Squamous Epithelial 0-3 HPF (0-3); Urobilinogen Normal mg/dL (Less than 2); pH, Urine 5.5 (5.0-9.0)
[2020-06-08 22:03] LABS: Bacteria/HPF 3+ HPF (None Seen)
[2020-06-08 22:04] LABS: Urine Culture Reflex Yes Yes
[2020-06-09] MEDS: cefTRIAXone\\ROCEPHIN 1 GM in Sodium Chloride 0.9% 100 ML IVPB SCH (00:45)
[2020-06-09] MEDS: Hydroxyurea 500 MG CAP PO SCH (08:06)
[2020-06-09] MEDS: Amlodipine 5 MG TAB PO SCH (08:06)
[2020-06-09] MEDS: Bupropion 150 MG XL TAB PO SCH (08:07)
[2020-06-09] MEDS: Cholecalciferol 1,000 UNITS (25 MCG) TAB PO SCH (08:07)
[2020-06-09] MEDS: Enoxaparin Sodium 30 MG/0.3 ML SYRINGE SC SCH (08:07)
[2020-06-09] MEDS: Lisinopril 20 MG TAB PO SCH (08:08)
[2020-06-09] MEDS: Torsemide 20 MG TAB PO SCH ×2 (08:08→14:30)
[2020-06-09] MEDS: Aspirin 81 mg Enteric Coated Tablet PO SCH (08:08)
[2020-06-09] MEDS: Carvedilol 6.25 MG TAB PO SCH ×2 (08:09→17:29)
[2020-06-09] MEDS: Polyethylene Glycol 3350 17 GM Packet PO SCH (08:10)
[2020-06-09 08:23] LABS: #Eosinphils 0.2 thou/uL (0.0-0.7); #Lymphocytes 0.8 thou/uL (1.20-3.40); #Neutrophils 9.9 thou/uL (1.40-6.50); %Basophils 0.3 % (0.0-1.0); %Eosinophils 1.7 % (0.0-10.0); %Lymphocytes 6.9 % (21.0-51.0); %Monocytes 8.4 % (0.0-10.0); %Neutrophils 82.8 % (42.0-75.0); Hemoglobin 11.4 g/dL (12.0-16.0); Mean Corpuscular HGB CONC 33.3 g/dL (32.0-36.0); Mean Corpuscular Hemoglobin 35.4 pg (27.0-31.0); Mean Platelet Volume 6.8 fL (7.4-10.4); Platelet Count 485 thou/uL (130-400); RBC Distribution Width 13.3 % (11.5-14.5); Red Blood Cell (RBC) Count 3.21 mill/uL (4.20-5.40)
[2020-06-09] MEDS: Acetaminophen 325 MG TAB PO PRN ×2 (08:25→22:01)
[2020-06-09 08:42] LABS: Anion Gap 12 mmol/L (10-20); BUN (Urea Nitrogen) 25 mg/dL (9.8-20.1); Calc. Creatinine Clearance 44 mL/min (70-130); Calcium 8.7 mg/dL (7.8-10.44); Carbon Dioxide 28 mmol/L (23-31); Chloride 99 mmol/L (98-107); Glucose 108 mg/dL (83-110); Potassium 3.5 mmol/L (3.5-5.1); Sodium 135 mmol/L (136-145)
[2020-06-09] MEDS ORDERED: Potassium Chloride 20 MEQ TAB PO SCH (09:15)
--- NOTE | 2020-06-09 12:30 | PDOC.CPN ---
- Subjective Date: 06/09/20 Time: 09:00 Interval history: Still weak. Mild cough. Mild dyspnea that is unchanged - Review of Systems General: reports: fatigue Respiratory: reports: cough, congestion, shortness of breath Cardiovascular: denies: chest pain, palpitation, edema, paroxysmal nocturnal dyspnea, orthopnea Gastrointestinal: denies: nausea, vomiting, diarrhea, constipation, abd pain, GI bleeding Musculoskeletal: denies: pain, tenderness, stiffness, swelling, arthritis/arthralgias Neurological: reports: weakness - Objective Allergies/Adverse Reactions: Allergies Allergy/AdvReac Type Severity Reaction Status Date / Time adhesive Allergy rash, Verified 05/30/20 03:20 blisters erythromycin base Allergy Rash Verified 05/30/20 03:20 Penicillins Allergy Verified 05/30/20 03:20 Visit Medications: Current Medications Acetaminophen (Acetaminophen 325 Mg Tab) 650 mg PO Q4H PRN PRN Reason: Headache/Fever/Mild Pain (1-3) Last Admin: 06/09/20 08:25 Dose: 650 mg Documented by: Acetaminophen/Codeine Phosphate (Acetaminophen/Codeine 30-300mg Tablet) 1 tab PO Q4H PRN PRN Reason: Mild Pain (1-3) Acetaminophen/Codeine Phosphate (Acetaminophen/Codeine 30-300mg Tablet) 2 tab PO Q4H PRN PRN Reason: Moderate Pain (4-6) Albuterol/Ipratropium (Ipratropium/Albuterol Sulfate 3 Ml Neb) 3 ml NEB Q2H PRN PRN Reason: SOB &/or Wheezing Last Admin: 06/05/20 01:21 Dose: 3 ml Documented by: Amlodipine Besylate (Amlodipine 5 Mg Tab) 5 mg PO DAILY [facility] Last Admin: 06/09/20 08:06 Dose: 5 mg Documented by: Aspirin (Aspirin 81 Mg Enteric Coated Tablet) 81 mg PO DAILY [facility] Last Admin: 06/09/20 08:08 Dose: 81 mg Documented by: Bupropion HCl (Bupropion 150 Mg Xl Tab) 300 mg PO DAILY [facility] Last Admin: 06/09/20 08:07 Dose: 300 mg Documented by: Carvedilol (Carvedilol 6.25 Mg Tab) 12.5 mg PO BID-[facility] Last Admin: 06/09/20 08:09 Dose: 12.5 mg Documented by: Cholecalciferol (Cholecalciferol 1,000 Units (25 Mcg) Tab) 2,000 units PO DAILY [facility] Last Admin: 06/09/20 08:07 Dose: 2,000 units Documented by: Clonidine (Clonidine 0.1 Mg Tab) 0.1 mg PO BIDPRN PRN PRN Reason: SBP > 160, use second Last Admin: 06/05/20 18:41 Dose: 0.1 mg Documented by: Enoxaparin Sodium (Enoxaparin Sodium 30 Mg/0.3 Ml Syringe) 30 mg SC 0900 [facility] Last Admin: 06/09/20 08:07 Dose: 30 mg Documented by: Guaifenesin/Dextromethorphan (Guaifenesin Dm 100-10/5 Ml Udcup) 15 ml PO Q4H PRN PRN Reason: Cough Last Admin: 06/07/20 21:21 Dose: 15 ml Documented by: Hydralazine HCl (Hydralazine 20 Mg/Ml Vial) 10 mg SLOW IVP Q6H PRN PRN Reason: SBP GREATER THAN 160 Last Admin: 06/07/20 01:38 Dose: 10 mg Documented by: Hydroxyurea (Hydroxyurea 500 Mg Cap) 500 mg PO DAILY [facility] Last Admin: 06/09/20 08:06 Dose: 500 mg Documented by: Promethazine HCl 12.5 mg/ (Sodium Chloride) 50.5 mls @ 202 mls/hr IVPB Q6H PRN PRN Reason: Nausea/vomiting, use second Diltiazem HCl 125 mg/ Sodium (Chloride) 125 mls @ 5 mls/hr IVPB INF [facility] Last Admin: 06/08/20 04:17 Dose: 125 mls Documented by: Ceftriaxone Sodium 1 gm/ (Sodium Chloride) 100 mls @ 200 mls/hr IVPB Q24HR [facility] Last Admin: 06/09/20 00:45 Dose: 100 mls Documented by: Labetalol HCl (Labetalol Hcl 100 Mg/20 Ml Vial) 20 mg SLOW IVP Q4H PRN PRN Reason: SBP > 160, use first Last Admin: 06/08/20 06:22 Dose: 4 ml Documented by: Lisinopril (Lisinopril 20 Mg Tab) 20 mg PO DAILY [facility] Last Admin: 06/09/20 08:08 Dose: 20 mg Documented by: Miscellaneous Medication (Electrolyte Replacement Protocol 1 Each) 1 each FS ASDIR [facility] Nitroglycerin (Nitroglycerin 0.4 Mg Tab (25 Tab Bottle)) 0.4 mg SL Q5MIN PRN PRN Reason: Chest Pain Ondansetron HCl (Ondansetron Pf 4 Mg/2 Ml Vial) 4 mg IVP Q6H PRN PRN Reason: Nausea/Vomiting, use 1st Pantoprazole Sodium (Pantoprazole 40 Mg Tab) 40 mg PO DAILY [facility] Last Admin: 06/09/20 08:08 Dose: 40 mg Documented by: Polyethylene Glycol (Polyethylene Glycol 3350 17 Gm Packet) 17 gm PO DAILY [facility] Last Admin: 06/09/20 08:10 Dose: Not Given Documented by: Simvastatin (Simvastatin 10 Mg Tab) 10 mg PO HS [facility] Last Admin: 06/08/20 20:44 Dose: 10 mg Documented by: Sodium Chloride (Flush - Normal Saline 10 Ml Syringe) 10 ml IVF PRN PRN PRN Reason: Saline Flush Torsemide (Torsemide 20 Mg Tab) 20 mg PO BID@0900,1400 [facility] Last Admin: 06/09/20 08:08 Dose: 20 mg Documented by: Vital Signs & Weight: Vital Signs Temp Pulse Resp BP BP Pulse Ox 06/09/20 11:20 98.1 F 75 16 138/63 100 06/09/20 09:50 134/62 06/09/20 08:14 96 06/09/20 08:01 98.5 F 95 17 169/77 H 96 06/09/20 04:00 93 L 06/09/20 03:14 97.6 F 87 20 161/72 H 93 L Weight 136 lb 3.2 oz - Quality Measures Condition: Coronary Artery Disease CV meds: Beta Carmine: Yes, ANN/ARB: Yes, Statin: Yes, ASA: Yes, Anticoagulant: Yes (Lovenox) - Physical Exam General: alert & oriented x3, no apparent distress, cachectic HEENT: mucus membranes moist Neck: supple neck Cardiac: regular rate and rhythm Lungs: no wheeze, rales, rhonchi Neuro: grossly intact Abdomen: soft, non-tender Extremities: no edema Skin: clear - Labs Result Diagrams: 06/09/20 08:09 06/09/20 08:09 Troponin/CKMB CK-MB (CK-2) 2.2 ng/mL (0-6.6) 05/29/20 23:33 Troponin I 0.077 ng/mL (< 0.028) H 05/30/20 06:46 - Assessment/Plan Assessment/Plan: 1. Recurrent AF/AFl 2. Tachy-marianne 3. HTN Urgency 4. MV CAD s/p CABG 5. s/p watchman 6. Mod-Severe TR 7. Acute on chronic diastolic CHF 8. CKD BP improved on Norvasc. Demadex resumed yesterday. Good output overnight. No changes today. NPO for tomorrow.
--- NOTE | 2020-06-09 16:50 | PDOC.HOSPP ---
- Subjective Encounter Date: 06/09/20 Subjective: Again the patient tells me she feels terrible. Today she can localize that to reporting that her back hurts. - Objective Vital Signs & Weight: Vital Signs (12 hours) Temp Pulse Pulse Resp BP BP BP 06/09/20 15:10 98.0 F 80 20 167/77 H 06/09/20 14:49 80 167/77 H 150/67 H 06/09/20 11:20 98.1 F 75 16 138/63 06/09/20 09:50 134/62 06/09/20 08:14 06/09/20 08:01 98.5 F 95 17 169/77 H Pulse Ox 06/09/20 15:10 100 06/09/20 14:49 06/09/20 11:20 100 06/09/20 09:50 06/09/20 08:14 96 06/09/20 08:01 96 Weight Weight 136 lb 3.2 oz I&O: 06/08/20 06/09/20 06/10/20 06:59 06:59 06:59 Intake Total 1080 1620 Output Total 430 1150 Balance 650 470 Result Diagrams: 06/09/20 08:09 06/09/20 08:09 Hospitalist ROS - Medication Medications: Active Medications Generic Name Dose Route Start Last Admin Trade Name Iftikhar PRN Reason Stop Dose Admin Acetaminophen 650 mg 05/30/20 03:51 06/09/20 08:25 Acetaminophen 325 Mg Tab PO 650 mg Q4H PRN Administration Headache/Fever/Mild Pain (1-3) Albuterol/Ipratropium 3 ml 05/30/20 03:51 06/05/20 01:21 Ipratropium/Albuterol Sulfate 3 Ml Neb NEB 3 ml Q2H PRN Administration SOB &/or Wheezing Amlodipine Besylate 5 mg 06/08/20 09:00 06/09/20 08:06 Amlodipine 5 Mg Tab PO 5 mg DAILY SOLO Administration Aspirin 81 mg 05/30/20 09:00 06/09/20 08:08 Aspirin 81 Mg Enteric Coated Tablet PO 81 mg DAILY SOLO Administration Bupropion HCl 300 mg 05/30/20 09:00 06/09/20 08:07 Bupropion 150 Mg Xl Tab PO 300 mg DAILY SOLO Administration Carvedilol 12.5 mg 06/08/20 17:00 06/09/20 08:09 Carvedilol 6.25 Mg Tab PO 12.5 mg BID-WM SOLO Administration Cholecalciferol 2,000 units 05/30/20 09:00 06/09/20 08:07 Cholecalciferol 1,000 Units (25 Mcg) Tab PO 2,000 units DAILY SOLO Administration Clonidine 0.1 mg 05/30/20 03:51 06/05/20 18:41 Clonidine 0.1 Mg Tab PO 0.1 mg BIDPRN PRN Administration SBP > 160, use second Enoxaparin Sodium 30 mg 06/01/20 09:00 06/09/20 08:07 Enoxaparin Sodium 30 Mg/0.3 Ml Syringe SC 30 mg 0900 SOLO Administration Guaifenesin/Dextromethorphan 15 ml 05/30/20 03:51 06/07/20 21:21 Guaifenesin Dm 100-10/5 Ml Udcup PO 15 ml Q4H PRN Administration Cough Hydralazine HCl 10 mg 05/30/20 03:51 06/07/20 01:38 Hydralazine 20 Mg/Ml Vial SLOW IVP 10 mg Q6H PRN Administration SBP GREATER THAN 160 Hydroxyurea 500 mg 05/30/20 09:00 06/09/20 08:06 Hydroxyurea 500 Mg Cap PO 500 mg DAILY SOLO Administration Diltiazem HCl 125 mg/ Sodium 125 mls @ 5 mls/hr 06/04/20 10:29 06/08/20 04:17 Chloride IVPB 125 mls INF SOLO Administration 5 MG/HR Ceftriaxone Sodium 1 gm/ 100 mls @ 200 mls/hr 06/08/20 23:59 06/09/20 00:45 Sodium Chloride IVPB 100 mls Q24HR SOLO Administration Labetalol HCl 20 mg 05/30/20 03:51 06/08/20 06:22 Labetalol Hcl 100 Mg/20 Ml Vial SLOW IVP 4 ml Q4H PRN Administration SBP > 160, use first Lisinopril 20 mg 05/30/20 09:00 06/09/20 08:08 Lisinopril 20 Mg Tab PO 20 mg DAILY SOLO Administration Pantoprazole Sodium 40 mg 05/30/20 09:00 06/09/20 08:08 Pantoprazole 40 Mg Tab PO 40 mg DAILY SOLO Administration Polyethylene Glycol 17 gm 05/30/20 09:00 06/09/20 08:10 Polyethylene Glycol 3350 17 Gm Packet PO Not Given DAILY SOLO Simvastatin 10 mg 05/30/20 21:00 06/08/20 20:44 Simvastatin 10 Mg Tab PO 10 mg HS SOLO Administration Torsemide 20 mg 06/09/20 09:00 06/09/20 14:30 Torsemide 20 Mg Tab PO 20 mg BID@0900,1400 SOLO Administration Hospitalist Exam Vitals: Vital Signs (12 hours) Temp Pulse Pulse Resp BP BP BP 06/09/20 15:10 98.0 F 80 20 167/77 H 06/09/20 14:49 80 167/77 H 150/67 H 06/09/20 11:20 98.1 F 75 16 138/63 06/09/20 09:50 134/62 06/09/20 08:14 06/09/20 08:01 98.5 F 95 17 169/77 H Pulse Ox 06/09/20 15:10 100 06/09/20 14:49 06/09/20 11:20 100 06/09/20 09:50 06/09/20 08:14 96 06/09/20 08:01 96 Weight Weight 136 lb 3.2 oz General Appearance: NAD General - other findings: Sleeping but easily awakened Heart: no murmur, no gallops, irregular Respiratory: CTAB, no wheezes, no ronchi Respiratory - other findings: Mild bibasilar rales Gastrointestinal: soft, non-tender, non-distended, normal bowel sounds, no palpable masses, no hepatomegaly, no splenomegaly, no bruit Extremities: no cyanosis, no clubbing, no edema Skin: normal turgor Musculoskeletal: generalized weakness Psychiatric: lethargic (Mildly) Hosp A/P - Plan 79F with PMhx CAD s/p CABG, atrial fibrillation s/p multiple ablations, cardioversions and watchamn, CHF, dementia HTN, falls who presented to the ER for a fall found to have hypertensive urgency, multiple atrial arrhythmias now with plans for L atrial ablation and PM placement. 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 HR elevated to 140s junctional rhythm. Currently in NSR with some ectopy on cardizem drip. Unable to tolerate amiodarone 2/2 concern for pulmonary side effects or Multaq. Plans for AV node ablation and PM with Dr. Hamilton on Wednesday, delayed due to weather emergency. Diastolic Heart Failure EF 55-60%. Continue ASA, statin, Coreg, Lisinopril. Pt on home torsemide and metolazone which are being held. Appears generally euvolemic. On 06/08/2020 the patient's BNP was elevated a bit. Cardiology following. Planning to resume diuretics pending those results. Hypertensive Urgency Presented with HTN urgency Improved with the Cardizem gtt. With her pressure still running somewhat high her carvedilol dose was increased on 06/08/2020. CAD Heart cath done on 05/30 found 3v CAD with 60% stenosis to LAD, 100% stenosis to Prox Cx and 100% stenosis of Prox RCA not amenable to intervention. Medical management. Continue ASA, statin, Coreg, Lisinopril. Cardiology following Dementia Patient and family report worsening memory problems over the past few months. Continue reorienting measures. Over the patient's daughter on 06/06/2020. She was in the room visiting at the time. She is concerned her mother is having a little bit of hospital psychoses making her situation a bit worse. She has declined some therapy previously. She did have some therapy on 06/07. Generalized Weakness Multifactorial likely 2/2 deconditioning, recurrent arrhythmias and mild exacerbation of HF on presentation. Patient was initially on Levaquin for suspcion of pumonary infection, however pt has remained afebrile with no SOB, and no leukocytosis. Antibiotics were DC'd on 06/05. On 06/06/2020 patient's daughter felt like the patient would ultimately need to have some rehab prior to going home due to her general debility. Leukocytosis Patient had surveillance labs repeated on 06/08/2020. She has mild leukocytosis with a white count of 13.6. Her exam did not reveal any specific source of possible infection. She apparently did report some cough. Patient's daughter tells me she has been coughing for several days. Chest x-ray revealed only pulmonary edema. Urinalysis was equivocal. Incentive spirometer. She was empirically started on some Rocephin in order to ensure that she would be prepared for her procedure on Wednesday. Continue to follow cultures. White blood cell count had improved somewhat on 06/09/2020. She remained afebrile. DVT prophylaxis-Lovenox FULL CODE
[2020-06-09] MEDS: Simvastatin 10 MG TAB PO SCH (22:03)
[2020-06-10] MEDS: cefTRIAXone\\ROCEPHIN 1 GM in Sodium Chloride 0.9% 100 ML IVPB SCH ×2 (00:35→23:48)
[2020-06-10 04:39] LABS: #Basophils 0.1 thou/uL (0.0-0.2); #Eosinphils 0.1 thou/uL (0.0-0.7); #Monocytes 1.2 thou/uL (0.11-0.59); %Basophils 0.8 % (0.0-1.0); %Eosinophils 0.9 % (0.0-10.0); %Monocytes 12.7 % (0.0-10.0); %Neutrophils 74.7 % (42.0-75.0); Hemoglobin 11.1 g/dL (12.0-16.0); Mean Corpuscular HGB CONC 33.7 g/dL (32.0-36.0); Mean Corpuscular Hemoglobin 35.2 pg (27.0-31.0); Mean Platelet Volume 7.1 fL (7.4-10.4); Platelet Count 481 thou/uL (130-400); RBC Distribution Width 13.3 % (11.5-14.5); Red Blood Cell (RBC) Count 3.15 mill/uL (4.20-5.40); White Blood Cell (WBC) Count 9.4 thou/uL (4.8-10.8)
[2020-06-10 04:57] LABS: Anion Gap 13 mmol/L (10-20); BUN (Urea Nitrogen) 26 mg/dL (9.8-20.1); Calc. Creatinine Clearance 43 mL/min (70-130); Calcium 8.4 mg/dL (7.8-10.44); Carbon Dioxide 30 mmol/L (23-31); Chloride 96 mmol/L (98-107); Glucose 83 mg/dL (83-110); Potassium 3.4 mmol/L (3.5-5.1); Sodium 136 mmol/L (136-145)
[2020-06-10] MEDS ORDERED: Potassium Chloride 20 MEQ TAB PO SCH (06:30)
[2020-06-10] MEDS: Enoxaparin Sodium 30 MG/0.3 ML SYRINGE SC SCH (07:15)
[2020-06-10] MEDS: Cholecalciferol 1,000 UNITS (25 MCG) TAB PO SCH (08:38)
[2020-06-10] MEDS: Carvedilol 6.25 MG TAB PO SCH ×2 (08:39→17:46)
[2020-06-10] MEDS: Lisinopril 20 MG TAB PO SCH (08:39)
[2020-06-10] MEDS: Hydroxyurea 500 MG CAP PO SCH (08:40)
[2020-06-10] MEDS: Amlodipine 5 MG TAB PO SCH (08:40)
[2020-06-10] MEDS: Diltiazem 125 MG in Sodium Chloride 0.9% 100 ML IVPB SCH (08:40)
[2020-06-10] MEDS: Aspirin 81 mg Enteric Coated Tablet PO SCH (08:40)
[2020-06-10] MEDS: Bupropion 150 MG XL TAB PO SCH (08:40)
[2020-06-10] MEDS: Polyethylene Glycol 3350 17 GM Packet PO SCH (08:41)
[2020-06-10] MEDS: Torsemide 20 MG TAB PO SCH ×2 (08:45→13:46)
[2020-06-10 08:50] VITALS: BMI 22.6
[2020-06-10] MEDS ORDERED: PHENYLEPHRINE-NS 100 MCG/ML 10 ML SYRINGE ONE (10:16)
[2020-06-10] MEDS ORDERED: Midazolam HCl 2 mg/2 ml Vial ONE (14:23)
[2020-06-10] MEDS ORDERED: Fentanyl 100 MCG/2 ML VIAL ONE (14:23)
[2020-06-10] MEDS ORDERED: Propofol 500 MG/50 ML VIAL ONE (14:23)
[2020-06-10] MEDS ORDERED: Ketamine 50 MG/ML (10ML VIAL) ONE (14:23)
[2020-06-10] MEDS ORDERED: Lidocaine 1% (PF) 30 ML VIAL ONE (15:46)
[2020-06-10] MEDS ORDERED: Levofloxacin 500 mg/D5W 100 ml Premix Bag ONE (15:49)
[2020-06-10] MEDS ORDERED: Clindamycin/D5W 900 mg/50 ml Premix Bag ONE (17:11)
[2020-06-10] MEDS ORDERED: DOPamine 400 MG/D5W 250 ML 250 ML ONE (18:01)
[2020-06-10] MEDS ORDERED: Promethazine HCl 25 MG/ML VIAL IM PRN (18:32)
[2020-06-10] MEDS ORDERED: Ondansetron HCl/PF 4 MG/2 ML Vial IVP PRN (18:32)
[2020-06-10] MEDS ORDERED: Promethazine HCl 25 MG/ML VIAL SLOW IVP PRN (18:32)
--- NOTE | 2020-06-10 18:36 | PDOC.HOSPP ---
- Subjective Encounter Date: 06/10/20 Subjective: Patient seen this morning. Continues to tell me that she feels terrible but again difficulty with being more specific. - Objective Vital Signs & Weight: Vital Signs (12 hours) Temp Pulse Resp BP BP Pulse Ox 06/10/20 16:00 98.0 F 77 16 164/75 H 97 06/10/20 11:26 97.8 F 78 18 176/75 H 92 L 06/10/20 08:40 76 06/10/20 08:39 183/81 H 06/10/20 08:00 98.6 F 76 18 158/72 H 97 Weight Admit Weight 136 lb 3.2 oz Weight 136 lb 3.2 oz I&O: 06/09/20 06/10/20 06/11/20 06:59 06:59 06:59 Intake Total 1620 950 120 Output Total 1150 2600 150 Balance 470 -1650 -30 Result Diagrams: 06/10/20 03:56 06/10/20 03:56 Hospitalist ROS - Medication Medications: Active Medications Generic Name Dose Route Start Last Admin Trade Name Freq PRN Reason Stop Dose Admin Acetaminophen 650 mg 05/30/20 03:51 06/09/20 22:01 Acetaminophen 325 Mg Tab PO 650 mg Q4H PRN Administration Headache/Fever/Mild Pain (1-3) Albuterol/Ipratropium 3 ml 05/30/20 03:51 06/05/20 01:21 Ipratropium/Albuterol Sulfate 3 Ml Neb NEB 3 ml Q2H PRN Administration SOB &/or Wheezing Amlodipine Besylate 5 mg 06/08/20 09:00 06/10/20 08:40 Amlodipine 5 Mg Tab PO 5 mg DAILY SOLO Administration Aspirin 81 mg 05/30/20 09:00 06/10/20 08:40 Aspirin 81 Mg Enteric Coated Tablet PO 81 mg DAILY SOLO Administration Bupropion HCl 300 mg 05/30/20 09:00 06/10/20 08:40 Bupropion 150 Mg Xl Tab PO 300 mg DAILY SOLO Administration Carvedilol 12.5 mg 06/08/20 17:00 06/10/20 17:46 Carvedilol 6.25 Mg Tab PO Not Given BID-[facility] Cholecalciferol 2,000 units 05/30/20 09:00 06/10/20 08:38 Cholecalciferol 1,000 Units (25 Mcg) Tab PO 2,000 units DAILY SOLO Administration Clonidine 0.1 mg 05/30/20 03:51 06/05/20 18:41 Clonidine 0.1 Mg Tab PO 0.1 mg BIDPRN PRN Administration SBP > 160, use second Enoxaparin Sodium 30 mg 06/01/20 09:00 06/10/20 07:15 Enoxaparin Sodium 30 Mg/0.3 Ml Syringe SC Not Given 09 SOLO Guaifenesin/Dextromethorphan 15 ml 05/30/20 03:51 06/07/20 21:21 Guaifenesin Dm 100-10/5 Ml Udcup PO 15 ml Q4H PRN Administration Cough Hydralazine HCl 10 mg 05/30/20 03:51 06/07/20 01:38 Hydralazine 20 Mg/Ml Vial SLOW IVP 10 mg Q6H PRN Administration SBP GREATER THAN 160 Hydroxyurea 500 mg 05/30/20 09:00 06/10/20 08:40 Hydroxyurea 500 Mg Cap PO 500 mg DAILY SOLO Administration Diltiazem HCl 125 mg/ Sodium 125 mls @ 5 mls/hr 06/04/20 10:29 06/10/20 08:40 Chloride IVPB 125 mls INF SOLO Administration 5 MG/HR Ceftriaxone Sodium 1 gm/ 100 mls @ 200 mls/hr 06/08/20 23:59 06/10/20 00:35 Sodium Chloride IVPB 100 mls Q24HR SOLO Administration Labetalol HCl 20 mg 05/30/20 03:51 06/08/20 06:22 Labetalol Hcl 100 Mg/20 Ml Vial SLOW IVP 4 ml Q4H PRN Administration SBP > 160, use first Lisinopril 20 mg 05/30/20 09:00 06/10/20 08:39 Lisinopril 20 Mg Tab PO 20 mg DAILY SOLO Administration Pantoprazole Sodium 40 mg 05/30/20 09:00 06/10/20 08:40 Pantoprazole 40 Mg Tab PO 40 mg DAILY SOLO Administration Polyethylene Glycol 17 gm 05/30/20 09:00 06/10/20 08:41 Polyethylene Glycol 3350 17 Gm Packet PO Not Given DAILY SOLO Simvastatin 10 mg 05/30/20 21:00 06/09/20 22:03 Simvastatin 10 Mg Tab PO 10 mg HS SOLO Administration Torsemide 20 mg 06/09/20 09:00 06/10/20 13:46 Torsemide 20 Mg Tab PO Not Given BID@0900,1400 [facility] Hospitalist Exam Vitals: Vital Signs (12 hours) Temp Pulse Resp BP BP Pulse Ox 06/10/20 16:00 98.0 F 77 16 164/75 H 97 06/10/20 11:26 97.8 F 78 18 176/75 H 92 L 06/10/20 08:40 76 06/10/20 08:39 183/81 H 06/10/20 08:00 98.6 F 76 18 158/72 H 97 Weight Admit Weight 136 lb 3.2 oz Weight 136 lb 3.2 oz General Appearance: NAD, awake alert Heart: no murmur, no gallops, no rubs, normal peripheral pulses, irregular Respiratory: CTAB, no wheezes, no rales, no ronchi, normal chest expansion, no tachypnea, normal percussion Respiratory - other findings: Rales at the bases appear improved Gastrointestinal: soft, non-tender, non-distended, normal bowel sounds, no palpable masses, no hepatomegaly, no splenomegaly, no bruit Extremities: no cyanosis, no clubbing, no edema Skin: normal turgor Neurological: no focal deficits Musculoskeletal: generalized weakness Psychiatric: flat affect, somnolent Hosp A/P - Plan 79F with PMhx CAD s/p CABG, atrial fibrillation s/p multiple ablations, cardioversions and watchamn, CHF, dementia HTN, falls who presented to the ER for a fall found to have hypertensive urgency, multiple atrial arrhythmias now with plans for L atrial ablation and PM placement. 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 HR elevated to 140s junctional rhythm. Currently in NSR with some ectopy on cardizem drip. Unable to tolerate amiodarone 2/2 concern for pulmonary side effects or Multaq. AV node ablation and PM with Dr. Hamilton on 06/10/2020. Diastolic Heart Failure EF 55-60%. Continue ASA, statin, Coreg, Lisinopril. Pt on home torsemide and metolazone which are being held. Appears generally euvolemic. On 06/08/2020 the patient's BNP was elevated a bit. Cardiology following. Planning to resume diuretics pending those results. Hypertensive Urgency Presented with HTN urgency Improved with the Cardizem gtt. With her pressure still running somewhat high her carvedilol dose was increased on 06/08/2020. Had amlodipine added. Continue to titrate. CAD Heart cath done on 05/30 found 3v CAD with 60% stenosis to LAD, 100% stenosis to Prox Cx and 100% stenosis of Prox RCA not amenable to intervention. Medical management. Continue ASA, statin, Coreg, Lisinopril. Cardiology following Dementia Patient and family report worsening memory problems over the past few months. Continue reorienting measures. Over the patient's daughter on 06/06/2020. She was in the room visiting at the time. She is concerned her mother is having a little bit of hospital psychoses making her situation a bit worse. She has declined some therapy previously. She did have some therapy on 06/07. Generalized Weakness Multifactorial likely 2/2 deconditioning, recurrent arrhythmias and mild exacerbation of HF on presentation. Patient was initially on Levaquin for suspcion of pumonary infection, however pt has remained afebrile with no SOB, and no leukocytosis. Antibiotics were DC'd on 06/05. On 06/06/2020 patient's daughter felt like the patient would ultimately need to have some rehab prior to going home due to her general debility. Follow-up with physical therapy indicated the patient was requiring significant assistance from sitting to standing and residential rehab was recommended. Leukocytosis Patient had surveillance labs repeated on 06/08/2020. She has mild leukocytosis with a white count of 13.6. Her exam did not reveal any specific source of possible infection. She apparently did report some cough. Patient's daughter tells me she has been coughing for several days. Chest x-ray revealed only pulmonary edema. Urinalysis was equivocal. Incentive spirometer. She was empirically started on some Rocephin in order to ensure that she would be prepared for her procedure on Wednesday. Continue to follow cultures. White blood cell count had improved somewhat on 06/09/2020. She remained afebrile. Fully resolved by 06/10/2020. DVT prophylaxis-Lovenox FULL CODE
--- NOTE | 2020-06-10 18:47 | RAD ---
Chest AP view INDICATION: History of device placement COMPARISON: January 01, 2020 and June 08, 2020 FINDINGS: Lungs: There is improvement of the bilateral interstitial and airspace edema. Cardiac silhouette: Mild cardiomegaly is stable. Embolic coils overlying the left atrial appendage i s stable. There is been interval placement of a multi lead left subclavian chest wall pacemaker. Post-CABG changes stable. Pulmonary vasculature: Normal Pleural spaces: No pleural effusion or pneumothorax is demonstrated. Upper abdomen: No abnormality seen. Osseous structures: No acute osseous abnormality. Additional findings: None. IMPRESSION: Improved CHF. Interval placement of a multilead cardiac pacemaker. No pneumothorax.
[2020-06-10] MEDS ORDERED: Promethazine HCl 25 MG/ML VIAL ONE (18:51)
[2020-06-10] MEDS ORDERED: Acetaminophen/Codeine 30-300mg Tablet PO PRN ×2 (19:45)
--- NOTE | 2020-06-10 20:15 | OP ---
DATE OF PROCEDURE: 06/10/2020 PROCEDURES PERFORMED: AV isabell ablation as well as 3D mapping. ADDITIONAL REFERRING PHYSICIAN: Benji Salter MD REASON FOR PROCEDURE: Ms. Bedolla is a 79-year-old woman with history of recurrent atrial arrhythmias, received left atrial ablations in the past. She also has progressive dementia, status post Watchman device placement in the past. She is here for left bundle pacing Bi-V pacemaker implantation and subsequent AV isabell ablation. DESCRIPTION OF PROCEDURE: The patient received deep sedation by Anesthesia specialist. After adequate level of sedation achieved, the right femoral venous area was prepped, draped, and anesthetized using subcutaneous lidocaine, and under ultrasound guidance, the right femoral vein was cannulated x1. An 8-Green[place]ic short sheath was introduced. Through this, a ThermoCool SFST catheter advanced to the right atrium. 3D map of the right atrium, left subclavian vein, His bundle area, right ventricle, and right bundle was obtained. At this point, we proceeded to Bi-V pacemaker implant, regarding which see separate report. During the case, the CARTO system was used to help positioning of the left bundle pacing lead. Following that, the pacemaker implantation was completed, we proceeded with AV isabell ablation. Radiofrequency ablation lesions delivered at the fast pathway and slow pathway area, achieving complete AV block. Initially, regular junctional escape rhythm was noted, but no definite escape rhythm was noted after dopamine administration. Two lesions delivered with total duration of 1 minute and 9 seconds. CONCLUSION: 1. Successful AV isabell ablation. 2. 3D mapping was performed with the ablation catheter, which was also used to position left bundle pacing lead into right position. Job ID: [id number] MTDD
[2020-06-10] MEDS: Simvastatin 10 MG TAB PO SCH (20:27)
[2020-06-10] MEDS ORDERED: Doxycycline 100 MG CAP PO SCH (21:00)
[2020-06-10] MEDS: Labetalol HCl 100 MG/20 ML VIAL SLOW IVP PRN (22:07)
[2020-06-10] MEDS: Acetaminophen 325 MG TAB PO PRN (22:25)
[2020-06-11] MEDS ORDERED: Amlodipine 5 MG TAB PO SCH (08:01)
[2020-06-11] MEDS: Enoxaparin Sodium 30 MG/0.3 ML SYRINGE SC SCH (08:59)
[2020-06-11] MEDS: Polyethylene Glycol 3350 17 GM Packet PO SCH (08:59)
[2020-06-11] MEDS: Cholecalciferol 1,000 UNITS (25 MCG) TAB PO SCH (09:00)
[2020-06-11] MEDS: Bupropion 150 MG XL TAB PO SCH (09:00)
[2020-06-11] MEDS: Aspirin 81 mg Enteric Coated Tablet PO SCH (09:00)
[2020-06-11] MEDS: Carvedilol 6.25 MG TAB PO SCH ×2 (09:01→17:30)
[2020-06-11] MEDS: Hydroxyurea 500 MG CAP PO SCH (09:01)
[2020-06-11] MEDS: Torsemide 20 MG TAB PO SCH ×2 (09:01→15:02)
[2020-06-11] MEDS: Lisinopril 20 MG TAB PO SCH (09:01)
[2020-06-11] MEDS: Amlodipine 10 MG TAB PO SCH (09:03)
[2020-06-11 09:07] LABS: Anion Gap 16 mmol/L (10-20); BUN (Urea Nitrogen) 23 mg/dL (9.8-20.1); Calc. Creatinine Clearance 44 mL/min (70-130); Calcium 8.7 mg/dL (7.8-10.44); Carbon Dioxide 27 mmol/L (23-31); Chloride 94 mmol/L (98-107); Glucose 99 mg/dL (83-110); Potassium 3.6 mmol/L (3.5-5.1); Sodium 133 mmol/L (136-145)
[2020-06-11] MEDS ORDERED: Spironolactone 25 MG TAB PO SCH (09:45)
--- NOTE | 2020-06-11 09:51 | PRG ---
DATE OF SERVICE: 06/11/2020 SUBJECTIVE: Ms. Bedolla had the biventricular pacemaker and AV junction ablation yesterday. She is not short of breath. She is not having chest pain. OBJECTIVE: VITAL SIGNS: Blood pressure is variable, is extremely high this morning, but she has not received her morning medications this morning; pulse is in the 80 to 90 range. LUNGS: Clear. CARDIAC: Normal S1, normal S2. ABDOMEN: Soft, nontender. EXTREMITIES: Warm and dry. ASSESSMENT: 1. Congestive heart failure, mostly diastolic. 2. Hypertension. 3. Status post Watchman. 4. Status post AV junction ablation with biventricular pacemaker. PLAN: 1. She is on amlodipine. 2. Diltiazem was stopped. 3. Carvedilol. 4. Enoxaparin. 5. Lisinopril. 6. Torsemide. 7. We will add spironolactone. 8. Try to get the patient more active, will need some type of either rehab or some other type of facility to go to when she is discharged. Job ID: [id number]
--- NOTE | 2020-06-11 10:50 | PDOC.EP ---
- Subjective Date: 06/11/20 Time: 08:00 Interval History: Feels poorly: cold, uncomfortable, and thirsty. No SOB or chest pain. No pain at leg or PPM site. - Review of Systems Constitutional: denies: chills, fever, malaise, sweats Respiratory: denies: cough, hemoptysis, pleuritic pain, shortness of breath, SOB with excertion Cardiology: denies: chest pain, edema, heart racing, light headedness, orthopn ea, paroxysmal noc. dyspnea Gastrointestinal: denies: abdominal pain, constipation, diarrhea, hematochezia Musculoskeletal: denies: neck pain, shoulder pain, arm pain, leg pain - Objective Allergies/Adverse Reactions: Allergies Allergy/AdvReac Type Severity Reaction Status Date / Time adhesive Allergy rash, Verified 05/30/20 03:20 blisters erythromycin base Allergy Rash Verified 05/30/20 03:20 Penicillins Allergy Verified 05/30/20 03:20 Current Medications Acetaminophen (Acetaminophen 325 Mg Tab) 650 mg PO Q4H PRN PRN Reason: Headache/Fever/Mild Pain (1-3) Last Admin: 06/10/20 22:25 Dose: 650 mg Documented by: Acetaminophen/Codeine Phosphate (Acetaminophen/Codeine 30-300mg Tablet) 1 tab PO Q4H PRN PRN Reason: Mild Pain (1-3) Albuterol/Ipratropium (Ipratropium/Albuterol Sulfate 3 Ml Neb) 3 ml NEB Q2H PRN PRN Reason: SOB &/or Wheezing Last Admin: 06/05/20 01:21 Dose: 3 ml Documented by: Amlodipine Besylate (Amlodipine 10 Mg Tab) 10 mg PO DAILY [facility] Last Admin: 06/11/20 09:03 Dose: 10 mg Documented by: Aspirin (Aspirin 81 Mg Enteric Coated Tablet) 81 mg PO DAILY [facility] Last Admin: 06/11/20 09:00 Dose: 81 mg Documented by: Bupropion HCl (Bupropion 150 Mg Xl Tab) 300 mg PO DAILY [facility] Last Admin: 06/11/20 09:00 Dose: 300 mg Documented by: Carvedilol (Carvedilol 6.25 Mg Tab) 12.5 mg PO BID-[facility] Last Admin: 06/11/20 09:01 Dose: 12.5 mg Documented by: Cholecalciferol (Cholecalciferol 1,000 Units (25 Mcg) Tab) 2,000 units PO DAILY [facility] Last Admin: 06/11/20 09:00 Dose: 2,000 units Documented by: Clonidine (Clonidine 0.1 Mg Tab) 0.1 mg PO BIDPRN PRN PRN Reason: SBP > 160, use second Last Admin: 06/05/20 18:41 Dose: 0.1 mg Documented by: Doxycycline Hyclate (Doxycycline 100 Mg Cap) 100 mg PO BID [facility] Stop: 06/18/20 09:01 Enoxaparin Sodium (Enoxaparin Sodium 30 Mg/0.3 Ml Syringe) 30 mg SC 09 [facility] Last Admin: 06/11/20 08:59 Dose: 30 mg Documented by: Guaifenesin/Dextromethorphan (Guaifenesin Dm 100-10/5 Ml Udcup) 15 ml PO Q4H PRN PRN Reason: Cough Last Admin: 06/07/20 21:21 Dose: 15 ml Documented by: Hydralazine HCl (Hydralazine 20 Mg/Ml Vial) 10 mg SLOW IVP Q6H PRN PRN Reason: SBP GREATER THAN 160 Last Admin: 06/07/20 01:38 Dose: 10 mg Documented by: Hydroxyurea (Hydroxyurea 500 Mg Cap) 500 mg PO DAILY [facility] Last Admin: 06/11/20 09:01 Dose: 500 mg Documented by: Promethazine HCl 12.5 mg/ (Sodium Chloride) 50.5 mls @ 202 mls/hr IVPB Q6H PRN PRN Reason: Nausea/vomiting, use second Labetalol HCl (Labetalol Hcl 100 Mg/20 Ml Vial) 20 mg SLOW IVP Q4H PRN PRN Reason: SBP > 160, use first Last Admin: 06/10/20 22:07 Dose: 4 ml Documented by: Lisinopril (Lisinopril 20 Mg Tab) 20 mg PO DAILY [facility] Last Admin: 06/11/20 09:01 Dose: 20 mg Documented by: Miscellaneous Medication (Electrolyte Replacement Protocol 1 Each) 1 each FS ASDIR [facility] Nitroglycerin (Nitroglycerin 0.4 Mg Tab (25 Tab Bottle)) 0.4 mg SL Q5MIN PRN PRN Reason: Chest Pain Ondansetron HCl (Ondansetron Pf 4 Mg/2 Ml Vial) 4 mg IVP Q6H PRN PRN Reason: Nausea/Vomiting, use 1st Pantoprazole Sodium (Pantoprazole 40 Mg Tab) 40 mg PO DAILY [facility] Last Admin: 06/11/20 09:04 Dose: 40 mg Documented by: Polyethylene Glycol (Polyethylene Glycol 3350 17 Gm Packet) 17 gm PO DAILY [facility] Last Admin: 06/11/20 08:59 Dose: 17 gm Documented by: Simvastatin (Simvastatin 10 Mg Tab) 10 mg PO HS [facility] Last Admin: 06/10/20 20:27 Dose: Not Given Documented by: Sodium Chloride (Flush - Normal Saline 10 Ml Syringe) 10 ml IVF PRN PRN PRN Reason: Saline Flush Spironolactone (Spironolactone 25 Mg Tab) 25 mg PO NOW [facility] Stop: 06/11/20 14:00 Last Admin: 06/11/20 10:31 Dose: 25 mg Documented by: Spironolactone (Spironolactone 25 Mg Tab) 25 mg PO QAM-[facility] Torsemide (Torsemide 20 Mg Tab) 20 mg PO BID@0900,1400 [facility] Last Admin: 06/11/20 09:01 Dose: 20 mg Documented by: Vital Signs & Weight: Vital Signs Temp Pulse Resp BP BP Pulse Ox 06/11/20 08:00 98.7 F 96 20 196/82 H 96 06/11/20 03:17 98.3 F 86 18 151/66 H 96 Admit Weight 136 lb 3.2 oz Weight 130 lb 5 oz I/O: I/O 06/10/20 06/11/20 06/12/20 06:59 06:59 06:59 Intake Total 950 660 Output Total 2600 750 Balance -1650 -90 - Quality Measures Condition: Atrial Fibrillation/Flutter (hx or current) - Medication Contraindications No Anticoagulant reason: Treatment not indicated (s/p watchman) - Physical Exam General: no apparent distress, speech clear. negative: affect appropriate (flat affect) HEENT: mucus membranes moist, normocephaly Neck: supple neck, midline trachea, no JVD/HJR Cardiology: regular rate and rhythm, no murmur, regular rate Lungs: normal breath sounds, no wheeze, rales, rhonchi, decreased breath sounds Neurology: cranial nerve 2-12 intact, grossly intact, coordination normal Abdomen: unremarkable, active bowel sounds, HJR negative Extremities: dry, strong pulses, warm Skin: device site stable w/o swelling (mild swelling. no hematoma). negative: bruising - Labs Result Diagrams: 06/10/20 03:56 06/11/20 08:32 - EKG Interpretation EKG shows: Sinus rhythm - Device Device: pacemaker Device Result: Gasp [employer] - Assessment/Plan Assessment/Plan: 1. 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 Watchman- no OAC needed for AFib 3. diastolic heart failure -LVEF 55-60% 4. CKD 5. Tachy marianne syndrome 6. Complete heart block s/p AV node ablation 06/10/20 7. Permanent pacemaker - implant 06/10/20 - multi lead left bundle pacer - CXR stable post implant/no hematoma. PO anbx ordered to begin after ceft is stopped. In Sinus rhythm today OK for DC by EP with PO anbx x 7 days. Continue ASA post watchman, no NOAC needed. 2 week wound check will be arranged.
--- NOTE | 2020-06-11 12:27 | RAD ---
EXAM: CHEST ONE VIEW HISTORY: Tachycardia. COMPARISON: 06/10/2020 FINDINGS: Triple lead left subclavian cardiac pacemaking device is again noted. Postoperative changes related t o CABG are again seen. There is a coil mass overlying the expected location of the left atrial appendage likely related to prior left atrial occlusion procedure. Small left pleural effusion and at electasis is present. Right lung is clear.. Vascular calcifications are seen in the thoracic aorta. No other interval change IMPRESSION: 1. Small left pleural effusion and atelectasis. No pneumothorax is appreciated. 2. Left subclavian cardiac pacemaking device and evidence of prior CABG.
--- NOTE | 2020-06-11 16:34 | PDOC.HOSPP ---
- Subjective Encounter Date: 06/11/20 Subjective: Again today the patient reports that she does not feel good. Again she is not able to articulate any particular reason why she does not feel good. - Objective Vital Signs & Weight: Vital Signs (12 hours) Temp Pulse Pulse Pulse Resp BP BP 06/11/20 15:31 60 61 146/67 H 132/63 06/11/20 15:01 98.6 F 62 19 06/11/20 12:52 98.3 F 60 19 06/11/20 09:01 06/11/20 08:00 98.7 F 96 20 BP BP Pulse Ox 06/11/20 15:31 06/11/20 15:01 146/67 H 96 06/11/20 12:52 133/64 98 06/11/20 09:01 96 06/11/20 08:00 196/82 H 96 Weight Admit Weight 136 lb 3.2 oz Weight 130 lb 5 oz I&O: 06/10/20 06/11/20 06/12/20 06:59 06:59 06:59 Intake Total 950 660 Output Total 2600 750 Balance -1650 -90 Result Diagrams: 06/10/20 03:56 06/11/20 08:32 Hospitalist ROS - Medication Medications: Active Medications Generic Name Dose Route Start Last Admin Trade Name Freq PRN Reason Stop Dose Admin Acetaminophen 650 mg 05/30/20 03:51 06/10/20 22:25 Acetaminophen 325 Mg Tab PO 650 mg Q4H PRN Administration Headache/Fever/Mild Pain (1-3) Albuterol/Ipratropium 3 ml 05/30/20 03:51 06/05/20 01:21 Ipratropium/Albuterol Sulfate 3 Ml Neb NEB 3 ml Q2H PRN Administration SOB &/or Wheezing Amlodipine Besylate 10 mg 06/11/20 09:00 06/11/20 09:03 Amlodipine 10 Mg Tab PO 10 mg DAILY [facility] Administration Aspirin 81 mg 05/30/20 09:00 06/11/20 09:00 Aspirin 81 Mg Enteric Coated Tablet PO 81 mg DAILY [facility] Administration Bupropion HCl 300 mg 05/30/20 09:00 06/11/20 09:00 Bupropion 150 Mg Xl Tab PO 300 mg DAILY [facility] Administration Carvedilol 12.5 mg 06/08/20 17:00 06/11/20 09:01 Carvedilol 6.25 Mg Tab PO 12.5 mg BID-[facility] Administration Cholecalciferol 2,000 units 05/30/20 09:00 06/11/20 09:00 Cholecalciferol 1,000 Units (25 Mcg) Tab PO 2,000 units DAILY [facility] Administration Clonidine 0.1 mg 05/30/20 03:51 06/05/20 18:41 Clonidine 0.1 Mg Tab PO 0.1 mg BIDPRN PRN Administration SBP > 160, use second Enoxaparin Sodium 30 mg 06/01/20 09:00 06/11/20 08:59 Enoxaparin Sodium 30 Mg/0.3 Ml Syringe SC 30 mg 0900 [facility] Administration Guaifenesin/Dextromethorphan 15 ml 05/30/20 03:51 06/07/20 21:21 Guaifenesin Dm 100-10/5 Ml Udcup PO 15 ml Q4H PRN Administration Cough Hydralazine HCl 10 mg 05/30/20 03:51 06/07/20 01:38 Hydralazine 20 Mg/Ml Vial SLOW IVP 10 mg Q6H PRN Administration SBP GREATER THAN 160 Hydroxyurea 500 mg 05/30/20 09:00 06/11/20 09:01 Hydroxyurea 500 Mg Cap PO 500 mg DAILY [facility] Administration Labetalol HCl 20 mg 05/30/20 03:51 06/10/20 22:07 Labetalol Hcl 100 Mg/20 Ml Vial SLOW IVP 4 ml Q4H PRN Administration SBP > 160, use first Lisinopril 20 mg 05/30/20 09:00 06/11/20 09:01 Lisinopril 20 Mg Tab PO 20 mg DAILY [facility] Administration Pantoprazole Sodium 40 mg 05/30/20 09:00 06/11/20 09:04 Pantoprazole 40 Mg Tab PO 40 mg DAILY [facility] Administration Polyethylene Glycol 17 gm 05/30/20 09:00 06/11/20 08:59 Polyethylene Glycol 3350 17 Gm Packet PO 17 gm DAILY [facility] Administration Simvastatin 10 mg 05/30/20 21:00 06/10/20 20:27 Simvastatin 10 Mg Tab PO Not Given HS [facility] Torsemide 20 mg 06/09/20 09:00 06/11/20 15:02 Torsemide 20 Mg Tab PO 20 mg BID@0900,1400 [facility] Administration Hospitalist Exam Vitals: Vital Signs (12 hours) Temp Pulse Pulse Pulse Resp BP BP 06/11/20 15:31 60 61 146/67 H 132/63 06/11/20 15:01 98.6 F 62 19 06/11/20 12:52 98.3 F 60 19 06/11/20 09:01 06/11/20 08:00 98.7 F 96 20 BP BP Pulse Ox 06/11/20 15:31 06/11/20 15:01 146/67 H 96 06/11/20 12:52 133/64 98 06/11/20 09:01 96 06/11/20 08:00 196/82 H 96 Weight Admit Weight 136 lb 3.2 oz Weight 130 lb 5 oz General Appearance: NAD General - other findings: Asleep but easily awakened. Neck: supple, no JVD Heart: RRR, no murmur, no gallops, no rubs Heart - other findings: Left subclavian pacemaker site appears healthy. Tachycardia Gastrointestinal: soft, non-tender, non-distended, normal bowel sounds, no palpable masses, no hepatomegaly, no splenomegaly, no bruit Extremities: no cyanosis, no clubbing Skin: normal turgor Neurological: no focal deficits Musculoskeletal: generalized weakness Psychiatric: flat affect Hosp A/P - Plan 79F with PMhx CAD s/p CABG, atrial fibrillation s/p multiple ablations, cardioversions and watchamn, CHF, dementia HTN, falls who presented to the ER for a fall found to have hypertensive urgency, multiple atrial arrhythmias now with plans for L atrial ablation and PM placement. 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 HR elevated to 140s junctional rhythm. NSR with some ectopy after initiating cardizem drip. Unable to tolerate amiodarone 2/ concern for pulmonary side effects or Multaq. AV node ablation and PM with Dr. Hamilton on 06/10/2020. On 06/11/2020 the patient was noted to go back into regular tachycardia with a rate around 120. Chest x-ray was clear. EKG showed paced rhythm. EP was made aware. The rep came and reprogram the pacer. Appears to have good rate control again at this time. Patient was placed on doxycycline post pacemaker placement Diastolic Heart Failure EF 55-60%. Continue ASA, statin, Coreg, Lisinopril. Pt on home torsemide and metolazone which are being held. Appears generally euvolemic. On 06/08/2020 the patient's BNP was elevated a bit. Cardiology following. Diuretics were resumed on 06/08/2020 once the patient appeared to be slightly volume overloaded again. Aldactone was added on 06/11/2020 by cardiology. Hypertensive Urgency Presented with HTN urgency Improved with the Cardizem gtt. With her pressure still running somewhat high her carvedilol dose was increased on 06/08/2020. Had amlodipine added. Diltiazem drip was discontinued on 06/10/2020 after ablation. Amlodipine increased to 10 mg daily on 06/11/2020 as the blood pressure continued to be a bit high after cessation of the diltiazem drip. CAD Heart cath done on 05/30 found 3v CAD with 60% stenosis to LAD, 100% stenosis to Prox Cx and 100% stenosis of Prox RCA not amenable to intervention. Medical management. Continue ASA, statin, Coreg, Lisinopril. Cardiology following Dementia Patient and family report worsening memory problems over the past few months. Continue reorienting measures. Over the patient's daughter on 06/06/2020. She was in the room visiting at the time. She is concerned her mother is having a little bit of hospital psychoses making her situation a bit worse. She has declined some therapy previously. She did have some therapy on 06/07. Physical therapy continue to try to work with the patient. At times the patient was declining to do out of bed activities because she reported being cold. Generalized Weakness Multifactorial likely 2/2 deconditioning, recurrent arrhythmias and mild exacerbation of HF on presentation. Patient was initially on Levaquin for suspcion of pumonary infection, however pt has remained afebrile with no SOB, and no leukocytosis. Antibiotics were DC'd on 06/05. On 06/06/2020 patient's daughter felt like the patient would ultimately need to have some rehab prior to going home due to her general debility. Follow-up with physical therapy indicated the patient was requiring significant assistance from sitting to standing and senior living rehab was recommended. Leukocytosis Patient had surveillance labs repeated on 06/08/2020. She has mild leukocytosis with a white count of 13.6. Her exam did not reveal any specific source of possible infection. She apparently did report some cough. Patient's daughter tells me she has been coughing for several days. Chest x-ray revealed only pulmonary edema. Urinalysis was equivocal. Incentive spirometer. She was empirically started on some Rocephin in order to ensure that she would be prepared for her procedure on Wednesday. Continue to follow cultures. White blood cell count had improved somewhat on 06/09/2020. She remained afebrile. Fully resolved by 06/10/2020. DVT prophylaxis-Lovenox FULL CODE
[2020-06-11] MEDS: Doxycycline 100 MG CAP PO SCH (21:33)
[2020-06-11] MEDS: Simvastatin 10 MG TAB PO SCH (21:33)
[2020-06-11] MEDS: Acetaminophen 325 MG TAB PO PRN (21:36)
--- NOTE | 2020-06-11 22:13 | EKG ---
Test Reason : STAT Blood Pressure : / mmHG Vent. Rate : 073 BPM Atrial Rate : 073 BPM P-R Int : 000 ms QRS Dur : 164 ms QT Int : 490 ms P-R-T Axes : 015 051 039 degrees QTc Int : 539 ms Ventricular-paced rhythm Abnormal ECG When compared with ECG of 30-MAY-2020 15:46, Electronic ventricular pacemaker has replaced Sinus rhythm Vent. rate has decreased BY 69 BPM Confirmed by Kodak ZAMORA ([id number]) on 06/11/2020 10:13:22 PM Referred By: CHRISTIAN Confirmed By:Kodak ZAMORA
--- NOTE | 2020-06-11 22:14 | EKG ---
Test Reason : Blood Pressure : / mmHG Vent. Rate : 094 BPM Atrial Rate : 094 BPM P-R Int : 146 ms QRS Dur : 150 ms QT Int : 440 ms P-R-T Axes : 082 019 060 degrees QTc Int : 550 ms Electronic ventricular pacemaker Confirmed by Kodak ZAMORA ([id number]) on 06/11/2020 10:14:02 PM Referred By: [facility] Confirmed By:Kodak ZAMORA
--- NOTE | 2020-06-11 22:18 | EKG ---
Test Reason : Blood Pressure : / mmHG Vent. Rate : 094 BPM Atrial Rate : 094 BPM P-R Int : 128 ms QRS Dur : 154 ms QT Int : 434 ms P-R-T Axes : 086 011 062 degrees QTc Int : 542 ms Electronic ventricular pacemaker When compared with ECG of 11-JUN-2020 07:47, (Unconfirmed) No significant change was found Confirmed by Kodak ZAMORA ([id number]) on 06/11/2020 10:18:22 PM Referred By: CHRISTIAN Confirmed By:Kodak ZAMORA
[2020-06-12 05:18] LABS: Anion Gap 16 mmol/L (10-20); BUN (Urea Nitrogen) 33 mg/dL (9.8-20.1); Calc. Creatinine Clearance 32 mL/min (70-130); Calcium 8.5 mg/dL (7.8-10.44); Carbon Dioxide 27 mmol/L (23-31); Chloride 93 mmol/L (98-107); Glucose 107 mg/dL (83-110); Potassium 3.8 mmol/L (3.5-5.1); Sodium 132 mmol/L (136-145)
[2020-06-12] MEDS ORDERED: Spironolactone 25 MG TAB PO SCH (08:00)
[2020-06-12] MEDS: Enoxaparin Sodium 30 MG/0.3 ML SYRINGE SC SCH (09:13)
[2020-06-12] MEDS: Doxycycline 100 MG CAP PO SCH ×2 (09:14→22:15)
[2020-06-12] MEDS: Hydroxyurea 500 MG CAP PO SCH (09:14)
[2020-06-12] MEDS: Bupropion 150 MG XL TAB PO SCH (09:14)
[2020-06-12] MEDS: Carvedilol 6.25 MG TAB PO SCH ×2 (09:15→15:56)
[2020-06-12] MEDS: Lisinopril 20 MG TAB PO SCH (09:15)
[2020-06-12] MEDS: Polyethylene Glycol 3350 17 GM Packet PO SCH (09:16)
[2020-06-12] MEDS: Amlodipine 10 MG TAB PO SCH (09:16)
[2020-06-12] MEDS: Aspirin 81 mg Enteric Coated Tablet PO SCH (09:16)
[2020-06-12] MEDS: Cholecalciferol 1,000 UNITS (25 MCG) TAB PO SCH (09:16)
--- NOTE | 2020-06-12 14:32 | PRG ---
DATE OF SERVICE: 06/12/2020 SUBJECTIVE: Ms. Bedolla feels miserable. She has no chest pain or pressure. Just "hurts all over." She is very weak. No chest pain or shortness of breath. OBJECTIVE: VITAL SIGNS: Blood pressure 145/65, pulse is in the 60s and it is paced . LUNGS: Clear anteriorly and laterally. CARDIAC: There is normal S1, normal S2. There is no murmur, rub, or gallop. ABDOMEN: Soft, nontender. EXTREMITIES: Warm and dry, both sides. ASSESSMENT: 1. Coronary artery disease, stable. No further intervention indicated. 2. Status post AV junction ablation and biventricular pacemaker. 3. Deconditioning. 4. Peripheral vascular disease with a severe stenosis in the right iliac, but remains asymptomatic. 5. Atrial fibrillation with previous Watchman in place, does not need full anticoagulation. PLAN: Consideration for placement for rehab, hopefully. Prognosis is guarded in this patient. Job ID: [id number]
--- NOTE | 2020-06-12 15:29 | PDOC.HOSPP ---
- Subjective Encounter Date: 06/12/20 Subjective: As per her baseline patient tells me she does not feel well but cannot tell me anything more specific than that. Looks like she did eat some breakfast. - Objective Vital Signs & Weight: Vital Signs (12 hours) Temp Pulse Resp BP BP BP Pulse Ox 06/12/20 11:49 98.3 F 63 16 145/65 H 95 06/12/20 09:16 61 06/12/20 08:00 97.6 F 61 18 128/78 98 06/12/20 04:00 97.6 F 60 20 142/64 H 96 Weight Admit Weight 136 lb 3.2 oz Weight 130 lb 5 oz I&O: 06/11/20 06/12/20 06/13/20 06:59 06:59 06:59 Intake Total 660 1230 Output Total 750 800 Balance -90 430 Result Diagrams: 06/10/20 03:56 06/12/20 04:39 Hospitalist ROS - Medication Medications: Active Medications Generic Name Dose Route Start Last Admin Trade Name Freq PRN Reason Stop Dose Admin Acetaminophen 650 mg 05/30/20 03:51 06/11/20 21:36 Acetaminophen 325 Mg Tab PO 650 mg Q4H PRN Administration Headache/Fever/Mild Pain (1-3) Albuterol/Ipratropium 3 ml 05/30/20 03:51 06/05/20 01:21 Ipratropium/Albuterol Sulfate 3 Ml Neb NEB 3 ml Q2H PRN Administration SOB &/or Wheezing Amlodipine Besylate 10 mg 06/11/20 09:00 06/12/20 09:16 Amlodipine 10 Mg Tab PO 10 mg DAILY [facility] Administration Aspirin 81 mg 05/30/20 09:00 06/12/20 09:16 Aspirin 81 Mg Enteric Coated Tablet PO 81 mg DAILY [facility] Administration Bupropion HCl 300 mg 05/30/20 09:00 06/12/20 09:14 Bupropion 150 Mg Xl Tab PO 300 mg DAILY [facility] Administration Carvedilol 12.5 mg 06/08/20 17:00 06/12/20 09:15 Carvedilol 6.25 Mg Tab PO 12.5 mg BID-[facility] Administration Cholecalciferol 2,000 units 05/30/20 09:00 06/12/20 09:16 Cholecalciferol 1,000 Units (25 Mcg) Tab PO 2,000 units DAILY [facility] Administration Clonidine 0.1 mg 05/30/20 03:51 06/05/20 18:41 Clonidine 0.1 Mg Tab PO 0.1 mg BIDPRN PRN Administration SBP > 160, use second Doxycycline Hyclate 100 mg 06/11/20 21:00 06/12/20 09:14 Doxycycline 100 Mg Cap PO 06/18/20 09:01 100 mg BID SOLO Administration Enoxaparin Sodium 30 mg 06/01/20 09:00 06/12/20 09:13 Enoxaparin Sodium 30 Mg/0.3 Ml Syringe SC 30 mg 0900 [facility] Administration Guaifenesin/Dextromethorphan 15 ml 05/30/20 03:51 06/07/20 21:21 Guaifenesin Dm 100-10/5 Ml Udcup PO 15 ml Q4H PRN Administration Cough Hydralazine HCl 10 mg 05/30/20 03:51 06/07/20 01:38 Hydralazine 20 Mg/Ml Vial SLOW IVP 10 mg Q6H PRN Administration SBP GREATER THAN 160 Hydroxyurea 500 mg 05/30/20 09:00 06/12/20 09:14 Hydroxyurea 500 Mg Cap PO 500 mg DAILY [facility] Administration Labetalol HCl 20 mg 05/30/20 03:51 06/10/20 22:07 Labetalol Hcl 100 Mg/20 Ml Vial SLOW IVP 4 ml Q4H PRN Administration SBP > 160, use first Lisinopril 20 mg 05/30/20 09:00 06/12/20 09:15 Lisinopril 20 Mg Tab PO 20 mg DAILY [facility] Administration Pantoprazole Sodium 40 mg 05/30/20 09:00 06/12/20 09:15 Pantoprazole 40 Mg Tab PO 40 mg DAILY [facility] Administration Polyethylene Glycol 17 gm 05/30/20 09:00 06/12/20 09:16 Polyethylene Glycol 3350 17 Gm Packet PO Not Given DAILY [facility] Simvastatin 10 mg 05/30/20 21:00 06/11/20 21:33 Simvastatin 10 Mg Tab PO 10 mg HS SOLO Administration Hospitalist Exam Vitals: Vital Signs (12 hours) Temp Pulse Resp BP BP BP Pulse Ox 06/12/20 11:49 98.3 F 63 16 145/65 H 95 06/12/20 09:16 61 06/12/20 08:00 97.6 F 61 18 128/78 98 06/12/20 04:00 97.6 F 60 20 142/64 H 96 Weight Admit Weight 136 lb 3.2 oz Weight 130 lb 5 oz General Appearance: NAD, awake alert Heart: RRR, no murmur, no gallops, no rubs, normal peripheral pulses Respiratory: CTAB, no wheezes, no rales, no ronchi, normal chest expansion, no tachypnea, normal percussion Gastrointestinal: soft, non-tender, non-distended, normal bowel sounds, no palpable masses Extremities: no cyanosis, no clubbing, no edema Skin: normal turgor Neurological: no focal deficits Musculoskeletal: generalized weakness Psychiatric: flat affect, somnolent Hosp A/P - Plan 79F with PMhx CAD s/p CABG, atrial fibrillation s/p multiple ablations, cardioversions and watchamn, CHF, dementia HTN, falls who presented to the ER for a fall found to have hypertensive urgency, multiple atrial arrhythmias now with plans for L atrial ablation and PM placement. 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 HR elevated to 140s junctional rhythm. NSR with some ectopy after initiating cardizem drip. Unable to tolerate amiodarone 2/ concern for pulmonary side effects or Multaq. AV node ablation and PM with Dr. Hamilton on 06/10/2020. On 06/11/2020 the patient was noted to go back into regular tachycardia with a rate around 120. Chest x-ray was clear. EKG showed paced rhythm. EP was made aware. The rep came and reprogram the pacer. Appears to have good rate control again at this time. Patient was placed on doxycycline post pacemaker placement. Stable subsequent. Diastolic Heart Failure EF 55-60%. Continue ASA, statin, Coreg, Lisinopril. Pt on home torsemide and metolazone which are being held. Appears generally euvolemic. On 06/08/2020 the patient's BNP was elevated a bit. Cardiology following. Diuretics were resumed on 06/08/2020 once the patient appeared to be slightly volume overloaded again. Aldactone was added on 06/11/2020 by cardiology. Patient had a little prerenal azotemia on 06/12/2020. IV torsemide was discontinued. Oral torsemide at her home dose will resume on 06/13/2020. Hypertensive Urgency Presented with HTN urgency Improved with the Cardizem gtt. With her pressure still running somewhat high her carvedilol dose was increased on 06/08/2020. Had amlodipine added. Diltiazem drip was discontinued on 06/10/2020 after ablation. Amlodipine increased to 10 mg daily on 06/11/2020 as the blood pressure continued to be a bit high after cessation of the diltiazem drip. 06/12/2020 her blood pressure appears to be generally stable on the carvedilol, lisinopril and amlodipine. CAD Heart cath done on 05/30 found 3v CAD with 60% stenosis to LAD, 100% stenosis to Prox Cx and 100% stenosis of Prox RCA not amenable to intervention. Medical management. Continue ASA, statin, Coreg, Lisinopril. Cardiology following Dementia Patient and family report worsening memory problems over the past few months. Continue reorienting measures. Over the patient's daughter on 06/06/2020. She was in the room visiting at the time. She is concerned her mother is having a little bit of hospital psychoses making her situation a bit worse. She has declined some therapy previously. She did have some therapy on 06/07. Physical therapy continue to try to work with the patient. At times the patient was declining to do out of bed activities because she reported being cold. Generalized Weakness Multifactorial likely 2/2 deconditioning, recurrent arrhythmias and mild exacerbation of HF on presentation. Patient was initially on Levaquin for suspcion of pumonary infection, however pt has remained afebrile with no SOB, and no leukocytosis. Antibiotics were DC'd on 06/05. On 06/06/2020 patient's daughter felt like the patient would ultimately need to have some rehab prior to going home due to her general debility. Follow-up with physical therapy indicated the patient was requiring significant assistance from sitting to standing and long-term rehab was recommended. Leukocytosis Patient had surveillance labs repeated on 06/08/2020. She has mild leukocytosis with a white count of 13.6. Her exam did not reveal any specific source of possible infection. She apparently did report some cough. Patient's daughter tells me she has been coughing for several days. Chest x-ray revealed only pulmonary edema. Urinalysis was equivocal. Incentive spirometer. She was empirically started on some Rocephin in order to ensure that she would be prepared for her procedure on Wednesday. Continue to follow cultures. White blood cell count had improved somewhat on 06/09/2020. She remained afebrile. Fully resolved by 06/10/2020. DVT prophylaxis-Lovenox FULL CODE Disposition: Had a conversation with the patient's daughter on the evening of 06/12/2020 as she was here visiting the patient. We will ensure stability of her blood pressure and heart rate and anticipate getting her transferred to a rehab facility. We discussed the fact that the patient has been refusing to get up with physical therapy reporting that she felt cold. Therefore they were only able to do some bed exercises with her at this point. Patient's daughter strongly encouraged the patient to work better with PT. Patient should be stable for discharge on 06/13/2020.
--- NOTE | 2020-06-12 15:36 | PDOC.EP ---
- Subjective Date: 06/12/20 Time: 08:00 Interval History: unchanged. does not feel well but cannot specify why or what is wrong. - Review of Systems Constitutional: reports: weakness. denies: chills, fever, malaise Cardiology: denies: chest pain, edema, heart racing, light headedness Gastrointestinal: denies: abdominal pain, constipation Musculoskeletal: denies: neck pain - Objective Allergies/Adverse Reactions: Allergies Allergy/AdvReac Type Severity Reaction Status Date / Time adhesive Allergy rash, Verified 05/30/20 03:20 blisters erythromycin base Allergy Rash Verified 05/30/20 03:20 Penicillins Allergy Verified 05/30/20 03:20 Current Medications Acetaminophen (Acetaminophen 325 Mg Tab) 650 mg PO Q4H PRN PRN Reason: Headache/Fever/Mild Pain (1-3) Last Admin: 06/11/20 21:36 Dose: 650 mg Documented by: Acetaminophen/Codeine Phosphate (Acetaminophen/Codeine 30-300mg Tablet) 1 tab PO Q4H PRN PRN Reason: Mild Pain (1-3) Albuterol/Ipratropium (Ipratropium/Albuterol Sulfate 3 Ml Neb) 3 ml NEB Q2H PRN PRN Reason: SOB &/or Wheezing Last Admin: 06/05/20 01:21 Dose: 3 ml Documented by: Amlodipine Besylate (Amlodipine 10 Mg Tab) 10 mg PO DAILY [facility] Last Admin: 06/12/20 09:16 Dose: 10 mg Documented by: Aspirin (Aspirin 81 Mg Enteric Coated Tablet) 81 mg PO DAILY [facility] Last Admin: 06/12/20 09:16 Dose: 81 mg Documented by: Bupropion HCl (Bupropion 150 Mg Xl Tab) 300 mg PO DAILY [facility] Last Admin: 06/12/20 09:14 Dose: 300 mg Documented by: Carvedilol (Carvedilol 6.25 Mg Tab) 12.5 mg PO BID-[facility] Last Admin: 06/12/20 09:15 Dose: 12.5 mg Documented by: Cholecalciferol (Cholecalciferol 1,000 Units (25 Mcg) Tab) 2,000 units PO DAILY [facility] Last Admin: 06/12/20 09:16 Dose: 2,000 units Documented by: Clonidine (Clonidine 0.1 Mg Tab) 0.1 mg PO BIDPRN PRN PRN Reason: SBP > 160, use second Last Admin: 06/05/20 18:41 Dose: 0.1 mg Documented by: Doxycycline Hyclate (Doxycycline 100 Mg Cap) 100 mg PO BID [facility] Stop: 06/18/20 09:01 Last Admin: 06/12/20 09:14 Dose: 100 mg Documented by: Enoxaparin Sodium (Enoxaparin Sodium 30 Mg/0.3 Ml Syringe) 30 mg SC 0900 [facility] Last Admin: 06/12/20 09:13 Dose: 30 mg Documented by: Guaifenesin/Dextromethorphan (Guaifenesin Dm 100-10/5 Ml Udcup) 15 ml PO Q4H PRN PRN Reason: Cough Last Admin: 06/07/20 21:21 Dose: 15 ml Documented by: Hydralazine HCl (Hydralazine 20 Mg/Ml Vial) 10 mg SLOW IVP Q6H PRN PRN Reason: SBP GREATER THAN 160 Last Admin: 06/07/20 01:38 Dose: 10 mg Documented by: Hydroxyurea (Hydroxyurea 500 Mg Cap) 500 mg PO DAILY [facility] Last Admin: 06/12/20 09:14 Dose: 500 mg Documented by: Promethazine HCl 12.5 mg/ (Sodium Chloride) 50.5 mls @ 202 mls/hr IVPB Q6H PRN PRN Reason: Nausea/vomiting, use second Labetalol HCl (Labetalol Hcl 100 Mg/20 Ml Vial) 20 mg SLOW IVP Q4H PRN PRN Reason: SBP > 160, use first Last Admin: 06/10/20 22:07 Dose: 4 ml Documented by: Lisinopril (Lisinopril 20 Mg Tab) 20 mg PO DAILY [facility] Last Admin: 06/12/20 09:15 Dose: 20 mg Documented by: Miscellaneous Medication (Electrolyte Replacement Protocol 1 Each) 1 each FS ASDIR [facility] Nitroglycerin (Nitroglycerin 0.4 Mg Tab (25 Tab Bottle)) 0.4 mg SL Q5MIN PRN PRN Reason: Chest Pain Ondansetron HCl (Ondansetron Pf 4 Mg/2 Ml Vial) 4 mg IVP Q6H PRN PRN Reason: Nausea/Vomiting, use 1st Pantoprazole Sodium (Pantoprazole 40 Mg Tab) 40 mg PO DAILY [facility] Last Admin: 06/12/20 09:15 Dose: 40 mg Documented by: Polyethylene Glycol (Polyethylene Glycol 3350 17 Gm Packet) 17 gm PO DAILY [facility] Last Admin: 06/12/20 09:16 Dose: Not Given Documented by: Simvastatin (Simvastatin 10 Mg Tab) 10 mg PO HS [facility] Last Admin: 06/11/20 21:33 Dose: 10 mg Documented by: Sodium Chloride (Flush - Normal Saline 10 Ml Syringe) 10 ml IVF PRN PRN PRN Reason: Saline Flush Torsemide (Torsemide 20 Mg Tab) 20 mg PO DAILY [facility] Vital Signs & Weight: Vital Signs Temp Pulse Resp BP BP BP Pulse Ox 06/12/20 11:49 98.3 F 63 16 145/65 H 95 06/12/20 09:16 61 06/12/20 08:00 97.6 F 61 18 128/78 98 06/12/20 04:00 97.6 F 60 20 142/64 H 96 Admit Weight 136 lb 3.2 oz Weight 130 lb 5 oz I/O: I/O 06/11/20 06/12/20 06/13/20 06:59 06:59 06:59 Intake Total 660 1230 Output Total 750 800 Balance -90 430 - Quality Measures Condition: Atrial Fibrillation/Flutter (hx or current) - Medication Contraindications No Anticoagulant reason: Treatment not indicated (s/p watchman) - Physical Exam General: appears well, no apparent distress, speech clear. negative: affect appropriate HEENT: mucus membranes moist, normocephaly Neck: supple neck, midline trachea, no JVD/HJR Cardiology: regular rate and rhythm, no murmur, PMI nondisplaced Lungs: clear to auscultation, normal breath sounds, no wheeze, rales, rhonchi Neurology: cranial nerve 2-12 intact, grossly intact, no lateralizing findings Abdomen: unremarkable, active bowel sounds, no pulsations/bruits - Labs Result Diagrams: 06/10/20 03:56 06/12/20 04:39 - EKG Interpretation EKG Method: Telemetry EKG shows: Sinus rhythm - Device Device: biventricular, pacemaker Device Result: [employer] - Assessment/Plan Assessment/Plan: 1. recurrent atrial arrhythmias -failed multaq -amiodarone not favored snf with pulmonary concerns 2. Watchman- no OAC needed for AFib 3. diastolic heart failure -LVEF 55-60% 4. CKD 5. Tachy marianne syndrome 6. Complete heart block s/p AV node ablation 06/10/20 7. Permanent pacemaker - implant 06/10/20 - multi lead left bundle pacer - CXR stable post implant/no hematoma. PO anbx ordered to begin after ceft is stopped. In Sinus rhythm today. pacemaker mediated tachycardia yesterday during 2:1 flutter with 1st P wave falling in the blanking zone. Device reprogrammed and no further tachycardia on tele. Rhythm stable. OK for DC by EP with PO anbx x 7 days. Continue ASA post watchman, no NOAC needed. 2 week wound check will be arranged.
[2020-06-12] MEDS: Acetaminophen 325 MG TAB PO PRN (18:06)
[2020-06-12] MEDS: Simvastatin 10 MG TAB PO SCH (22:16)
[2020-06-13 05:09] LABS: Anion Gap 8 mmol/L (10-20); BUN (Urea Nitrogen) 39 mg/dL (9.8-20.1); Calc. Creatinine Clearance 33 mL/min (70-130); Calcium 8.6 mg/dL (7.8-10.44); Carbon Dioxide 35 mmol/L (23-31); Chloride 94 mmol/L (98-107); Glucose 104 mg/dL (83-110); Potassium 3.1 mmol/L (3.5-5.1); Sodium 134 mmol/L (136-145)
[2020-06-13] MEDS ORDERED: Potassium Chloride 20 MEQ TAB PO SCH (05:45)
[2020-06-13] MEDS ORDERED: Torsemide 20 MG TAB PO SCH (09:00)
--- NOTE | 2020-06-13 09:22 | PRG ---
DATE OF SERVICE: 06/13/2020 SUBJECTIVE: Ms. Bedolla is very inactive. She said everything hurts. She remains very thirsty. OBJECTIVE: VITAL SIGNS: Her blood pressure is 138/80, pulse is 84 and regular. LUNGS: Clear. CARDIAC: Normal S1, normal S2. ABDOMEN: Soft, nontender. EXTREMITIES: There is no edema. Femoral pulses are palpable, but weak on the right side. SKIN: Warm and dry. ASSESSMENT: 1. Status post biventricular pacemaker insertion and AV junction ablation. 2. Peripheral vascular disease. 3. Coronary artery disease. 4. Deconditioning. 5. Chronic atrial fibrillation. 6. Previous Watchman. PLAN: 1. Try to mobilize the patient, she is extremely inactive. 2. We will look for placement to try to help the patient recover. Job ID: [id number]
[2020-06-13] MEDS: Bupropion 150 MG XL TAB PO SCH (09:38)
[2020-06-13] MEDS: Enoxaparin Sodium 30 MG/0.3 ML SYRINGE SC SCH (09:38)
[2020-06-13] MEDS: Cholecalciferol 1,000 UNITS (25 MCG) TAB PO SCH (09:38)
[2020-06-13] MEDS: Aspirin 81 mg Enteric Coated Tablet PO SCH (09:38)
[2020-06-13] MEDS: Lisinopril 20 MG TAB PO SCH (09:39)
[2020-06-13] MEDS: Amlodipine 10 MG TAB PO SCH (09:39)
[2020-06-13] MEDS: Carvedilol 6.25 MG TAB PO SCH (09:39)
[2020-06-13] MEDS: Hydroxyurea 500 MG CAP PO SCH (09:40)
[2020-06-13] MEDS: Doxycycline 100 MG CAP PO SCH (09:40)
[2020-06-13] MEDS: Polyethylene Glycol 3350 17 GM Packet PO SCH (09:40)
[2020-06-13 16:03] VITALS: BP 110/55; TEMP 98.5
--- NOTE | 2020-06-13 16:38 | PDOC.EP ---
- Subjective Date: 06/13/20 Time: 08:00 Interval History: no events overnight. HR stable in SR but now frequent PVCs. doesn't appear symptomatic with these - Review of Systems Constitutional: reports: malaise, weakness. denies: chills, fever, sweats Respiratory: reports: cough. denies: dry, hemoptysis, pleuritic pain, shortness of breath Cardiology: denies: chest pain, edema, heart racing, light headedness Gastrointestinal: denies: abdominal pain, constipation, diarrhea - Objective Allergies/Adverse Reactions: Allergies Allergy/AdvReac Type Severity Reaction Status Date / Time adhesive Allergy rash, Verified 05/30/20 03:20 blisters erythromycin base Allergy Rash Verified 05/30/20 03:20 Penicillins Allergy Verified 05/30/20 03:20 Current Medications Acetaminophen (Acetaminophen 325 Mg Tab) 650 mg PO Q4H PRN PRN Reason: Headache/Fever/Mild Pain (1-3) Last Admin: 06/12/20 18:06 Dose: 650 mg Documented by: Acetaminophen/Codeine Phosphate (Acetaminophen/Codeine 30-300mg Tablet) 1 tab PO Q4H PRN PRN Reason: Mild Pain (1-3) Last Admin: 06/13/20 09:46 Dose: 1 tab Documented by: Albuterol/Ipratropium (Ipratropium/Albuterol Sulfate 3 Ml Neb) 3 ml NEB Q2H PRN PRN Reason: SOB &/or Wheezing Last Admin: 06/05/20 01:21 Dose: 3 ml Documented by: Amlodipine Besylate (Amlodipine 10 Mg Tab) 10 mg PO DAILY [facility] Last Admin: 06/13/20 09:39 Dose: 10 mg Documented by: Aspirin (Aspirin 81 Mg Enteric Coated Tablet) 81 mg PO DAILY [facility] Last Admin: 06/13/20 09:38 Dose: 81 mg Documented by: Bupropion HCl (Bupropion 150 Mg Xl Tab) 300 mg PO DAILY [facility] Last Admin: 06/13/20 09:38 Dose: 300 mg Documented by: Carvedilol (Carvedilol 6.25 Mg Tab) 12.5 mg PO BID-[facility] Last Admin: 06/13/20 09:39 Dose: 12.5 mg Documented by: Cholecalciferol (Cholecalciferol 1,000 Units (25 Mcg) Tab) 2,000 units PO DAILY [facility] Last Admin: 06/13/20 09:38 Dose: 2,000 units Documented by: Clonidine (Clonidine 0.1 Mg Tab) 0.1 mg PO BIDPRN PRN PRN Reason: SBP > 160, use second Last Admin: 06/05/20 18:41 Dose: 0.1 mg Documented by: Doxycycline Hyclate (Doxycycline 100 Mg Cap) 100 mg PO BID [facility] Stop: 06/18/20 09:01 Last Admin: 06/13/20 09:40 Dose: 100 mg Documented by: Enoxaparin Sodium (Enoxaparin Sodium 30 Mg/0.3 Ml Syringe) 30 mg SC 0900,2100 [facility] Guaifenesin/Dextromethorphan (Guaifenesin Dm 100-10/5 Ml Udcup) 15 ml PO Q4H PRN PRN Reason: Cough Last Admin: 06/07/20 21:21 Dose: 15 ml Documented by: Hydralazine HCl (Hydralazine 20 Mg/Ml Vial) 10 mg SLOW IVP Q6H PRN PRN Reason: SBP GREATER THAN 160 Last Admin: 06/07/20 01:38 Dose: 10 mg Documented by: Hydroxyurea (Hydroxyurea 500 Mg Cap) 500 mg PO DAILY [facility] Last Admin: 06/13/20 09:40 Dose: 500 mg Documented by: Promethazine HCl 12.5 mg/ (Sodium Chloride) 50.5 mls @ 202 mls/hr IVPB Q6H PRN PRN Reason: Nausea/vomiting, use second Labetalol HCl (Labetalol Hcl 100 Mg/20 Ml Vial) 20 mg SLOW IVP Q4H PRN PRN Reason: SBP > 160, use first Last Admin: 06/10/20 22:07 Dose: 4 ml Documented by: Lisinopril (Lisinopril 20 Mg Tab) 20 mg PO DAILY [facility] Last Admin: 06/13/20 09:39 Dose: 20 mg Documented by: Miscellaneous Medication (Electrolyte Replacement Protocol 1 Each) 1 each FS ASDIR [facility] Nitroglycerin (Nitroglycerin 0.4 Mg Tab (25 Tab Bottle)) 0.4 mg SL Q5MIN PRN PRN Reason: Chest Pain Ondansetron HCl (Ondansetron Pf 4 Mg/2 Ml Vial) 4 mg IVP Q6H PRN PRN Reason: Nausea/Vomiting, use 1st Pantoprazole Sodium (Pantoprazole 40 Mg Tab) 40 mg PO DAILY [facility] Last Admin: 06/13/20 09:39 Dose: 40 mg Documented by: Polyethylene Glycol (Polyethylene Glycol 3350 17 Gm Packet) 17 gm PO DAILY [facility] Last Admin: 06/13/20 09:40 Dose: 17 gm Documented by: Simvastatin (Simvastatin 10 Mg Tab) 10 mg PO HS [facility] Last Admin: 06/12/20 22:16 Dose: 10 mg Documented by: Sodium Chloride (Flush - Normal Saline 10 Ml Syringe) 10 ml IVF PRN PRN PRN Reason: Saline Flush Torsemide (Torsemide 20 Mg Tab) 20 mg PO DAILY [facility] Last Admin: 06/13/20 09:40 Dose: 20 mg Documented by: Vital Signs & Weight: Vital Signs Temp Pulse Pulse Resp BP BP Pulse Ox 06/13/20 16:00 98.5 F 77 18 110/55 L 99 06/13/20 12:00 97.8 F 75 16 131/60 99 06/13/20 10:48 85 124/60 06/13/20 09:39 84 06/13/20 08:00 98.2 F 84 18 138/82 98 Pulse Ox 06/13/20 16:00 06/13/20 12:00 06/13/20 10:48 97 06/13/20 09:39 06/13/20 08:00 Admit Weight 136 lb 3.2 oz Weight 133 lb 4 oz I/O: I/O 06/12/20 06/13/20 06/14/20 06:59 06:59 06:59 Intake Total 1230 1200 Output Total 800 325 Balance 430 875 - Quality Measures Condition: Atrial Fibrillation/Flutter (hx or current) - Medication Contraindications No Anticoagulant reason: Treatment not indicated (s/p watchman) - Physical Exam General: no apparent distress, speech clear. negative: affect appropriate HEENT: mucus membranes moist, normocephaly Neck: supple neck, midline trachea, no JVD/HJR, no lymphadenopathy Cardiology: regular rate and rhythm, no murmur, PMI nondisplaced Lungs: clear to auscultation, normal breath sounds, no wheeze, rales, rhonchi Neurology: cranial nerve 2-12 intact, grossly intact, no lateralizing findings - Labs Result Diagrams: 06/10/20 03:56 06/13/20 04:09 - EKG Interpretation EKG Method: Telemetry EKG shows: Sinus rhythm - Device Device: biventricular, pacemaker Device Result: [employer] - Assessment/Plan Assessment/Plan: 1. recurrent atrial arrhythmias -failed multaq -amiodarone not favored emt intermediate with pulmonary concerns 2. Watchman- no OAC needed for AFib 3. diastolic heart failure -LVEF 55-60% 4. CKD 5. Tachy marianne syndrome 6. Complete heart block s/p AV node ablation 06/10/20 7. Permanent pacemaker - implant 06/10/20 - multi lead left bundle pacer - CXR stable post implant/no hematoma. PO anbx ordered to begin after ceft is stopped. In Sinus rhythm with frequent PVCs today, often trigeminy. Lower rate limit increased to 75bpm which may capture some of this ectopy. Will also increase coreg, BP permitting. OK for DC by EP with PO anbx x 7 days. Continue ASA post watchman, no NOAC needed. 2 week wound check will be arranged.
--- NOTE | 2020-06-13 18:10 | PDOC.DS.DS ---
Provider Date of Admission: 05/30/20 06:10 Date of Discharge: 06/13/20 Admitting Provider: Abimael Mcmahon MD Consultations: Cardiology, Electrophysiology Primary Care Physician: Jeronimo Bingham MD Course Hospital Course: 79F with PMhx CAD s/p CABG, atrial fibrillation s/p multiple ablations, car dioversions and watchamn, CHF, dementia HTN, falls who presented to the ER for a fall found to have hypertensive urgency, multiple atrial arrhythmias now with plans for L atrial ablation and PM placement. 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 HR elevated to 140s junctional rhythm. NSR with some ectopy after initiating cardizem drip. Unable to tolerate amiodarone 05/21 concern for pulmonary side effects or Multaq. AV node ablation and PM with Dr. Hamilton on 06/10/2020. On 06/11/2020 the patient was noted to go back into regular tachycardia with a rate around 120. Chest x-ray was clear. EKG showed paced rhythm. EP was made aware. The rep came and reprogram the pacer. Appears to have good rate control again at this time. Patient was placed on doxycycline post pacemaker placement. Stable subsequent. Diastolic Heart Failure EF 55-60%. Continue ASA, statin, Coreg, Lisinopril. Pt on home torsemide and metolazone which are being held. Appears generally euvolemic. On 06/08/2020 the patient's BNP was elevated a bit. Cardiology following. Diuretics were resumed on 06/08/2020 once the patient appeared to be slightly volume overloaded again. Aldactone was added on 06/11/2020 by cardiology. Patient had a little prerenal azotemia on 06/12/2020. IV torsemide was discontinued. Oral torsemide at her home dose will resume on 06/13/2020. Hypertensive Urgency Presented with HTN urgency Improved with the Cardizem gtt. With her pressure still running somewhat high her carvedilol dose was increased on 06/08/2020. Had amlodipine added. Diltiazem drip was discontinued on 06/10/2020 after ablation. Amlodipine increased to 10 mg daily on 06/11/2020 as the blood pressure continued to be a bit high after cessation of the diltiazem drip. 06/12/2020 her blood pressure appears to be generally stable on the carvedilol, lisinopril and amlodipine. CAD Heart cath done on 05/30 found 3v CAD with 60% stenosis to LAD, 100% stenosis to Prox Cx and 100% stenosis of Prox RCA not amenable to intervention. Medical management. Continue ASA, statin, Coreg, Lisinopril. Cardiology followed Dementia Patient and family report worsening memory problems over the past few months. Continue reorienting measures. Over the patient's daughter on 06/06/2020. She was in the room visiting at the time. She is concerned her mother is having a little bit of hospital psychoses making her situation a bit worse. Patient continued to report feeling poorly but was never able to give any specific details on why she felt that way. There was some challenges with getting her going with physical therapy related to this. Generalized Weakness Multifactorial likely 2/2 deconditioning, recurrent arrhythmias and mild exacerbation of HF on presentation. Patient was initially on Levaquin for suspcion of pumonary infection, however pt has remained afebrile with no SOB, and no leukocytosis. Antibiotics were DC'd on 06/05. On 06/06/2020 patient's daughter felt like the patient would ultimately need to have some rehab prior to going home due to her general debility. Follow-up with physical therapy indicated the patient was requiring significant assistance from sitting to standing and long term rehab was recommended. She has declined some therapy previously. She did have some therapy on 06/07. Physical therapy continue to try to work with the patient. At times the patient was declining to do out of bed activities because she reported being cold. Ultimately, by 06-13-2020 patient was able to get up with physical therapy with a walker. Disposition will be for rehab. Leukocytosis Patient had surveillance labs repeated on 06/08/2020. She has mild leukocytosis with a white count of 13.6. Her exam did not reveal any specific source of possible infection. She apparently did report some cough. Patient's daughter tells me she has been coughing for several days. Chest x-ray revealed only pulmonary edema. Urinalysis was equivocal. Incentive spirometer. She was empirically started on some Rocephin in order to ensure that she would be prepared for her procedure on Wednesday. Continue to follow cultures. White blood cell count had improved somewhat on 06/09/2020. She remained afebrile. Fully resolved by 06/10/2020. Resuscitation Status: 05/30/20 03:51 Resuscitation Status Routine Resuscitation Status: FULL: Full Resuscitation Lab Results: 06/10/20 03:56 06/13/20 04:09 Abnormal Lab Results - Last 48 hrs 06/12/20 04:39: Sodium 132 L, Chloride 93 L, BUN 33 H, Creatinine 1.38 H 06/13/20 04:09: Sodium 134 L, Potassium 3.1 L, Chloride 94 L, Carbon Dioxide 35 H, Anion Gap 8 L, BUN 39 H, Creatinine 1.32 H Microbiology - Entire Visit 06/08/20 22:03 Urine clean catch Urine Culture - Final 05/29/20 23:38 Venous blood - Right Arm Blood Culture - Final NO GROWTH IN 5 DAYS 05/29/20 23:32 Venous blood - Left Hand Blood Culture - Final NO GROWTH IN 5 DAYS 05/29/20 23:16 Urine voided Urine Culture - Final NO GROWTH AT 48 HOURS Vitals: Vital Signs (12 hours) Temp Pulse Pulse Resp BP BP Pulse Ox 06/13/20 16:00 98.5 F 77 18 110/55 L 99 06/13/20 12:00 97.8 F 75 16 131/60 99 06/13/20 10:48 85 124/60 06/13/20 09:39 84 06/13/20 08:00 98.2 F 84 18 138/82 98 Pulse Ox 06/13/20 16:00 06/13/20 12:00 06/13/20 10:48 97 06/13/20 09:39 06/13/20 08:00 Weight Admit Weight 136 lb 3.2 oz Weight 133 lb 4 oz Physical Exam: The patient was seen and examined on the day of discharge. General Appearance: NAD, awake alert Respiratory: no wheezes, no ronchi, rales (Very minimal at the bases.) Cardiovascular: RRR, no murmur, no gallops, no rubs Gastrointestinal: soft, non-tender, non-distended, normal bowel sounds Extremities: no cyanosis, no clubbing, no edema Skin: normal turgor Musculoskeletal: generalized weakness PSYCH: flat affect Plan Home Medications: Medication Instructions Recorded Confirmed Type Cholecalciferol (Vitamin D3) 2,000 unit PO DAILY 02/05/16 05/30/20 History [Vitamin D3] Pravastatin Sodium 20 mg PO HS 02/05/16 05/30/20 History Torsemide 1 tab PO DAILY 10/26/19 05/30/20 History BuPROPion XL [Wellbutrin XL] 300 mg PO DAILY 12/28/19 05/30/20 History Potassium Chloride 10 meq PO BID-WM 12/28/19 05/30/20 History Aspirin [Ecotrin Low Strength] 81 mg PO DAILY tab 01/10/20 05/30/20 Rx Hydroxyurea [Hydrea] 500 mg PO DAILY 05/21/20 05/30/20 History Multivitamin 1 each PO DAILY 05/21/20 05/30/20 History Lisinopril [Prinivil] 10 mg PO DAILY #30 tablet 05/24/20 05/30/20 Rx Acetaminophen W/ Codeine 1 tab PO Q4H PRN tab 06/13/20 Rx [Acetaminophen/Codeine #3] Acetaminophen [Tylenol Regular 650 mg PO Q4H PRN tab 06/13/20 Rx Strength] Amlodipine [Norvasc] 10 mg PO DAILY tab 06/13/20 Rx Carvedilol [Coreg] 12.5 mg PO BID-WM tab 06/13/20 Rx Doxycycline [Vibramycin] 100 mg PO BID cap 06/13/20 Rx Enoxaparin Sodium [Lovenox] 30 mg SC 0900,2100 syringe 06/13/20 Rx Ipratropium/Albuterol Sulfate 3 ml NEB Q2H PRN neb 06/13/20 Rx [DuoNeb] Nitroglycerin [Nitrostat] 0.4 mg SL Q5MIN PRN tab 06/13/20 Rx Pantoprazole [Protonix] 40 mg PO DAILY tab 06/13/20 Rx Polyethylene Glycol 3350 [Miralax] 17 gm PO DAILY pk 06/13/20 Rx Allergies: adhesive Allergy (Verified 05/30/20 03:20) rash, blisters erythromycin base Allergy (Verified 05/30/20 03:20) Rash Penicillins Allergy (Verified 05/30/20 03:20) Discharge Instructions:: Discontinue the Doxycycline after 06/18/20. Check potassium level 06/14/20. (3.1 on 06/13, given 40 meq orally). Activity:: Activity as Tolerated Nourishment:: Heart Healthy Diet, Low Sodium Diet Fluid Restrictions:: 2000 ml / day Therapies:: Occupational Therapy, Physical Therapy Referrals: [facility], [facility] [Other] (Alf Placement.) Card[facility] Re[facility] - [facility] [Outside] - 7 Days (Your doctor has ordered outpatient cardiac rehab for you to begin within 1-2 weeks after you go home from the hospital. The location nearest to you is the [facility]. The front office in [place] will call you in 3-5 days to get you scheduled for your evaluation. If you do not receive a call, please reach out to us at [phone] and request an appointment. ) David Hamilton MD [Cloud Administrator] - (2 week wound check [phone]) Jeronimo Bingham MD [Primary Care Provider] - Benji Salter MD [Active] - 3-4 Weeks (Please call for a follow up appointment.) Disposition: [facility] Quality CORE MEASURES:: N/A
[2020-06-13] MEDS ORDERED: Carvedilol 6.25 MG TAB PO SCH (21:00)
[2020-06-13] MEDS ORDERED: Enoxaparin Sodium 30 MG/0.3 ML SYRINGE SC SCH (21:00)
== END 2020-06-13 17:40 | DRG 242 ==
LOC: ERS 20:23 → 2NO 05-30 00:35 → OBSVTOIN 05-30 06:10
PROVIDERS: ADMIT Internal Medicine; ATTEND Internal Medicine
PROC: 4A023N7 Measurement of Cardiac Sampling and Pressure, Left Heart, Percutaneous Approach (ICD-10-PCS; principal; 2020-05-31)
PROC: B2181ZZ Fluoroscopy of Left Internal Mammary Bypass Graft using Low Osmolar Contrast (ICD-10-PCS; 2020-05-31)
PROC: B2111ZZ Fluoroscopy of Multiple Coronary Arteries using Low Osmolar Contrast (ICD-10-PCS; 2020-05-31)
PROC: B2151ZZ Fluoroscopy of Left Heart using Low Osmolar Contrast (ICD-10-PCS; 2020-05-31)
PROC: 4A033BC Measurement of Arterial Pressure, Coronary, Percutaneous Approach (ICD-10-PCS; 2020-05-31)
PROC: 0JH607Z Insertion of Cardiac Resynchronization Pacemaker Pulse Generator into Chest Subcutaneous Tissue and Fascia, Open Approach (ICD-10-PCS; 2020-06-10)
PROC: 02HL3JZ Insertion of Pacemaker Lead into Left Ventricle, Percutaneous Approach (ICD-10-PCS; 2020-06-10)
PROC: 02583ZZ Destruction of Conduction Mechanism, Percutaneous Approach (ICD-10-PCS; 2020-06-10)
PROC: 02H63JZ Insertion of Pacemaker Lead into Right Atrium, Percutaneous Approach (ICD-10-PCS; 2020-06-10)
PROC: 02K83ZZ Map Conduction Mechanism, Percutaneous Approach (ICD-10-PCS; 2020-06-10)
PROC: 3E033XZ Introduction of Vasopressor into Peripheral Vein, Percutaneous Approach (ICD-10-PCS; 2020-06-10)
PROC: 02HK3JZ Insertion of Pacemaker Lead into Right Ventricle, Percutaneous Approach (ICD-10-PCS; 2020-06-10)
DX: I13.0 Hypertensive heart and chronic kidney disease with heart failure and stage 1 through stage 4 chronic kidney disease, or unspecified chronic kidney disease (principal); I50.33 Acute on chronic diastolic (congestive) heart failure; I21.4 Non-ST elevation (NSTEMI) myocardial infarction; E87.1 Hypo-osmolality and hyponatremia; R64 Cachexia; F03.91 Unspecified dementia, unspecified severity, with behavioral disturbance; I44.2 Atrioventricular block, complete; Z20.822 Contact with and (suspected) exposure to COVID-19; D47.3 Essential (hemorrhagic) thrombocythemia; W18.11XA Fall from or off toilet without subsequent striking against object, initial encounter; S01.01XA Laceration without foreign body of scalp, initial encounter; I25.10 Atherosclerotic heart disease of native coronary artery without angina pectoris; N18.30 Chronic kidney disease, stage 3 unspecified; I16.0 Hypertensive urgency; I08.1 Rheumatic disorders of both mitral and tricuspid valves; E87.6 Hypokalemia; I27.20 Pulmonary hypertension, unspecified; I48.0 Paroxysmal atrial fibrillation; G47.33 Obstructive sleep apnea (adult) (pediatric); I49.5 Sick sinus syndrome; I73.9 Peripheral vascular disease, unspecified; Z95.1 Presence of aortocoronary bypass graft; Z88.0 Allergy status to penicillin; Z88.1 Allergy status to other antibiotic agents; Z91.040 Latex allergy status; Z98.51 Tubal ligation status; Z87.891 Personal history of nicotine dependence; Z68.22 Body mass index [BMI] 22.0-22.9, adult
CPT/HCPCS: 33208; 33225; 36415; 36416; 70450; 71045; 72170; 76942; 80048; 80053; 81001; 81003; 81015; 82553; 83605; 83735; 83880; 84484; 85025; 87040; 87086; 87635; 93005; 93010; 93306; 93459; 93600; 93613; 93650; 93798; 94640; 94760; 96374; 96375; 96376; C1732; C1882; C1898; G0378; J0360; J0696; J1265; J1644; J1650; J1940; J1956; J2001; J2250; J2270; J2405; J2550; J2704; J3010; J3370; J3475; J3490; J7620; Q9967; U0003; U0005

== ENCOUNTER 2021-07-31 13:35 | Outpatient (CLI) | payer MEDICARE | END 2021-07-31 13:36 | disposition home or self-care (01) | LOC: BICRAD 13:35 | PROVIDERS: ATTEND Family Medicine | DX: R05.9 Cough, unspecified (principal) | CPT/HCPCS: 71046 ==

== ENCOUNTER 2021-08-29 13:06 | Outpatient (CLI) | payer MEDICARE | END 2021-08-29 13:07 | disposition home or self-care (01) | LOC: BICCT 13:06 | PROVIDERS: ATTEND Family Medicine | DX: J43.9 Emphysema, unspecified (principal); N20.0 Calculus of kidney; N28.9 Disorder of kidney and ureter, unspecified | CPT/HCPCS: 71250 ==

== ENCOUNTER 2021-09-09 14:29 | Outpatient (CLI) | payer MEDICARE | END 2021-09-09 14:30 | disposition home or self-care (01) | LOC: BICULT 14:29 | PROVIDERS: ATTEND Family Medicine | DX: N28.89 Other specified disorders of kidney and ureter (principal); N28.1 Cyst of kidney, acquired | CPT/HCPCS: 76770 ==

== ENCOUNTER 2022-05-22 20:24 | Emergency (ER) | payer MEDICARE ==
[2022-05-22 21:10] LABS: #Eosinphils 0.1 thou/uL (0.0-0.7); #Lymphocytes 0.9 thou/uL (1.20-3.40); #Monocytes 0.9 thou/uL (0.11-0.59); #Neutrophils 7.2 thou/uL (1.40-6.50); %Basophils 0.2 % (0.0-1.0); %Eosinophils 0.9 % (0.0-10.0); %Lymphocytes 9.5 % (21.0-51.0); %Monocytes 10.1 % (0.0-10.0); %Neutrophils 79.3 % (42.0-75.0); Hemoglobin 12.5 g/dL (12.0-16.0); Mean Corpuscular HGB CONC 32.8 g/dL (32.0-36.0); Mean Corpuscular Hemoglobin 35.9 pg (27.0-31.0); Mean Platelet Volume 7.9 fL (7.4-10.4); Platelet Count 376 10x3/uL (130-400); RBC Distribution Width 13.2 % (11.5-14.5); Red Blood Cell (RBC) Count 3.47 mill/uL (4.20-5.40); White Blood Cell (WBC) Count 9.1 10x3/uL (4.8-10.8)
[2022-05-22 21:34] LABS: ALT (SGPT) 12 U/L (8-55); AST (SGOT) 19 U/L (5-34); Albumin 3.9 g/dL (3.4-4.8); Alkaline Phosphatase 94 U/L (40-110); Anion Gap 15 mmol/L (10-20); BUN (Urea Nitrogen) 23 mg/dL (9.8-20.1); Bilirubin, Total 0.9 mg/dL (0.2-1.2); Calc. Creatinine Clearance 0 mL/min (70-130); Calcium 9.4 mg/dL (7.8-10.44); Carbon Dioxide 29 mmol/L (23-31); Chloride 99 mmol/L (98-107); Estimated GFR 53; Globulin 3.1 g/dL (2.4-3.5); Glucose 108 mg/dL (83-110); Potassium 3.7 mmol/L (3.5-5.1); Sodium 139 mmol/L (136-145)
== END 2022-05-23 01:18 | disposition home or self-care (01) ==
LOC: ERS 20:24
DX: M79.605 Pain in left leg (principal); I48.91 Unspecified atrial fibrillation; I10 Essential (primary) hypertension
CPT/HCPCS: 36415; 80053; 83880; 84484; 85025; 85379

== ENCOUNTER 2022-05-29 08:17 | Outpatient (CLI) | payer MEDICARE | END 2022-05-29 08:18 | disposition home or self-care (01) | LOC: BICULT 08:17 | PROVIDERS: ATTEND Internal Medicine Cardiovascular Disease | DX: R60.0 Localized edema (principal); I70.203 Unspecified atherosclerosis of native arteries of extremities, bilateral legs | CPT/HCPCS: 93923 ==

== ENCOUNTER 2022-06-04 14:54 | Outpatient (CLI) | payer MEDICARE | END 2022-06-04 14:55 | disposition home or self-care (01) | LOC: ULT 14:54 | PROVIDERS: ATTEND Internal Medicine Cardiovascular Disease | DX: I08.3 Combined rheumatic disorders of mitral, aortic and tricuspid valves (principal) | CPT/HCPCS: 93306 ==